=== PATIENT | female | born 1935 | race Caucasian/White ===

== ENCOUNTER 2021-04-08 09:03 | Outpatient (REF) | payer MEDICARE, SELFPAY ==
[2021-04-08 10:25] LABS: MANUAL DIFF FLAG NO
[2021-04-08 10:29] LABS: Basophils Percent Auto 0.2 % (0-2); Eosinophils Absolute Auto 0.1 X10*3/uL (0.0-0.4); Eosinophils Percent Auto 1.1 % (0-4); Hematocrit 35.3 % (37-47); Hemoglobin 11.8 g/dl (12.0-16.0); Imm Gran Abs Auto 0.02 X10*3/uL (0.00-0.03); Imm Gran Pct Auto 0.2 % (0.0-0.4); Lymphocytes Absolute Auto 2.3 X10*3/uL (1.2-4.9); Lymphocytes Percent Auto 27.8 % (20-40); Mean Corpuscular HGB Conc 33.4 g/dl (31.0-35.0); Mean Corpuscular Hemoglobin 29.5 pg (27.0-33.0); Mean Corpuscular Volume 88.3 fL (80-98); Mean Platelet Volume 10.1 fL (9.4-12.3); Monocytes Absolute Auto 0.6 X10*3/uL (0.1-1.2); Monocytes Percent Auto 7.7 % (2-11); Neutrophils Absolute Auto 5.1 X10*3/uL (2.0-8.3); Platelet Count 369 X10*3/uL (160-400); Red Cell Distribution Width 12.2 % (11.0-16.0); White Blood Count 8.1 X10*3/uL (4.8-10.8)
[2021-04-08 10:43] LABS: Alanine Aminotransferase 8 U/L (0-31); Albumin Level 3.7 g/dL (3.5-5.0); Alkaline Phosphatase 93 U/L (39-117); Anion Gap 12 (12-20); Aspartate Amino Transferase 17 U/L (5-31); Bilirubin Total 0.8 mg/dL (0.0-1.0); Blood Urea Nitrogen 8 mg/dL (9-16); Calcium 9.1 mg/dL (8.4-10.2); Carbon Dioxide 26 mmol/L (22-29); Chloride 104 mmol/L (96-108); Cholesterol 145 mg/dL; Estimated Glomerular Filt Rate > 60; Glucose Fasting 85 mg/dL (60-99); HDL Cholesterol 54 mg/dL; LDL Cholesterol Calculated 79 mg/dl; Potassium 4.3 mmol/L (3.3-5.1); Sodium 138 mmol/L (135-145); Total Protein 6.7 g/dL (6.5-8.0); Triglycerides 62 mg/dL
[2021-04-08 10:58] LABS: Vitamin D 25-OH Total 27.5 ng/mL (>30)
== END 2021-04-08 09:04 | disposition home or self-care (01) ==
LOC: HO.LAB 09:03
PROVIDERS: PCP Internal Medicine; Visit Provider Internal Medicine
DX: I10 Essential (primary) hypertension (principal); E78.00 Pure hypercholesterolemia, unspecified; E55.9 Vitamin D deficiency, unspecified
CPT/HCPCS: 36415; 80053; 80061; 82306; 85025

== ENCOUNTER 2021-07-13 10:27 | Outpatient (REF) | payer MEDICARE, SELFPAY ==
[2021-07-13 13:41] LABS: MANUAL DIFF FLAG NO
[2021-07-13 13:47] LABS: Basophils Percent Auto 0.3 % (0-2); Eosinophils Percent Auto 0.4 % (0-4); Hematocrit 36.8 % (37.0-47.0); Hemoglobin 12.2 g/dl (12.0-16.0); Imm Gran Abs Auto 0.01 X10*3/uL (0.00-0.03); Imm Gran Pct Auto 0.1 % (0.0-0.4); Lymphocytes Absolute Auto 2.3 X10*3/uL (1.2-4.9); Lymphocytes Percent Auto 29.3 % (20-40); Mean Corpuscular HGB Conc 33.2 g/dl (31.0-35.0); Mean Corpuscular Hemoglobin 29.7 pg (27.0-33.0); Mean Corpuscular Volume 89.5 fL (80.0-98.0); Mean Platelet Volume 10.6 fL (9.4-12.3); Monocytes Absolute Auto 0.6 X10*3/uL (0.1-1.2); Monocytes Percent Auto 8.2 % (2-11); Neutrophils Absolute Auto 4.77 x10*3/uL (2.0-8.3); Neutrophils Percent Auto 61.7 % (45-73); Platelet Count 384 X10*3/uL (160-400); Red Blood Count 4.11 X10*6/uL (4.20-5.50); Red Cell Distribution Width 12.1 % (11.0-16.0); White Blood Count 7.7 X10*3/uL (4.8-10.8)
[2021-07-13 14:21] LABS: Anion Gap 10 (12-20); Blood Urea Nitrogen 8 mg/dL (9-16); Calcium 8.9 mg/dL (8.4-10.2); Carbon Dioxide 28 mmol/L (22-29); Chloride 100 mmol/L (96-108); Estimated Glomerular Filt Rate > 60; Glucose Random 85 mg/dL (60-115); Iron 80 mcg/dL (30-160); Percent Iron Saturation 20 % (15-50); Potassium 4.1 mmol/L (3.3-5.1); Sodium 134 mmol/L (135-145); Total Iron Binding Capacity 395 mcg/dL (228-428); Unsaturated Iron Binding 315 ug/dL
[2021-07-13 14:36] LABS: Vitamin D 25-OH Total 27.1 ng/mL (>30)
== END 2021-07-13 10:28 | disposition home or self-care (01) ==
LOC: HO.10HDL 10:27
PROVIDERS: Visit Provider Internal Medicine
DX: E55.9 Vitamin D deficiency, unspecified (principal); D64.9 Anemia, unspecified; I10 Essential (primary) hypertension
CPT/HCPCS: 36415; 80048; 82306; 83540; 85025

== ENCOUNTER 2023-07-14 09:43 | Outpatient (REF) | payer MEDICARE, SELFPAY ==
[2023-07-14 09:53] LABS: MANUAL DIFF FLAG NO
[2023-07-14 11:17] LABS: Basophils Percent Auto 0.4 % (0-2); Eosinophils Absolute Auto 0.1 X10*3/uL (0.0-0.4); Eosinophils Percent Auto 1.4 % (0-4); Hematocrit 37.5 % (37.0-47.0); Hemoglobin 12.7 g/dl (12.0-16.0); Imm Gran Abs Auto 0.02 X10*3/uL (0.00-0.03); Imm Gran Pct Auto 0.2 % (0.0-0.4); Lymphocytes Absolute Auto 2.8 X10*3/uL (1.2-4.9); Lymphocytes Percent Auto 33.4 % (20-40); Mean Corpuscular HGB Conc 33.9 g/dl (31.0-35.0); Mean Corpuscular Hemoglobin 29.8 pg (27.0-33.0); Mean Platelet Volume 10.2 fL (9.4-12.3); Monocytes Absolute Auto 0.9 X10*3/uL (0.1-1.2); Monocytes Percent Auto 11.1 % (2-11); Neutrophils Absolute Auto 4.6 x10*3/uL (2.0-8.3); Neutrophils Percent Auto 53.5 % (45-73); Platelet Count 408 X10*3/uL (160-400); Red Blood Count 4.26 X10*6/uL (4.20-5.50); Red Cell Distribution Width 12.4 % (11.0-16.0); White Blood Count 8.5 X10*3/uL (4.8-10.8)
[2023-07-14 11:56] LABS: Alanine Aminotransferase 8 U/L (0-31); Albumin Level 3.7 g/dL (3.5-5.0); Alkaline Phosphatase 78 U/L (39-117); Anion Gap 12 (12-20); Aspartate Amino Transferase 19 U/L (5-31); Bilirubin Total 0.5 mg/dL (0.0-1.0); Blood Urea Nitrogen 8 mg/dL (9-16); Carbon Dioxide 27 mmol/L (22-29); Chloride 96 mmol/L (96-108); Cholesterol 162 mg/dL (<200); Estimated Glomerular Filt Rate > 60; Glucose Fasting 88 mg/dL (60-99); HDL Cholesterol 61 mg/dL (>40); LDL Cholesterol Calculated 87 mg/dL (<100); Sodium 131 mmol/L (135-145); Triglycerides 70 mg/dL (<150)
== END 2023-07-14 09:44 | disposition home or self-care (01) ==
LOC: HO.LAB 09:43
PROVIDERS: PCP Internal Medicine; Visit Provider Internal Medicine
DX: I10 Essential (primary) hypertension (principal); E78.00 Pure hypercholesterolemia, unspecified
CPT/HCPCS: 36415; 80053; 80061; 85025

== ENCOUNTER 2023-12-20 04:33 | Inpatient (IN) | payer MEDICARE, SELFPAY ==
[2023-12-20] VITALS (9 sets, daily range): BP systolic 118–218; BP diastolic 56–127; PULSE 59–68; RESP 16–18; TEMP 36.4–36.6; O2SAT 97–99; BMI 22.1
--- NOTE | ~2023-12-20 | XR_ITS ---
EXAMINATION: XR CHEST CLINICAL INFORMATION: Altered mental status COMPARISON: Chest radiograph 09/25/2011, report only TECHNIQUE: Frontal view of the chest was obtained. FINDINGS: No significant abnormality is noted involving the heart, lungs, mediastinum, bony thorax or soft tissues. XR/XR chest 1V IMPRESSION: Unremarkable examination.
--- NOTE | ~2023-12-20 | CT_ITS ---
EXAMINATION: CT HEAD WITHOUT CONTRAST CLINICAL INFORMATION: Acute mental status change COMPARISON: 11/10/2007 TECHNIQUE: Contiguous axial imaging was performed from the skull base to vertex without intravenous administration of contrast. This CT examination was performed using dose optimization techniques as appropriate, variously including the following: *Automated exposure control *Adjustment of mA and/or kV according to patient size (this includes techniques or standardized protocols for targeted exams where dose is matched to indication/reason for exam; i.e. extremities or head) *Use of iterative reconstruction technique DLP: 569 mGy-cm FINDINGS: There is no evidence of acute intracranial hemorrhage or ischemic or hemorrhagic stroke. Sulci and ventricles are mildly prominent secondary to age-related involutional changes in the patchy periventricular white matter hypodensities as a sequela of microangiopathy. There is no evidence of masses, mass effect, midline shift, edema. Osseous structures revealed no fractures. Paranasal sinuses demonstrate mucosal thickening of right frontal sinus and opacification of left mastoids. The rest of paranasal sinuses are well aerated. CT/CT head/brain wo IV con IMPRESSION: No acute intracranial pathology. 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
--- NOTE | 2023-12-20 06:46 | PC.NURSE ---
Addendum entered by Edilma Paz Katie 12/20/23 06:50: used new machine, bp lower. will update provider Original Note: notifed provider of elevated bp. awaiting new orders
--- NOTE | 2023-12-20 06:50 | ECG_ITS ---
Test Reason : AMS Blood Pressure : / mmHG Vent. Rate : 063 BPM Atrial Rate : 063 BPM P-R Int : 150 ms QRS Dur : 082 ms QT Int : 440 ms P-R-T Axes : 066 001 063 degrees QTc Int : 450 ms Normal sinus rhythm Possible Anterior infarct , age undetermined Abnormal ECG When compared with ECG of 03-AUG-2009 14:07, No significant change was found Referred By: Rhoda Gomez Electronically Signed By:Uriah Story
[2023-12-20 07:16] LABS: MANUAL DIFF FLAG NO
[2023-12-20 07:17] LABS: Basophils Percent Auto 0.2 % (0-2); Eosinophils Percent Auto 0.3 % (0-4); Hematocrit 39.7 % (37.0-47.0); Hemoglobin 14.2 g/dl (12.0-16.0); Imm Gran Abs Auto 0.03 X10*3/uL (0.00-0.03); Imm Gran Pct Auto 0.3 % (0.0-0.4); Lymphocytes Absolute Auto 2.4 X10*3/uL (1.2-4.9); Lymphocytes Percent Auto 24.6 % (20-40); Mean Corpuscular HGB Conc 35.8 g/dl (31.0-35.0); Mean Corpuscular Hemoglobin 30.3 pg (27.0-33.0); Mean Corpuscular Volume 84.8 fL (80.0-98.0); Mean Platelet Volume 9.4 fL (9.4-12.3); Monocytes Absolute Auto 0.7 X10*3/uL (0.1-1.2); Neutrophils Absolute Auto 6.5 x10*3/uL (2.0-8.3); Neutrophils Percent Auto 67.6 % (45-73); Platelet Count 408 X10*3/uL (160-400); Red Blood Count 4.68 X10*6/uL (4.20-5.50); Red Cell Distribution Width 11.9 % (11.0-16.0); White Blood Count 9.6 X10*3/uL (4.8-10.8)
[2023-12-20 07:24] LABS: Prothrombin Time 12.3 SEC (11.1-13.3)
[2023-12-20 07:27] LABS: Partial Thromboplastin Time 31.1 SEC (26.0-36.8)
[2023-12-20 07:27] LABS: Lactic Acid 0.9 mmol/L (0.5-2.0)
--- NOTE | 2023-12-20 07:38 | PC.NURSE ---
IV established, labs obtained and sent. family remains at bedside with patient. patient remains increasingly altered from her baseline per family. call berry within reach
--- NOTE | 2023-12-20 07:38 | ED.AMS ---
HPI - Altered Mental Status General Chief Complaint: Altered Mental Status Stated Complaint: increased confusion hallucinations Time Seen by Provider: 12/20/23 06:59 Source: patient, family and RN notes reviewed Mode of arrival: ambulatory Limitations: no limitations History of Present Illness HPI narrative: This is a 88-year-old female, with a history of dementia, who presents emergency department accompanied by her daughter and grandchildren, with concerns for change in mentation x2 days. Patient is alert and oriented to self only. When asked questions, patient is unable to answer them, as she will state random statements do not pertain to questions asked. Family reports that patient is baseline confused however states that since yesterday there is a change in her mentation. Family reports that she also had a sudden onset of auditory and visual hallucinations which is unlike her. They state that she was seeing individuals that have passed on, as well as seeing people climbing on aquino. Family reports that yesterday she started become aggressive which is very unlike her. Denies any recent illnesses, no fevers, cough, abdominal pain, vomiting. No other complaints or concerns at this time. MD complaint: altered mental status and confusion Onset (ago): day(s) Severity: severe Consistency of symptoms: getting Worse Related Data Home Medications ?Medication ?Instructions ?Recorded ?Confirmed aspirin 81 mg chewable tablet 81 mg PO DAILY 12/20/23 12/20/23 atenolol 50 mg tablet 50 mg PO DAILY 12/20/23 12/20/23 buspirone 5 mg tablet 10 mg PO DAILY 12/20/23 12/20/23 omeprazole 20 mg capsule,delayed 20 mg PO DAILY 12/20/23 12/20/23 release simvastatin 20 mg tablet 20 mg PO DAILY 12/20/23 12/20/23 Allergies Allergy/AdvReac Type Severity Reaction Status Date / Time nitrofurantoin Allergy Mild SWELLING Verified 12/21/23 08:01 [From Macrodantin] nitroglycerin Allergy Unknown Verified 12/21/23 08:01 Review of Systems Review of Systems: Yes all other systems are reviewed and are negative Constitutional: Constitutional: Reports as per HPI [facility] Social History Social History Smoked in Last 30 Days: No Use of substances other than those prescribed or required for medical reasons: No Advance Directives: No Advance Directives Information Provided: Yes Physical Exam ED Vital Signs: Vital Signs - 24 hr 12/20/23 17:49 12/20/23 20:51 12/20/23 21:46 Temperature 97.9 F Pulse Rate 62 64 Respiratory Rate 16 17 Blood Pressure 170/61 H 191/77 H 194/67 H Pulse Oximetry 98 98 Oxygen Delivery Method Room Air Room Air 12/21/23 03:01 12/21/23 07:24 12/21/23 12:54 Temperature Pulse Rate 73 Respiratory Rate 18 22 H 16 Blood Pressure Pulse Oximetry 96 Oxygen Delivery Method Room Air BMI result Body Mass Index 22.1 Const General: cooperative, comfortable and no acute distress Limitations: no limitations HENMT Head: Yes normal to inspection, Yes normocephalic and Yes atraumatic Ears: hearing grossly normal bilaterally General nose exam: Normal external nose present Face and sinus: Yes normal facial exam Mouth: Normal oral and palatal mucosa present, oropharynx normal and moist mucous membranes Throat: Yes posterior oropharynx normal Eyes General: appearance normal, both eyes and all related structures Eyelids: Yes eyelids normal Conjunctivae: conjunctivae normal Sclerae: sclerae normal Pupils: Equal, round and reactive pupils present EOM: EOMs intact bilaterally Neck Neck: Yes normal visual inspection, Yes full ROM and Yes no lymphadenopathy Lymphatic: no lymphadenopathy noted Chest Chest palpation & inspection: normal inspection of the chest Resp Effort & Inspection: normal respiratory effort and able to speak in complete sentences Auscultation: clear to auscultation bilaterally, no crackles, no rales, no rhonchi and no wheezes Cardio Rate: regular rate Rhythm: regular rhythm Heart sounds: S1 normal heart sound present and S2 normal heart sound present GI Inspection: Yes normal to inspection Skin General skin exam: no rashes or lesions noted Trauma: no lacerations or abrasions Wounds: no wounds Neuro General: moves all extremities Cranial nerves: Yes Equal, round and reactive pupils present Extrem General: Yes normal to inspection Right upper extremity: normal to inspection Left upper extremity: normal to inspection Right lower extremity: normal to inspection Left lower extremity: normal to inspection Psych Appearance: grossly normal Mental Status: mental status grossly normal Affect: Hostile affect present Attitude: Guarded attititude/behavior present Thought process: Flight of ideas present and Loose association thought process present Thought content: Hallucination(s) present Insight: Limited insight present (Psych) Judgement: Limited judgement present (Psych) Course Reevaluation(s) Reevaluation #1: Critical magnesium returns at 1.2; replenished with magnesium 2 g IV push. Time: 07:50 Reevaluation #2: Urine returns, is not infectious, patient is slightly hyponatremic at 132, CT head still pending. Chest x-ray does not reveal a pneumonia. Time: 10:27 Reevaluation #3: Blood pressure has been elevated, she typically takes her atenolol in the morning. She also takes BuSpar in the morning as well. Patient will be medicated with these medications. CT head revealing no acute intracranial pathology. Sequela of microangiopathy, chronic sinus disease and left mastoiditis seen. Given patient has nontender abdomen. At this time there is no identified acute process that would contribute to change in mentation. Per family, patient has not been sleeping well, which could be contributing to her change in mentation. Pt with a essentially negative workup, will place psych consult in for possible K[facility]en psych consultation, care team consult and case management. Pt remains to be plesantly confused, no agitation at this time. Pt placed in physician observation pending psych consult, care team consult and CM pending safe dispo planning. Time: 10:38 Additional Reevaluation(s): 12/21/2023, 15:48 hours The patient has a history of Alzheimer's dementia. Patient is not capable of making medical decisions. The family does have a healthcare proxy that appoints the patient's daughter, Manju Stanford to make medical decisions for the patient. At this time, I am invoking the patient's healthcare proxy. All medical decisions will be made by the patient's daughter, Manju Stanford with the alternative healthcare proxy being the patient's son, Filiberto Monique. Justin Dickey MD Medications Administered Generic Name Dose Route Start Last Admin Trade Name Freq PRN Reason Stop Dose Admin Aspirin 81 mg 12/21/23 09:00 12/21/23 08:20 Aspirin 81 Mg Tab.Chew PO 81 mg DAILY LISSA Administration Atenolol 50 mg 12/21/23 09:00 12/21/23 08:18 Atenolol 50 Mg Tablet PO 50 mg DAILY LISSA Administration Protocol Atorvastatin Calcium 10 mg 12/21/23 09:00 12/21/23 08:20 Atorvastatin Calcium 10 Mg Tablet PO 10 mg DAILY LISSA Administration Buspirone HCl 10 mg 12/21/23 09:00 12/21/23 08:20 Buspirone Hcl 10 Mg Tablet PO 10 mg DAILY LISSA Administration Omeprazole 20 mg 12/21/23 06:30 12/21/23 05:43 Omeprazole 20 Mg Capsule.Dr CHÁVEZ Not Given DAILY@0630 [facility] Discontinued Medications Generic Name Dose Route Start Last Admin Trade Name Yris PRN Reason Stop Dose Admin Atenolol 50 mg 12/20/23 10:37 12/20/23 10:55 Atenolol 50 Mg Tablet PO 12/20/23 10:38 50 mg ONCE ONE Administration Protocol Buspirone HCl 5 mg 12/20/23 10:37 12/20/23 10:56 Buspirone Hcl 5 Mg Tablet PO 12/20/23 10:38 5 mg ONCE ONE Administration Diphenhydramine HCl 50 mg 12/20/23 19:42 12/20/23 20:06 Diphenhydramine Hcl 25 Mg Capsule PO 12/20/23 19:43 50 mg ONCE ONE Administration Magnesium Sulfate 2 gm in 50 mls @ 25 mls/hr 12/20/23 07:52 12/20/23 10:47 Magnesium Sulfate/H2o IV 12/20/23 09:51 Infused ONCE ONE Infusion Olanzapine 5 mg 12/20/23 23:17 12/20/23 23:24 Olanzapine 5 Mg Tablet PO 12/20/23 23:18 5 mg ONCE ONE Administration Olanzapine 5 mg 12/21/23 00:57 12/21/23 01:02 Olanzapine 5 Mg Tablet PO 12/21/23 00:58 5 mg ONCE ONE Administration Olanzapine 5 mg 12/21/23 03:43 12/21/23 05:20 Olanzapine 5 Mg Tablet PO 12/21/23 03:44 Not Given ONCE ONE Medical Decision Making Medical Decision Making MDM Narrative: This is a 88-year-old female, with a history of dementia, who presents emergency department with complaints of sudden onset auditory and visual hallucinations as well as agitation for the last 2 days. Patient is alert and oriented to self only. When asked questions, she states random statements that do not pertain to questions asked. On arrival, patient mildly hypertensive at 169/75, repeat 153/83, she is afebrile, nontoxic-appearing. Family reports that she is typically confused at baseline however auditory and visual hallucinations as well as agitation is new for her over the last 2 days. Given acute change in mentation, concern for acute delirium. Other differential diagnoses include ICH, electrolyte abnormality, UTI, pneumonia, COVID, flu, RSV. Plan: Labs, UA, CT head, chest x-ray, EKG Differential Diagnosis Differential Diagnoses: The differential diagnosis associated with the presentation includes See above Admission/Observation Consideration of admission/observation: Escalation of care including admission/observation considered Escalation of care including admission/observation considered however given workup today not warranted at this time. Lab Data MDM Lab Attestation statement: I reviewed the patient's lab results. No leukocytosis, stable H&H, hyponatremic at 132, hypomagnesium the anemia at 1.2, Chemistry otherwise WNL. UA does not appear to be infected. 12/20/23 07:10 12/20/23 07:10 Labs: Lab Results 12/20/23 12/20/23 12/20/23 Range/Units 07:09 07:10 08:31 WBC 9.6 (4.8-10.8) X10*3/uL RBC 4.68 (4.20-5.50) X10*6/uL Hgb 14.2 (12.0-16.0) g/dl Hct 39.7 (37.0-47.0) % MCV 84.8 (80.0-98.0) fL MCH 30.3 (27.0-33.0) pg MCHC 35.8 H (31.0-35.0) g/dl RDW 11.9 (11.0-16.0) % Plt Count 408 H (160-400) X10*3/uL MPV 9.4 (9.4-12.3) fL Immature Gran % (Auto) 0.3 (0.0-0.4) % Neut % (Auto) 67.6 (45-73) % Lymph % (Auto) 24.6 (20-40) % [place] % (Auto) 7.0 (2-11) % Eos % (Auto) 0.3 (0-4) % Baso % (Auto) 0.2 (0-2) % Lymph # (Auto) 2.4 (1.2-4.9) X10*3/uL [place] # (Auto) 0.7 (0.1-1.2) X10*3/uL Eos # (Auto) 0.0 (0.0-0.4) X10*3/uL Baso # (Auto) 0.0 (0.0-0.2) X10*3/uL Abs Immat Gran (auto) 0.03 (0.00-0.03) X10*3/uL Absolute Neuts (auto) 6.5 (2.0-8.3) x10*3/uL Absolute Nucleated RBC 0.000 (0.0-0.012) X10*3/uL Nucleated RBC % (auto) 0.0 (0.0-0.2) /100WBC PT 12.3 (11.1-13.3) SEC INR 1.0 (0.9-1.1) APTT 31.1 (26.0-36.8) SEC Sodium 132 L (135-145) mmol/L Potassium 3.3 (3.3-5.1) mmol/L Chloride 98 (96-108) mmol/L Carbon Dioxide 25 (22-29) mmol/L Anion Gap 12 (12-20) BUN 5 L (9-16) mg/dL Creatinine 0.79 (0.5-1.4) mg/dL Estim Creat Clear Calc 35.3 Estimated GFR > 60 Random Glucose 104 (60-115) mg/dL Lactic Acid 0.9 (0.5-2.0) mmol/L Calcium 9.5 (8.4-10.2) mg/dL Magnesium 1.2 L* (1.6-2.6) mg/dL Total Bilirubin 0.9 (0.0-1.0) mg/dL AST 19 (5-31) U/L ALT 10 (0-31) U/L Alkaline Phosphatase 88 (39-117) U/L Troponin I High Sens < 2.7 (<3.5-17.0) ng/L Total Protein 7.8 (6.5-8.0) g/dL Albumin 4.1 (3.5-5.0) g/dL Lipase 27 (8-78) U/L TSH 3.00 (0.32-4.0) uIU/mL Urine Color Yellow Urine Appearance Clear Urine pH 7.0 (5.0-9.0) Ur Specific [place] <= 1.005 (1.005-1.025) Urine Protein Negative (Neg-Trace) mg/dL Urine Glucose (UA) Negative (Negative) mg/dL Urine Ketones Negative (Negative) mg/dL Urine Blood Negative (Negative) Urine Nitrite Negative (Negative) Ur Leukocyte Esterase Negative (Negative) Influenza Type A (PCR) NEGATIVE (Negative) Influenza Type B (PCR) NEGATIVE (Negative) RSV RNA Qual (PCR) NEGATIVE (Negative) SARS-CoV-2 RNA (RT-PCR) NEGATIVE (Negative) Independent Interpretation I performed an independent interpretation of an: EKG Interpretation: Normal sinus rhythm at a ventricular rate of 63 beats per minute, WI interval 150, QT QTC 440/450. Or R-wave progression in V1, V2, and V3. Radiology Impression Discussion of test interpretation with radiology: I have reviewed the radiologist's reading. Radiologist Impression: FINDINGS: There is no evidence of acute intracranial hemorrhage or ischemic or hemorrhagic stroke. Sulci and ventricles are mildly prominent secondary to age-related involutional changes in the patchy periventricular white matter hypodensities as a sequela of microangiopathy. There is no evidence of masses, mass effect, midline shift, edema. Osseous structures revealed no fractures. Paranasal sinuses demonstrate mucosal thickening of right frontal sinus and opacification of left mastoids. The rest of paranasal sinuses are well aerated. CT/CT head/brain wo IV con IMPRESSION: No acute intracranial pathology. 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 Dictated By: Lauren Black MD Signed By: <Electronically signed by Lauren Black MD in OV> EXAMINATION: XR CHEST CLINICAL INFORMATION: Altered mental status COMPARISON: Chest radiograph 09/25/2011, report only TECHNIQUE: Frontal view of the chest was obtained. FINDINGS: No significant abnormality is noted involving the heart, lungs, mediastinum, bony thorax or soft tissues. XR/XR chest 1V IMPRESSION: Unremarkable examination. Dictated By: Marco Antonio Vargas MD Independent Historian Clinical information obtained from an independent historian. History obtained from or confirmed by: Other (family) Discharge Plan Discharge Clinical Impression: Altered mental status Patient Disposition: Still a Patient
[2023-12-20 07:42] LABS: Alanine Aminotransferase 10 U/L (0-31); Albumin Level 4.1 g/dL (3.5-5.0); Alkaline Phosphatase 88 U/L (39-117); Anion Gap 12 (12-20); Aspartate Amino Transferase 19 U/L (5-31); Bilirubin Total 0.9 mg/dL (0.0-1.0); Blood Urea Nitrogen 5 mg/dL (9-16); Calcium 9.5 mg/dL (8.4-10.2); Carbon Dioxide 25 mmol/L (22-29); Chloride 98 mmol/L (96-108); Creatinine Clr Calc Pharmacy 35.3; Estimated Glomerular Filt Rate > 60; Glucose Random 104 mg/dL (60-115); Lipase 27 U/L (8-78); Magnesium 1.2 mg/dL (1.6-2.6); Potassium 3.3 mmol/L (3.3-5.1); Sodium 132 mmol/L (135-145); Total Protein 7.8 g/dL (6.5-8.0)
[2023-12-20 07:43] LABS: Troponin-I High Sensitivity < 2.7 ng/L (<3.5-17.0)
[2023-12-20 07:58] LABS: Influenza A PCR NEGATIVE (Negative); Influenza B PCR NEGATIVE (Negative); Resp Syncy Virus RNA Qual PCR NEGATIVE (Negative); SARS COV2 PCR INHOUSE NEGATIVE (Negative)
[2023-12-20] MEDS: Magnesium Sulfate/H2O 2 GM/50 ML PIGGYBACK IV (08:26)
--- NOTE | 2023-12-20 08:34 | PC.NURSE ---
straight cath obtained for urine sample. patient did not tolerate well, urine sample sent
[2023-12-20 08:38] LABS: Appearance Urine Clear; Color Urine Yellow; Glucose Urine UA Negative (Negative); Leukocyte Esterase Urine Negative (Negative); Nitrite Urine Negative (Negative); Specific Gravity - Urine <= 1.005 (1.005-1.025); Urine Blood Negative (Negative); Urine Ketones Negative (Negative); Urine Protein Negative (Neg-Trace)
[2023-12-20] MEDS: atenoloL 50 MG TABLET PO (10:55)
[2023-12-20] MEDS: busPIRone HCl 5 MG TABLET PO (10:56)
--- NOTE | 2023-12-20 11:00 | PC.NURSE ---
medicated per the MAR. family remains at bedside. provided with crackers and pudding.
--- NOTE | 2023-12-20 12:26 | PC.NURSE ---
patient placed into hospital bed w/ alarm on. video camera also in place for patient safety.
--- NOTE | 2023-12-20 14:06 | MHC.CARE ---
patient seen by CARE team, assessment completed with referral for psych consult due to current symptomology (hallucinations, self dialogue, SI statement and combativeness) in tandem with no reported hx of MH diagnosis or treatment. Patient dx dementia by PCP with his office doing cognitive testing every few months since 2013. Additionally, referral for CM to be made as family is very concerned about their ability to keep patient safe in the home at this time.
--- NOTE | 2023-12-20 16:32 | PHA.MEDREC ---
Pharmacy Consult ? Medication Reconciliation Pharmacy has completed the medication reconciliation. Patient's family reported medicaitons. Reports buspar is taken 2 tablet daily instead of 1 BID. Ashley Chu, FiliD
[2023-12-20] MEDS: diphenhydrAMINE HCL 25 MG CAPSULE 50 MG PO (20:06)
--- NOTE | 2023-12-20 22:26 | PC.NURSE ---
Dr. Menjivar aware of BP's, pt is asymptomatic, no further orders @ this time.
[2023-12-20] MEDS: OLANZapine 5 MG TABLET PO (23:24)
--- NOTE | 2023-12-20 23:30 | PC.NURSE ---
PT very agitated, attempting to get out of bed, yelling at son. Zyprexa 5mg ordered and given, effect pending.
[2023-12-21] MEDS: OLANZapine 5 MG TABLET PO (01:02)
--- NOTE | 2023-12-21 01:33 | PC.NURSE ---
Late entry; at approx 1am pt became extremely agitated, continuing to attempt to jump out of bed. Son reports she has not slept in 3 days. Add'l 5mg of Zyprexa ordered and given. Effect pending.
[2023-12-21 03:01] VITALS: RESP 18
--- NOTE | 2023-12-21 03:03 | MHC.EDTECH ---
This tech is assuming care of this patient at 03:00. At this time, son is at bedside, patient has been awake seemly agitated.
[2023-12-21 07:24] VITALS: PULSE 73; RESP 22; O2SAT 96
--- NOTE | 2023-12-21 07:25 | MHC.EDTECH ---
Patient is agitated and constantly attempting to get out of bed. Unable to get a BP at this time, was able to get an O2, HR and RR.
[2023-12-21] MEDS: atenoloL 50 MG TABLET PO (08:18)
[2023-12-21] MEDS: Atorvastatin Calcium 10 MG TABLET PO (08:20)
[2023-12-21] MEDS: busPIRone HCl 10 MG TABLET PO (08:20)
[2023-12-21] MEDS: Aspirin 81 MG TAB.CHEW PO (08:20)
--- NOTE | 2023-12-21 08:31 | PC.NURSE ---
pt is alert, not oriented to place or situation. Pt took morning pills with significant encouragement. Pt is confused, currently not agitated nor combative. Pts family at bedside, they report that pt has not slept in 3 days. waiting for psych consult
[2023-12-21 12:54] VITALS: RESP 16
[2023-12-21 15:50] VITALS: PULSE 74; RESP 16; O2SAT 96
--- NOTE | 2023-12-21 18:58 | PC.ADMIT ---
Patient admitted to unit from [facility] ED at 1850. Legal status is CV by HCP. Patient alert to self only. Dressed in [facility]. Transported by stretcher. Put in clean gown and brief. Skin check done. Patient with HX of worsening dementia.Agitated and agressive to staff. daughter reported patient has had raqpid decompensation over last three days.
[2023-12-21 19:30] VITALS: BP 135/85; PULSE 64; RESP 18; TEMP 35.2; O2SAT 97
[2023-12-21 22:27] VITALS: BMI 20.4
[2023-12-22] MEDS: Omeprazole 20 MG CAPSULE.DR PO (06:06)
[2023-12-22 08:21] LABS: Alanine Aminotransferase 8 U/L (0-31); Albumin Level 3.1 g/dL (3.5-5.0); Alkaline Phosphatase 68 U/L (39-117); Anion Gap 12 (12-20); Aspartate Amino Transferase 15 U/L (5-31); Bilirubin Total 0.8 mg/dL (0.0-1.0); Blood Urea Nitrogen 19 mg/dL (9-16); Calcium 8.6 mg/dL (8.4-10.2); Carbon Dioxide 23 mmol/L (22-29); Chloride 98 mmol/L (96-108); Cholesterol 113 mg/dL (<200); Creatinine Clr Calc Pharmacy 26.5; Estimated Glomerular Filt Rate 49; Glucose Fasting 84 mg/dL (60-99); HDL Cholesterol 53 mg/dL (>40); LDL Cholesterol Calculated 50 mg/dL (<100); Potassium 3.4 mmol/L (3.3-5.1); Sodium 130 mmol/L (135-145); Total Protein 5.8 g/dL (6.5-8.0); Triglycerides 53 mg/dL (<150)
[2023-12-22 12:00] VITALS: BP 122/60; PULSE 69; RESP 16; TEMP 36.6; O2SAT 97
[2023-12-22 19:30] VITALS: BP 166/71; PULSE 61; RESP 17; TEMP 36.1; O2SAT 97
--- NOTE | 2023-12-22 21:28 | P.PNPSI_ITS ---
Subjective Subjective Date of Service: 12/22/23 Reason For Visit: agitation Diagnostics Vital Signs (24Hr): Vital Signs - 24 hr 12/22/23 12:00 Temperature 97.8 F Pulse Rate 69 Respiratory Rate 16 Blood Pressure 122/60 Pulse Oximetry 97 Oxygen Delivery Method Room Air BMI result Body Mass Index 20.4 Labs 12/20/23 07:10 12/22/23 07:31 Labs: Laboratory Results - last 48 hr 12/22/23 07:31 Hold Purple Top SEE NOTE Sodium 130 L Potassium 3.4 Chloride 98 Carbon Dioxide 23 Anion Gap 12 BUN 19 H Creatinine 1.05 Estim Creat Clear Calc 26.5 Estimated GFR 49 Fasting Glucose 84 Calcium 8.6 D Total Bilirubin 0.8 AST 15 ALT 8 Alkaline Phosphatase 68 Total Protein 5.8 L Albumin 3.1 L Triglycerides 53 Cholesterol 113 LDL Cholesterol, Calc 50 HDL Cholesterol 53 Imaging Radiology Impressions: ITS Impressions Chest X-Ray 12/20/23 07:54 IMPRESSION: Unremarkable examination. Head CT 12/20/23 08:32 IMPRESSION: No acute intracranial pathology. 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 Medications Medications Current Medications Acetaminophen (Acetaminophen 325 Mg Tablet) 650 mg PO Q6H PRN PRN Reason: Headache/Pain Mild Scale (1-3) Al Hydroxide/Mg Hydroxide (Magnesium Hydrox/Alum Hydrox 30 Ml Oral.Susp) 30 ml PO Q6H PRN PRN Reason: Heartburn/Nausea Aspirin (Aspirin 81 Mg Tab.Chew) 81 mg PO DAILY [facility] Last Admin: 12/22/23 12:17 Dose: Not Given Atenolol (Atenolol 50 Mg Tablet) 50 mg PO DAILY [facility]; Protocol Last Admin: 12/22/23 12:17 Dose: Not Given Atorvastatin Calcium (Atorvastatin Calcium 10 Mg Tablet) 10 mg PO DAILY [facility] Last Admin: 12/22/23 12:17 Dose: Not Given Buspirone HCl (Buspirone Hcl 10 Mg Tablet) 10 mg PO DAILY [facility] Last Admin: 12/22/23 12:17 Dose: Not Given Hydroxyzine HCl (Hydroxyzine Hcl 25 Mg Tablet) 25 mg PO Q6H PRN PRN Reason: Anxiety Magnesium Hydroxide (Milk Of Magnesia 30 Ml Oral.Susp) 30 ml PO DAILY PRN PRN Reason: Constipation Omeprazole (Omeprazole 20 Mg Capsule.Dr) 20 mg PO DAILY@0630 [facility] Last Admin: 12/22/23 06:06 Dose: 20 mg Trazodone HCl (Trazodone Hcl 50 Mg Tablet) 50 mg PO BEDTIME MRX1 PRN PRN Reason: Insomnia Allergies Allergies Allergy/AdvReac Type Severity Reaction Status Date / Time nitrofurantoin Allergy Mild SWELLING Verified 12/21/23 08:01 [From Macrodantin] nitroglycerin Allergy Unknown Verified 12/21/23 08:01 Assessment & Plan Time Spent With Patient Time: Total time managing care of this patient today ____ minutes.
--- NOTE | 2023-12-22 21:30 | HO.PSYADMNOT ---
HPI Date of Service: 12/22/23 Chief Complaint: agitation Sources of Information: patient interviewed, chart reviewed and crisis/core team assessment reviewed HPI Subjective Notes: Conditional Voluntary Healthcare Proxy: Yes Narrative: 88 yo female w history of dementia who presented to ED for 2 day hx of altered mental status. According to ED note, she was brought in by her daughter and grandchildren who voiced concerned that patient was not at her baseline. She is generally confused but reportedly had an acute VH with seeing relatives and people climbing on aquino . Per family report, patient became aggressive at home, prior to ED visit. ED workup including physical examination, CT, EKG and lab work including CBC, CMP, TSH, lipase and U/A were largely unremarkable aside from low magnesium for which she was already treated with 2 gm IV Mg sulfate. I met with her this morning, she was in her room, awake, alert and walking around. SHe was half dressed and was asking everyone where her pants were. She was hard of hearing and asked for repeated questions but could not answer any appropriately and continued to ask about where her pants were. She was looking around including under the beds and was trying to reach out and touch the pedals on her roommate's bed, prompting roommate to ask her what she is doing. Patient did not respond but did stop trying to to this once she was redirected. She was unable to provide any history and could not give me her name but did respond to her name and was oriented to self only. She was given pants by nursing staff and was later seen walking along hallway, greeting people with a good morning but did not respond to any follow up questions. She appears bright but otherwise confused. She went to get breakfast and asked if I was coming along. She asked if I knew where my mother was. Past Psychiatric History: unable to obtain Medical Evaluation Reviewed: Yes COUNT INCLUDES THE [facility] Family History: unable to obtain Social History: unable to obtain Substance History: unable to obtain Trauma History: unable to obtain Diagnostics Vital Signs (24Hr): Vital Signs - 24 hr 12/22/23 12:00 Temperature 97.8 F Pulse Rate 69 Respiratory Rate 16 Blood Pressure 122/60 Pulse Oximetry 97 Oxygen Delivery Method Room Air BMI result Body Mass Index 20.4 Labs 12/20/23 07:10 12/22/23 07:31 Labs: Laboratory Results - last 48 hr 12/22/23 07:31 Hold Purple Top SEE NOTE Sodium 130 L Potassium 3.4 Chloride 98 Carbon Dioxide 23 Anion Gap 12 BUN 19 H Creatinine 1.05 Estim Creat Clear Calc 26.5 Estimated GFR 49 Fasting Glucose 84 Calcium 8.6 D Total Bilirubin 0.8 AST 15 ALT 8 Alkaline Phosphatase 68 Total Protein 5.8 L Albumin 3.1 L Triglycerides 53 Cholesterol 113 LDL Cholesterol, Calc 50 HDL Cholesterol 53 Imaging Radiology Impressions: ITS Impressions Chest X-Ray 12/20/23 07:54 IMPRESSION: Unremarkable examination. Head CT 12/20/23 08:32 IMPRESSION: No acute intracranial pathology. 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 Meds/Allergies Meds Home Medications ?Medication ?Instructions ?Recorded ?Confirmed ?Type aspirin 81 mg chewable tablet 81 mg PO DAILY 12/20/23 12/20/23 History atenolol 50 mg tablet 50 mg PO DAILY 12/20/23 12/20/23 History buspirone 5 mg tablet 10 mg PO DAILY 12/20/23 12/20/23 History omeprazole 20 mg capsule,delayed 20 mg PO DAILY 12/20/23 12/20/23 History release simvastatin 20 mg tablet 20 mg PO DAILY 12/20/23 12/20/23 History Allergies Allergies Allergy/AdvReac Type Severity Reaction Status Date / Time nitrofurantoin Allergy Mild SWELLING Verified 12/21/23 08:01 [From Macrodantin] nitroglycerin Allergy Unknown Verified 12/21/23 08:01 Mental Status Exam Mental Status Exam Narrative: Patient Appearance: Appropriate, better groomed today Patient Orientation: Person x0. Patient hearing impaired Level of Consciousness: Awake, alert Patient Behavior: Pleasant Mood Description: euthymic Affect Description: Appropriate Patient Cognition Impaired: Yes Ability to Follow Directions: Fair Speech Pattern: Clear Memory Description: Remote Impaired, Immediate Impaired and Episodic Impaired Assessment & Plan Assessment & Plan (1) Altered mental status: Status: Acute Code(s): R41.82 - Altered mental status, unspecified Plan 1. Continue to gather collateral information we will try to gather information from the facility and her sister. 2. Continue with regular medications 3. Will need a medical workup 4. The patient is hearing impaired (possibly ?vision impaired), however behaviors are otherwise appropriate, no immediate safety concerns so 15 minutes checks. 5. Reassessment with results. Patient educated on: diagnosis Reason for continued inpatient stay Substantial Risk for: inability to function and med/psych decompensation Statement Statement: I have reviewed the history and physical and performed a pertinent examination on my patient. No changes have occurred unless specified. If the History and Physical was not performed prior to admission, the Hospitalist's service will be consulted for completing the admission physical. Time Spent With Patient Time: Total time managing care of this patient today ____ minutes.
[2023-12-23] MEDS: Omeprazole 20 MG CAPSULE.DR PO (05:57)
[2023-12-23 08:00] VITALS: BP 121/60; PULSE 80; RESP 18; TEMP 36; O2SAT 96
[2023-12-23] MEDS: Aspirin 81 MG TAB.CHEW PO (08:57)
[2023-12-23] MEDS: Atorvastatin Calcium 10 MG TABLET PO (08:57)
[2023-12-23] MEDS: atenoloL 50 MG TABLET PO (08:57)
[2023-12-23] MEDS: busPIRone HCl 10 MG TABLET PO (08:57)
[2023-12-23 18:00] VITALS: BP 164/72; PULSE 73; RESP 18; TEMP 36.2; O2SAT 96
--- NOTE | 2023-12-23 23:36 | HO.PSYCHPN ---
Subjective Subjective Date of Service: 12/23/23 Reason For Visit: agitation Subjective Notes: Conditional Voluntary Interim History: Met with patient. Spoke with nursing staff to review. Slept all night, elevated BP last night 166/71, better this AM 121/60.No behavioral issues. She was seen in dining room after breakfast. Sitting quietly and watching the other patients. Pleasant but confused. Hearing impairment further complicating conversation however patient spontaneously noted that the doll she was holding, she was holding for another patient and let me know this is not mine . Upon learning I was the covering doctor, she said I'm not going to the hospital, I'm fine here . When asked how she is doing, she says she is waiting for her daughter. Review of Systems Review of Systems Yes all other systems are reviewed and are negative Constitutional: Reports as per HPI Mental Status Exam Mental Status Exam Narrative: Patient Appearance: Appropriate, better groomed today Patient Orientation: Person x0. Patient hearing impaired Level of Consciousness: Awake, alert Patient Behavior: Pleasant Mood Description: euthymic Affect Description: Appropriate Patient Cognition Impaired: Yes Ability to Follow Directions: Fair Speech Pattern: Clear Memory Description: Remote Impaired, Immediate Impaired and Episodic Impaired Diagnostics Vital Signs (24Hr): Vital Signs - 24 hr 12/23/23 08:00 12/23/23 18:00 Temperature 96.8 F 97.1 F Pulse Rate 80 73 Respiratory Rate 18 18 Blood Pressure 121/60 164/72 H Pulse Oximetry 96 96 Oxygen Delivery Method Room Air Room Air BMI result Body Mass Index 20.4 Labs 12/20/23 07:10 12/22/23 07:31 Labs: Laboratory Results - last 48 hr 12/22/23 07:31 Hold Purple Top SEE NOTE Sodium 130 L Potassium 3.4 Chloride 98 Carbon Dioxide 23 Anion Gap 12 BUN 19 H Creatinine 1.05 Estim Creat Clear Calc 26.5 Estimated GFR 49 Fasting Glucose 84 Calcium 8.6 D Total Bilirubin 0.8 AST 15 ALT 8 Alkaline Phosphatase 68 Total Protein 5.8 L Albumin 3.1 L Triglycerides 53 Cholesterol 113 LDL Cholesterol, Calc 50 HDL Cholesterol 53 Imaging Radiology Impressions: ITS Impressions Chest X-Ray 12/20/23 07:54 IMPRESSION: Unremarkable examination. Head CT 12/20/23 08:32 IMPRESSION: No acute intracranial pathology. 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 Medications Medications Current Medications Acetaminophen (Acetaminophen 325 Mg Tablet) 650 mg PO Q6H PRN PRN Reason: Headache/Pain Mild Scale (1-3) Al Hydroxide/Mg Hydroxide (Magnesium Hydrox/Alum Hydrox 30 Ml Oral.Susp) 30 ml PO Q6H PRN PRN Reason: Heartburn/Nausea Aspirin (Aspirin 81 Mg Tab.Chew) 81 mg PO DAILY [facility] Last Admin: 12/23/23 08:57 Dose: 81 mg Atenolol (Atenolol 50 Mg Tablet) 50 mg PO DAILY [facility]; Protocol Last Admin: 12/23/23 08:57 Dose: 50 mg Atorvastatin Calcium (Atorvastatin Calcium 10 Mg Tablet) 10 mg PO DAILY [facility] Last Admin: 12/23/23 08:57 Dose: 10 mg Buspirone HCl (Buspirone Hcl 10 Mg Tablet) 10 mg PO DAILY [facility] Last Admin: 12/23/23 08:57 Dose: 10 mg Hydroxyzine HCl (Hydroxyzine Hcl 25 Mg Tablet) 25 mg PO Q6H PRN PRN Reason: Anxiety Magnesium Hydroxide (Milk Of Magnesia 30 Ml Oral.Susp) 30 ml PO DAILY PRN PRN Reason: Constipation Omeprazole (Omeprazole 20 Mg Capsule.Dr) 20 mg PO DAILY@0630 [facility] Last Admin: 12/23/23 05:57 Dose: 20 mg Trazodone HCl (Trazodone Hcl 50 Mg Tablet) 50 mg PO BEDTIME MRX1 PRN PRN Reason: Insomnia Allergies Allergies Allergy/AdvReac Type Severity Reaction Status Date / Time nitrofurantoin Allergy Mild SWELLING Verified 12/21/23 08:01 [From Macrodantin] nitroglycerin Allergy Unknown Verified 12/21/23 08:01 Assessment & Plan Assessment & Plan (1) Major neurocognitive disorder: Status: Acute Code(s): F03.90 - Unspecified dementia, unspecified severity, without behavioral disturbance, psychotic disturbance, mood disturbance, and anxiety Plan 1. Continue to gather collateral information we will try to gather information from the facility and her sister. 2. Continue with regular medications 3. Continue with medical workup 4. The patient is hearing impaired, however behaviors are appropriate, no immediate safety concerns so 15 minutes checks. 5. Reassessment with results. Reason for continued inpatient stay Substantial Risk for: inability to function, rapid decompensation and med/psych decompensation Time Spent With Patient Time: Total time managing care of this patient today ____ minutes.
[2023-12-24] MEDS: Omeprazole 20 MG CAPSULE.DR PO (05:46)
[2023-12-24 08:25] VITALS: BP 130/57; PULSE 83; RESP 18; TEMP 36; O2SAT 95
--- NOTE | 2023-12-24 08:26 | P.PNPSI_ITS ---
Subjective Subjective Date of Service: 12/24/23 Reason For Visit: agitation Subjective Notes: Conditional Voluntary Interim History: Pt slept through the night. She continues to present as confused, not oriented to place, or situation. She is asking staff to help her go to the store because her sister is waiting for her there. She is easily redirected. No behavioral concerns. VS stable. Review of Systems Review of Systems Yes all other systems are reviewed and are negative Constitutional: Reports as per [facility] Mental Status Exam Mental Status Exam Patient Appearance: Well Grooomed Patient Orientation: Person Level of Consciousness: Appropriate Patient Behavior: Appropriate (somewhat guarded) Mood Description: Nervous Affect Description: Nervous Patient Cognition Impaired: Yes Ability to Follow Directions: Poor Speech Pattern: Impoverished Memory Description: Immediate Impaired Hallucinations: None Delusions: Not Present (comfabulaitons) Thought Process: Confusion Judgement: Poor Judgement and Insight: impaired x 2. Diagnostics Vital Signs (24Hr): Vital Signs - 24 hr 12/23/23 18:00 Temperature 97.1 F Pulse Rate 73 Respiratory Rate 18 Blood Pressure 164/72 H Pulse Oximetry 96 Oxygen Delivery Method Room Air BMI result Body Mass Index 20.4 Labs 12/20/23 07:10 12/22/23 07:31 Imaging Radiology Impressions: ITS Impressions Chest X-Ray 12/20/23 07:54 IMPRESSION: Unremarkable examination. Head CT 12/20/23 08:32 IMPRESSION: No acute intracranial pathology. 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 Medications Medications Current Medications Acetaminophen (Acetaminophen 325 Mg Tablet) 650 mg PO Q6H PRN PRN Reason: Headache/Pain Mild Scale (1-3) Al Hydroxide/Mg Hydroxide (Magnesium Hydrox/Alum Hydrox 30 Ml Oral.Susp) 30 ml PO Q6H PRN PRN Reason: Heartburn/Nausea Aspirin (Aspirin 81 Mg Tab.Chew) 81 mg PO DAILY [facility] Last Admin: 12/23/23 08:57 Dose: 81 mg Atenolol (Atenolol 50 Mg Tablet) 50 mg PO DAILY [facility]; Protocol Last Admin: 12/23/23 08:57 Dose: 50 mg Atorvastatin Calcium (Atorvastatin Calcium 10 Mg Tablet) 10 mg PO DAILY [facility] Last Admin: 12/23/23 08:57 Dose: 10 mg Buspirone HCl (Buspirone Hcl 10 Mg Tablet) 10 mg PO DAILY [facility] Last Admin: 12/23/23 08:57 Dose: 10 mg Hydroxyzine HCl (Hydroxyzine Hcl 25 Mg Tablet) 25 mg PO Q6H PRN PRN Reason: Anxiety Magnesium Hydroxide (Milk Of Magnesia 30 Ml Oral.Susp) 30 ml PO DAILY PRN PRN Reason: Constipation Omeprazole (Omeprazole 20 Mg Capsule.Dr) 20 mg PO DAILY@0630 [facility] Last Admin: 12/24/23 05:46 Dose: 20 mg Trazodone HCl (Trazodone Hcl 50 Mg Tablet) 50 mg PO BEDTIME MRX1 PRN PRN Reason: Insomnia Allergies Allergies Allergy/AdvReac Type Severity Reaction Status Date / Time nitrofurantoin Allergy Mild SWELLING Verified 12/21/23 08:01 [From Macrodantin] nitroglycerin Allergy Unknown Verified 12/21/23 08:01 Assessment & Plan Assessment & Plan (1) Major neurocognitive disorder: Status: Acute Code(s): F03.90 - Unspecified dementia, unspecified severity, without behavioral disturbance, psychotic disturbance, mood disturbance, and anxiety Plan 12/23 continue tx. Reason for continued inpatient stay Substantial Risk for: inability to function Time Spent With Patient Time: Total time managing care of this patient today ____ minutes.
[2023-12-24 18:00] VITALS: BP 155/73; PULSE 84; RESP 18; TEMP 36.5; O2SAT 97
[2023-12-24] MEDS: traZODone HCL 50 MG TABLET PO (19:59)
[2023-12-24] MEDS: hydrOXYzine HCL 25 MG TABLET PO (20:00)
--- NOTE | 2023-12-25 | ECG_ITS ---
Test Reason : low Mg, need a baseline Blood Pressure : / mmHG Vent. Rate : 074 BPM Atrial Rate : 074 BPM P-R Int : 144 ms QRS Dur : 134 ms QT Int : 448 ms P-R-T Axes : 068 008 127 degrees QTc Int : 497 ms Normal sinus rhythm Left bundle branch block Abnormal ECG When compared with ECG of 20-DEC-2023 07:02, Left bundle branch block is now Present Borderline criteria for Anterior infarct are no longer Present Referred By: Lizzette Santiago Electronically Signed By:ANTOINE OVERTON
[2023-12-25] MEDS: Omeprazole 20 MG CAPSULE.DR PO (06:29)
[2023-12-25 08:10] VITALS: BP 154/72; PULSE 80; RESP 18; TEMP 36.5; O2SAT 96
[2023-12-25] MEDS: Aspirin 81 MG TAB.CHEW PO (08:41)
[2023-12-25] MEDS: busPIRone HCl 10 MG TABLET PO (08:41)
[2023-12-25] MEDS: Atorvastatin Calcium 10 MG TABLET PO (08:41)
[2023-12-25] MEDS: atenoloL 50 MG TABLET PO (08:41)
--- NOTE | 2023-12-25 10:08 | HO.PSYCHPN ---
Subjective Subjective Date of Service: 12/25/23 Reason For Visit: agitation Subjective Notes: Conditional Voluntary Interim History: Pt calmer, less preoccupied with going to the store or needing to go somewhere. No aggression towards self or others. She denies any physical concern. Repeat labs to check Na, Mg. Mg- low 1.2(pt had same low level prior to admission and received magnesium sulfate 2gm IV. no oral supplementation started) discussed with hospitalist Dr. Chaves replete with mag 2gm IV infusion and starting oral mag oxide 800mg po BID. Na- improving, pending urine Na, osmolality. daughter updated. Review of Systems Review of Systems Yes all other systems are reviewed and are negative Constitutional: Reports as per HPI and Reports no additional constitutional complaints Eyes: Reports as per HPI and Denies no additional eye complaints Denies system reviewed and no additional complaints, except as documented and Reports as per HPI Cardiovascular: Reports as per HPI, Reports no additional cardiovascular complaints, Denies acrocyanosis, Denies cool extremities, Denies chest pain, Denies leg edema, Denies lightheadedness, Denies palpitations and Denies dyspnea Respiratory: Reports as per HPI, Denies no additional respiratory complaints and Denies dyspnea Gastrointestinal: Reports as per HPI and Denies no additional gastrointestinal complaints Musculoskeletal: Reports no additional musculoskeletal complaints and Reports as per HPI Skin/Breast: Reports system reviewed and no additional complaints, except as docu Reports system reviewed and no additional complaints, except as documented and Reports as per HPI Psychiatric: Reports no additional psychiatric complaints and Reports as per HPI Endocrine: Reports no additional endocrine complaints, Reports as per HPI and Denies palpitations Hematologic/Lymphatic: Reports no additional hematologic/lymphatic complaints and Reports as per HPI Allergic/Immunologic: Reports no additional allergic/immunologic complaints and Reports as per HPI Mental Status Exam Mental Status Exam Narrative: Patient Appearance: Appropriate, better groomed today Patient Orientation: Person x0. Patient hearing impaired Level of Consciousness: Awake, alert Patient Behavior: Pleasant Mood Description: euthymic Affect Description: Appropriate Patient Cognition Impaired: Yes Ability to Follow Directions: Fair Speech Pattern: Clear Memory Description: Remote Impaired, Immediate Impaired and Episodic Impaired Diagnostics Vital Signs (24Hr): Vital Signs - 24 hr 12/24/23 18:00 12/25/23 08:10 Temperature 97.7 F 97.7 F Pulse Rate 84 80 Respiratory Rate 18 18 Blood Pressure 155/73 H 154/72 H Pulse Oximetry 97 96 Oxygen Delivery Method Room Air Room Air BMI result Body Mass Index 20.4 Labs 12/20/23 07:10 12/26/23 06:56 Imaging Radiology Impressions: ITS Impressions Chest X-Ray 12/20/23 07:54 IMPRESSION: Unremarkable examination. Head CT 12/20/23 08:32 IMPRESSION: No acute intracranial pathology. 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 Medications Medications Current Medications Acetaminophen (Acetaminophen 325 Mg Tablet) 650 mg PO Q6H PRN PRN Reason: Headache/Pain Mild Scale (1-3) Al Hydroxide/Mg Hydroxide (Magnesium Hydrox/Alum Hydrox 30 Ml Oral.Susp) 30 ml PO Q6H PRN PRN Reason: Heartburn/Nausea Aspirin (Aspirin 81 Mg Tab.Chew) 81 mg PO DAILY [facility] Last Admin: 12/25/23 08:41 Dose: 81 mg Atenolol (Atenolol 50 Mg Tablet) 50 mg PO DAILY [facility]; Protocol Last Admin: 12/25/23 08:41 Dose: 50 mg Atorvastatin Calcium (Atorvastatin Calcium 10 Mg Tablet) 10 mg PO DAILY [facility] Last Admin: 12/25/23 08:41 Dose: 10 mg Buspirone HCl (Buspirone Hcl 10 Mg Tablet) 10 mg PO DAILY [facility] Last Admin: 12/25/23 08:41 Dose: 10 mg Hydroxyzine HCl (Hydroxyzine Hcl 25 Mg Tablet) 25 mg PO Q6H PRN PRN Reason: Anxiety Last Admin: 12/24/23 20:00 Dose: 25 mg Magnesium Hydroxide (Milk Of Magnesia 30 Ml Oral.Susp) 30 ml PO DAILY PRN PRN Reason: Constipation Omeprazole (Omeprazole 20 Mg Capsule.Dr) 20 mg PO DAILY@0630 [facility] Last Admin: 12/25/23 06:29 Dose: 20 mg Trazodone HCl (Trazodone Hcl 50 Mg Tablet) 50 mg PO BEDTIME MRX1 PRN PRN Reason: Insomnia Last Admin: 12/24/23 19:59 Dose: 50 mg Allergies Allergies Allergy/AdvReac Type Severity Reaction Status Date / Time nitrofurantoin Allergy Mild SWELLING Verified 12/21/23 08:01 [From Macrodantin] nitroglycerin Allergy Unknown Verified 12/21/23 08:01 Assessment & Plan Assessment & Plan (1) Major neurocognitive disorder: Status: Acute Code(s): F03.90 - Unspecified dementia, unspecified severity, without behavioral disturbance, psychotic disturbance, mood disturbance, and anxiety Plan 1. continue current medications 2. monitor mag. started mag oxide 800mg po BID. Reason for continued inpatient stay Substantial Risk for: inability to function Time Spent With Patient Time: Total time managing care of this patient today ____ minutes.
[2023-12-25 14:09] LABS: Osmolality, Serum 278 mosm/kg (281-305)
[2023-12-25 14:14] LABS: Alanine Aminotransferase 11 U/L (0-31); Albumin Level 3.6 g/dL (3.5-5.0); Alkaline Phosphatase 80 U/L (39-117); Anion Gap 13 (12-20); Aspartate Amino Transferase 22 U/L (5-31); Bilirubin Total 0.9 mg/dL (0.0-1.0); Blood Urea Nitrogen 22 mg/dL (9-16); Calcium 8.9 mg/dL (8.4-10.2); Carbon Dioxide 25 mmol/L (22-29); Chloride 98 mmol/L (96-108); Creatinine Clr Calc Pharmacy 33.2; Estimated Glomerular Filt Rate > 60; Glucose Random 110 mg/dL (60-115); Magnesium 1.2 mg/dL (1.6-2.6); Potassium 3.7 mmol/L (3.3-5.1); Sodium 132 mmol/L (135-145); Total Protein 6.8 g/dL (6.5-8.0)
[2023-12-25] MEDS: Magnesium Oxide 400 MG TABLET 800 MG PO ×2 (15:50→20:37)
[2023-12-25 18:00] VITALS: BP 189/74; PULSE 65; RESP 16; TEMP 36.6; O2SAT 100
--- NOTE | 2023-12-25 18:42 | PM.EVENT ---
Event Note Date of Service: 12/25/23 Event Note: 80-year-old female with history of hypertension, hyperlipidemia, GERD on omeprazole admitted to geriatric psychiatry consult placed hospitalist service for evaluation of hypomagnesemia. On arrival to the ED on 12/19 patient was noted to have magnesium level of 1.2. Electrolyte levels otherwise normal except for a chronic hyponatremia of 132. Etiology of low magnesium level is unclear but suspect is related to PPI use as she has been taking omeprazole 20 mg daily. She does not consume alcohol and potassium levels are normal. While in the ED, she was given 2 g IV magnesium but was not started on oral supplement. Magnesium level was rechecked again today and was low at 1.2. Potassium again normal. Given 800mg Mag oxide at 1550 this afternoon. Plan: Check EKG to rule out arrhythmia eg tosades. If EKG without arrhythmia, continue plan below: -Repeat 800mg mag oxide @9pm and continue BID until mag normal -Repeat lytes am -Once mag normalizes, continue PO mag 400mg BID -Hold omeprazole for now as this is likely causing low mag. Will give pepcid BID in place of this Will continue following. Time Spent With Patient Time: Total time managing care of this patient today ____ minutes.
[2023-12-25] MEDS: Acetaminophen 325 MG TABLET 650 MG PO (20:37)
[2023-12-25] MEDS: Famotidine 20 MG TABLET PO (20:37)
[2023-12-25 20:41] VITALS: BP 182/80
[2023-12-25] MEDS: amLODIPine Besylate 5 MG TABLET PO (20:41)
[2023-12-25 20:50] LABS: Troponin-I High Sensitivity 4.2 ng/L (<3.5-17.0)
[2023-12-25 21:40] VITALS: BP 154/70
--- NOTE | 2023-12-25 22:55 | PC.NURSE ---
At 1415 singer songwriter was notified by Ivett Ferrer unit assembler that Jazz had a magnesium level of 1.2, singer songwriter notified Hermelinda OSORIO at 1416. Jazz is confused and hard of hearing, on assessment denied having any pain or discomfort, magnesium oxide 800mg given PO at 1550. IV Magnesium Sulfate 2gm @25mL/hr ordered Hermelinda OSORIO notified that per [facility] policy#C3.619 magnesium sulfate infusion requires continuous cardiac monitoring. Pamela Pope NP (construction management instructor) notified at 1803, EKG ordered, hospitalist consult put in. EKG revealed Left Bundle Branch Block, Brenda SHARIF ordered Troponin level, results 4.2 on 12/19 it was 2.7 cardiology consult and echo ordered. Later in the evening Jazz reported having a headache BP was 189/74, manually was 182/80, Brenda SHARIF notified Amlodipine 5mg ordered, Tylenol given for headache with good effect, BP rechecked 154/70.
--- NOTE | 2023-12-26 07:00 | CA_ITS ---
Transthoracic Echocardiogram Patient (Last, First, Middle): Jazz Monique, Gender: Female Date of : 1935 Age: 88 Procedure Date: 12/26/2023 Procedure Type: Transthoracic Echocardiogram Location: [place] [address] Height: 152.4 cm Weight: 47.17 kg BSA: 1.41 m2 Heart Rate: bpm BP: 154 / 70 mmHg Knockdown Man: Referring MD: Karla SHARIF Symptoms: new lbbb Study Quality: Adequate ECG Rhythm: Sinus Conclusions: - The left ventricular systolic function is normal. The visually estimated ejection fraction is between 65-70%. - There is mild calcification of the aortic valve. - There is moderate mitral annular calcification. Findings Left Ventricle Normal left ventricular cavity size. There is mildly increased left ventricular wall thickness. The left ventricular systolic function is normal. The visually estimated ejection fraction is between 65-70%. There is no evidence of regional wall motion abnormalities. Evidence suggests grade I (mild) diastolic dysfunction. Right Ventricle Normal right ventricular cavity size and systolic function. Atria The left atrium is moderately dilated. The right atrium is normal in size. Aortic Valve There is mild calcification of the aortic valve. There is no aortic valve stenosis. There is no aortic valve regurgitation. Mitral Valve There is moderate mitral annular calcification. There is trace mitral valve regurgitation. There is no mitral valve stenosis. Pulmonic Valve The pulmonic valve is likely normal. Tricuspid Valve There is trace tricuspid valve regurgitation. There is no evidence of pulmonary hypertension. Great Vessels The asc aorta is normal in size. Venous The inferior vena cava is normal in size and collapses greater than 50% with inspiration. Pericardium/Pleural There is no evidence of pericardial effusion. Prior Study Comparison No prior study available for comparison. Measurements 2D Linear Measurements IVSd: 1.08 0.6-0.9/0.6-1.0 cm LVIDd: 4.11 3.9-5.3/4.2-5.9 cm LVIDd Index: 2.91 2.4-3.2/2.2-3.1 cm/m2 LVIDs: 2.47 2.0-3.6 cm LVPWd: 1.05 0.7-1.1 cm Ao Root: 2.90 2.1-3.5 cm LA Diam: 3.50 2.7-3.8/3.0-4.0 cm LAIDs Index: 2.48 1.5-2.3 cm/m2 LV Mass: 180.49 67-162/88-224 g LV Mass Index: 128.00 43-95/49-115 g/m2 LVOT Diam: 1.90 3.0+(-)1.3 cm 2D Systolic Function EF 4C: 66.50 >55% EF 2C: 58.00 >55% EF BiP: 59.50 >55% Mitral Valve MV VTI: 0.41 MV Pk Romulo: 1.15 MV Mn Romulo: 0.64 MV Pk Grad: 5.00 MV Mn Grad: 2.00 MV Pk E: 1.10 MV PK A: 1.27 MV Decel Time: 279.00 E/A: 0.90 E'Lateral: 5.77 E'Medial: 4.13 E/E' Med: 26.60 E/E' Lat: 19.10 PHT: 82.00 MVA PHT: 2.68 MVA Continuity: 2.24 Decel King: 3.92 Aortic Valve AoV Pk Romulo: 1.64 AoV Mn Romulo: 1.17 AoV VTI: 0.47 AoV Pk Grad: 11.00 Aov Mn Grad: 6.00 DANIEL Cont.VTI: 1.96 LVOT LVOT Pk Romulo: 1.02 LVOT Mn Romulo: 0.70 LVOT VTI: 0.33 LVOT Pk Grad: 4.00 LVOT Mn Grad: 2.00 LVOT Diam: 1.90 LVOT Area: 2.84 Diastolic Function MV Pk E: 1.10 MV Pk A: 1.27 E/A: 0.90 E'Medial: 4.13 E/E' Med: 26.60 E' Laterial: 5.77 E/E' Lat: 19.10 Right Ventricle TAPSE (mm): 21.00 TVS' Romulo: 15.00 Tricuspid Valve TR Pk Romulo: 2.68 TR Pk Grad: 29.00 RA Press: 3.00 RVSP: 32.00 Great Vessels Aorta Ao Root-2D: 2.90 2.0-3.7 cm Ao Asc: 3.30 2.1-3.4 cm Pulmonary Valve PV Pk Romulo: 1.04 Peak PV Grad: 4.00 Updated in Other Vendor System with Status of Final Roger Vivas MD electronically signed on 12/26/2023 11:57:56 AM with status of Final
[2023-12-26 07:47] LABS: Anion Gap 10 (12-20); Blood Urea Nitrogen 15 mg/dL (9-16); Calcium 8.6 mg/dL (8.4-10.2); Carbon Dioxide 26 mmol/L (22-29); Chloride 97 mmol/L (96-108); Creatinine Clr Calc Pharmacy 36.2; Estimated Glomerular Filt Rate > 60; Glucose Random 93 mg/dL (60-115); Potassium 3.4 mmol/L (3.3-5.1); Sodium 130 mmol/L (135-145)
[2023-12-26 07:48] LABS: Magnesium 1.3 mg/dL (1.6-2.6)
[2023-12-26 07:49] LABS: Troponin-I High Sensitivity 4.3 ng/L (<3.5-17.0)
[2023-12-26 08:43] VITALS: BP 99/54; PULSE 70; RESP 16; TEMP 36; O2SAT 99
[2023-12-26] MEDS: Magnesium Oxide 400 MG TABLET 800 MG PO ×2 (09:07→21:39)
[2023-12-26] MEDS: Atorvastatin Calcium 10 MG TABLET PO (09:07)
[2023-12-26] MEDS: Aspirin 81 MG TAB.CHEW PO (09:07)
[2023-12-26] MEDS: Famotidine 20 MG TABLET PO ×2 (09:07→21:40)
--- NOTE | 2023-12-26 11:27 | P.CONCA_ITS ---
History of Present Illness History of Present Illness Date of Service: 12/26/23 Chief complaint: agitation Narrative: This is a cardiology consultation regarding left bundle-branch block on the EKG. Patient herself is not able to give any history. She is quite hard of hearing and in spite of trying numerous times, only limited history is available. Per discussion with hospitalist as today as well as with the nurse today, it seems that patient has had low magnesium issues. Because of this, EKG was performed last evening that showed a left bundle-branch block which was not seen in the past. Hence it is a concern. Patient herself denies any chest pain or any cardiac symptoms. Apparently there is no prior cardiac history either. Review of Systems 2 Review of Systems: Yes all other systems are reviewed and are negative Constitutional: Constitutional: Reports as per HPI and Reports no additional constitutional complaints Eyes: Eyes: Reports as per HPI and Denies no additional eye complaints ENT: Denies system reviewed and no additional complaints, except as documented and Reports as per HPI Cardiovascular: Cardiovascular: Reports as per HPI, Reports no additional cardiovascular complaints, Denies acrocyanosis, Denies cool extremities, Denies chest pain, Denies leg edema, Denies lightheadedness, Denies palpitations and Denies dyspnea Respiratory: Respiratory: Reports as per HPI, Denies no additional respiratory complaints and Denies dyspnea Gastrointestinal: Gastrointestinal: Reports as per HPI and Denies no additional gastrointestinal complaints Genitourinary: Genitourinary: Reports as per HPI Musculoskeletal: Musculoskeletal: Reports no additional musculoskeletal complaints and Reports as per HPI Integumentary/Breasts: Skin/Breast: Reports system reviewed and no additional complaints, except as docu Neurologic: Reports system reviewed and no additional complaints, except as documented and Reports as per HPI Psychiatric: Psychiatric: Reports no additional psychiatric complaints and Reports as per HPI Endocrine: Endocrine: Reports no additional endocrine complaints, Reports as per HPI and Denies palpitations Hematologic/Lymphatic: Hematologic/Lymphatic: Reports no additional hematologic/lymphatic complaints and Reports as per HPI Allergic/Immunologic: Allergic/Immunologic: Reports no additional allergic/immunologic complaints and Reports as per HPI [facility] Family History Pertinent family history: Unable to obtain. Social History Social History Household Members: Unknown / Unable to assess Patient Tobacco Use Status: Tobacco use Unknown Smoked in Last 30 Days: No Use of substances other than those prescribed or required for medical reasons: No Advance Directives: No Advance Directives Information Provided: Yes Patient : No : No Poor oral hygiene: No service: No Sexual orientation: Straight/Heterosexual Meds Allergies Allergy/AdvReac Type Severity Reaction Status Date / Time nitrofurantoin Allergy Mild SWELLING Verified 12/21/23 08:01 [From Macrodantin] nitroglycerin Allergy Unknown Verified 12/21/23 08:01 Active Medications: Current Medications Acetaminophen (Acetaminophen 325 Mg Tablet) 650 mg PO Q6H PRN PRN Reason: Headache/Pain Mild Scale (1-3) Last Admin: 12/25/23 20:37 Dose: 650 mg Al Hydroxide/Mg Hydroxide (Magnesium Hydrox/Alum Hydrox 30 Ml Oral.Susp) 30 ml PO Q6H PRN PRN Reason: Heartburn/Nausea Amlodipine Besylate (Amlodipine Besylate 5 Mg Tablet) 5 mg PO DAILY [facility]; Protocol Last Admin: 12/26/23 09:39 Dose: Not Given Aspirin (Aspirin 81 Mg Tab.Chew) 81 mg PO DAILY [facility] Last Admin: 12/26/23 09:07 Dose: 81 mg Atenolol (Atenolol 50 Mg Tablet) 50 mg PO DAILY [facility]; Protocol Last Admin: 12/26/23 09:40 Dose: Not Given Atorvastatin Calcium (Atorvastatin Calcium 10 Mg Tablet) 10 mg PO DAILY [facility] Last Admin: 12/26/23 09:07 Dose: 10 mg Famotidine (Famotidine 20 Mg Tablet) 20 mg PO BID [facility] Last Admin: 12/26/23 09:07 Dose: 20 mg Hydroxyzine HCl (Hydroxyzine Hcl 25 Mg Tablet) 25 mg PO Q6H PRN PRN Reason: Anxiety Last Admin: 12/24/23 20:00 Dose: 25 mg Magnesium Hydroxide (Milk Of Magnesia 30 Ml Oral.Susp) 30 ml PO DAILY PRN PRN Reason: Constipation Magnesium Oxide (Magnesium Oxide 400 Mg Tablet) 800 mg PO BID [facility] Last Admin: 12/26/23 09:07 Dose: 800 mg Trazodone HCl (Trazodone Hcl 50 Mg Tablet) 50 mg PO BEDTIME MRX1 PRN PRN Reason: Insomnia Last Admin: 12/24/23 19:59 Dose: 50 mg Home Medications ?Medication ?Instructions ?Recorded ?Confirmed ?Last Taken ?Type aspirin 81 mg chewable tablet 81 mg PO DAILY 12/20/23 12/20/23 12/20/23 History atenolol 50 mg tablet 50 mg PO DAILY 12/20/23 12/20/23 12/19/23 History buspirone 5 mg tablet 10 mg PO DAILY 12/20/23 12/20/23 12/19/23 History omeprazole 20 mg capsule,delayed 20 mg PO DAILY 12/20/23 12/20/23 12/20/23 History release simvastatin 20 mg tablet 20 mg PO DAILY 12/20/23 12/20/23 12/20/23 History Physical Exam 2 Vital Signs: Vital Signs: Last Vital Signs Temp 96.8 F 12/26/23 08:43 Pulse 70 12/26/23 08:43 Resp 16 12/26/23 08:43 BP 99/54 L 12/26/23 08:43 Pulse Ox 99 12/26/23 08:43 O2 Del Method Room Air 12/26/23 08:43 BMI result Body Mass Index 20.4 Const: General: comfortable and no acute distress O rientation/consciousness: patient oriented x3 HEENT: Other: Unremarkable Head: Yes normal to inspection Ears: hearing grossly abnormal bilaterally Neck: Neck: Yes normal visual inspection Chest: Chest palpation & inspection: normal inspection of the chest Resp: Auscultation: clear to auscultation bilaterally Cardio: Palpation: normal PMI Heart sounds: S1 normal heart sound present, S2 normal heart sound present, no gallops, no murmurs and no rubs GI: Palpation (GI): Soft to palpation Back/Spine/Pelvis: Other: unremarkable Skin: General skin exam: no rashes or lesions noted Neuro: General: patient oriented x3 Extrem: General: Yes normal to inspection Psych: Mental Status: mental status grossly abnormal Objective Labs and Meds 12/20/23 07:10 12/26/23 06:56 Lab results: Laboratory Results - last 24 hr 12/25/23 12/25/23 12/26/23 13:33 19:24 06:56 Hold Purple Top SEE NOTE Sodium 132 L 130 L Potassium 3.7 3.4 Chloride 98 97 Carbon Dioxide 25 26 Anion Gap 13 10 L BUN 22 H 15 Creatinine 0.84 0.77 Estim Creat Clear Calc 33.2 36.2 Estimated GFR > 60 > 60 Random Glucose 110 93 Osmolality 278 L Calcium 8.9 8.6 Magnesium 1.2 L* 1.3 L* Total Bilirubin 0.9 AST 22 ALT 11 Alkaline Phosphatase 80 Troponin I High Sens 4.2 D 4.3 Total Protein 6.8 Albumin 3.6 ECG Interpretation: EKG from December 24 with sinus rhythm at 74/Min with left bundle-branch block pattern. In the previous EKG from December 19, rather suggestive of prior anterior infarct. Prior to that, last EKGs from 2008 that shows no significant abnormalities. Assessment and Plan (1) Left bundle branch block: Status: Acute (2) Major neurocognitive disorder: Status: Acute (3) Altered mental status: Status: Acute (4) Hypomagnesemia: Status: Acute Plan There are 3 sets of troponins over the last week which are within normal limits. EKG does show left bundle-branch block type pattern. Echocardiogram with normal LVEF and no clear wall motion abnormalities. Patient has significant dementia at baseline and is also very hard of hearing. Considering age, frailty, comorbidities, do not recommend any further workup at this time. Address electrolytes and other medical/psychiatric issues. Discussed with Dr. Jane. Procedures Date of Service Date of Service: 12/26/23
--- NOTE | 2023-12-26 12:20 | PM.EVENT ---
Event Note Date of Service: 12/26/23 Event Note: Follow-up on hypo magnesemia Magnesium improved from 1.2-1.3 Patient started on magnesium supplement 800 mg twice daily on 12/24 EKG showed left bundle branch block/normal troponin/echo showed normal EF and no wall motion abnormalities Patient unable to provide meaningful history due to dementia decreased hearing, no diarrhea documented, no chest pain Hypo magnesemia question etiology, no diarrhea, question related to Prilosec which decreases the absorption of magnesium in small intestine , question poor by mouth intake Prilosec discontinued/continue magnesium replacement Nephrology consult New LBBB Evaluated by cardiology due to age, frailty and comorbidities ,no further workup recommended for LBBB. Time Spent With Patient Time: Total time managing care of this patient today ____ minutes.
--- NOTE | 2023-12-26 16:47 | HO.PSYCHPN ---
Subjective Subjective Date of Service: 12/26/23 Reason For Visit: agitation Subjective Notes: Conditional Voluntary Interim History: Pt slept through the night. She continues to present as confused regarding being here in the hospital which at times she does not know where she is. She is not oriented to situation. no acute delirium noted at this time but dementia is advanced. No periods of agitation. Mag- slight increase to 1.3. continue oral mag. pending nephrology and cardiology consult. Pt denies any pain. in no acute distress. Review of Systems Review of Systems Yes all other systems are reviewed and are negative and Unobtainable due to mental status Constitutional: Reports as per HPI and Reports no additional constitutional complaints Eyes: Reports as per HPI and Denies no additional eye complaints Denies system reviewed and no additional complaints, except as documented and Reports as per HPI Cardiovascular: Reports as per HPI, Reports no additional cardiovascular complaints, Denies acrocyanosis, Denies cool extremities, Denies chest pain, Denies leg edema, Denies lightheadedness, Denies palpitations and Denies dyspnea Respiratory: Reports as per HPI, Denies no additional respiratory complaints and Denies dyspnea Gastrointestinal: Reports as per HPI and Denies no additional gastrointestinal complaints Musculoskeletal: Reports no additional musculoskeletal complaints and Reports as per HPI Skin/Breast: Reports system reviewed and no additional complaints, except as docu Reports system reviewed and no additional complaints, except as documented and Reports as per HPI Psychiatric: Reports no additional psychiatric complaints and Reports as per HPI Endocrine: Reports no additional endocrine complaints, Reports as per HPI and Denies palpitations Hematologic/Lymphatic: Reports no additional hematologic/lymphatic complaints and Reports as per HPI Allergic/Immunologic: Reports no additional allergic/immunologic complaints and Reports as per HPI Mental Status Exam Mental Status Exam Narrative: Patient Appearance: Appropriate, better groomed today Patient Orientation: Person x0. Patient hearing impaired Level of Consciousness: Awake, alert Patient Behavior: Pleasant Mood Description: euthymic Affect Description: Appropriate Patient Cognition Impaired: Yes Ability to Follow Directions: Fair Speech Pattern: Clear Memory Description: Remote Impaired, Immediate Impaired and Episodic Impaired Diagnostics Vital Signs (24Hr): Vital Signs - 24 hr 12/25/23 18:00 12/25/23 20:41 12/25/23 21:40 Temperature 98 F Pulse Rate 65 Respiratory Rate 16 Blood Pressure 189/74 H 182/80 H 154/70 H Pulse Oximetry 100 Oxygen Delivery Method Room Air 12/26/23 08:43 Temperature 96.8 F Pulse Rate 70 Respiratory Rate 16 Blood Pressure 99/54 L Pulse Oximetry 99 Oxygen Delivery Method Room Air BMI result Body Mass Index 20.4 Labs 12/20/23 07:10 12/27/23 12:23 Labs: Laboratory Results - last 48 hr 12/25/23 12/25/23 12/26/23 13:33 19:24 06:56 Hold Purple Top SEE NOTE Sodium 132 L 130 L Potassium 3.7 3.4 Chloride 98 97 Carbon Dioxide 25 26 Anion Gap 13 10 L BUN 22 H 15 Creatinine 0.84 0.77 Estim Creat Clear Calc 33.2 36.2 Estimated GFR > 60 > 60 Random Glucose 110 93 Osmolality 278 L Calcium 8.9 8.6 Magnesium 1.2 L* 1.3 L* Total Bilirubin 0.9 AST 22 ALT 11 Alkaline Phosphatase 80 Troponin I High Sens 4.2 D 4.3 Total Protein 6.8 Albumin 3.6 Imaging Radiology Impressions: ITS Impressions Chest X-Ray 12/20/23 07:54 IMPRESSION: Unremarkable examination. Head CT 12/20/23 08:32 IMPRESSION: No acute intracranial pathology. 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 Medications Medications Current Medications Acetaminophen (Acetaminophen 325 Mg Tablet) 650 mg PO Q6H PRN PRN Reason: Headache/Pain Mild Scale (1-3) Last Admin: 12/25/23 20:37 Dose: 650 mg Al Hydroxide/Mg Hydroxide (Magnesium Hydrox/Alum Hydrox 30 Ml Oral.Susp) 30 ml PO Q6H PRN PRN Reason: Heartburn/Nausea Amlodipine Besylate (Amlodipine Besylate 5 Mg Tablet) 5 mg PO DAILY [facility]; Protocol Last Admin: 12/26/23 09:39 Dose: Not Given Aspirin (Aspirin 81 Mg Tab.Chew) 81 mg PO DAILY [facility] Last Admin: 12/26/23 09:07 Dose: 81 mg Atenolol (Atenolol 50 Mg Tablet) 50 mg PO DAILY [facility]; Protocol Last Admin: 12/26/23 09:40 Dose: Not Given Atorvastatin Calcium (Atorvastatin Calcium 10 Mg Tablet) 10 mg PO DAILY [facility] Last Admin: 12/26/23 09:07 Dose: 10 mg Famotidine (Famotidine 20 Mg Tablet) 20 mg PO BID [facility] Last Admin: 12/26/23 09:07 Dose: 20 mg Hydroxyzine HCl (Hydroxyzine Hcl 25 Mg Tablet) 25 mg PO Q6H PRN PRN Reason: Anxiety Last Admin: 12/24/23 20:00 Dose: 25 mg Magnesium Hydroxide (Milk Of Magnesia 30 Ml Oral.Susp) 30 ml PO DAILY PRN PRN Reason: Constipation Magnesium Oxide (Magnesium Oxide 400 Mg Tablet) 800 mg PO BID [facility] Last Admin: 12/26/23 09:07 Dose: 800 mg Trazodone HCl (Trazodone Hcl 50 Mg Tablet) 50 mg PO BEDTIME MRX1 PRN PRN Reason: Insomnia Last Admin: 12/24/23 19:59 Dose: 50 mg Allergies Allergies Allergy/AdvReac Type Severity Reaction Status Date / Time nitrofurantoin Allergy Mild SWELLING Verified 12/21/23 08:01 [From Macrodantin] nitroglycerin Allergy Unknown Verified 12/21/23 08:01 Assessment & Plan Assessment & Plan (1) Major neurocognitive disorder: Status: Acute Code(s): F03.90 - Unspecified dementia, unspecified severity, without behavioral disturbance, psychotic disturbance, mood disturbance, and anxiety Plan 1. continue current medications 2. monitor mag. started mag oxide 800mg po BID. Reason for continued inpatient stay Substantial Risk for: inability to function Time Spent With Patient Time: Total time managing care of this patient today ____ minutes.
[2023-12-26 20:00] VITALS: BP 170/76; PULSE 80; RESP 16; TEMP 36.4; O2SAT 97
[2023-12-26] MEDS: traZODone HCL 50 MG TABLET PO (21:39)
[2023-12-26] MEDS: hydrOXYzine HCL 25 MG TABLET PO (21:39)
[2023-12-27 10:16] VITALS: BP 115/78; PULSE 86; RESP 16; TEMP 36.9; O2SAT 96
[2023-12-27] MEDS: Famotidine 20 MG TABLET PO ×2 (10:17→20:11)
[2023-12-27] MEDS: Aspirin 81 MG TAB.CHEW PO (10:17)
[2023-12-27 10:18] VITALS: BP 115/78; PULSE 78
[2023-12-27] MEDS: Atorvastatin Calcium 10 MG TABLET PO (10:18)
[2023-12-27] MEDS: amLODIPine Besylate 5 MG TABLET PO (10:18)
[2023-12-27] MEDS: Magnesium Oxide 400 MG TABLET 800 MG PO (10:18)
[2023-12-27] MEDS: atenoloL 50 MG TABLET PO (10:18)
[2023-12-27 12:47] LABS: Anion Gap 8 (12-20); Blood Urea Nitrogen 17 mg/dL (9-16); Calcium 9.1 mg/dL (8.4-10.2); Carbon Dioxide 31 mmol/L (22-29); Chloride 99 mmol/L (96-108); Estimated Glomerular Filt Rate > 60; Glucose Random 112 mg/dL (60-115); Magnesium 1.6 mg/dL (1.6-2.6); Potassium 3.9 mmol/L (3.3-5.1); Sodium 134 mmol/L (135-145)
--- NOTE | 2023-12-27 15:28 | PM.CNNEP ---
History of Present Illness Reason for Consult Consult date: 12/27/23 Chief Complaint Chief complaint: agitation History of Present Illness Narrative: 80-year-old female with history of hypertension, hyperlipidemia, GERD on omeprazole admitted to geriatric psychiatry consult placed hospitalist service for evaluation of hypomagnesemia and hyponatremia Review of Systems Review of Systems Yes Unobtainable due to mental status PMFSH Social History Social History Household Members: Unknown / Unable to assess Patient Tobacco Use Status: Tobacco use Unknown Smoked in Last 30 Days: No Use of substances other than those prescribed or required for medical reasons: No Advance Directives: No Advance Directives Information Provided: Yes Patient : No : No Poor oral hygiene: No service: No Sexual orientation: Straight/Heterosexual Meds Allergies Allergy/AdvReac Type Severity Reaction Status Date / Time nitrofurantoin Allergy Mild SWELLING Verified 12/21/23 08:01 [From Macrodantin] nitroglycerin Allergy Unknown Verified 12/21/23 08:01 Active Medications: Current Medications Acetaminophen (Acetaminophen 325 Mg Tablet) 650 mg PO Q6H PRN PRN Reason: Headache/Pain Mild Scale (1-3) Last Admin: 12/25/23 20:37 Dose: 650 mg Al Hydroxide/Mg Hydroxide (Magnesium Hydrox/Alum Hydrox 30 Ml Oral.Susp) 30 ml PO Q6H PRN PRN Reason: Heartburn/Nausea Amlodipine Besylate (Amlodipine Besylate 5 Mg Tablet) 5 mg PO DAILY [facility]; Protocol Last Admin: 12/27/23 10:18 Dose: 5 mg Aspirin (Aspirin 81 Mg Tab.Chew) 81 mg PO DAILY [facility] Last Admin: 12/27/23 10:17 Dose: 81 mg Atenolol (Atenolol 50 Mg Tablet) 50 mg PO DAILY [facility]; Protocol Last Admin: 12/27/23 10:18 Dose: 50 mg Atorvastatin Calcium (Atorvastatin Calcium 10 Mg Tablet) 10 mg PO DAILY [facility] Last Admin: 12/27/23 10:18 Dose: 10 mg Famotidine (Famotidine 20 Mg Tablet) 20 mg PO BID [facility] Last Admin: 12/27/23 10:17 Dose: 20 mg Hydroxyzine HCl (Hydroxyzine Hcl 25 Mg Tablet) 25 mg PO Q6H PRN PRN Reason: Anxiety Last Admin: 12/26/23 21:39 Dose: 25 mg Magnesium Hydroxide (Milk Of Magnesia 30 Ml Oral.Susp) 30 ml PO DAILY PRN PRN Reason: Constipation Magnesium Oxide (Magnesium Oxide 400 Mg Tablet) 400 mg PO BID [facility] Trazodone HCl (Trazodone Hcl 50 Mg Tablet) 50 mg PO BEDTIME MRX1 PRN PRN Reason: Insomnia Last Admin: 12/26/23 21:39 Dose: 50 mg Home Medications ?Medication ?Instructions ?Recorded ?Confirmed ?Last Taken ?Type aspirin 81 mg chewable tablet 81 mg PO DAILY 12/20/23 12/20/23 12/20/23 History atenolol 50 mg tablet 50 mg PO DAILY 12/20/23 12/20/23 12/19/23 History buspirone 5 mg tablet 10 mg PO DAILY 12/20/23 12/20/23 12/19/23 History omeprazole 20 mg capsule,delayed 20 mg PO DAILY 12/20/23 12/20/23 12/20/23 History release simvastatin 20 mg tablet 20 mg PO DAILY 12/20/23 12/20/23 12/20/23 History Physical Exam Vital Signs: Last Vital Signs Temp 98.4 F 12/27/23 10:16 Pulse 78 12/27/23 10:18 Resp 16 12/27/23 10:16 BP 115/78 12/27/23 10:18 Pulse Ox 96 12/27/23 10:16 O2 Del Method Room Air 12/27/23 10:16 BMI result Body Mass Index 20.4 Const General: no acute distress Neck Neck: Yes supple Resp Auscultation: clear to auscultation bilaterally Cardio Palpation: no palpable S3 Heart sounds: no rubs GI Palpation (GI): Soft to palpation Auscultation: normal bowel sounds Neuro Motor exam (neuro): no asterixis Results Lab Results 12/20/23 07:10 12/27/23 12:23 Lab results: Chemistry 12/25/23 12/26/23 12/27/23 13:33 06:56 12:23 Sodium 132 L 130 L 134 L Potassium 3.7 3.4 3.9 Carbon Dioxide 25 26 31 H BUN 22 H 15 17 H Creatinine 0.84 0.77 0.87 Calcium 8.9 8.6 9.1 Assessment and Plan (1) Hyponatremia: Status: Acute Plan [place] woman with hyponatremia Low Urine SG suggestive of excessive free water intake Suggest to limit free water intake to 1.2 L per 24 hrs Check urine for sodium, creatinine, osmolarity, serum osmolarity, cortiosl and TSH Monitor and replace Magnesium Goal pNa > 130 No indication for hypertonic saline Procedures Date of Service Date of Service: 12/27/23
--- NOTE | 2023-12-27 19:07 | PC.NURSE ---
Clean catch urine collected at 1840 today and brought to lab.
[2023-12-27 19:37] LABS: Creatinine Urine 86.62 mg/dL
[2023-12-27 19:52] LABS: Osmolality Urine 544 mosm/kg (373-1093)
[2023-12-27 20:00] VITALS: BP 181/81; PULSE 72; RESP 16; TEMP 36.1; O2SAT 98
[2023-12-27] MEDS: Magnesium Oxide 400 MG TABLET PO (20:11)
--- NOTE | 2023-12-27 20:41 | HO.PSYCHPN ---
Subjective Subjective Date of Service: 12/27/23 Reason For Visit: agitation Subjective Notes: Conditional Voluntary Healthcare Proxy: Yes Interim History: Pt is sleeping through the night. repeat Mag is 1.6 Pt has been visible on the unit. She is social with select peers. She is not oriented to place, or situation, month or year but no agitation nor combative behaviors noted. She is eating well. Review of Systems Review of Systems Yes all other systems are reviewed and are negative and Unobtainable due to mental status Constitutional: Reports as per HPI and Reports no additional constitutional complaints Eyes: Reports as per HPI and Denies no additional eye complaints Denies system reviewed and no additional complaints, except as documented and Reports as per HPI Cardiovascular: Reports as per HPI, Reports no additional cardiovascular complaints, Denies acrocyanosis, Denies cool extremities, Denies chest pain, Denies leg edema, Denies lightheadedness, Denies palpitations and Denies dyspnea Respiratory: Reports as per HPI, Denies no additional respiratory complaints and Denies dyspnea Gastrointestinal: Reports as per HPI and Denies no additional gastrointestinal complaints Musculoskeletal: Reports no additional musculoskeletal complaints and Reports as per HPI Skin/Breast: Reports system reviewed and no additional complaints, except as docu Reports system reviewed and no additional complaints, except as documented and Reports as per HPI Psychiatric: Reports no additional psychiatric complaints and Reports as per HPI Endocrine: Reports no additional endocrine complaints, Reports as per HPI and Denies palpitations Hematologic/Lymphatic: Reports no additional hematologic/lymphatic complaints and Reports as per HPI Allergic/Immunologic: Reports no additional allergic/immunologic complaints and Reports as per HPI Mental Status Exam Mental Status Exam Narrative: Patient Appearance: Appropriate, better groomed today Patient Orientation: Person x0. Patient hearing impaired Level of Consciousness: Awake, alert Patient Behavior: Pleasant Mood Description: euthymic Affect Description: Appropriate Patient Cognition Impaired: Yes Ability to Follow Directions: Fair Speech Pattern: Clear Memory Description: Remote Impaired, Immediate Impaired and Episodic Impaired Diagnostics Vital Signs (24Hr): Vital Signs - 24 hr 12/27/23 10:16 12/27/23 10:18 12/27/23 10:18 Temperature 98.4 F Pulse Rate 86 78 Respiratory Rate 16 Blood Pressure 115/78 115/78 115/78 Pulse Oximetry 96 Oxygen Delivery Method Room Air BMI result Body Mass Index 20.4 Labs 12/20/23 07:10 12/28/23 07:22 Labs: Laboratory Results - last 48 hr 12/25/23 12/26/23 12/27/23 19:24 06:56 12:23 Hold Purple Top SEE NOTE Sodium 130 L 134 L Potassium 3.4 3.9 Chloride 97 99 Carbon Dioxide 26 31 H Anion Gap 10 L 8 L BUN 15 17 H Creatinine 0.77 0.87 Estim Creat Clear Calc 36.2 32.0 Estimated GFR > 60 > 60 Random Glucose 93 112 Calcium 8.6 9.1 Magnesium 1.3 L* 1.6 Troponin I High Sens 4.2 D 4.3 Urine Osmolality Ur Random Sodium Urine Creatinine 12/27/23 12/27/23 18:50 18:50 Hold Purple Top Sodium Potassium Chloride Carbon Dioxide Anion Gap BUN Creatinine Estim Creat Clear Calc Estimated GFR Random Glucose Calcium Magnesium Troponin I High Sens Urine Osmolality 544 Ur Random Sodium 120.0 Urine Creatinine 86.62 Cancelled Imaging Radiology Impressions: ITS Impressions Chest X-Ray 12/20/23 07:54 IMPRESSION: Unremarkable examination. Head CT 12/20/23 08:32 IMPRESSION: No acute intracranial pathology. 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 Medications Medications Current Medications Acetaminophen (Acetaminophen 325 Mg Tablet) 650 mg PO Q6H PRN PRN Reason: Headache/Pain Mild Scale (1-3) Last Admin: 12/25/23 20:37 Dose: 650 mg Al Hydroxide/Mg Hydroxide (Magnesium Hydrox/Alum Hydrox 30 Ml Oral.Susp) 30 ml PO Q6H PRN PRN Reason: Heartburn/Nausea Amlodipine Besylate (Amlodipine Besylate 5 Mg Tablet) 5 mg PO DAILY [facility]; Protocol Last Admin: 12/27/23 10:18 Dose: 5 mg Aspirin (Aspirin 81 Mg Tab.Chew) 81 mg PO DAILY [facility] Last Admin: 12/27/23 10:17 Dose: 81 mg Atenolol (Atenolol 50 Mg Tablet) 50 mg PO DAILY [facility]; Protocol Last Admin: 12/27/23 10:18 Dose: 50 mg Atorvastatin Calcium (Atorvastatin Calcium 10 Mg Tablet) 10 mg PO DAILY [facility] Last Admin: 12/27/23 10:18 Dose: 10 mg Famotidine (Famotidine 20 Mg Tablet) 20 mg PO BID [facility] Last Admin: 12/27/23 20:11 Dose: 20 mg Hydroxyzine HCl (Hydroxyzine Hcl 25 Mg Tablet) 25 mg PO Q6H PRN PRN Reason: Anxiety Last Admin: 12/26/23 21:39 Dose: 25 mg Magnesium Hydroxide (Milk Of Magnesia 30 Ml Oral.Susp) 30 ml PO DAILY PRN PRN Reason: Constipation Magnesium Oxide (Magnesium Oxide 400 Mg Tablet) 400 mg PO BID [facility]ISSA Last Admin: 12/27/23 20:11 Dose: 400 mg Trazodone HCl (Trazodone Hcl 50 Mg Tablet) 50 mg PO BEDTIME MRX1 PRN PRN Reason: Insomnia Last Admin: 12/26/23 21:39 Dose: 50 mg Allergies Allergies Allergy/AdvReac Type Severity Reaction Status Date / Time nitrofurantoin Allergy Mild SWELLING Verified 12/21/23 08:01 [From Macrodantin] nitroglycerin Allergy Unknown Verified 12/21/23 08:01 Assessment & Plan Assessment & Plan (1) Major neurocognitive disorder: Status: Acute Code(s): F03.90 - Unspecified dementia, unspecified severity, without behavioral disturbance, psychotic disturbance, mood disturbance, and anxiety Plan 1. continue current medications 2. monitor mag. started mag oxide 800mg po BID. improved Mag on 12/26 1.6, also improved Na 134. Reason for continued inpatient stay Substantial Risk for: inability to function Time Spent With Patient Time: Total time managing care of this patient today ____ minutes.
[2023-12-28 06:06] VITALS: BP 173/73; PULSE 68; O2SAT 98
[2023-12-28 08:11] LABS: Anion Gap 10 (12-20); Blood Urea Nitrogen 16 mg/dL (9-16); Calcium 8.8 mg/dL (8.4-10.2); Carbon Dioxide 29 mmol/L (22-29); Chloride 99 mmol/L (96-108); Creatinine Clr Calc Pharmacy 36.7; Estimated Glomerular Filt Rate > 60; Glucose Random 87 mg/dL (60-115); Magnesium 1.8 mg/dL (1.6-2.6); Potassium 3.7 mmol/L (3.3-5.1); Sodium 134 mmol/L (135-145)
[2023-12-28 08:14] LABS: Osmolality, Serum 278 mosm/kg (281-305)
[2023-12-28 08:17] VITALS: BP 127/79; PULSE 66; RESP 17; TEMP 36.3; O2SAT 97
[2023-12-28] MEDS: Famotidine 20 MG TABLET PO ×2 (08:19→20:16)
[2023-12-28] MEDS: Aspirin 81 MG TAB.CHEW PO (08:19)
[2023-12-28] MEDS: amLODIPine Besylate 5 MG TABLET PO (08:19)
[2023-12-28] MEDS: Atorvastatin Calcium 10 MG TABLET PO (08:19)
[2023-12-28] MEDS: Magnesium Oxide 400 MG TABLET PO ×2 (08:19→20:16)
[2023-12-28] MEDS: atenoloL 50 MG TABLET PO (08:19)
[2023-12-28 08:27] LABS: TSH reflex Free T4 2.28 uIU/mL (0.32-4.0)
--- NOTE | 2023-12-28 15:51 | HO.PSYCHPN ---
Subjective Subjective Date of Service: 12/28/23 Reason For Visit: agitation Subjective Notes: Conditional Voluntary Healthcare Proxy: Yes Interim History: Pt slept through the night. She has been visible on the unit and social with select peers. No agitation or combative behaviors noted. She asks about her daughter and whether she will go home soon. Not oriented to situation, not sure why she is here, not oriented to place although at times she is able to state that this is a hospital. VS, SBP elevated 170's continue to monitor. Review of Systems Review of Systems Yes all other systems are reviewed and are negative and Unobtainable due to mental status Constitutional: Reports as per HPI and Reports no additional constitutional complaints Eyes: Reports as per HPI and Denies no additional eye complaints Denies system reviewed and no additional complaints, except as documented and Reports as per HPI Cardiovascular: Reports as per HPI, Reports no additional cardiovascular complaints, Denies acrocyanosis, Denies cool extremities, Denies chest pain, Denies leg edema, Denies lightheadedness, Denies palpitations and Denies dyspnea Respiratory: Reports as per HPI, Denies no additional respiratory complaints and Denies dyspnea Gastrointestinal: Reports as per HPI and Denies no additional gastrointestinal complaints Musculoskeletal: Reports no additional musculoskeletal complaints and Reports as per HPI Skin/Breast: Reports system reviewed and no additional complaints, except as docu Reports system reviewed and no additional complaints, except as documented and Reports as per HPI Psychiatric: Reports no additional psychiatric complaints and Reports as per HPI Endocrine: Reports no additional endocrine complaints, Reports as per HPI and Denies palpitations Hematologic/Lymphatic: Reports no additional hematologic/lymphatic complaints and Reports as per HPI Allergic/Immunologic: Reports no additional allergic/immunologic complaints and Reports as per HPI Mental Status Exam Mental Status Exam Patient Appearance: Well Grooomed Patient Orientation: Person Level of Consciousness: Appropriate Patient Behavior: Appropriate (somewhat guarded) Mood Description: Nervous Affect Description: Nervous Patient Cognition Impaired: Yes Ability to Follow Directions: Poor Speech Pattern: Impoverished Memory Description: Immediate Impaired Diagnostics Vital Signs (24Hr): Vital Signs - 24 hr 12/27/23 20:00 12/28/23 06:06 12/28/23 08:17 Temperature 97.0 F 97.3 F Pulse Rate 72 68 66 Respiratory Rate 16 17 Blood Pressure 181/81 H 173/73 H 127/79 Pulse Oximetry 98 98 97 Oxygen Delivery Method Room Air Room Air BMI result Body Mass Index 20.4 Labs 12/20/23 07:10 12/28/23 07:22 Labs: Laboratory Results - last 48 hr 12/27/23 12/27/23 12/27/23 12:23 18:50 18:50 Hold Purple Top Sodium 134 L Potassium 3.9 Chloride 99 Carbon Dioxide 31 H Anion Gap 8 L BUN 17 H Creatinine 0.87 Estim Creat Clear Calc 32.0 Estimated GFR > 60 Random Glucose 112 Osmolality Calcium 9.1 Magnesium 1.6 TSH Urine Osmolality 544 Ur Random Sodium 120.0 Urine Creatinine 86.62 Cancelled 12/28/23 07:22 Hold Purple Top SEE NOTE Sodium 134 L Potassium 3.7 Chloride 99 Carbon Dioxide 29 Anion Gap 10 L BUN 16 Creatinine 0.76 Estim Creat Clear Calc 36.7 Estimated GFR > 60 Random Glucose 87 Osmolality 278 L Calcium 8.8 Magnesium 1.8 TSH 2.28 Urine Osmolality Ur Random Sodium Urine Creatinine Imaging Radiology Impressions: ITS Impressions Chest X-Ray 12/20/23 07:54 IMPRESSION: Unremarkable examination. Head CT 12/20/23 08:32 IMPRESSION: No acute intracranial pathology. 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 Medications Medications Current Medications Acetaminophen (Acetaminophen 325 Mg Tablet) 650 mg PO Q6H PRN PRN Reason: Headache/Pain Mild Scale (1-3) Last Admin: 12/25/23 20:37 Dose: 650 mg Al Hydroxide/Mg Hydroxide (Magnesium Hydrox/Alum Hydrox 30 Ml Oral.Susp) 30 ml PO Q6H PRN PRN Reason: Heartburn/Nausea Amlodipine Besylate (Amlodipine Besylate 5 Mg Tablet) 5 mg PO DAILY [facility]; Protocol Last Admin: 12/28/23 08:19 Dose: 5 mg Aspirin (Aspirin 81 Mg Tab.Chew) 81 mg PO DAILY [facility] Last Admin: 12/28/23 08:19 Dose: 81 mg Atenolol (Atenolol 50 Mg Tablet) 50 mg PO DAILY [facility]; Protocol Last Admin: 12/28/23 08:19 Dose: 50 mg Atorvastatin Calcium (Atorvastatin Calcium 10 Mg Tablet) 10 mg PO DAILY [facility] Last Admin: 12/28/23 08:19 Dose: 10 mg Famotidine (Famotidine 20 Mg Tablet) 20 mg PO BID [facility] Last Admin: 12/28/23 08:19 Dose: 20 mg Hydroxyzine HCl (Hydroxyzine Hcl 25 Mg Tablet) 25 mg PO Q6H PRN PRN Reason: Anxiety Last Admin: 12/26/23 21:39 Dose: 25 mg Magnesium Hydroxide (Milk Of Magnesia 30 Ml Oral.Susp) 30 ml PO DAILY PRN PRN Reason: Constipation Magnesium Oxide (Magnesium Oxide 400 Mg Tablet) 400 mg PO BID [facility] Last Admin: 12/28/23 08:19 Dose: 400 mg Trazodone HCl (Trazodone Hcl 50 Mg Tablet) 50 mg PO BEDTIME MRX1 PRN PRN Reason: Insomnia Last Admin: 12/26/23 21:39 Dose: 50 mg Allergies Allergies Allergy/AdvReac Type Severity Reaction Status Date / Time nitrofurantoin Allergy Mild SWELLING Verified 12/21/23 08:01 [From Macrodantin] nitroglycerin Allergy Unknown Verified 12/21/23 08:01 Assessment & Plan Assessment & Plan (1) Major neurocognitive disorder: Status: Acute Code(s): F03.90 - Unspecified dementia, unspecified severity, without behavioral disturbance, psychotic disturbance, mood disturbance, and anxiety Plan 1. continue current medications 12/27 Mag improved to 1.8, Na to 134. no agitation. Reason for continued inpatient stay Substantial Risk for: inability to function Time Spent With Patient Time: Total time managing care of this patient today ____ minutes.
[2023-12-28 20:00] VITALS: BP 160/70; PULSE 72; RESP 18; TEMP 36.6; O2SAT 98
[2023-12-28] MEDS: traZODone HCL 50 MG TABLET PO (20:16)
[2023-12-28] MEDS: hydrOXYzine HCL 25 MG TABLET PO (20:16)
[2023-12-29 08:00] VITALS: BP 170/74; PULSE 69; RESP 17; TEMP 36.3; O2SAT 99
[2023-12-29 08:20] VITALS: BP 170/74; PULSE 69
[2023-12-29] MEDS: atenoloL 50 MG TABLET PO (08:20)
[2023-12-29] MEDS: Magnesium Oxide 400 MG TABLET PO ×2 (08:20→20:45)
[2023-12-29] MEDS: Famotidine 20 MG TABLET PO ×2 (08:20→20:45)
[2023-12-29] MEDS: amLODIPine Besylate 5 MG TABLET PO (08:20)
[2023-12-29] MEDS: Atorvastatin Calcium 10 MG TABLET PO (08:20)
[2023-12-29] MEDS: Aspirin 81 MG TAB.CHEW PO (08:21)
--- NOTE | 2023-12-29 10:45 | P.PNPSI_ITS ---
Subjective Subjective Date of Service: 12/29/23 Reason For Visit: agitation Subjective Notes: Conditional Voluntary Interim History: Patient was seen and discussed in rounds today. Records and plans were reviewed. She is able to ambulate but refusing medications. She is confused. Eating and sleeping okay. No changes were made today no episodes of agitation Review of Systems Review of Systems Yes all other systems are reviewed and are negative Mental Status Exam Mental Status Exam Narrative: In today's visit she is hard of hearing. She is alert, oriented to person only. Speech is soft-spoken. Little eye contact. Affect is appropriate and constricted. No signs of psychosis. Cognitively impaired. No dangerous behaviors. Able to move all limbs. Cognitively impaired. Judgment is impaired Diagnostics Vital Signs (24Hr): Vital Signs - 24 hr 12/28/23 20:00 12/29/23 08:00 12/29/23 08:20 Temperature 97.9 F 97.4 F Pulse Rate 72 69 Respiratory Rate 18 17 Blood Pressure 160/70 H 170/74 H 170/74 H Pulse Oximetry 98 99 Oxygen Delivery Method Room Air Room Air 12/29/23 08:20 Temperature Pulse Rate 69 Respiratory Rate Blood Pressure 170/74 H Pulse Oximetry Oxygen Delivery Method BMI result Body Mass Index 20.4 Labs 12/20/23 07:10 12/28/23 07:22 Labs: Laboratory Results - last 48 hr 12/27/23 12/27/23 12/27/23 12:23 18:50 18:50 Hold Purple Top Sodium 134 L Potassium 3.9 Chloride 99 Carbon Dioxide 31 H Anion Gap 8 L BUN 17 H Creatinine 0.87 Estim Creat Clear Calc 32.0 Estimated GFR > 60 Random Glucose 112 Osmolality Calcium 9.1 Magnesium 1.6 TSH Urine Osmolality 544 Ur Random Sodium 120.0 Urine Creatinine 86.62 Cancelled 12/28/23 07:22 Hold Purple Top SEE NOTE Sodium 134 L Potassium 3.7 Chloride 99 Carbon Dioxide 29 Anion Gap 10 L BUN 16 Creatinine 0.76 Estim Creat Clear Calc 36.7 Estimated GFR > 60 Random Glucose 87 Osmolality 278 L Calcium 8.8 Magnesium 1.8 TSH 2.28 Urine Osmolality Ur Random Sodium Urine Creatinine Imaging Radiology Impressions: ITS Impressions Chest X-Ray 12/20/23 07:54 IMPRESSION: Unremarkable examination. Head CT 12/20/23 08:32 IMPRESSION: No acute intracranial pathology. 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 Medications Medications Current Medications Acetaminophen (Acetaminophen 325 Mg Tablet) 650 mg PO Q6H PRN PRN Reason: Headache/Pain Mild Scale (1-3) Last Admin: 12/25/23 20:37 Dose: 650 mg Al Hydroxide/Mg Hydroxide (Magnesium Hydrox/Alum Hydrox 30 Ml Oral.Susp) 30 ml PO Q6H PRN PRN Reason: Heartburn/Nausea Amlodipine Besylate (Amlodipine Besylate 5 Mg Tablet) 5 mg PO DAILY [facility]; Protocol Last Admin: 12/29/23 08:20 Dose: 5 mg Aspirin (Aspirin 81 Mg Tab.Chew) 81 mg PO DAILY [facility] Last Admin: 12/29/23 08:21 Dose: 81 mg Atenolol (Atenolol 50 Mg Tablet) 50 mg PO DAILY [facility]; Protocol Last Admin: 12/29/23 08:20 Dose: 50 mg Atorvastatin Calcium (Atorvastatin Calcium 10 Mg Tablet) 10 mg PO DAILY [facility] Last Admin: 12/29/23 08:20 Dose: 10 mg Famotidine (Famotidine 20 Mg Tablet) 20 mg PO BID [facility] Last Admin: 12/29/23 08:20 Dose: 20 mg Hydroxyzine HCl (Hydroxyzine Hcl 25 Mg Tablet) 25 mg PO Q6H PRN PRN Reason: Anxiety Last Admin: 12/28/23 20:16 Dose: 25 mg Magnesium Hydroxide (Milk Of Magnesia 30 Ml Oral.Susp) 30 ml PO DAILY PRN PRN Reason: Constipation Magnesium Oxide (Magnesium Oxide 400 Mg Tablet) 400 mg PO BID [facility] Last Admin: 12/29/23 08:20 Dose: 400 mg Trazodone HCl (Trazodone Hcl 50 Mg Tablet) 50 mg PO BEDTIME MRX1 PRN PRN Reason: Insomnia Last Admin: 12/28/23 20:16 Dose: 50 mg Allergies Allergies Allergy/AdvReac Type Severity Reaction Status Date / Time nitrofurantoin Allergy Mild SWELLING Verified 12/21/23 08:01 [From Macrodantin] nitroglycerin Allergy Unknown Verified 12/21/23 08:01 Assessment & Plan Assessment & Plan (1) Major neurocognitive disorder: Status: Acute Code(s): F03.90 - Unspecified dementia, unspecified severity, without behavioral disturbance, psychotic disturbance, mood disturbance, and anxiety Plan 1. continue current medications 2. monitor mag. started mag oxide 800mg po BID. improved Mag on 12/26 1.6, also improved Na 134. 12/29/2023: Continue current regimen and plans Reason for continued inpatient stay Substantial Risk for: inability to function Time Spent With Patient Time: Total time managing care of this patient today ____ minutes.
[2023-12-29 20:00] VITALS: BP 131/62; PULSE 66; RESP 16; TEMP 36.7; O2SAT 97
[2023-12-29] MEDS: hydrOXYzine HCL 25 MG TABLET PO (20:45)
[2023-12-30 08:00] VITALS: BP 160/70; PULSE 66; RESP 16; TEMP 36.4; O2SAT 96
[2023-12-30 08:03] VITALS: BP 160/70; PULSE 66
[2023-12-30] MEDS: atenoloL 50 MG TABLET PO (08:03)
[2023-12-30] MEDS: Aspirin 81 MG TAB.CHEW PO (08:04)
[2023-12-30] MEDS: Famotidine 20 MG TABLET PO ×2 (08:04→20:54)
[2023-12-30] MEDS: Atorvastatin Calcium 10 MG TABLET PO (08:04)
[2023-12-30] MEDS: Magnesium Oxide 400 MG TABLET PO ×2 (08:04→20:54)
--- NOTE | 2023-12-30 09:58 | HO.PSYCHPN ---
Subjective Subjective Date of Service: 12/30/23 Reason For Visit: agitation Subjective Notes: Conditional Voluntary Interim History: Patient was seen and discussed in rounds today. Records and plans were reviewed. She has been stable. Slight elevation of blood pressure reported. Eating and sleeping adequately. Refusing meds. No complaints. Sleeping adequately and eating okay. No behavioral problems. No changes were made today Review of Systems Review of Systems Yes all other systems are reviewed and are negative Mental Status Exam Mental Status Exam Narrative: In today's visit she is hard of hearing. She is alert, oriented to person only. Speech is soft-spoken. Little eye contact. Affect is appropriate and constricted. No signs of psychosis. Cognitively impaired. No dangerous behaviors. Able to move all limbs. Cognitively impaired. Judgment is impaired Diagnostics Vital Signs (24Hr): Vital Signs - 24 hr 12/29/23 20:00 12/30/23 08:00 12/30/23 08:03 Temperature 98.1 F 97.6 F Pulse Rate 66 66 66 Respiratory Rate 16 16 Blood Pressure 131/62 160/70 H 160/70 H Pulse Oximetry 97 96 Oxygen Delivery Method Room Air Room Air BMI result Body Mass Index 20.4 Labs 12/20/23 07:10 12/28/23 07:22 Imaging Radiology Impressions: ITS Impressions Chest X-Ray 12/20/23 07:54 IMPRESSION: Unremarkable examination. Head CT 12/20/23 08:32 IMPRESSION: No acute intracranial pathology. 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 Medications Medications Current Medications Acetaminophen (Acetaminophen 325 Mg Tablet) 650 mg PO Q6H PRN PRN Reason: Headache/Pain Mild Scale (1-3) Last Admin: 12/25/23 20:37 Dose: 650 mg Al Hydroxide/Mg Hydroxide (Magnesium Hydrox/Alum Hydrox 30 Ml Oral.Susp) 30 ml PO Q6H PRN PRN Reason: Heartburn/Nausea Amlodipine Besylate (Amlodipine Besylate 2.5 Mg Tablet) 7.5 mg PO DAILY [facility] 234 BEDS AT [facility]; Protocol Aspirin (Aspirin 81 Mg Tab.Chew) 81 mg PO DAILY [facility] 234 BEDS AT [facility] Last Admin: 12/30/23 08:04 Dose: 81 mg Atenolol (Atenolol 50 Mg Tablet) 50 mg PO DAILY [facility]CLUDE 234 BEDS AT [facility]; Protocol Last Admin: 12/30/23 08:03 Dose: 50 mg Atorvastatin Calcium (Atorvastatin Calcium 10 Mg Tablet) 10 mg PO DAILY [facility]CLUDE 234 BEDS AT [facility] Last Admin: 12/30/23 08:04 Dose: 10 mg Famotidine (Famotidine 20 Mg Tablet) 20 mg PO BID [facility]S [facility]CLUDE 234 BEDS AT [facility] Last Admin: 12/30/23 08:04 Dose: 20 mg Hydroxyzine HCl (Hydroxyzine Hcl 25 Mg Tablet) 25 mg PO Q6H PRN PRN Reason: Anxiety Last Admin: 12/29/23 20:45 Dose: 25 mg Magnesium Hydroxide (Milk Of Magnesia 30 Ml Oral.Susp) 30 ml PO DAILY PRN PRN Reason: Constipation Magnesium Oxide (Magnesium Oxide 400 Mg Tablet) 400 mg PO BID [facility]CLUDE 234 BEDS AT [facility] Last Admin: 12/30/23 08:04 Dose: 400 mg Trazodone HCl (Trazodone Hcl 50 Mg Tablet) 50 mg PO BEDTIME PRN PRN Reason: Insomnia Allergies Allergies Allergy/AdvReac Type Severity Reaction Status Date / Time nitrofurantoin Allergy Mild SWELLING Verified 12/21/23 08:01 [From Macrodantin] nitroglycerin Allergy Unknown Verified 12/21/23 08:01 Assessment & Plan Assessment & Plan (1) Major neurocognitive disorder: Status: Acute Code(s): F03.90 - Unspecified dementia, unspecified severity, without behavioral disturbance, psychotic disturbance, mood disturbance, and anxiety Plan 1. continue current medications 12/27 Mag improved to 1.8, Na to 134. no agitation. 12/30/2023: Continue current regimen and plans Reason for continued inpatient stay Substantial Risk for: med/psych decompensation Time Spent With Patient Time: Total time managing care of this patient today ____ minutes.
[2023-12-30] MEDS: amLODIPine Besylate 2.5 MG TABLET 7.5 MG PO (10:36)
[2023-12-30 20:00] VITALS: BP 168/76; PULSE 78; RESP 16; TEMP 36.6; O2SAT 97
[2023-12-30] MEDS: traZODone HCL 50 MG TABLET PO (20:54)
[2023-12-31 07:54] VITALS: BP 162/75; PULSE 65; RESP 16; TEMP 36.7; O2SAT 98
[2023-12-31] MEDS: amLODIPine Besylate 2.5 MG TABLET 7.5 MG PO (08:15)
[2023-12-31] MEDS: Aspirin 81 MG TAB.CHEW PO (08:16)
[2023-12-31] MEDS: atenoloL 50 MG TABLET PO (08:16)
[2023-12-31] MEDS: Atorvastatin Calcium 10 MG TABLET PO (08:16)
[2023-12-31] MEDS: Famotidine 20 MG TABLET PO ×2 (08:17→20:55)
[2023-12-31] MEDS: Magnesium Oxide 400 MG TABLET PO ×2 (08:17→20:55)
--- NOTE | 2023-12-31 09:12 | P.PNPSI_ITS ---
Subjective Subjective Date of Service: 12/31/23 Reason For Visit: agitation Subjective Notes: Conditional Voluntary Healthcare Proxy: Yes Interim History: Pt slept well. She has been visible on the unit. She is very pleasant on approach she is not oriented to place or situation and asks this typewriter repairer to call her daughter as she thinks she is not aware of where she is. She is reassured that daughter has been aware all along. Medication Compliance: Yes Review of Systems Review of Systems Yes all other systems are reviewed and are negative and Unobtainable due to mental status Constitutional: Reports as per HPI and Reports no additional constitutional complaints Eyes: Reports as per HPI and Denies no additional eye complaints Denies system reviewed and no additional complaints, except as documented and Reports as per HPI Cardiovascular: Reports as per HPI, Reports no additional cardiovascular complaints, Denies acrocyanosis, Denies cool extremities, Denies chest pain, Denies leg edema, Denies lightheadedness, Denies palpitations and Denies dyspnea Respiratory: Reports as per HPI, Denies no additional respiratory complaints and Denies dyspnea Gastrointestinal: Reports as per HPI and Denies no additional gastrointestinal complaints Musculoskeletal: Reports no additional musculoskeletal complaints and Reports as per HPI Skin/Breast: Reports system reviewed and no additional complaints, except as docu Reports system reviewed and no additional complaints, except as documented and Reports as per HPI Psychiatric: Reports no additional psychiatric complaints and Reports as per HPI Endocrine: Reports no additional endocrine complaints, Reports as per HPI and Denies palpitations Hematologic/Lymphatic: Reports no additional hematologic/lymphatic complaints and Reports as per HPI Allergic/Immunologic: Reports no additional allergic/immunologic complaints and Reports as per HPI Mental Status Exam Mental Status Exam Patient Appearance: Well Grooomed Patient Orientation: Person Level of Consciousness: Appropriate Patient Behavior: Appropriate (somewhat guarded) Mood Description: Nervous Affect Description: Nervous Patient Cognition Impaired: Yes Ability to Follow Directions: Poor Speech Pattern: Impoverished Memory Description: Immediate Impaired Diagnostics Vital Signs (24Hr): Vital Signs - 24 hr 12/30/23 20:00 12/31/23 07:54 Temperature 97.8 F 98.1 F Pulse Rate 78 65 Respiratory Rate 16 16 Blood Pressure 168/76 H 162/75 H Pulse Oximetry 97 98 Oxygen Delivery Method Room Air Room Air BMI result Body Mass Index 20.4 Labs 12/20/23 07:10 12/28/23 07:22 Imaging Radiology Impressions: ITS Impressions Chest X-Ray 12/20/23 07:54 IMPRESSION: Unremarkable examination. Head CT 12/20/23 08:32 IMPRESSION: No acute intracranial pathology. 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 Medications Medications Current Medications Acetaminophen (Acetaminophen 325 Mg Tablet) 650 mg PO Q6H PRN PRN Reason: Headache/Pain Mild Scale (1-3) Last Admin: 12/25/23 20:37 Dose: 650 mg Al Hydroxide/Mg Hydroxide (Magnesium Hydrox/Alum Hydrox 30 Ml Oral.Susp) 30 ml PO Q6H PRN PRN Reason: Heartburn/Nausea Amlodipine Besylate (Amlodipine Besylate 2.5 Mg Tablet) 7.5 mg PO DAILY [facility]; Protocol Last Admin: 12/31/23 08:15 Dose: 7.5 mg Aspirin (Aspirin 81 Mg Tab.Chew) 81 mg PO DAILY [facility] Last Admin: 12/31/23 08:16 Dose: 81 mg Atenolol (Atenolol 50 Mg Tablet) 50 mg PO DAILY [facility]; Protocol Last Admin: 12/31/23 08:16 Dose: 50 mg Atorvastatin Calcium (Atorvastatin Calcium 10 Mg Tablet) 10 mg PO DAILY [facility] Last Admin: 12/31/23 08:16 Dose: 10 mg Famotidine (Famotidine 20 Mg Tablet) 20 mg PO BID [facility] Last Admin: 12/31/23 08:17 Dose: 20 mg Hydroxyzine HCl (Hydroxyzine Hcl 25 Mg Tablet) 25 mg PO Q6H PRN PRN Reason: Anxiety Last Admin: 12/29/23 20:45 Dose: 25 mg Magnesium Hydroxide (Milk Of Magnesia 30 Ml Oral.Susp) 30 ml PO DAILY PRN PRN Reason: Constipation Magnesium Oxide (Magnesium Oxide 400 Mg Tablet) 400 mg PO BID [facility] Last Admin: 12/31/23 08:17 Dose: 400 mg Trazodone HCl (Trazodone Hcl 50 Mg Tablet) 50 mg PO BEDTIME PRN PRN Reason: Insomnia Last Admin: 12/30/23 20:54 Dose: 50 mg Allergies Allergies Allergy/AdvReac Type Severity Reaction Status Date / Time nitrofurantoin Allergy Mild SWELLING Verified 12/21/23 08:01 [From Macrodantin] nitroglycerin Allergy Unknown Verified 12/21/23 08:01 Assessment & Plan Assessment & Plan (1) Major neurocognitive disorder: Status: Acute Code(s): F03.90 - Unspecified dementia, unspecified severity, without behavioral disturbance, psychotic disturbance, mood disturbance, and anxiety Plan 1. continue current medications 12/27 Mag improved to 1.8, Na to 134. no agitation. 12/30/2023: Continue current regimen and plans 12/31 continue tx. Reason for continued inpatient stay Substantial Risk for: inability to function Time Spent With Patient Time: Total time managing care of this patient today ____ minutes.
[2023-12-31 20:00] VITALS: BP 163/79; PULSE 75; RESP 16; TEMP 36.1; O2SAT 96
[2023-12-31] MEDS: traZODone HCL 50 MG TABLET PO (20:55)
[2024-01-01 07:58] VITALS: BP 137/81; PULSE 62; RESP 18; TEMP 36.2; O2SAT 97
[2024-01-01] MEDS: Aspirin 81 MG TAB.CHEW PO (08:31)
[2024-01-01] MEDS: amLODIPine Besylate 2.5 MG TABLET 7.5 MG PO (08:31)
[2024-01-01] MEDS: Magnesium Oxide 400 MG TABLET PO ×2 (08:32→21:06)
[2024-01-01] MEDS: atenoloL 50 MG TABLET PO (08:32)
[2024-01-01] MEDS: Atorvastatin Calcium 10 MG TABLET PO (08:32)
[2024-01-01] MEDS: Famotidine 20 MG TABLET PO ×2 (08:32→21:06)
--- NOTE | 2024-01-01 11:41 | HO.PSYCHPN ---
Subjective Subjective Date of Service: 01/01/24 Reason For Visit: agitation Subjective Notes: Conditional Voluntary Healthcare Proxy: Yes Interim History: Pt continues to sleep well. She has been visible on the unit. She is very pleasant on approach she is not oriented to place or situation and asks this database report writer to call her daughter as she thinks she is not aware of where she is. She is reassured that daughter has been aware all along. No behavioral concerns.VS stable. Review of Systems Review of Systems Yes all other systems are reviewed and are negative and Unobtainable due to mental status Constitutional: Reports as per HPI and Reports no additional constitutional complaints Eyes: Reports as per HPI and Denies no additional eye complaints Denies system reviewed and no additional complaints, except as documented and Reports as per HPI Cardiovascular: Reports as per HPI, Reports no additional cardiovascular complaints, Denies acrocyanosis, Denies cool extremities, Denies chest pain, Denies leg edema, Denies lightheadedness, Denies palpitations and Denies dyspnea Respiratory: Reports as per HPI, Denies no additional respiratory complaints and Denies dyspnea Gastrointestinal: Reports as per HPI and Denies no additional gastrointestinal complaints Musculoskeletal: Reports no additional musculoskeletal complaints and Reports as per HPI Skin/Breast: Reports system reviewed and no additional complaints, except as docu Reports system reviewed and no additional complaints, except as documented and Reports as per HPI Psychiatric: Reports no additional psychiatric complaints and Reports as per HPI Endocrine: Reports no additional endocrine complaints, Reports as per HPI and Denies palpitations Hematologic/Lymphatic: Reports no additional hematologic/lymphatic complaints and Reports as per HPI Allergic/Immunologic: Reports no additional allergic/immunologic complaints and Reports as per HPI Mental Status Exam Mental Status Exam Patient Appearance: Well Grooomed Patient Orientation: Person Level of Consciousness: Appropriate Patient Behavior: Appropriate (somewhat guarded) Mood Description: Nervous Affect Description: Nervous Patient Cognition Impaired: Yes Ability to Follow Directions: Poor Speech Pattern: Impoverished Memory Description: Immediate Impaired Diagnostics Vital Signs (24Hr): Vital Signs - 24 hr 12/31/23 20:00 01/01/24 07:58 Temperature 97.0 F 97.2 F Pulse Rate 75 62 Respiratory Rate 16 18 Blood Pressure 163/79 H 137/81 Pulse Oximetry 96 97 Oxygen Delivery Method Room Air Room Air BMI result Body Mass Index 20.4 Labs 12/20/23 07:10 12/28/23 07:22 Imaging Radiology Impressions: ITS Impressions Chest X-Ray 12/20/23 07:54 IMPRESSION: Unremarkable examination. Head CT 12/20/23 08:32 IMPRESSION: No acute intracranial pathology. 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 Medications Medications Current Medications Acetaminophen (Acetaminophen 325 Mg Tablet) 650 mg PO Q6H PRN PRN Reason: Headache/Pain Mild Scale (1-3) Last Admin: 12/25/23 20:37 Dose: 650 mg Al Hydroxide/Mg Hydroxide (Magnesium Hydrox/Alum Hydrox 30 Ml Oral.Susp) 30 ml PO Q6H PRN PRN Reason: Heartburn/Nausea Amlodipine Besylate (Amlodipine Besylate 2.5 Mg Tablet) 7.5 mg PO DAILY [facility]; Protocol Last Admin: 01/01/24 08:31 Dose: 7.5 mg Aspirin (Aspirin 81 Mg Tab.Chew) 81 mg PO DAILY [facility] Last Admin: 01/01/24 08:31 Dose: 81 mg Atenolol (Atenolol 50 Mg Tablet) 50 mg PO DAILY [facility]; Protocol Last Admin: 01/01/24 08:32 Dose: 50 mg Atorvastatin Calcium (Atorvastatin Calcium 10 Mg Tablet) 10 mg PO DAILY [facility] Last Admin: 01/01/24 08:32 Dose: 10 mg Famotidine (Famotidine 20 Mg Tablet) 20 mg PO BID [facility] Last Admin: 01/01/24 08:32 Dose: 20 mg Hydroxyzine HCl (Hydroxyzine Hcl 25 Mg Tablet) 25 mg PO Q6H PRN PRN Reason: Anxiety Last Admin: 12/29/23 20:45 Dose: 25 mg Magnesium Hydroxide (Milk Of Magnesia 30 Ml Oral.Susp) 30 ml PO DAILY PRN PRN Reason: Constipation Magnesium Oxide (Magnesium Oxide 400 Mg Tablet) 400 mg PO BID [facility] Last Admin: 01/01/24 08:32 Dose: 400 mg Trazodone HCl (Trazodone Hcl 50 Mg Tablet) 50 mg PO BEDTIME PRN PRN Reason: Insomnia Last Admin: 12/31/23 20:55 Dose: 50 mg Allergies Allergies Allergy/AdvReac Type Severity Reaction Status Date / Time nitrofurantoin Allergy Mild SWELLING Verified 12/21/23 08:01 [From Macrodantin] nitroglycerin Allergy Unknown Verified 12/21/23 08:01 Assessment & Plan Assessment & Plan (1) Major neurocognitive disorder: Status: Acute Code(s): F03.90 - Unspecified dementia, unspecified severity, without behavioral disturbance, psychotic disturbance, mood disturbance, and anxiety Plan 1. continue current medications 12/27 Mag improved to 1.8, Na to 134. no agitation. 12/30/2023: Continue current regimen and plans 12/31 continue tx. Reason for continued inpatient stay Substantial Risk for: inability to function Time Spent With Patient Time: Total time managing care of this patient today ____ minutes.
[2024-01-01 20:00] VITALS: BP 154/84; PULSE 66; RESP 16; TEMP 36.1; O2SAT 97
[2024-01-02 08:00] VITALS: BP 149/78; PULSE 69; RESP 16; TEMP 35.9; O2SAT 96
[2024-01-02 08:11] VITALS: BP 149/78
[2024-01-02] MEDS: amLODIPine Besylate 2.5 MG TABLET 7.5 MG PO (08:11)
[2024-01-02 08:12] VITALS: BP 149/78; PULSE 69
[2024-01-02] MEDS: atenoloL 50 MG TABLET PO (08:12)
[2024-01-02] MEDS: Atorvastatin Calcium 10 MG TABLET PO (08:12)
[2024-01-02] MEDS: Famotidine 20 MG TABLET PO ×2 (08:12→20:43)
[2024-01-02] MEDS: Aspirin 81 MG TAB.CHEW PO (08:13)
[2024-01-02] MEDS: Magnesium Oxide 400 MG TABLET PO ×2 (08:13→20:43)
--- NOTE | 2024-01-02 08:43 | P.PNPSI_ITS ---
Subjective Subjective Date of Service: 01/02/24 Reason For Visit: agitation Subjective Notes: Conditional Voluntary Healthcare Proxy: Yes Interim History: Pt continues to sleep well. She is pleasant on approach. enjoys holding doll. Not oriented to place, situation, month or year. No aggression towards self or others. eating well. Review of Systems Review of Systems Yes all other systems are reviewed and are negative and Unobtainable due to mental status Constitutional: Reports as per HPI and Reports no additional constitutional complaints Eyes: Reports as per HPI and Denies no additional eye complaints Denies system reviewed and no additional complaints, except as documented and Reports as per HPI Cardiovascular: Reports as per HPI, Reports no additional cardiovascular complaints, Denies acrocyanosis, Denies cool extremities, Denies chest pain, Denies leg edema, Denies lightheadedness, Denies palpitations and Denies dyspnea Respiratory: Reports as per HPI, Denies no additional respiratory complaints and Denies dyspnea Gastrointestinal: Reports as per HPI and Denies no additional gastrointestinal complaints Musculoskeletal: Reports no additional musculoskeletal complaints and Reports as per HPI Skin/Breast: Reports system reviewed and no additional complaints, except as docu Reports system reviewed and no additional complaints, except as documented and Reports as per HPI Psychiatric: Reports no additional psychiatric complaints and Reports as per HPI Endocrine: Reports no additional endocrine complaints, Reports as per HPI and Denies palpitations Hematologic/Lymphatic: Reports no additional hematologic/lymphatic complaints and Reports as per HPI Allergic/Immunologic: Reports no additional allergic/immunologic complaints and Reports as per HPI Mental Status Exam Mental Status Exam Patient Appearance: Well Grooomed Patient Orientation: Person Level of Consciousness: Appropriate Patient Behavior: Appropriate (somewhat guarded) Mood Description: Nervous Affect Description: Nervous Patient Cognition Impaired: Yes Ability to Follow Directions: Poor Speech Pattern: Impoverished Memory Description: Immediate Impaired Diagnostics Vital Signs (24Hr): Vital Signs - 24 hr 01/01/24 20:00 01/02/24 08:00 01/02/24 08:11 Temperature 97.0 F 96.6 F L Pulse Rate 66 69 Respiratory Rate 16 16 Blood Pressure 154/84 H 149/78 H 149/78 H Pulse Oximetry 97 96 Oxygen Delivery Method Room Air Room Air 01/02/24 08:12 Temperature Pulse Rate 69 Respiratory Rate Blood Pressure 149/78 H Pulse Oximetry Oxygen Delivery Method BMI result Body Mass Index 20.4 Labs 12/20/23 07:10 12/28/23 07:22 Imaging Radiology Impressions: ITS Impressions Chest X-Ray 12/20/23 07:54 IMPRESSION: Unremarkable examination. Head CT 12/20/23 08:32 IMPRESSION: No acute intracranial pathology. 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 Medications Medications Current Medications Acetaminophen (Acetaminophen 325 Mg Tablet) 650 mg PO Q6H PRN PRN Reason: Headache/Pain Mild Scale (1-3) Last Admin: 12/25/23 20:37 Dose: 650 mg Al Hydroxide/Mg Hydroxide (Magnesium Hydrox/Alum Hydrox 30 Ml Oral.Susp) 30 ml PO Q6H PRN PRN Reason: Heartburn/Nausea Amlodipine Besylate (Amlodipine Besylate 2.5 Mg Tablet) 7.5 mg PO DAILY [facility]; Protocol Last Admin: 01/02/24 08:11 Dose: 7.5 mg Aspirin (Aspirin 81 Mg Tab.Chew) 81 mg PO DAILY [facility] Last Admin: 01/02/24 08:13 Dose: 81 mg Atenolol (Atenolol 50 Mg Tablet) 50 mg PO DAILY [facility]; Protocol Last Admin: 01/02/24 08:12 Dose: 50 mg Atorvastatin Calcium (Atorvastatin Calcium 10 Mg Tablet) 10 mg PO DAILY [facility] Last Admin: 01/02/24 08:12 Dose: 10 mg Famotidine (Famotidine 20 Mg Tablet) 20 mg PO BID [facility] Last Admin: 01/02/24 08:12 Dose: 20 mg Hydroxyzine HCl (Hydroxyzine Hcl 25 Mg Tablet) 25 mg PO Q6H PRN PRN Reason: Anxiety Last Admin: 12/29/23 20:45 Dose: 25 mg Magnesium Hydroxide (Milk Of Magnesia 30 Ml Oral.Susp) 30 ml PO DAILY PRN PRN Reason: Constipation Magnesium Oxide (Magnesium Oxide 400 Mg Tablet) 400 mg PO BID [facility] Last Admin: 01/02/24 08:13 Dose: 400 mg Trazodone HCl (Trazodone Hcl 50 Mg Tablet) 50 mg PO BEDTIME PRN PRN Reason: Insomnia Last Admin: 12/31/23 20:55 Dose: 50 mg Allergies Allergies Allergy/AdvReac Type Severity Reaction Status Date / Time nitrofurantoin Allergy Mild SWELLING Verified 12/21/23 08:01 [From Macrodantin] nitroglycerin Allergy Unknown Verified 12/21/23 08:01 Assessment & Plan Assessment & Plan (1) Major neurocognitive disorder: Status: Acute Code(s): F03.90 - Unspecified dementia, unspecified severity, without behavioral disturbance, psychotic disturbance, mood disturbance, and anxiety Plan 1. continue current medications 12/27 Mag improved to 1.8, Na to 134. no agitation. 12/30/2023: Continue current regimen and plans 12/31 continue tx. 01/01 continue tx. Reason for continued inpatient stay Substantial Risk for: inability to function Time Spent With Patient Time: Total time managing care of this patient today ____ minutes.
[2024-01-02 20:00] VITALS: BP 150/63; PULSE 69; RESP 18; TEMP 35.9; O2SAT 95
[2024-01-02] MEDS: Acetaminophen 325 MG TABLET 650 MG PO (20:42)
[2024-01-02] MEDS: hydrOXYzine HCL 25 MG TABLET PO (20:43)
[2024-01-02] MEDS: traZODone HCL 50 MG TABLET PO (20:43)
[2024-01-03 07:00] VITALS: BMI 21.6
[2024-01-03 08:00] VITALS: BP 117/69; PULSE 68; RESP 18; TEMP 36.2; O2SAT 98
[2024-01-03] MEDS: amLODIPine Besylate 2.5 MG TABLET 7.5 MG PO (08:35)
[2024-01-03] MEDS: Magnesium Oxide 400 MG TABLET PO ×2 (08:35→21:17)
[2024-01-03] MEDS: Atorvastatin Calcium 10 MG TABLET PO (08:35)
[2024-01-03] MEDS: atenoloL 50 MG TABLET PO (08:35)
[2024-01-03] MEDS: Aspirin 81 MG TAB.CHEW PO (08:35)
[2024-01-03] MEDS: Famotidine 20 MG TABLET PO ×2 (08:35→21:17)
--- NOTE | 2024-01-03 11:39 | P.PNPSI_ITS ---
Subjective Subjective Date of Service: 01/03/24 Reason For Visit: agitation Subjective Notes: Conditional Voluntary Interim History: Pt slept better last night. She is visible on the unit,and very pleasant on approach. She is taking medications as prescribed. family meeting to discuss progress need for LTC. no behavioral concerns. vs stable. Review of Systems Review of Systems Yes all other systems are reviewed and are negative and Unobtainable due to mental status Constitutional: Reports as per HPI and Reports no additional constitutional complaints Eyes: Reports as per HPI and Denies no additional eye complaints Denies system reviewed and no additional complaints, except as documented and Reports as per HPI Cardiovascular: Reports as per HPI, Reports no additional cardiovascular complaints, Denies acrocyanosis, Denies cool extremities, Denies chest pain, Denies leg edema, Denies lightheadedness, Denies palpitations and Denies dyspnea Respiratory: Reports as per HPI, Denies no additional respiratory complaints and Denies dyspnea Gastrointestinal: Reports as per HPI and Denies no additional gastrointestinal complaints Musculoskeletal: Reports no additional musculoskeletal complaints and Reports as per HPI Skin/Breast: Reports system reviewed and no additional complaints, except as docu Reports system reviewed and no additional complaints, except as documented and Reports as per HPI Psychiatric: Reports no additional psychiatric complaints and Reports as per HPI Endocrine: Reports no additional endocrine complaints, Reports as per HPI and Denies palpitations Hematologic/Lymphatic: Reports no additional hematologic/lymphatic complaints and Reports as per HPI Allergic/Immunologic: Reports no additional allergic/immunologic complaints and Reports as per HPI Mental Status Exam Mental Status Exam Patient Appearance: Well Grooomed Patient Orientation: Person Level of Consciousness: Appropriate Patient Behavior: Appropriate (somewhat guarded) Mood Description: Nervous Affect Description: Nervous Patient Cognition Impaired: Yes Ability to Follow Directions: Poor Speech Pattern: Impoverished Memory Description: Immediate Impaired Diagnostics Vital Signs (24Hr): Vital Signs - 24 hr 01/02/24 20:00 01/03/24 08:00 Temperature 96.7 F L 97.2 F Pulse Rate 69 68 Respiratory Rate 18 18 Blood Pressure 150/63 H 117/69 Pulse Oximetry 95 98 Oxygen Delivery Method Room Air Room Air BMI result Body Mass Index 20.4 Labs 12/20/23 07:10 12/28/23 07:22 Imaging Radiology Impressions: ITS Impressions Chest X-Ray 12/20/23 07:54 IMPRESSION: Unremarkable examination. Head CT 12/20/23 08:32 IMPRESSION: No acute intracranial pathology. 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 Medications Medications Current Medications Acetaminophen (Acetaminophen 325 Mg Tablet) 650 mg PO Q6H PRN PRN Reason: Headache/Pain Mild Scale (1-3) Last Admin: 01/02/24 20:42 Dose: 650 mg Al Hydroxide/Mg Hydroxide (Magnesium Hydrox/Alum Hydrox 30 Ml Oral.Susp) 30 ml PO Q6H PRN PRN Reason: Heartburn/Nausea Amlodipine Besylate (Amlodipine Besylate 2.5 Mg Tablet) 7.5 mg PO DAILY [facility]; Protocol Last Admin: 01/03/24 08:35 Dose: 7.5 mg Aspirin (Aspirin 81 Mg Tab.Chew) 81 mg PO DAILY [facility] Last Admin: 01/03/24 08:35 Dose: 81 mg Atenolol (Atenolol 50 Mg Tablet) 50 mg PO DAILY [facility]; Protocol Last Admin: 01/03/24 08:35 Dose: 50 mg Atorvastatin Calcium (Atorvastatin Calcium 10 Mg Tablet) 10 mg PO DAILY [facility] Last Admin: 01/03/24 08:35 Dose: 10 mg Famotidine (Famotidine 20 Mg Tablet) 20 mg PO BID [facility] Last Admin: 01/03/24 08:35 Dose: 20 mg Hydroxyzine HCl (Hydroxyzine Hcl 25 Mg Tablet) 25 mg PO Q6H PRN PRN Reason: Anxiety Last Admin: 01/02/24 20:43 Dose: 25 mg Magnesium Hydroxide (Milk Of Magnesia 30 Ml Oral.Susp) 30 ml PO DAILY PRN PRN Reason: Constipation Magnesium Oxide (Magnesium Oxide 400 Mg Tablet) 400 mg PO BID [facility] Last Admin: 01/03/24 08:35 Dose: 400 mg Trazodone HCl (Trazodone Hcl 50 Mg Tablet) 50 mg PO BEDTIME PRN PRN Reason: Insomnia Last Admin: 01/02/24 20:43 Dose: 50 mg Allergies Allergies Allergy/AdvReac Type Severity Reaction Status Date / Time nitrofurantoin Allergy Mild SWELLING Verified 12/21/23 08:01 [From Macrodantin] nitroglycerin Allergy Unknown Verified 12/21/23 08:01 Assessment & Plan Assessment & Plan (1) Major neurocognitive disorder: Status: Acute Code(s): F03.90 - Unspecified dementia, unspecified severity, without behavioral disturbance, psychotic disturbance, mood disturbance, and anxiety Plan 1. continue current medications 12/27 Mag improved to 1.8, Na to 134. no agitation. 12/30/2023: Continue current regimen and plans 12/31 continue tx. 01/01 continue tx. 01/02 continue tx. Reason for continued inpatient stay Substantial Risk for: inability to function Time Spent With Patient Time: Total time managing care of this patient today ____ minutes.
[2024-01-03] MEDS: traZODone HCL 50 MG TABLET PO (21:17)
[2024-01-03] MEDS: hydrOXYzine HCL 25 MG TABLET PO (21:17)
[2024-01-04 08:34] VITALS: BP 144/61; PULSE 64; RESP 18; TEMP 36.6; O2SAT 96
[2024-01-04] MEDS: Magnesium Oxide 400 MG TABLET PO ×2 (08:36→20:53)
[2024-01-04] MEDS: Aspirin 81 MG TAB.CHEW PO (08:36)
[2024-01-04] MEDS: Atorvastatin Calcium 10 MG TABLET PO (08:36)
[2024-01-04] MEDS: amLODIPine Besylate 2.5 MG TABLET 7.5 MG PO (08:36)
[2024-01-04] MEDS: atenoloL 50 MG TABLET PO (08:36)
[2024-01-04] MEDS: Famotidine 20 MG TABLET PO ×2 (08:36→20:53)
--- NOTE | 2024-01-04 16:41 | P.PNPSI_ITS ---
Subjective Subjective Date of Service: 01/04/24 Reason For Visit: agitation Subjective Notes: Conditional Voluntary Healthcare Proxy: Yes Interim History: Pt slept better last night. She is visible on the unit,and very pleasant on approach. She is taking medications as prescribed. family meeting to discuss progress need for LTC. no behavioral concerns. vs stable. Review of Systems Review of Systems Yes all other systems are reviewed and are negative and Unobtainable due to mental status Constitutional: Reports as per HPI and Reports no additional constitutional complaints Eyes: Reports as per HPI and Denies no additional eye complaints Denies system reviewed and no additional complaints, except as documented and Reports as per HPI Cardiovascular: Reports as per HPI, Reports no additional cardiovascular complaints, Denies acrocyanosis, Denies cool extremities, Denies chest pain, Denies leg edema, Denies lightheadedness, Denies palpitations and Denies dyspnea Respiratory: Reports as per HPI, Denies no additional respiratory complaints and Denies dyspnea Gastrointestinal: Reports as per HPI and Denies no additional gastrointestinal complaints Musculoskeletal: Reports no additional musculoskeletal complaints and Reports as per HPI Skin/Breast: Reports system reviewed and no additional complaints, except as docu Reports system reviewed and no additional complaints, except as documented and Reports as per HPI Psychiatric: Reports no additional psychiatric complaints and Reports as per HPI Endocrine: Reports no additional endocrine complaints, Reports as per HPI and Denies palpitations Hematologic/Lymphatic: Reports no additional hematologic/lymphatic complaints and Reports as per HPI Allergic/Immunologic: Reports no additional allergic/immunologic complaints and Reports as per HPI Mental Status Exam Mental Status Exam Patient Appearance: Well Grooomed Patient Orientation: Person Level of Consciousness: Appropriate Patient Behavior: Appropriate (somewhat guarded) Mood Description: Nervous Affect Description: Nervous Patient Cognition Impaired: Yes Ability to Follow Directions: Poor Speech Pattern: Impoverished Memory Description: Immediate Impaired Diagnostics Vital Signs (24Hr): Vital Signs - 24 hr 01/04/24 08:34 Temperature 97.9 F Pulse Rate 64 Respiratory Rate 18 Blood Pressure 144/61 H Pulse Oximetry 96 Oxygen Delivery Method Room Air BMI result Body Mass Index 21.6 Labs 12/20/23 07:10 12/28/23 07:22 Imaging Radiology Impressions: ITS Impressions Chest X-Ray 12/20/23 07:54 IMPRESSION: Unremarkable examination. Head CT 12/20/23 08:32 IMPRESSION: No acute intracranial pathology. 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 Medications Medications Current Medications Acetaminophen (Acetaminophen 325 Mg Tablet) 650 mg PO Q6H PRN PRN Reason: Headache/Pain Mild Scale (1-3) Last Admin: 01/02/24 20:42 Dose: 650 mg Al Hydroxide/Mg Hydroxide (Magnesium Hydrox/Alum Hydrox 30 Ml Oral.Susp) 30 ml PO Q6H PRN PRN Reason: Heartburn/Nausea Amlodipine Besylate (Amlodipine Besylate 2.5 Mg Tablet) 7.5 mg PO DAILY [facility]; Protocol Last Admin: 01/04/24 08:36 Dose: 7.5 mg Aspirin (Aspirin 81 Mg Tab.Chew) 81 mg PO DAILY [facility] Last Admin: 01/04/24 08:36 Dose: 81 mg Atenolol (Atenolol 50 Mg Tablet) 50 mg PO DAILY [facility]; Protocol Last Admin: 01/04/24 08:36 Dose: 50 mg Atorvastatin Calcium (Atorvastatin Calcium 10 Mg Tablet) 10 mg PO DAILY [facility] Last Admin: 01/04/24 08:36 Dose: 10 mg Famotidine (Famotidine 20 Mg Tablet) 20 mg PO BID [facility] Last Admin: 01/04/24 08:36 Dose: 20 mg Hydroxyzine HCl (Hydroxyzine Hcl 25 Mg Tablet) 25 mg PO Q6H PRN PRN Reason: Anxiety Last Admin: 01/03/24 21:17 Dose: 25 mg Magnesium Hydroxide (Milk Of Magnesia 30 Ml Oral.Susp) 30 ml PO DAILY PRN PRN Reason: Constipation Magnesium Oxide (Magnesium Oxide 400 Mg Tablet) 400 mg PO BID [facility] Last Admin: 01/04/24 08:36 Dose: 400 mg Trazodone HCl (Trazodone Hcl 50 Mg Tablet) 50 mg PO BEDTIME PRN PRN Reason: Insomnia Last Admin: 01/03/24 21:17 Dose: 50 mg Allergies Allergies Allergy/AdvReac Type Severity Reaction Status Date / Time nitrofurantoin Allergy Mild SWELLING Verified 12/21/23 08:01 [From Macrodantin] nitroglycerin Allergy Unknown Verified 12/21/23 08:01 Assessment & Plan Assessment & Plan (1) Major neurocognitive disorder: Status: Acute Code(s): F03.90 - Unspecified dementia, unspecified severity, without behavioral disturbance, psychotic disturbance, mood disturbance, and anxiety Plan 1. continue current medications 12/27 Mag improved to 1.8, Na to 134. no agitation. 12/30/2023: Continue current regimen and plans 12/31 continue tx. 01/01 continue tx. 01/02 continue tx 01/03 continue tx Reason for continued inpatient stay Substantial Risk for: inability to function Time Spent With Patient Time: Total time managing care of this patient today ____ minutes.
[2024-01-04 20:00] VITALS: BP 130/63; PULSE 71; RESP 16; TEMP 36.5; O2SAT 96
[2024-01-05 08:00] VITALS: BP 132/63; PULSE 63; RESP 18; TEMP 36.3; O2SAT 97
[2024-01-05] MEDS: atenoloL 50 MG TABLET PO (08:51)
[2024-01-05] MEDS: Aspirin 81 MG TAB.CHEW PO (08:51)
[2024-01-05] MEDS: Atorvastatin Calcium 10 MG TABLET PO (08:51)
[2024-01-05] MEDS: Magnesium Oxide 400 MG TABLET PO ×2 (08:51→21:02)
[2024-01-05] MEDS: Famotidine 20 MG TABLET PO ×2 (08:51→21:02)
[2024-01-05] MEDS: amLODIPine Besylate 2.5 MG TABLET 7.5 MG PO (08:52)
--- NOTE | 2024-01-05 12:26 | P.PNPSI_ITS ---
Subjective Subjective Date of Service: 01/05/24 Reason For Visit: agitation Interim History: Pt slept better last night. She is visible on the unit,and very pleasant on approach. She is taking medications as prescribed. family meeting to discuss progress need for LTC. no behavioral concerns. vs stable. Review of Systems Review of Systems Yes all other systems are reviewed and are negative and Unobtainable due to mental status Constitutional: Reports as per HPI and Reports no additional constitutional complaints Eyes: Reports as per HPI and Denies no additional eye complaints Denies system reviewed and no additional complaints, except as documented and Reports as per HPI Cardiovascular: Reports as per HPI, Reports no additional cardiovascular complaints, Denies acrocyanosis, Denies cool extremities, Denies chest pain, Denies leg edema, Denies lightheadedness, Denies palpitations and Denies dyspnea Respiratory: Reports as per HPI, Denies no additional respiratory complaints and Denies dyspnea Gastrointestinal: Reports as per HPI and Denies no additional gastrointestinal complaints Musculoskeletal: Reports no additional musculoskeletal complaints and Reports as per HPI Skin/Breast: Reports system reviewed and no additional complaints, except as docu Reports system reviewed and no additional complaints, except as documented and Reports as per HPI Psychiatric: Reports no additional psychiatric complaints and Reports as per HPI Endocrine: Reports no additional endocrine complaints, Reports as per HPI and Denies palpitations Hematologic/Lymphatic: Reports no additional hematologic/lymphatic complaints and Reports as per HPI Allergic/Immunologic: Reports no additional allergic/immunologic complaints and Reports as per HPI Mental Status Exam Mental Status Exam Patient Appearance: Well Grooomed Patient Orientation: Person Level of Consciousness: Appropriate Patient Behavior: Appropriate (somewhat guarded) Mood Description: Nervous Affect Description: Nervous Patient Cognition Impaired: Yes Ability to Follow Directions: Poor Speech Pattern: Impoverished Memory Description: Immediate Impaired Diagnostics Vital Signs (24Hr): Vital Signs - 24 hr 01/04/24 20:00 01/05/24 08:00 Temperature 97.7 F 97.3 F Pulse Rate 71 63 Respiratory Rate 16 18 Blood Pressure 130/63 132/63 Pulse Oximetry 96 97 Oxygen Delivery Method Room Air Room Air BMI result Body Mass Index 21.6 Labs 12/20/23 07:10 12/28/23 07:22 Imaging Radiology Impressions: ITS Impressions Chest X-Ray 12/20/23 07:54 IMPRESSION: Unremarkable examination. Head CT 12/20/23 08:32 IMPRESSION: No acute intracranial pathology. 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 Medications Medications Current Medications Acetaminophen (Acetaminophen 325 Mg Tablet) 650 mg PO Q6H PRN PRN Reason: Headache/Pain Mild Scale (1-3) Last Admin: 01/02/24 20:42 Dose: 650 mg Al Hydroxide/Mg Hydroxide (Magnesium Hydrox/Alum Hydrox 30 Ml Oral.Susp) 30 ml PO Q6H PRN PRN Reason: Heartburn/Nausea Amlodipine Besylate (Amlodipine Besylate 2.5 Mg Tablet) 7.5 mg PO DAILY [facility]; Protocol Last Admin: 01/05/24 08:52 Dose: 7.5 mg Aspirin (Aspirin 81 Mg Tab.Chew) 81 mg PO DAILY [facility] Last Admin: 01/05/24 08:51 Dose: 81 mg Atenolol (Atenolol 50 Mg Tablet) 50 mg PO DAILY [facility]; Protocol Last Admin: 01/05/24 08:51 Dose: 50 mg Atorvastatin Calcium (Atorvastatin Calcium 10 Mg Tablet) 10 mg PO DAILY [facility] Last Admin: 01/05/24 08:51 Dose: 10 mg Famotidine (Famotidine 20 Mg Tablet) 20 mg PO BID [facility] Last Admin: 01/05/24 08:51 Dose: 20 mg Hydroxyzine HCl (Hydroxyzine Hcl 25 Mg Tablet) 25 mg PO Q6H PRN PRN Reason: Anxiety Last Admin: 01/03/24 21:17 Dose: 25 mg Magnesium Hydroxide (Milk Of Magnesia 30 Ml Oral.Susp) 30 ml PO DAILY PRN PRN Reason: Constipation Magnesium Oxide (Magnesium Oxide 400 Mg Tablet) 400 mg PO BID [facility] Last Admin: 01/05/24 08:51 Dose: 400 mg Trazodone HCl (Trazodone Hcl 50 Mg Tablet) 50 mg PO BEDTIME PRN PRN Reason: Insomnia Last Admin: 01/03/24 21:17 Dose: 50 mg Allergies Allergies Allergy/AdvReac Type Severity Reaction Status Date / Time nitrofurantoin Allergy Mild SWELLING Verified 12/21/23 08:01 [From Macrodantin] nitroglycerin Allergy Unknown Verified 12/21/23 08:01 Assessment & Plan Assessment & Plan (1) Major neurocognitive disorder: Status: Acute Code(s): F03.90 - Unspecified dementia, unspecified severity, without behavioral disturbance, psychotic disturbance, mood disturbance, and anxiety Plan 1. continue current medications 12/27 Mag improved to 1.8, Na to 134. no agitation. 12/30/2023: Continue current regimen and plans 12/31 continue tx. 01/01 continue tx. 01/02 continue tx 01/03 continue tx 01/04 continue tx. Reason for continued inpatient stay Substantial Risk for: inability to function Time Spent With Patient Time: Total time managing care of this patient today ____ minutes.
[2024-01-05 20:00] VITALS: BP 148/58; PULSE 75; RESP 16; TEMP 36.3; O2SAT 97
[2024-01-05] MEDS: traZODone HCL 50 MG TABLET PO (21:02)
[2024-01-06 08:00] VITALS: BP 112/54; PULSE 63; RESP 18; TEMP 36.1; O2SAT 98
[2024-01-06] MEDS: Magnesium Oxide 400 MG TABLET PO ×2 (08:41→20:37)
[2024-01-06] MEDS: Atorvastatin Calcium 10 MG TABLET PO (08:41)
[2024-01-06] MEDS: atenoloL 50 MG TABLET PO (08:41)
[2024-01-06] MEDS: Aspirin 81 MG TAB.CHEW PO (08:41)
[2024-01-06] MEDS: Famotidine 20 MG TABLET PO ×2 (08:41→20:37)
[2024-01-06] MEDS: amLODIPine Besylate 2.5 MG TABLET 7.5 MG PO (08:42)
--- NOTE | 2024-01-06 14:50 | HO.PSYCHPN ---
Subjective Subjective Date of Service: 01/06/24 Reason For Visit: agitation Subjective Notes: Conditional Voluntary Interim History: Pt slept better last night. She is visible on the unit,and very pleasant on approach.She asks if her daughter knows if she is here or not- much calmer when told daughter is aware She is taking medications as prescribed. no behavioral concerns. vs stable. Review of Systems Review of Systems Yes all other systems are reviewed and are negative and Unobtainable due to mental status Constitutional: Reports as per HPI and Reports no additional constitutional complaints Eyes: Reports as per HPI and Denies no additional eye complaints Denies system reviewed and no additional complaints, except as documented and Reports as per HPI Cardiovascular: Reports as per HPI, Reports no additional cardiovascular complaints, Denies acrocyanosis, Denies cool extremities, Denies chest pain, Denies leg edema, Denies lightheadedness, Denies palpitations and Denies dyspnea Respiratory: Reports as per HPI, Denies no additional respiratory complaints and Denies dyspnea Gastrointestinal: Reports as per HPI and Denies no additional gastrointestinal complaints Musculoskeletal: Reports no additional musculoskeletal complaints and Reports as per HPI Skin/Breast: Reports system reviewed and no additional complaints, except as docu Reports system reviewed and no additional complaints, except as documented and Reports as per HPI Psychiatric: Reports no additional psychiatric complaints and Reports as per HPI Endocrine: Reports no additional endocrine complaints, Reports as per HPI and Denies palpitations Hematologic/Lymphatic: Reports no additional hematologic/lymphatic complaints and Reports as per HPI Allergic/Immunologic: Reports no additional allergic/immunologic complaints and Reports as per HPI Mental Status Exam Mental Status Exam Patient Appearance: Well Grooomed Patient Orientation: Person Level of Consciousness: Appropriate Patient Behavior: Appropriate (somewhat guarded) Mood Description: Nervous Affect Description: Nervous Patient Cognition Impaired: Yes Ability to Follow Directions: Poor Speech Pattern: Impoverished Memory Description: Immediate Impaired Diagnostics Vital Signs (24Hr): Vital Signs - 24 hr 01/05/24 20:00 01/06/24 08:00 Temperature 97.3 F 96.9 F Pulse Rate 75 63 Respiratory Rate 16 18 Blood Pressure 148/58 H 112/54 L Pulse Oximetry 97 98 Oxygen Delivery Method Room Air Room Air BMI result Body Mass Index 21.6 Labs 12/20/23 07:10 12/28/23 07:22 Imaging Radiology Impressions: ITS Impressions Chest X-Ray 12/20/23 07:54 IMPRESSION: Unremarkable examination. Head CT 12/20/23 08:32 IMPRESSION: No acute intracranial pathology. 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 Medications Medications Current Medications Acetaminophen (Acetaminophen 325 Mg Tablet) 650 mg PO Q6H PRN PRN Reason: Headache/Pain Mild Scale (1-3) Last Admin: 01/02/24 20:42 Dose: 650 mg Al Hydroxide/Mg Hydroxide (Magnesium Hydrox/Alum Hydrox 30 Ml Oral.Susp) 30 ml PO Q6H PRN PRN Reason: Heartburn/Nausea Amlodipine Besylate (Amlodipine Besylate 2.5 Mg Tablet) 7.5 mg PO DAILY [facility]; Protocol Last Admin: 01/06/24 08:42 Dose: 7.5 mg Aspirin (Aspirin 81 Mg Tab.Chew) 81 mg PO DAILY [facility] Last Admin: 01/06/24 08:41 Dose: 81 mg Atenolol (Atenolol 50 Mg Tablet) 50 mg PO DAILY [facility]; Protocol Last Admin: 01/06/24 08:41 Dose: 50 mg Atorvastatin Calcium (Atorvastatin Calcium 10 Mg Tablet) 10 mg PO DAILY [facility] Last Admin: 01/06/24 08:41 Dose: 10 mg Famotidine (Famotidine 20 Mg Tablet) 20 mg PO BID [facility] Last Admin: 01/06/24 08:41 Dose: 20 mg Hydroxyzine HCl (Hydroxyzine Hcl 25 Mg Tablet) 25 mg PO Q6H PRN PRN Reason: Anxiety Last Admin: 01/03/24 21:17 Dose: 25 mg Magnesium Hydroxide (Milk Of Magnesia 30 Ml Oral.Susp) 30 ml PO DAILY PRN PRN Reason: Constipation Magnesium Oxide (Magnesium Oxide 400 Mg Tablet) 400 mg PO BID [facility] Last Admin: 01/06/24 08:41 Dose: 400 mg Trazodone HCl (Trazodone Hcl 50 Mg Tablet) 50 mg PO BEDTIME PRN PRN Reason: Insomnia Last Admin: 01/05/24 21:02 Dose: 50 mg Allergies Allergies Allergy/AdvReac Type Severity Reaction Status Date / Time nitrofurantoin Allergy Mild SWELLING Verified 12/21/23 08:01 [From Macrodantin] nitroglycerin Allergy Unknown Verified 12/21/23 08:01 Assessment & Plan Assessment & Plan (1) Major neurocognitive disorder: Status: Acute Code(s): F03.90 - Unspecified dementia, unspecified severity, without behavioral disturbance, psychotic disturbance, mood disturbance, and anxiety Plan 1. continue current medications 12/27 Mag improved to 1.8, Na to 134. no agitation. 12/30/2023: Continue current regimen and plans 12/31 continue tx. 01/01 continue tx. 01/02 continue tx 01/03 continue tx 01/04 continue tx. 01/05 continue tx. Reason for continued inpatient stay Substantial Risk for: inability to function Time Spent With Patient Time: Total time managing care of this patient today ____ minutes.
[2024-01-06 20:00] VITALS: BP 142/67; PULSE 65; RESP 18; TEMP 36.5; O2SAT 97
[2024-01-06] MEDS: traZODone HCL 50 MG TABLET PO (20:37)
[2024-01-06] MEDS: hydrOXYzine HCL 25 MG TABLET PO (20:37)
[2024-01-07 07:45] VITALS: BP 155/89; PULSE 69; RESP 16; TEMP 36.2; O2SAT 95
[2024-01-07 07:51] VITALS: BP 155/89; PULSE 69
[2024-01-07] MEDS: atenoloL 50 MG TABLET PO (07:51)
[2024-01-07] MEDS: Magnesium Oxide 400 MG TABLET PO ×2 (07:51→21:05)
[2024-01-07 07:53] VITALS: BP 155/89
[2024-01-07] MEDS: Famotidine 20 MG TABLET PO ×2 (07:53→21:05)
[2024-01-07] MEDS: Aspirin 81 MG TAB.CHEW PO (07:53)
[2024-01-07] MEDS: amLODIPine Besylate 2.5 MG TABLET 7.5 MG PO (07:53)
[2024-01-07] MEDS: Atorvastatin Calcium 10 MG TABLET PO (07:54)
--- NOTE | 2024-01-07 09:27 | P.PNPSI_ITS ---
Subjective Subjective Date of Service: 01/07/24 Reason For Visit: agitation Subjective Notes: Conditional Voluntary Interim History: Pt slept better last night. She is visible on the unit,and very pleasant on approach.She once again if her daughter knows if she is here or not- much calmer when told daughter is aware she is here. She is taking medications as prescribed. no behavioral concerns. vs stable. Review of Systems Review of Systems Yes all other systems are reviewed and are negative and Unobtainable due to mental status Constitutional: Reports as per HPI and Reports no additional constitutional complaints Eyes: Reports as per HPI and Denies no additional eye complaints Denies system reviewed and no additional complaints, except as documented and Reports as per HPI Cardiovascular: Reports as per HPI, Reports no additional cardiovascular complaints, Denies acrocyanosis, Denies cool extremities, Denies chest pain, Denies leg edema, Denies lightheadedness, Denies palpitations and Denies dyspnea Respiratory: Reports as per HPI, Denies no additional respiratory complaints and Denies dyspnea Gastrointestinal: Reports as per HPI and Denies no additional gastrointestinal complaints Musculoskeletal: Reports no additional musculoskeletal complaints and Reports as per HPI Skin/Breast: Reports system reviewed and no additional complaints, except as docu Reports system reviewed and no additional complaints, except as documented and Reports as per HPI Psychiatric: Reports no additional psychiatric complaints and Reports as per HPI Endocrine: Reports no additional endocrine complaints, Reports as per HPI and Denies palpitations Hematologic/Lymphatic: Reports no additional hematologic/lymphatic complaints and Reports as per HPI Allergic/Immunologic: Reports no additional allergic/immunologic complaints and Reports as per HPI Mental Status Exam Mental Status Exam Patient Appearance: Well Grooomed Patient Orientation: Person Level of Consciousness: Appropriate Patient Behavior: Appropriate (somewhat guarded) Mood Description: Nervous Affect Description: Nervous Patient Cognition Impaired: Yes Ability to Follow Directions: Poor Speech Pattern: Impoverished Memory Description: Immediate Impaired Diagnostics Vital Signs (24Hr): Vital Signs - 24 hr 01/06/24 20:00 01/07/24 07:45 01/07/24 07:51 Temperature 97.7 F 97.1 F Pulse Rate 65 69 69 Respiratory Rate 18 16 Blood Pressure 142/67 H 155/89 H 155/89 H Pulse Oximetry 97 95 Oxygen Delivery Method Room Air Room Air 01/07/24 07:53 Temperature Pulse Rate Respiratory Rate Blood Pressure 155/89 H Pulse Oximetry Oxygen Delivery Method BMI result Body Mass Index 21.6 Labs 12/20/23 07:10 12/28/23 07:22 Imaging Radiology Impressions: ITS Impressions Chest X-Ray 12/20/23 07:54 IMPRESSION: Unremarkable examination. Head CT 12/20/23 08:32 IMPRESSION: No acute intracranial pathology. 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 Medications Medications Current Medications Acetaminophen (Acetaminophen 325 Mg Tablet) 650 mg PO Q6H PRN PRN Reason: Headache/Pain Mild Scale (1-3) Last Admin: 01/02/24 20:42 Dose: 650 mg Al Hydroxide/Mg Hydroxide (Magnesium Hydrox/Alum Hydrox 30 Ml Oral.Susp) 30 ml PO Q6H PRN PRN Reason: Heartburn/Nausea Amlodipine Besylate (Amlodipine Besylate 2.5 Mg Tablet) 7.5 mg PO DAILY [facility]; Protocol Last Admin: 01/07/24 07:53 Dose: 7.5 mg Aspirin (Aspirin 81 Mg Tab.Chew) 81 mg PO DAILY [facility] Last Admin: 01/07/24 07:53 Dose: 81 mg Atenolol (Atenolol 50 Mg Tablet) 50 mg PO DAILY [facility]; Protocol Last Admin: 01/07/24 07:51 Dose: 50 mg Atorvastatin Calcium (Atorvastatin Calcium 10 Mg Tablet) 10 mg PO DAILY [facility] Last Admin: 01/07/24 07:54 Dose: 10 mg Famotidine (Famotidine 20 Mg Tablet) 20 mg PO BID [facility] Last Admin: 01/07/24 07:53 Dose: 20 mg Hydroxyzine HCl (Hydroxyzine Hcl 25 Mg Tablet) 25 mg PO Q6H PRN PRN Reason: Anxiety Last Admin: 01/06/24 20:37 Dose: 25 mg Magnesium Hydroxide (Milk Of Magnesia 30 Ml Oral.Susp) 30 ml PO DAILY PRN PRN Reason: Constipation Magnesium Oxide (Magnesium Oxide 400 Mg Tablet) 400 mg PO BID [facility] Last Admin: 01/07/24 07:51 Dose: 400 mg Trazodone HCl (Trazodone Hcl 50 Mg Tablet) 50 mg PO BEDTIME PRN PRN Reason: Insomnia Last Admin: 01/06/24 20:37 Dose: 50 mg Allergies Allergies Allergy/AdvReac Type Severity Reaction Status Date / Time nitrofurantoin Allergy Mild SWELLING Verified 12/21/23 08:01 [From Macrodantin] nitroglycerin Allergy Unknown Verified 12/21/23 08:01 Assessment & Plan Assessment & Plan (1) Major neurocognitive disorder: Status: Acute Code(s): F03.90 - Unspecified dementia, unspecified severity, without behavioral disturbance, psychotic disturbance, mood disturbance, and anxiety Plan 1. continue current medications 12/27 Mag improved to 1.8, Na to 134. no agitation. 12/30/2023: Continue current regimen and plans 12/31 continue tx. 01/01 continue tx. 01/02 continue tx 01/03 continue tx 01/04 continue tx. 01/05 continue tx. 01/06 continue tx. Reason for continued inpatient stay Substantial Risk for: inability to function Time Spent With Patient Time: Total time managing care of this patient today ____ minutes.
[2024-01-07 20:00] VITALS: BP 138/63; PULSE 63; RESP 18; TEMP 36.1; O2SAT 99
[2024-01-07] MEDS: traZODone HCL 50 MG TABLET PO (21:05)
[2024-01-07] MEDS: hydrOXYzine HCL 25 MG TABLET PO (21:05)
[2024-01-08 08:00] VITALS: BP 121/54; PULSE 62; RESP 16; TEMP 36.9; O2SAT 98
[2024-01-08] MEDS: amLODIPine Besylate 2.5 MG TABLET 7.5 MG PO (08:02)
[2024-01-08] MEDS: Aspirin 81 MG TAB.CHEW PO (08:02)
[2024-01-08] MEDS: Magnesium Oxide 400 MG TABLET PO ×2 (08:02→20:15)
[2024-01-08] MEDS: atenoloL 50 MG TABLET PO (08:02)
[2024-01-08] MEDS: Famotidine 20 MG TABLET PO ×2 (08:02→20:15)
[2024-01-08] MEDS: Atorvastatin Calcium 10 MG TABLET PO (08:02)
--- NOTE | 2024-01-08 10:10 | HO.PSYCHPN ---
Subjective Subjective Date of Service: 01/08/24 Reason For Visit: agitation Subjective Notes: Conditional Voluntary Interim History: No change. Pt slept better last night. She is visible on the unit,and very pleasant on approach.She once again if her daughter knows if she is here or not- much calmer when told daughter is aware she is here. She is taking medications as prescribed. no behavioral concerns. vs stable. Review of Systems Review of Systems Yes all other systems are reviewed and are negative and Unobtainable due to mental status Constitutional: Reports as per HPI and Reports no additional constitutional complaints Eyes: Reports as per HPI and Denies no additional eye complaints Denies system reviewed and no additional complaints, except as documented and Reports as per HPI Cardiovascular: Reports as per HPI, Reports no additional cardiovascular complaints, Denies acrocyanosis, Denies cool extremities, Denies chest pain, Denies leg edema, Denies lightheadedness, Denies palpitations and Denies dyspnea Respiratory: Reports as per HPI, Denies no additional respiratory complaints and Denies dyspnea Gastrointestinal: Reports as per HPI and Denies no additional gastrointestinal complaints Musculoskeletal: Reports no additional musculoskeletal complaints and Reports as per HPI Skin/Breast: Reports system reviewed and no additional complaints, except as docu Reports system reviewed and no additional complaints, except as documented and Reports as per HPI Psychiatric: Reports no additional psychiatric complaints and Reports as per HPI Endocrine: Reports no additional endocrine complaints, Reports as per HPI and Denies palpitations Hematologic/Lymphatic: Reports no additional hematologic/lymphatic complaints and Reports as per HPI Allergic/Immunologic: Reports no additional allergic/immunologic complaints and Reports as per HPI Mental Status Exam Mental Status Exam Patient Appearance: Well Grooomed Patient Orientation: Person Level of Consciousness: Appropriate Patient Behavior: Appropriate (somewhat guarded) Mood Description: Nervous Affect Description: Nervous Patient Cognition Impaired: Yes Ability to Follow Directions: Poor Speech Pattern: Impoverished Memory Description: Immediate Impaired Diagnostics Vital Signs (24Hr): Vital Signs - 24 hr 01/07/24 20:00 01/08/24 08:00 Temperature 96.9 F 98.5 F Pulse Rate 63 62 Respiratory Rate 18 16 Blood Pressure 138/63 121/54 L Pulse Oximetry 99 98 Oxygen Delivery Method Room Air Room Air BMI result Body Mass Index 21.6 Labs 12/20/23 07:10 12/28/23 07:22 Imaging Radiology Impressions: ITS Impressions Chest X-Ray 12/20/23 07:54 IMPRESSION: Unremarkable examination. Head CT 12/20/23 08:32 IMPRESSION: No acute intracranial pathology. 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 Medications Medications Current Medications Acetaminophen (Acetaminophen 325 Mg Tablet) 650 mg PO Q6H PRN PRN Reason: Headache/Pain Mild Scale (1-3) Last Admin: 01/02/24 20:42 Dose: 650 mg Al Hydroxide/Mg Hydroxide (Magnesium Hydrox/Alum Hydrox 30 Ml Oral.Susp) 30 ml PO Q6H PRN PRN Reason: Heartburn/Nausea Amlodipine Besylate (Amlodipine Besylate 2.5 Mg Tablet) 7.5 mg PO DAILY [facility]; Protocol Last Admin: 01/08/24 08:02 Dose: 7.5 mg Aspirin (Aspirin 81 Mg Tab.Chew) 81 mg PO DAILY [facility] Last Admin: 01/08/24 08:02 Dose: 81 mg Atenolol (Atenolol 50 Mg Tablet) 50 mg PO DAILY [facility]; Protocol Last Admin: 01/08/24 08:02 Dose: 50 mg Atorvastatin Calcium (Atorvastatin Calcium 10 Mg Tablet) 10 mg PO DAILY [facility] Last Admin: 01/08/24 08:02 Dose: 10 mg Famotidine (Famotidine 20 Mg Tablet) 20 mg PO BID [facility] Last Admin: 01/08/24 08:02 Dose: 20 mg Hydroxyzine HCl (Hydroxyzine Hcl 25 Mg Tablet) 25 mg PO Q6H PRN PRN Reason: Anxiety Last Admin: 01/07/24 21:05 Dose: 25 mg Magnesium Hydroxide (Milk Of Magnesia 30 Ml Oral.Susp) 30 ml PO DAILY PRN PRN Reason: Constipation Magnesium Oxide (Magnesium Oxide 400 Mg Tablet) 400 mg PO BID [facility] Last Admin: 01/08/24 08:02 Dose: 400 mg Trazodone HCl (Trazodone Hcl 50 Mg Tablet) 50 mg PO BEDTIME PRN PRN Reason: Insomnia Last Admin: 01/07/24 21:05 Dose: 50 mg Allergies Allergies Allergy/AdvReac Type Severity Reaction Status Date / Time nitrofurantoin Allergy Mild SWELLING Verified 12/21/23 08:01 [From Macrodantin] nitroglycerin Allergy Unknown Verified 12/21/23 08:01 Assessment & Plan Assessment & Plan (1) Major neurocognitive disorder: Status: Acute Code(s): F03.90 - Unspecified dementia, unspecified severity, without behavioral disturbance, psychotic disturbance, mood disturbance, and anxiety Plan 1. continue current medications 12/27 Mag improved to 1.8, Na to 134. no agitation. 12/30/2023: Continue current regimen and plans 12/31 continue tx. 01/01 continue tx. 01/02 continue tx 01/03 continue tx 01/04 continue tx. 01/05 continue tx. 01/06 continue tx. 01/07 continue tx. Reason for continued inpatient stay Substantial Risk for: inability to function Time Spent With Patient Time: Total time managing care of this patient today ____ minutes.
[2024-01-08 20:00] VITALS: BP 130/59; PULSE 65; RESP 18; TEMP 36.1; O2SAT 95
[2024-01-08] MEDS: traZODone HCL 50 MG TABLET PO (20:15)
[2024-01-09 08:00] VITALS: BP 166/70; PULSE 61; RESP 18; TEMP 34; O2SAT 97
[2024-01-09 08:02] VITALS: BP 166/70; PULSE 61
[2024-01-09] MEDS: Atorvastatin Calcium 10 MG TABLET PO (08:02)
[2024-01-09] MEDS: amLODIPine Besylate 2.5 MG TABLET 7.5 MG PO (08:02)
[2024-01-09] MEDS: Magnesium Oxide 400 MG TABLET PO ×2 (08:02→20:44)
[2024-01-09] MEDS: Aspirin 81 MG TAB.CHEW PO (08:02)
[2024-01-09] MEDS: atenoloL 50 MG TABLET PO (08:02)
[2024-01-09] MEDS: Famotidine 20 MG TABLET PO ×2 (08:02→20:45)
--- NOTE | 2024-01-09 09:08 | HO.PSYCHPN ---
Subjective Subjective Date of Service: 01/09/24 Reason For Visit: agitation Subjective Notes: Conditional Voluntary Interim History: Pt visible on the unit, social and pleasant on approach. Pt slept better last night.She once again if her daughter knows if she is here or not- much calmer when told daughter is aware she is here. She is taking medications as prescribed. no behavioral concerns. vs stable. Review of Systems Review of Systems Yes all other systems are reviewed and are negative and Unobtainable due to mental status Constitutional: Reports as per HPI and Reports no additional constitutional complaints Eyes: Reports as per HPI and Denies no additional eye complaints Denies system reviewed and no additional complaints, except as documented and Reports as per HPI Cardiovascular: Reports as per HPI, Reports no additional cardiovascular complaints, Denies acrocyanosis, Denies cool extremities, Denies chest pain, Denies leg edema, Denies lightheadedness, Denies palpitations and Denies dyspnea Respiratory: Reports as per HPI, Denies no additional respiratory complaints and Denies dyspnea Gastrointestinal: Reports as per HPI and Denies no additional gastrointestinal complaints Musculoskeletal: Reports no additional musculoskeletal complaints and Reports as per HPI Skin/Breast: Reports system reviewed and no additional complaints, except as docu Reports system reviewed and no additional complaints, except as documented and Reports as per HPI Psychiatric: Reports no additional psychiatric complaints and Reports as per HPI Endocrine: Reports no additional endocrine complaints, Reports as per HPI and Denies palpitations Hematologic/Lymphatic: Reports no additional hematologic/lymphatic complaints and Reports as per HPI Allergic/Immunologic: Reports no additional allergic/immunologic complaints and Reports as per HPI Mental Status Exam Mental Status Exam Patient Appearance: Well Grooomed Patient Orientation: Person Level of Consciousness: Appropriate Patient Behavior: Appropriate (somewhat guarded) Mood Description: Nervous Affect Description: Nervous Patient Cognition Impaired: Yes Ability to Follow Directions: Poor Speech Pattern: Impoverished Memory Description: Immediate Impaired Diagnostics Vital Signs (24Hr): Vital Signs - 24 hr 01/08/24 20:00 01/09/24 08:00 01/09/24 08:02 Temperature 97.0 F 93.2 F L Pulse Rate 65 61 61 Respiratory Rate 18 18 Blood Pressure 130/59 L 166/70 H 166/70 H Pulse Oximetry 95 97 Oxygen Delivery Method Room Air Room Air 01/09/24 08:02 Temperature Pulse Rate Respiratory Rate Blood Pressure 166/70 H Pulse Oximetry Oxygen Delivery Method BMI result Body Mass Index 21.6 Labs 12/20/23 07:10 12/28/23 07:22 Imaging Radiology Impressions: ITS Impressions Chest X-Ray 12/20/23 07:54 IMPRESSION: Unremarkable examination. Head CT 12/20/23 08:32 IMPRESSION: No acute intracranial pathology. 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 Medications Medications Current Medications Acetaminophen (Acetaminophen 325 Mg Tablet) 650 mg PO Q6H PRN PRN Reason: Headache/Pain Mild Scale (1-3) Last Admin: 01/02/24 20:42 Dose: 650 mg Al Hydroxide/Mg Hydroxide (Magnesium Hydrox/Alum Hydrox 30 Ml Oral.Susp) 30 ml PO Q6H PRN PRN Reason: Heartburn/Nausea Amlodipine Besylate (Amlodipine Besylate 2.5 Mg Tablet) 7.5 mg PO DAILY [facility]; Protocol Last Admin: 01/09/24 08:02 Dose: 7.5 mg Aspirin (Aspirin 81 Mg Tab.Chew) 81 mg PO DAILY [facility] Last Admin: 01/09/24 08:02 Dose: 81 mg Atenolol (Atenolol 50 Mg Tablet) 50 mg PO DAILY [facility]; Protocol Last Admin: 01/09/24 08:02 Dose: 50 mg Atorvastatin Calcium (Atorvastatin Calcium 10 Mg Tablet) 10 mg PO DAILY [facility] Last Admin: 01/09/24 08:02 Dose: 10 mg Famotidine (Famotidine 20 Mg Tablet) 20 mg PO BID [facility] Last Admin: 01/09/24 08:02 Dose: 20 mg Hydroxyzine HCl (Hydroxyzine Hcl 25 Mg Tablet) 25 mg PO Q6H PRN PRN Reason: Anxiety Last Admin: 01/07/24 21:05 Dose: 25 mg Magnesium Hydroxide (Milk Of Magnesia 30 Ml Oral.Susp) 30 ml PO DAILY PRN PRN Reason: Constipation Magnesium Oxide (Magnesium Oxide 400 Mg Tablet) 400 mg PO BID [facility] Last Admin: 01/09/24 08:02 Dose: 400 mg Trazodone HCl (Trazodone Hcl 50 Mg Tablet) 50 mg PO BEDTIME PRN PRN Reason: Insomnia Last Admin: 01/08/24 20:15 Dose: 50 mg Allergies Allergies Allergy/AdvReac Type Severity Reaction Status Date / Time nitrofurantoin Allergy Mild SWELLING Verified 12/21/23 08:01 [From Macrodantin] nitroglycerin Allergy Unknown Verified 12/21/23 08:01 Assessment & Plan Assessment & Plan (1) Major neurocognitive disorder: Status: Acute Code(s): F03.90 - Unspecified dementia, unspecified severity, without behavioral disturbance, psychotic disturbance, mood disturbance, and anxiety Plan 1. continue current medications 12/27 Mag improved to 1.8, Na to 134. no agitation. 12/30/2023: Continue current regimen and plans 12/31 continue tx. 01/01 continue tx. 01/02 continue tx 01/03 continue tx 01/04 continue tx. 01/05 continue tx. 01/06 continue tx. 01/07 continue tx. 01/08 continue tx. Reason for continued inpatient stay Substantial Risk for: inability to function Time Spent With Patient Time: Total time managing care of this patient today ____ minutes.
[2024-01-09 20:00] VITALS: BP 142/69; PULSE 66; RESP 16; TEMP 36.1; O2SAT 98
[2024-01-09] MEDS: traZODone HCL 50 MG TABLET PO (20:44)
[2024-01-09] MEDS: hydrOXYzine HCL 25 MG TABLET PO (20:45)
[2024-01-10 07:00] VITALS: BMI 20.5
[2024-01-10 08:00] VITALS: BP 179/84; PULSE 72; RESP 18; TEMP 36.2; O2SAT 96
[2024-01-10] MEDS: Magnesium Oxide 400 MG TABLET PO ×2 (08:40→20:48)
[2024-01-10] MEDS: atenoloL 50 MG TABLET PO (08:40)
[2024-01-10] MEDS: Famotidine 20 MG TABLET PO ×2 (08:40→20:48)
[2024-01-10] MEDS: amLODIPine Besylate 2.5 MG TABLET 7.5 MG PO (08:40)
[2024-01-10] MEDS: Atorvastatin Calcium 10 MG TABLET PO (08:40)
[2024-01-10] MEDS: Aspirin 81 MG TAB.CHEW PO (08:41)
[2024-01-10 20:00] VITALS: BP 140/63; PULSE 62; RESP 18; TEMP 36.7; O2SAT 96
[2024-01-10] MEDS: traZODone HCL 50 MG TABLET PO (20:48)
[2024-01-10] MEDS: hydrOXYzine HCL 25 MG TABLET PO (20:48)
[2024-01-11 08:12] VITALS: BP 130/62; PULSE 58; RESP 16; TEMP 36.2; O2SAT 98
[2024-01-11 08:14] VITALS: BP 130/62
[2024-01-11] MEDS: Famotidine 20 MG TABLET PO ×2 (08:14→20:49)
[2024-01-11] MEDS: Magnesium Oxide 400 MG TABLET PO ×2 (08:14→20:49)
[2024-01-11] MEDS: amLODIPine Besylate 2.5 MG TABLET 7.5 MG PO (08:14)
[2024-01-11 08:15] VITALS: BP 130/62; PULSE 60
[2024-01-11] MEDS: Aspirin 81 MG TAB.CHEW PO (08:15)
[2024-01-11] MEDS: Atorvastatin Calcium 10 MG TABLET PO (08:15)
[2024-01-11] MEDS: atenoloL 50 MG TABLET PO (08:15)
--- NOTE | 2024-01-11 09:29 | P.PNPSI_ITS ---
Subjective Subjective Date of Service: 01/11/24 Reason For Visit: agitation Subjective Notes: Conditional Voluntary Interim History: Pt visible on the unit, social and pleasant on approach. Pt slept better last night.Not overly agoitated Medication Compliance: Yes Mental Status Exam Mental Status Exam Patient Appearance: Well Grooomed Patient Orientation: Person Level of Consciousness: Appropriate Patient Behavior: Appropriate (somewhat guarded) Mood Description: Nervous Affect Description: Nervous Patient Cognition Impaired: Yes Ability to Follow Directions: Poor Speech Pattern: Impoverished Memory Description: Immediate Impaired Diagnostics Vital Signs (24Hr): Vital Signs - 24 hr 01/10/24 20:00 01/11/24 08:12 01/11/24 08:14 Temperature 98.1 F 97.1 F Pulse Rate 62 58 Respiratory Rate 18 16 Blood Pressure 140/63 H 130/62 130/62 Pulse Oximetry 96 98 Oxygen Delivery Method Room Air Room Air 01/11/24 08:15 Temperature Pulse Rate 60 Respiratory Rate Blood Pressure 130/62 Pulse Oximetry Oxygen Delivery Method BMI result Body Mass Index 20.5 Labs 12/20/23 07:10 12/28/23 07:22 Imaging Radiology Impressions: ITS Impressions Chest X-Ray 12/20/23 07:54 IMPRESSION: Unremarkable examination. Head CT 12/20/23 08:32 IMPRESSION: No acute intracranial pathology. 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 Medications Medications Current Medications Acetaminophen (Acetaminophen 325 Mg Tablet) 650 mg PO Q6H PRN PRN Reason: Headache/Pain Mild Scale (1-3) Last Admin: 01/02/24 20:42 Dose: 650 mg Al Hydroxide/Mg Hydroxide (Magnesium Hydrox/Alum Hydrox 30 Ml Oral.Susp) 30 ml PO Q6H PRN PRN Reason: Heartburn/Nausea Amlodipine Besylate (Amlodipine Besylate 2.5 Mg Tablet) 7.5 mg PO DAILY [facility]; Protocol Last Admin: 01/11/24 08:14 Dose: 7.5 mg Aspirin (Aspirin 81 Mg Tab.Chew) 81 mg PO DAILY [facility] Last Admin: 01/11/24 08:15 Dose: 81 mg Atenolol (Atenolol 50 Mg Tablet) 50 mg PO DAILY [facility]; Protocol Last Admin: 01/11/24 08:15 Dose: 50 mg Atorvastatin Calcium (Atorvastatin Calcium 10 Mg Tablet) 10 mg PO DAILY [facility] Last Admin: 01/11/24 08:15 Dose: 10 mg Famotidine (Famotidine 20 Mg Tablet) 20 mg PO BID [facility] Last Admin: 01/11/24 08:14 Dose: 20 mg Hydroxyzine HCl (Hydroxyzine Hcl 25 Mg Tablet) 25 mg PO Q6H PRN PRN Reason: Anxiety Last Admin: 01/10/24 20:48 Dose: 25 mg Magnesium Hydroxide (Milk Of Magnesia 30 Ml Oral.Susp) 30 ml PO DAILY PRN PRN Reason: Constipation Magnesium Oxide (Magnesium Oxide 400 Mg Tablet) 400 mg PO BID [facility] Last Admin: 01/11/24 08:14 Dose: 400 mg Trazodone HCl (Trazodone Hcl 50 Mg Tablet) 50 mg PO BEDTIME PRN PRN Reason: Insomnia Last Admin: 01/10/24 20:48 Dose: 50 mg Allergies Allergies Allergy/AdvReac Type Severity Reaction Status Date / Time nitrofurantoin Allergy Mild SWELLING Verified 12/21/23 08:01 [From Macrodantin] nitroglycerin Allergy Unknown Verified 12/21/23 08:01 Assessment & Plan Assessment & Plan (1) Major neurocognitive disorder: Status: Acute Code(s): F03.90 - Unspecified dementia, unspecified severity, without behavioral disturbance, psychotic disturbance, mood disturbance, and anxiety Plan 1. continue current medications 12/27 Mag improved to 1.8, Na to 134. no agitation. 12/30/2023: Continue current regimen and plans 12/31 continue tx. 01/01 continue tx. 01/02 continue tx 01/03 continue tx 01/04 continue tx. 01/05 continue tx. 01/06 continue tx. 01/07 continue tx. 01/08 continue tx. 01/11/24 Cont plan of care d/c planning Reason for continued inpatient stay Substantial Risk for: inability to function and med/psych decompensation Time Spent With Patient Time: Total time managing care of this patient today ____ minutes.
[2024-01-11 20:00] VITALS: BP 156/71; PULSE 67; RESP 18; TEMP 36.8; O2SAT 98
[2024-01-11] MEDS: traZODone HCL 50 MG TABLET PO (20:50)
[2024-01-12 08:00] VITALS: BP 146/63; PULSE 61; RESP 18; O2SAT 98
[2024-01-12 08:18] VITALS: BP 146/63
[2024-01-12] MEDS: Famotidine 20 MG TABLET PO ×2 (08:18→21:00)
[2024-01-12] MEDS: Aspirin 81 MG TAB.CHEW PO (08:18)
[2024-01-12] MEDS: amLODIPine Besylate 2.5 MG TABLET 7.5 MG PO (08:18)
[2024-01-12 08:19] VITALS: BP 146/63; PULSE 61
[2024-01-12] MEDS: Atorvastatin Calcium 10 MG TABLET PO (08:19)
[2024-01-12] MEDS: Magnesium Oxide 400 MG TABLET PO ×2 (08:19→21:00)
[2024-01-12] MEDS: atenoloL 50 MG TABLET PO (08:19)
--- NOTE | 2024-01-12 09:52 | P.PNPSI_ITS ---
Subjective Subjective Date of Service: 01/12/24 Reason For Visit: agitation Subjective Notes: Conditional Voluntary Interim History: The nursing staff reported the patient had been compliant with treatment, she took trazodone at night slept 8 hours. On interview the patient had been pleasant confused easily redirectable. Mental Status Exam Mental Status Exam Patient Appearance: Well Grooomed and Appropriate Patient Orientation: Person and Situation Level of Consciousness: Awake and Appropriate Patient Behavior: Guarded and Passive Mood Description: Withdrawn Affect Description: Constricted Patient Cognition Impaired: Yes Ability to Follow Directions: Good Speech Pattern: Clear Hallucinations: None Delusions: Not Present Thought Process: Distracted and Slowed Thinking Thought Content: positive for [place] and positive for Circumstantial Judgement: Poor Diagnostics Vital Signs (24Hr): Vital Signs - 24 hr 01/11/24 20:00 01/12/24 08:00 01/12/24 08:18 Temperature 98.3 F Pulse Rate 67 61 Respiratory Rate 18 18 Blood Pressure 156/71 H 146/63 H 146/63 H Pulse Oximetry 98 98 Oxygen Delivery Method Room Air Room Air 01/12/24 08:19 Temperature Pulse Rate 61 Respiratory Rate Blood Pressure 146/63 H Pulse Oximetry Oxygen Delivery Method BMI result Body Mass Index 20.5 Labs 12/20/23 07:10 12/28/23 07:22 Imaging Radiology Impressions: ITS Impressions Chest X-Ray 12/20/23 07:54 IMPRESSION: Unremarkable examination. Head CT 12/20/23 08:32 IMPRESSION: No acute intracranial pathology. 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 Medications Medications Current Medications Acetaminophen (Acetaminophen 325 Mg Tablet) 650 mg PO Q6H PRN PRN Reason: Headache/Pain Mild Scale (1-3) Last Admin: 01/02/24 20:42 Dose: 650 mg Al Hydroxide/Mg Hydroxide (Magnesium Hydrox/Alum Hydrox 30 Ml Oral.Susp) 30 ml PO Q6H PRN PRN Reason: Heartburn/Nausea Amlodipine Besylate (Amlodipine Besylate 2.5 Mg Tablet) 7.5 mg PO DAILY [facility]; Protocol Last Admin: 01/12/24 08:18 Dose: 7.5 mg Aspirin (Aspirin 81 Mg Tab.Chew) 81 mg PO DAILY [facility] Last Admin: 01/12/24 08:18 Dose: 81 mg Atenolol (Atenolol 50 Mg Tablet) 50 mg PO DAILY [facility]; Protocol Last Admin: 01/12/24 08:19 Dose: 50 mg Atorvastatin Calcium (Atorvastatin Calcium 10 Mg Tablet) 10 mg PO DAILY [facility] Last Admin: 01/12/24 08:19 Dose: 10 mg Famotidine (Famotidine 20 Mg Tablet) 20 mg PO BID [facility] Last Admin: 01/12/24 08:18 Dose: 20 mg Hydroxyzine HCl (Hydroxyzine Hcl 25 Mg Tablet) 25 mg PO Q6H PRN PRN Reason: Anxiety Last Admin: 01/10/24 20:48 Dose: 25 mg Magnesium Hydroxide (Milk Of Magnesia 30 Ml Oral.Susp) 30 ml PO DAILY PRN PRN Reason: Constipation Magnesium Oxide (Magnesium Oxide 400 Mg Tablet) 400 mg PO BID [facility] Last Admin: 01/12/24 08:19 Dose: 400 mg Trazodone HCl (Trazodone Hcl 50 Mg Tablet) 50 mg PO BEDTIME PRN PRN Reason: Insomnia Last Admin: 01/11/24 20:50 Dose: 50 mg Allergies Allergies Allergy/AdvReac Type Severity Reaction Status Date / Time nitrofurantoin Allergy Mild SWELLING Verified 12/21/23 08:01 [From Macrodantin] nitroglycerin Allergy Unknown Verified 12/21/23 08:01 Assessment & Plan Assessment & Plan (1) Major neurocognitive disorder: Status: Acute Code(s): F03.90 - Unspecified dementia, unspecified severity, without behavioral disturbance, psychotic disturbance, mood disturbance, and anxiety Plan 1. continue current medications 12/27 Mag improved to 1.8, Na to 134. no agitation. 12/30/2023: Continue current regimen and plans 12/31 continue tx. 01/01 continue tx. 01/02 continue tx 01/03 continue tx 01/04 continue tx. 01/05 continue tx. 01/06 continue tx. 01/07 continue tx. 01/08 continue tx. 01/11/24 Cont plan of care d/c planning 01/11 continue treatment Reason for continued inpatient stay Substantial Risk for: inability to function, rapid decompensation and med/psych decompensation Time Spent With Patient Time: Total time managing care of this patient today __20__ minutes.
[2024-01-12 20:00] VITALS: BP 146/65; PULSE 66; RESP 18; TEMP 36.6; O2SAT 98
[2024-01-12] MEDS: hydrOXYzine HCL 25 MG TABLET PO (21:00)
[2024-01-12] MEDS: traZODone HCL 50 MG TABLET PO (21:00)
[2024-01-13 08:00] VITALS: BP 142/65; PULSE 60; RESP 18; TEMP 36.2; O2SAT 98
[2024-01-13 08:33] VITALS: BP 142/65; PULSE 60
[2024-01-13] MEDS: Famotidine 20 MG TABLET PO ×2 (08:33→19:45)
[2024-01-13] MEDS: atenoloL 50 MG TABLET PO (08:33)
[2024-01-13 08:34] VITALS: BP 142/65
[2024-01-13] MEDS: Aspirin 81 MG TAB.CHEW PO (08:34)
[2024-01-13] MEDS: amLODIPine Besylate 2.5 MG TABLET 7.5 MG PO (08:34)
[2024-01-13] MEDS: Magnesium Oxide 400 MG TABLET PO ×2 (08:34→19:45)
[2024-01-13] MEDS: Atorvastatin Calcium 10 MG TABLET PO (08:34)
--- NOTE | 2024-01-13 09:51 | HO.PSYCHPN ---
Subjective Subjective Date of Service: 01/13/24 Reason For Visit: agitation Subjective Notes: Conditional Voluntary Interim History: The nursing staff reported the patient had been pleasantly confused, sundowning a little in the evening. She had been easily redirectable. On interview the patient was very pleasant, confused, compliant with treatment. Mental Status Exam Mental Status Exam Patient Appearance: Appropriate Patient Orientation: Person Level of Consciousness: Awake Patient Behavior: Guarded and Passive Mood Description: Withdrawn Affect Description: Calm Patient Cognition Impaired: Yes Ability to Follow Directions: Good Speech Pattern: Clear Hallucinations: None Delusions: Not Present Thought Process: Distracted and Evasive Thought Content: positive for [place] and positive for [place] of Content Judgement: Fair Diagnostics Vital Signs (24Hr): Vital Signs - 24 hr 01/12/24 20:00 01/13/24 08:00 01/13/24 08:33 Temperature 97.9 F 97.2 F Pulse Rate 66 60 60 Respiratory Rate 18 18 Blood Pressure 146/65 H 142/65 H 142/65 H Pulse Oximetry 98 98 Oxygen Delivery Method Room Air Room Air 01/13/24 08:34 Temperature Pulse Rate Respiratory Rate Blood Pressure 142/65 H Pulse Oximetry Oxygen Delivery Method BMI result Body Mass Index 20.5 Labs 12/20/23 07:10 12/28/23 07:22 Imaging Radiology Impressions: ITS Impressions Chest X-Ray 12/20/23 07:54 IMPRESSION: Unremarkable examination. Head CT 12/20/23 08:32 IMPRESSION: No acute intracranial pathology. 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 Medications Medications Current Medications Acetaminophen (Acetaminophen 325 Mg Tablet) 650 mg PO Q6H PRN PRN Reason: Headache/Pain Mild Scale (1-3) Last Admin: 01/02/24 20:42 Dose: 650 mg Al Hydroxide/Mg Hydroxide (Magnesium Hydrox/Alum Hydrox 30 Ml Oral.Susp) 30 ml PO Q6H PRN PRN Reason: Heartburn/Nausea Amlodipine Besylate (Amlodipine Besylate 2.5 Mg Tablet) 7.5 mg PO DAILY [facility]; Protocol Last Admin: 01/13/24 08:34 Dose: 7.5 mg Aspirin (Aspirin 81 Mg Tab.Chew) 81 mg PO DAILY [facility] Last Admin: 01/13/24 08:34 Dose: 81 mg Atenolol (Atenolol 50 Mg Tablet) 50 mg PO DAILY [facility]; Protocol Last Admin: 01/13/24 08:33 Dose: 50 mg Atorvastatin Calcium (Atorvastatin Calcium 10 Mg Tablet) 10 mg PO DAILY [facility] Last Admin: 01/13/24 08:34 Dose: 10 mg Famotidine (Famotidine 20 Mg Tablet) 20 mg PO BID [facility] Last Admin: 01/13/24 08:33 Dose: 20 mg Hydroxyzine HCl (Hydroxyzine Hcl 25 Mg Tablet) 25 mg PO Q6H PRN PRN Reason: Anxiety Last Admin: 01/12/24 21:00 Dose: 25 mg Magnesium Hydroxide (Milk Of Magnesia 30 Ml Oral.Susp) 30 ml PO DAILY PRN PRN Reason: Constipation Magnesium Oxide (Magnesium Oxide 400 Mg Tablet) 400 mg PO BID [facility] Last Admin: 01/13/24 08:34 Dose: 400 mg Trazodone HCl (Trazodone Hcl 50 Mg Tablet) 50 mg PO BEDTIME PRN PRN Reason: Insomnia Last Admin: 01/12/24 21:00 Dose: 50 mg Allergies Allergies Allergy/AdvReac Type Severity Reaction Status Date / Time nitrofurantoin Allergy Mild SWELLING Verified 12/21/23 08:01 [From Macrodantin] nitroglycerin Allergy Unknown Verified 12/21/23 08:01 Assessment & Plan Assessment & Plan (1) Major neurocognitive disorder: Status: Acute Code(s): F03.90 - Unspecified dementia, unspecified severity, without behavioral disturbance, psychotic disturbance, mood disturbance, and anxiety Plan 1. continue current medications 12/27 Mag improved to 1.8, Na to 134. no agitation. 12/30/2023: Continue current regimen and plans 12/31 continue tx. 01/01 continue tx. 01/02 continue tx 01/03 continue tx 01/04 continue tx. 01/05 continue tx. 01/06 continue tx. 01/07 continue tx. 01/08 continue tx. 01/11/24 Cont plan of care d/c planning 01/11 continue treatment 01/12 continue treatment Reason for continued inpatient stay Substantial Risk for: inability to function, rapid decompensation and med/psych decompensation Time Spent With Patient Time: Total time managing care of this patient today __20__ minutes.
[2024-01-13] MEDS: Acetaminophen 325 MG TABLET 650 MG PO (19:44)
[2024-01-13] MEDS: traZODone HCL 50 MG TABLET PO (19:46)
[2024-01-13 20:00] VITALS: BP 165/68; PULSE 61; RESP 18; TEMP 36.1; O2SAT 98
[2024-01-14 08:00] VITALS: BP 172/74; PULSE 66; RESP 18; TEMP 36.7; O2SAT 97
[2024-01-14] MEDS: Aspirin 81 MG TAB.CHEW PO (08:41)
[2024-01-14] MEDS: Atorvastatin Calcium 10 MG TABLET PO (08:42)
[2024-01-14] MEDS: atenoloL 50 MG TABLET PO (08:42)
[2024-01-14] MEDS: Magnesium Oxide 400 MG TABLET PO ×2 (08:42→20:32)
[2024-01-14] MEDS: Famotidine 20 MG TABLET PO ×2 (08:42→20:32)
[2024-01-14] MEDS: amLODIPine Besylate 2.5 MG TABLET 7.5 MG PO (08:42)
--- NOTE | 2024-01-14 15:22 | P.PNPSI_ITS ---
Subjective Subjective Date of Service: 01/14/24 Reason For Visit: agitation Subjective Notes: Conditional Voluntary Healthcare Proxy: Yes Interim History: Pt slept most of the night. She has been visible on the unit. social on approach and with select peers. No SI/HI. No psychosis or delusions. Pt not oriented to situation, month or year. No behavioral concerns. Diagnostics Vital Signs (24Hr): Vital Signs - 24 hr 01/13/24 20:00 01/14/24 08:00 Temperature 97 F 98.1 F Pulse Rate 61 66 Respiratory Rate 18 18 Blood Pressure 165/68 H 172/74 H Pulse Oximetry 98 97 Oxygen Delivery Method Room Air Room Air BMI result Body Mass Index 20.5 Labs 12/20/23 07:10 12/28/23 07:22 Imaging Radiology Impressions: ITS Impressions Chest X-Ray 12/20/23 07:54 IMPRESSION: Unremarkable examination. Head CT 12/20/23 08:32 IMPRESSION: No acute intracranial pathology. 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 Medications Medications Current Medications Acetaminophen (Acetaminophen 325 Mg Tablet) 650 mg PO Q6H PRN PRN Reason: Headache/Pain Mild Scale (1-3) Last Admin: 01/13/24 19:44 Dose: 650 mg Al Hydroxide/Mg Hydroxide (Magnesium Hydrox/Alum Hydrox 30 Ml Oral.Susp) 30 ml PO Q6H PRN PRN Reason: Heartburn/Nausea Amlodipine Besylate (Amlodipine Besylate 2.5 Mg Tablet) 7.5 mg PO DAILY [facility]; Protocol Last Admin: 01/14/24 08:42 Dose: 7.5 mg Aspirin (Aspirin 81 Mg Tab.Chew) 81 mg PO DAILY [facility] Last Admin: 01/14/24 08:41 Dose: 81 mg Atenolol (Atenolol 50 Mg Tablet) 50 mg PO DAILY [facility]; Protocol Last Admin: 01/14/24 08:42 Dose: 50 mg Atorvastatin Calcium (Atorvastatin Calcium 10 Mg Tablet) 10 mg PO DAILY [facility] Last Admin: 01/14/24 08:42 Dose: 10 mg Famotidine (Famotidine 20 Mg Tablet) 20 mg PO BID [facility] Last Admin: 01/14/24 08:42 Dose: 20 mg Hydroxyzine HCl (Hydroxyzine Hcl 25 Mg Tablet) 25 mg PO Q6H PRN PRN Reason: Anxiety Last Admin: 01/12/24 21:00 Dose: 25 mg Magnesium Hydroxide (Milk Of Magnesia 30 Ml Oral.Susp) 30 ml PO DAILY PRN PRN Reason: Constipation Magnesium Oxide (Magnesium Oxide 400 Mg Tablet) 400 mg PO BID [facility] Last Admin: 01/14/24 08:42 Dose: 400 mg Trazodone HCl (Trazodone Hcl 50 Mg Tablet) 50 mg PO BEDTIME PRN PRN Reason: Insomnia Last Admin: 01/13/24 19:46 Dose: 50 mg Allergies Allergies Allergy/AdvReac Type Severity Reaction Status Date / Time nitrofurantoin Allergy Mild SWELLING Verified 12/21/23 08:01 [From Macrodantin] nitroglycerin Allergy Unknown Verified 12/21/23 08:01 Assessment & Plan Assessment & Plan (1) Major neurocognitive disorder: Status: Acute Code(s): F03.90 - Unspecified dementia, unspecified severity, without behavioral disturbance, psychotic disturbance, mood disturbance, and anxiety Plan 1. continue current medications 12/27 Mag improved to 1.8, Na to 134. no agitation. 12/30/2023: Continue current regimen and plans 12/31 continue tx. 01/01 continue tx. 01/02 continue tx 01/03 continue tx 01/04 continue tx. 01/05 continue tx. 01/06 continue tx. 01/07 continue tx. 01/08 continue tx. 01/11/24 Cont plan of care d/c planning 01/11 continue treatment 01/12 continue treatment 01/13 continue tx. BP slightly elevated SBP 160's, taking amlodipine 7.5mg po daily. continue to monitor. Reason for continued inpatient stay Substantial Risk for: inability to function Time Spent With Patient Time: Total time managing care of this patient today ____ minutes.
[2024-01-14 15:29] VITALS: BP 164/89; PULSE 69
[2024-01-14 20:00] VITALS: BP 130/70; PULSE 71; RESP 18; TEMP 37.1; O2SAT 97
[2024-01-14] MEDS: hydrOXYzine HCL 25 MG TABLET PO (20:32)
[2024-01-14] MEDS: traZODone HCL 50 MG TABLET PO (20:32)
[2024-01-15 08:33] VITALS: BP 128/60; PULSE 63; RESP 18; TEMP 36.1; O2SAT 98
[2024-01-15] MEDS: Magnesium Oxide 400 MG TABLET PO ×2 (08:33→20:29)
[2024-01-15] MEDS: Famotidine 20 MG TABLET PO ×2 (08:33→20:29)
[2024-01-15] MEDS: Atorvastatin Calcium 10 MG TABLET PO (08:33)
[2024-01-15] MEDS: Aspirin 81 MG TAB.CHEW PO (08:33)
[2024-01-15] MEDS: amLODIPine Besylate 2.5 MG TABLET 7.5 MG PO (08:33)
[2024-01-15 08:34] VITALS: BP 128/60; PULSE 63
[2024-01-15] MEDS: atenoloL 50 MG TABLET PO (08:34)
--- NOTE | 2024-01-15 10:39 | P.PNPSI_ITS ---
Subjective Subjective Date of Service: 01/15/24 Reason For Visit: agitation Subjective Notes: Conditional Voluntary Interim History: Pt slept through the night. She is visible on the unit. She is social, pleasant. No SI/HI. No combative behaviors. Not oriented to situation awaiting placement. No psychosis or delusions. VS stable Medication Compliance: Yes Review of Systems Review of Systems Yes all other systems are reviewed and are negative and Unobtainable due to mental status Constitutional: Reports as per HPI and Reports no additional constitutional complaints Eyes: Reports as per HPI and Denies no additional eye complaints Denies system reviewed and no additional complaints, except as documented and Reports as per HPI Cardiovascular: Reports as per HPI, Reports no additional cardiovascular complaints, Denies acrocyanosis, Denies cool extremities, Denies chest pain, Denies leg edema, Denies lightheadedness, Denies palpitations and Denies dyspnea Respiratory: Reports as per HPI, Denies no additional respiratory complaints and Denies dyspnea Gastrointestinal: Reports as per HPI and Denies no additional gastrointestinal complaints Musculoskeletal: Reports no additional musculoskeletal complaints and Reports as per HPI Skin/Breast: Reports system reviewed and no additional complaints, except as docu Reports system reviewed and no additional complaints, except as documented and Reports as per HPI Psychiatric: Reports no additional psychiatric complaints and Reports as per HPI Endocrine: Reports no additional endocrine complaints, Reports as per HPI and Denies palpitations Hematologic/Lymphatic: Reports no additional hematologic/lymphatic complaints and Reports as per HPI Allergic/Immunologic: Reports no additional allergic/immunologic complaints and Reports as per HPI Mental Status Exam Mental Status Exam Patient Appearance: Appropriate Patient Orientation: Person Level of Consciousness: Awake Patient Behavior: Guarded and Passive Mood Description: Withdrawn Affect Description: Calm Patient Cognition Impaired: Yes Ability to Follow Directions: Good Speech Pattern: Clear Memory Description: Immediate Impaired Diagnostics Vital Signs (24Hr): Vital Signs - 24 hr 01/14/24 15:29 01/14/24 20:00 01/15/24 08:33 Temperature 98.7 F Pulse Rate 69 71 Respiratory Rate 18 Blood Pressure 164/89 H 130/70 128/60 Pulse Oximetry 97 Oxygen Delivery Method Room Air 01/15/24 08:33 01/15/24 08:34 Temperature 96.9 F Pulse Rate 63 63 Respiratory Rate 18 Blood Pressure 128/60 128/60 Pulse Oximetry 98 Oxygen Delivery Method Room Air BMI result Body Mass Index 20.5 Labs 12/20/23 07:10 12/28/23 07:22 Imaging Radiology Impressions: ITS Impressions Chest X-Ray 12/20/23 07:54 IMPRESSION: Unremarkable examination. Head CT 12/20/23 08:32 IMPRESSION: No acute intracranial pathology. 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 Medications Medications Current Medications Acetaminophen (Acetaminophen 325 Mg Tablet) 650 mg PO Q6H PRN PRN Reason: Headache/Pain Mild Scale (1-3) Last Admin: 01/13/24 19:44 Dose: 650 mg Al Hydroxide/Mg Hydroxide (Magnesium Hydrox/Alum Hydrox 30 Ml Oral.Susp) 30 ml PO Q6H PRN PRN Reason: Heartburn/Nausea Amlodipine Besylate (Amlodipine Besylate 2.5 Mg Tablet) 7.5 mg PO DAILY [facility]; Protocol Last Admin: 01/15/24 08:33 Dose: 7.5 mg Aspirin (Aspirin 81 Mg Tab.Chew) 81 mg PO DAILY [facility] Last Admin: 01/15/24 08:33 Dose: 81 mg Atenolol (Atenolol 50 Mg Tablet) 50 mg PO DAILY [facility]; Protocol Last Admin: 01/15/24 08:34 Dose: 50 mg Atorvastatin Calcium (Atorvastatin Calcium 10 Mg Tablet) 10 mg PO DAILY [facility] Last Admin: 01/15/24 08:33 Dose: 10 mg Famotidine (Famotidine 20 Mg Tablet) 20 mg PO BID [facility] Last Admin: 01/15/24 08:33 Dose: 20 mg Hydroxyzine HCl (Hydroxyzine Hcl 25 Mg Tablet) 25 mg PO Q6H PRN PRN Reason: Anxiety Last Admin: 01/14/24 20:32 Dose: 25 mg Magnesium Hydroxide (Milk Of Magnesia 30 Ml Oral.Susp) 30 ml PO DAILY PRN PRN Reason: Constipation Magnesium Oxide (Magnesium Oxide 400 Mg Tablet) 400 mg PO BID [facility] Last Admin: 01/15/24 08:33 Dose: 400 mg Trazodone HCl (Trazodone Hcl 50 Mg Tablet) 50 mg PO BEDTIME PRN PRN Reason: Insomnia Last Admin: 01/14/24 20:32 Dose: 50 mg Allergies Allergies Allergy/AdvReac Type Severity Reaction Status Date / Time nitrofurantoin Allergy Mild SWELLING Verified 12/21/23 08:01 [From Macrodantin] nitroglycerin Allergy Unknown Verified 12/21/23 08:01 Assessment & Plan Assessment & Plan (1) Major neurocognitive disorder: Status: Acute Code(s): F03.90 - Unspecified dementia, unspecified severity, without behavioral disturbance, psychotic disturbance, mood disturbance, and anxiety Plan 1. continue current medications 12/27 Mag improved to 1.8, Na to 134. no agitation. 12/30/2023: Continue current regimen and plans 12/31 continue tx. 01/01 continue tx. 01/02 continue tx 01/03 continue tx 01/04 continue tx. 01/05 continue tx. 01/06 continue tx. 01/07 continue tx. 01/08 continue tx. 01/11/24 Cont plan of care d/c planning 01/11 continue treatment 01/12 continue treatment 01/13 continue tx. BP slightly elevated SBP 160's, taking amlodipine 7.5mg po daily. continue to monitor. 01/14 continue tx. Reason for continued inpatient stay Substantial Risk for: inability to function Time Spent With Patient Time: Total time managing care of this patient today ____ minutes.
[2024-01-15 20:00] VITALS: BP 144/63; PULSE 70; RESP 17; TEMP 37; O2SAT 96
[2024-01-15] MEDS: traZODone HCL 50 MG TABLET PO (20:29)
[2024-01-15] MEDS: hydrOXYzine HCL 25 MG TABLET PO (20:29)
[2024-01-16 08:00] VITALS: BP 122/58; PULSE 62; RESP 18; TEMP 36.1; O2SAT 98
[2024-01-16 08:13] VITALS: BP 122/58
[2024-01-16] MEDS: Aspirin 81 MG TAB.CHEW PO (08:13)
[2024-01-16] MEDS: amLODIPine Besylate 2.5 MG TABLET 7.5 MG PO (08:13)
[2024-01-16] MEDS: Famotidine 20 MG TABLET PO ×2 (08:13→20:56)
[2024-01-16] MEDS: Magnesium Oxide 400 MG TABLET PO ×2 (08:13→20:56)
[2024-01-16] MEDS: Atorvastatin Calcium 10 MG TABLET PO (08:13)
[2024-01-16 08:14] VITALS: BP 122/58; PULSE 62
[2024-01-16] MEDS: atenoloL 50 MG TABLET PO (08:14)
--- NOTE | 2024-01-16 10:37 | P.PNPSI_ITS ---
Subjective Subjective Date of Service: 01/16/24 Reason For Visit: agitation Subjective Notes: Conditional Voluntary Interim History: Pt slept through the night. She is visible on the unit. She continues to present as social, pleasant. No SI/HI. No combative behaviors. Not oriented to situation awaiting placement. No psychosis or delusions. VS stable. taking medications as prescribed. Review of Systems Review of Systems Yes all other systems are reviewed and are negative and Unobtainable due to mental status Constitutional: Reports as per HPI and Reports no additional constitutional complaints Eyes: Reports as per HPI and Denies no additional eye complaints Denies system reviewed and no additional complaints, except as documented and Reports as per HPI Cardiovascular: Reports as per HPI, Reports no additional cardiovascular complaints, Denies acrocyanosis, Denies cool extremities, Denies chest pain, Denies leg edema, Denies lightheadedness, Denies palpitations and Denies dyspnea Respiratory: Reports as per HPI, Denies no additional respiratory complaints and Denies dyspnea Gastrointestinal: Reports as per HPI and Denies no additional gastrointestinal complaints Musculoskeletal: Reports no additional musculoskeletal complaints and Reports as per HPI Skin/Breast: Reports system reviewed and no additional complaints, except as docu Reports system reviewed and no additional complaints, except as documented and Reports as per HPI Psychiatric: Reports no additional psychiatric complaints and Reports as per HPI Endocrine: Reports no additional endocrine complaints, Reports as per HPI and Denies palpitations Hematologic/Lymphatic: Reports no additional hematologic/lymphatic complaints and Reports as per HPI Allergic/Immunologic: Reports no additional allergic/immunologic complaints and Reports as per HPI Mental Status Exam Mental Status Exam Patient Appearance: Appropriate Patient Orientation: Person Level of Consciousness: Awake Patient Behavior: Guarded and Passive Mood Description: Withdrawn Affect Description: Calm Patient Cognition Impaired: Yes Ability to Follow Directions: Good Speech Pattern: Clear Memory Description: Immediate Impaired Diagnostics Vital Signs (24Hr): Vital Signs - 24 hr 01/15/24 20:00 01/16/24 08:00 01/16/24 08:13 Temperature 98.6 F 97.0 F Pulse Rate 70 62 Respiratory Rate 17 18 Blood Pressure 144/63 H 122/58 L 122/58 L Pulse Oximetry 96 98 Oxygen Delivery Method Room Air Room Air 01/16/24 08:14 Temperature Pulse Rate 62 Respiratory Rate Blood Pressure 122/58 L Pulse Oximetry Oxygen Delivery Method BMI result Body Mass Index 20.5 Labs 12/20/23 07:10 12/28/23 07:22 Imaging Radiology Impressions: ITS Impressions Chest X-Ray 12/20/23 07:54 IMPRESSION: Unremarkable examination. Head CT 12/20/23 08:32 IMPRESSION: No acute intracranial pathology. 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 Medications Medications Current Medications Acetaminophen (Acetaminophen 325 Mg Tablet) 650 mg PO Q6H PRN PRN Reason: Headache/Pain Mild Scale (1-3) Last Admin: 01/13/24 19:44 Dose: 650 mg Al Hydroxide/Mg Hydroxide (Magnesium Hydrox/Alum Hydrox 30 Ml Oral.Susp) 30 ml PO Q6H PRN PRN Reason: Heartburn/Nausea Amlodipine Besylate (Amlodipine Besylate 2.5 Mg Tablet) 7.5 mg PO DAILY [facility]; Protocol Last Admin: 01/16/24 08:13 Dose: 7.5 mg Aspirin (Aspirin 81 Mg Tab.Chew) 81 mg PO DAILY [facility] Last Admin: 01/16/24 08:13 Dose: 81 mg Atenolol (Atenolol 50 Mg Tablet) 50 mg PO DAILY [facility]; Protocol Last Admin: 01/16/24 08:14 Dose: 50 mg Atorvastatin Calcium (Atorvastatin Calcium 10 Mg Tablet) 10 mg PO DAILY [facility] Last Admin: 01/16/24 08:13 Dose: 10 mg Famotidine (Famotidine 20 Mg Tablet) 20 mg PO BID [facility] Last Admin: 01/16/24 08:13 Dose: 20 mg Hydroxyzine HCl (Hydroxyzine Hcl 25 Mg Tablet) 25 mg PO Q6H PRN PRN Reason: Anxiety Last Admin: 01/15/24 20:29 Dose: 25 mg Magnesium Hydroxide (Milk Of Magnesia 30 Ml Oral.Susp) 30 ml PO DAILY PRN PRN Reason: Constipation Magnesium Oxide (Magnesium Oxide 400 Mg Tablet) 400 mg PO BID [facility] Last Admin: 01/16/24 08:13 Dose: 400 mg Trazodone HCl (Trazodone Hcl 50 Mg Tablet) 50 mg PO BEDTIME PRN PRN Reason: Insomnia Last Admin: 01/15/24 20:29 Dose: 50 mg Allergies Allergies Allergy/AdvReac Type Severity Reaction Status Date / Time nitrofurantoin Allergy Mild SWELLING Verified 12/21/23 08:01 [From Macrodantin] nitroglycerin Allergy Unknown Verified 12/21/23 08:01 Assessment & Plan Assessment & Plan (1) Major neurocognitive disorder: Status: Acute Code(s): F03.90 - Unspecified dementia, unspecified severity, without behavioral disturbance, psychotic disturbance, mood disturbance, and anxiety Plan 1. continue current medications 12/27 Mag improved to 1.8, Na to 134. no agitation. 12/30/2023: Continue current regimen and plans 12/31 continue tx. 01/01 continue tx. 01/02 continue tx 01/03 continue tx 01/04 continue tx. 01/05 continue tx. 01/06 continue tx. 01/07 continue tx. 01/08 continue tx. 01/11/24 Cont plan of care d/c planning 01/11 continue treatment 01/12 continue treatment 01/13 continue tx. BP slightly elevated SBP 160's, taking amlodipine 7.5mg po daily. continue to monitor. 01/14 continue tx. 01/15 continue tx. Reason for continued inpatient stay Substantial Risk for: inability to function Time Spent With Patient Time: Total time managing care of this patient today ____ minutes.
[2024-01-16 20:00] VITALS: BP 162/72; PULSE 68; RESP 16; TEMP 36.8; O2SAT 97
[2024-01-16] MEDS: hydrOXYzine HCL 25 MG TABLET PO (20:57)
[2024-01-16] MEDS: traZODone HCL 50 MG TABLET PO (20:57)
[2024-01-17 07:00] VITALS: BMI 21.4
[2024-01-17 08:00] VITALS: BP 134/60; PULSE 63; RESP 18; TEMP 36.6; O2SAT 97
[2024-01-17 08:32] VITALS: BP 134/60; PULSE 63
[2024-01-17] MEDS: Magnesium Oxide 400 MG TABLET PO ×2 (08:32→21:02)
[2024-01-17] MEDS: Famotidine 20 MG TABLET PO ×2 (08:32→21:03)
[2024-01-17] MEDS: Atorvastatin Calcium 10 MG TABLET PO (08:32)
[2024-01-17] MEDS: amLODIPine Besylate 2.5 MG TABLET 7.5 MG PO (08:32)
[2024-01-17] MEDS: atenoloL 50 MG TABLET PO (08:32)
[2024-01-17] MEDS: Aspirin 81 MG TAB.CHEW PO (08:33)
[2024-01-17 20:00] VITALS: BP 132/65; PULSE 66; RESP 18; TEMP 37; O2SAT 99
[2024-01-17] MEDS: hydrOXYzine HCL 25 MG TABLET PO (21:03)
[2024-01-17] MEDS: traZODone HCL 50 MG TABLET PO (21:03)
--- NOTE | 2024-01-17 21:07 | HO.PSYCHPN ---
Subjective Subjective Date of Service: 01/17/24 Reason For Visit: agitation Subjective Notes: Conditional Voluntary Healthcare Proxy: Yes Interim History: Pt slept through the night. She is visible on the unit. She continues to present as social, pleasant. No SI/HI. No combative behaviors. Not oriented to situation awaiting placement. No psychosis or delusions. VS stable 134/63. taking medications as prescribed. Review of Systems Review of Systems Yes all other systems are reviewed and are negative and Unobtainable due to mental status Constitutional: Reports as per HPI and Reports no additional constitutional complaints Eyes: Reports as per HPI and Denies no additional eye complaints Denies system reviewed and no additional complaints, except as documented and Reports as per HPI Cardiovascular: Reports as per HPI, Reports no additional cardiovascular complaints, Denies acrocyanosis, Denies cool extremities, Denies chest pain, Denies leg edema, Denies lightheadedness, Denies palpitations and Denies dyspnea Respiratory: Reports as per HPI, Denies no additional respiratory complaints and Denies dyspnea Gastrointestinal: Reports as per HPI and Denies no additional gastrointestinal complaints Musculoskeletal: Reports no additional musculoskeletal complaints and Reports as per HPI Skin/Breast: Reports system reviewed and no additional complaints, except as docu Reports system reviewed and no additional complaints, except as documented and Reports as per HPI Psychiatric: Reports no additional psychiatric complaints and Reports as per HPI Endocrine: Reports no additional endocrine complaints, Reports as per HPI and Denies palpitations Hematologic/Lymphatic: Reports no additional hematologic/lymphatic complaints and Reports as per HPI Allergic/Immunologic: Reports no additional allergic/immunologic complaints and Reports as per HPI Mental Status Exam Mental Status Exam Patient Appearance: Appropriate Patient Orientation: Person Level of Consciousness: Awake Patient Behavior: Guarded and Passive Mood Description: Withdrawn Affect Description: Calm Patient Cognition Impaired: Yes Ability to Follow Directions: Good Speech Pattern: Clear Memory Description: Immediate Impaired Diagnostics Vital Signs (24Hr): Vital Signs - 24 hr 01/17/24 08:00 01/17/24 08:32 01/17/24 08:32 Temperature 97.8 F Pulse Rate 63 63 Respiratory Rate 18 Blood Pressure 134/60 134/60 134/60 Pulse Oximetry 97 Oxygen Delivery Method Room Air BMI result Body Mass Index 21.4 Labs 12/20/23 07:10 12/28/23 07:22 Imaging Radiology Impressions: ITS Impressions Chest X-Ray 12/20/23 07:54 IMPRESSION: Unremarkable examination. Head CT 12/20/23 08:32 IMPRESSION: No acute intracranial pathology. 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 Medications Medications Current Medications Acetaminophen (Acetaminophen 325 Mg Tablet) 650 mg PO Q6H PRN PRN Reason: Headache/Pain Mild Scale (1-3) Last Admin: 01/13/24 19:44 Dose: 650 mg Al Hydroxide/Mg Hydroxide (Magnesium Hydrox/Alum Hydrox 30 Ml Oral.Susp) 30 ml PO Q6H PRN PRN Reason: Heartburn/Nausea Amlodipine Besylate (Amlodipine Besylate 2.5 Mg Tablet) 7.5 mg PO DAILY [facility]; Protocol Last Admin: 01/17/24 08:32 Dose: 7.5 mg Aspirin (Aspirin 81 Mg Tab.Chew) 81 mg PO DAILY [facility] Last Admin: 01/17/24 08:33 Dose: 81 mg Atenolol (Atenolol 50 Mg Tablet) 50 mg PO DAILY [facility]; Protocol Last Admin: 01/17/24 08:32 Dose: 50 mg Atorvastatin Calcium (Atorvastatin Calcium 10 Mg Tablet) 10 mg PO DAILY [facility] Last Admin: 01/17/24 08:32 Dose: 10 mg Famotidine (Famotidine 20 Mg Tablet) 20 mg PO BID [facility] Last Admin: 01/17/24 21:03 Dose: 20 mg Hydroxyzine HCl (Hydroxyzine Hcl 25 Mg Tablet) 25 mg PO Q6H PRN PRN Reason: Anxiety Last Admin: 01/17/24 21:03 Dose: 25 mg Magnesium Hydroxide (Milk Of Magnesia 30 Ml Oral.Susp) 30 ml PO DAILY PRN PRN Reason: Constipation Magnesium Oxide (Magnesium Oxide 400 Mg Tablet) 400 mg PO BID [facility] Last Admin: 01/17/24 21:02 Dose: 400 mg Trazodone HCl (Trazodone Hcl 50 Mg Tablet) 50 mg PO BEDTIME PRN PRN Reason: Insomnia Last Admin: 01/17/24 21:03 Dose: 50 mg Allergies Allergies Allergy/AdvReac Type Severity Reaction Status Date / Time nitrofurantoin Allergy Mild SWELLING Verified 12/21/23 08:01 [From Macrodantin] nitroglycerin Allergy Unknown Verified 12/21/23 08:01 Assessment & Plan Assessment & Plan (1) Major neurocognitive disorder: Status: Acute Code(s): F03.90 - Unspecified dementia, unspecified severity, without behavioral disturbance, psychotic disturbance, mood disturbance, and anxiety Plan 1. continue current medications 12/27 Mag improved to 1.8, Na to 134. no agitation. 12/30/2023: Continue current regimen and plans 12/31 continue tx. 01/01 continue tx. 01/02 continue tx 01/03 continue tx 01/04 continue tx. 01/05 continue tx. 01/06 continue tx. 01/07 continue tx. 01/08 continue tx. 01/11/24 Cont plan of care d/c planning 01/11 continue treatment 01/12 continue treatment 01/13 continue tx. BP slightly elevated SBP 160's, taking amlodipine 7.5mg po daily. continue to monitor. 01/14 continue tx. 01/15 continue tx. 01/16 continue tx Reason for continued inpatient stay Substantial Risk for: inability to function Time Spent With Patient Time: Total time managing care of this patient today ____ minutes.
[2024-01-18 07:41] VITALS: BP 134/63; PULSE 64; RESP 18; TEMP 36.3; O2SAT 96
[2024-01-18 08:53] VITALS: BP 134/63
[2024-01-18] MEDS: amLODIPine Besylate 2.5 MG TABLET 7.5 MG PO (08:53)
[2024-01-18] MEDS: Magnesium Oxide 400 MG TABLET PO ×2 (08:53→20:48)
[2024-01-18 08:54] VITALS: BP 134/63; PULSE 64
[2024-01-18] MEDS: Atorvastatin Calcium 10 MG TABLET PO (08:54)
[2024-01-18] MEDS: Famotidine 20 MG TABLET PO ×2 (08:54→20:48)
[2024-01-18] MEDS: atenoloL 50 MG TABLET PO (08:54)
[2024-01-18] MEDS: Aspirin 81 MG TAB.CHEW PO (08:54)
--- NOTE | 2024-01-18 10:46 | HO.PSYCHPN ---
Subjective Subjective Date of Service: 01/18/24 Reason For Visit: agitation Subjective Notes: Conditional Voluntary Healthcare Proxy: Yes Interim History: Pt slept through the night. She is visible on the unit. She continues to present as social, pleasant. No SI/HI. No combative behaviors. Not oriented to situation awaiting placement. No psychosis or delusions. VS stable SBP 130's. taking medications as prescribed. Review of Systems Review of Systems Yes all other systems are reviewed and are negative and Unobtainable due to mental status Constitutional: Reports as per HPI and Reports no additional constitutional complaints Eyes: Reports as per HPI and Denies no additional eye complaints Denies system reviewed and no additional complaints, except as documented and Reports as per HPI Cardiovascular: Reports as per HPI, Reports no additional cardiovascular complaints, Denies acrocyanosis, Denies cool extremities, Denies chest pain, Denies leg edema, Denies lightheadedness, Denies palpitations and Denies dyspnea Respiratory: Reports as per HPI, Denies no additional respiratory complaints and Denies dyspnea Gastrointestinal: Reports as per HPI and Denies no additional gastrointestinal complaints Musculoskeletal: Reports no additional musculoskeletal complaints and Reports as per HPI Skin/Breast: Reports system reviewed and no additional complaints, except as docu Reports system reviewed and no additional complaints, except as documented and Reports as per HPI Psychiatric: Reports no additional psychiatric complaints and Reports as per HPI Endocrine: Reports no additional endocrine complaints, Reports as per HPI and Denies palpitations Hematologic/Lymphatic: Reports no additional hematologic/lymphatic complaints and Reports as per HPI Allergic/Immunologic: Reports no additional allergic/immunologic complaints and Reports as per HPI Mental Status Exam Mental Status Exam Patient Appearance: Appropriate Patient Orientation: Person Level of Consciousness: Awake Patient Behavior: Guarded and Passive Mood Description: Withdrawn Affect Description: Calm Patient Cognition Impaired: Yes Ability to Follow Directions: Good Speech Pattern: Clear Memory Description: Immediate Impaired Diagnostics Vital Signs (24Hr): Vital Signs - 24 hr 01/17/24 20:00 01/18/24 08:53 01/18/24 08:54 Temperature 98.6 F Pulse Rate 66 64 Respiratory Rate 18 Blood Pressure 132/65 134/63 134/63 Pulse Oximetry 99 Oxygen Delivery Method Room Air BMI result Body Mass Index 21.4 Labs 12/20/23 07:10 12/28/23 07:22 Imaging Radiology Impressions: ITS Impressions Chest X-Ray 12/20/23 07:54 IMPRESSION: Unremarkable examination. Head CT 12/20/23 08:32 IMPRESSION: No acute intracranial pathology. 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 Medications Medications Current Medications Acetaminophen (Acetaminophen 325 Mg Tablet) 650 mg PO Q6H PRN PRN Reason: Headache/Pain Mild Scale (1-3) Last Admin: 01/13/24 19:44 Dose: 650 mg Al Hydroxide/Mg Hydroxide (Magnesium Hydrox/Alum Hydrox 30 Ml Oral.Susp) 30 ml PO Q6H PRN PRN Reason: Heartburn/Nausea Amlodipine Besylate (Amlodipine Besylate 2.5 Mg Tablet) 7.5 mg PO DAILY [facility]; Protocol Last Admin: 01/18/24 08:53 Dose: 7.5 mg Aspirin (Aspirin 81 Mg Tab.Chew) 81 mg PO DAILY [facility] Last Admin: 01/18/24 08:54 Dose: 81 mg Atenolol (Atenolol 50 Mg Tablet) 50 mg PO DAILY [facility]; Protocol Last Admin: 01/18/24 08:54 Dose: 50 mg Atorvastatin Calcium (Atorvastatin Calcium 10 Mg Tablet) 10 mg PO DAILY [facility] Last Admin: 01/18/24 08:54 Dose: 10 mg Famotidine (Famotidine 20 Mg Tablet) 20 mg PO BID [facility] Last Admin: 01/18/24 08:54 Dose: 20 mg Hydroxyzine HCl (Hydroxyzine Hcl 25 Mg Tablet) 25 mg PO Q6H PRN PRN Reason: Anxiety Last Admin: 01/17/24 21:03 Dose: 25 mg Magnesium Hydroxide (Milk Of Magnesia 30 Ml Oral.Susp) 30 ml PO DAILY PRN PRN Reason: Constipation Magnesium Oxide (Magnesium Oxide 400 Mg Tablet) 400 mg PO BID [facility] Last Admin: 01/18/24 08:53 Dose: 400 mg Trazodone HCl (Trazodone Hcl 50 Mg Tablet) 50 mg PO BEDTIME PRN PRN Reason: Insomnia Last Admin: 01/17/24 21:03 Dose: 50 mg Allergies Allergies Allergy/AdvReac Type Severity Reaction Status Date / Time nitrofurantoin Allergy Mild SWELLING Verified 12/21/23 08:01 [From Macrodantin] nitroglycerin Allergy Unknown Verified 12/21/23 08:01 Assessment & Plan Assessment & Plan (1) Major neurocognitive disorder: Status: Acute Code(s): F03.90 - Unspecified dementia, unspecified severity, without behavioral disturbance, psychotic disturbance, mood disturbance, and anxiety Plan 1. continue current medications 12/27 Mag improved to 1.8, Na to 134. no agitation. 12/30/2023: Continue current regimen and plans 12/31 continue tx. 01/01 continue tx. 01/02 continue tx 01/03 continue tx 01/04 continue tx. 01/05 continue tx. 01/06 continue tx. 01/07 continue tx. 01/08 continue tx. 01/11/24 Cont plan of care d/c planning 01/11 continue treatment 01/12 continue treatment 01/13 continue tx. BP slightly elevated SBP 160's, taking amlodipine 7.5mg po daily. continue to monitor. 01/14 continue tx. 01/15 continue tx. 01/16 continue tx 01/17 continue tx. Reason for continued inpatient stay Substantial Risk for: inability to function Time Spent With Patient Time: Total time managing care of this patient today ____ minutes.
[2024-01-18 20:00] VITALS: BP 142/66; PULSE 71; RESP 16; TEMP 36.4; O2SAT 95
[2024-01-19 08:45] VITALS: BP 144/66; PULSE 66; RESP 18; TEMP 36.3; O2SAT 98
[2024-01-19 09:05] VITALS: BP 144/66
[2024-01-19] MEDS: amLODIPine Besylate 2.5 MG TABLET 7.5 MG PO (09:05)
[2024-01-19] MEDS: Aspirin 81 MG TAB.CHEW PO (09:05)
[2024-01-19 09:06] VITALS: BP 144/66; PULSE 66
[2024-01-19] MEDS: atenoloL 50 MG TABLET PO (09:06)
[2024-01-19] MEDS: Atorvastatin Calcium 10 MG TABLET PO (09:06)
[2024-01-19] MEDS: Famotidine 20 MG TABLET PO ×2 (09:06→20:40)
[2024-01-19] MEDS: Magnesium Oxide 400 MG TABLET PO ×2 (09:06→20:40)
--- NOTE | 2024-01-19 14:36 | P.PNPSI_ITS ---
Subjective Subjective Date of Service: 01/19/24 Reason For Visit: agitation Subjective Notes: Conditional Voluntary Healthcare Proxy: Yes Interim History: Pt slept through the night. She is visible on the unit. She continues to present as social, pleasant. No SI/HI. Engaged on the unit confused discharge planning continues Mental Status Exam Mental Status Exam Patient Appearance: Appropriate Patient Orientation: Person Level of Consciousness: Awake Patient Behavior: Guarded and Passive Mood Description: Withdrawn Affect Description: Calm Patient Cognition Impaired: Yes Ability to Follow Directions: Good Speech Pattern: Clear Memory Description: Immediate Impaired Diagnostics Vital Signs (24Hr): Vital Signs - 24 hr 01/18/24 20:00 01/19/24 08:45 01/19/24 09:05 Temperature 97.5 F 97.4 F Pulse Rate 71 66 Respiratory Rate 16 18 Blood Pressure 142/66 H 144/66 H 144/66 H Pulse Oximetry 95 98 Oxygen Delivery Method Room Air Room Air 01/19/24 09:06 Temperature Pulse Rate 66 Respiratory Rate Blood Pressure 144/66 H Pulse Oximetry Oxygen Delivery Method BMI result Body Mass Index 21.4 Labs 12/20/23 07:10 12/28/23 07:22 Imaging Radiology Impressions: ITS Impressions Chest X-Ray 12/20/23 07:54 IMPRESSION: Unremarkable examination. Head CT 12/20/23 08:32 IMPRESSION: No acute intracranial pathology. 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 Medications Medications Current Medications Acetaminophen (Acetaminophen 325 Mg Tablet) 650 mg PO Q6H PRN PRN Reason: Headache/Pain Mild Scale (1-3) Last Admin: 01/13/24 19:44 Dose: 650 mg Al Hydroxide/Mg Hydroxide (Magnesium Hydrox/Alum Hydrox 30 Ml Oral.Susp) 30 ml PO Q6H PRN PRN Reason: Heartburn/Nausea Amlodipine Besylate (Amlodipine Besylate 2.5 Mg Tablet) 7.5 mg PO DAILY [facility]; Protocol Last Admin: 01/19/24 09:05 Dose: 7.5 mg Aspirin (Aspirin 81 Mg Tab.Chew) 81 mg PO DAILY [facility] Last Admin: 01/19/24 09:05 Dose: 81 mg Atenolol (Atenolol 50 Mg Tablet) 50 mg PO DAILY [facility]; Protocol Last Admin: 01/19/24 09:06 Dose: 50 mg Atorvastatin Calcium (Atorvastatin Calcium 10 Mg Tablet) 10 mg PO DAILY [facility] Last Admin: 01/19/24 09:06 Dose: 10 mg Famotidine (Famotidine 20 Mg Tablet) 20 mg PO BID [facility] Last Admin: 01/19/24 09:06 Dose: 20 mg Hydroxyzine HCl (Hydroxyzine Hcl 25 Mg Tablet) 25 mg PO Q6H PRN PRN Reason: Anxiety Last Admin: 01/17/24 21:03 Dose: 25 mg Magnesium Hydroxide (Milk Of Magnesia 30 Ml Oral.Susp) 30 ml PO DAILY PRN PRN Reason: Constipation Magnesium Oxide (Magnesium Oxide 400 Mg Tablet) 400 mg PO BID [facility] Last Admin: 01/19/24 09:06 Dose: 400 mg Trazodone HCl (Trazodone Hcl 50 Mg Tablet) 50 mg PO BEDTIME PRN PRN Reason: Insomnia Last Admin: 01/17/24 21:03 Dose: 50 mg Allergies Allergies Allergy/AdvReac Type Severity Reaction Status Date / Time nitrofurantoin Allergy Mild SWELLING Verified 12/21/23 08:01 [From Macrodantin] nitroglycerin Allergy Unknown Verified 12/21/23 08:01 Assessment & Plan Assessment & Plan (1) Major neurocognitive disorder: Status: Acute Code(s): F03.90 - Unspecified dementia, unspecified severity, without behavioral disturbance, psychotic disturbance, mood disturbance, and anxiety Plan 1. continue current medications 12/27 Mag improved to 1.8, Na to 134. no agitation. 12/30/2023: Continue current regimen and plans 12/31 continue tx. 01/01 continue tx. 01/02 continue tx 01/03 continue tx 01/04 continue tx. 01/05 continue tx. 01/06 continue tx. 01/07 continue tx. 01/08 continue tx. 01/11/24 Cont plan of care d/c planning 01/11 continue treatment 01/12 continue treatment 01/13 continue tx. BP slightly elevated SBP 160's, taking amlodipine 7.5mg po daily. continue to monitor. 01/14 continue tx. 01/15 continue tx. 01/16 continue tx 01/17 continue tx. 01/19/2024 Continue plan of care Reason for continued inpatient stay Substantial Risk for: inability to function and rapid decompensation Time Spent With Patient Time: Total time managing care of this patient today ____ minutes.
[2024-01-19 20:00] VITALS: BP 123/55; PULSE 70; RESP 18; TEMP 36.2; O2SAT 97
[2024-01-19] MEDS: traZODone HCL 50 MG TABLET PO (20:40)
[2024-01-20 08:15] VITALS: BP 172/75; PULSE 69; RESP 18; TEMP 36.6; O2SAT 96
[2024-01-20 09:32] VITALS: BP 172/75
[2024-01-20] MEDS: amLODIPine Besylate 2.5 MG TABLET 7.5 MG PO (09:32)
[2024-01-20 09:33] VITALS: BP 172/75; PULSE 69
[2024-01-20] MEDS: atenoloL 50 MG TABLET PO (09:33)
[2024-01-20] MEDS: Aspirin 81 MG TAB.CHEW PO (09:34)
[2024-01-20] MEDS: Atorvastatin Calcium 10 MG TABLET PO (09:34)
[2024-01-20] MEDS: Magnesium Oxide 400 MG TABLET PO ×2 (09:35→20:56)
[2024-01-20] MEDS: Famotidine 20 MG TABLET PO ×2 (09:35→20:56)
[2024-01-20 20:00] VITALS: BP 159/72; PULSE 65; RESP 18; TEMP 36.7; O2SAT 94
[2024-01-20] MEDS: traZODone HCL 50 MG TABLET PO ×2 (20:56→22:03)
[2024-01-20] MEDS: hydrOXYzine HCL 25 MG TABLET PO (22:03)
--- NOTE | 2024-01-20 22:21 | HO.PSYCHPN ---
Subjective Subjective Date of Service: 01/20/24 Reason For Visit: agitation Subjective Notes: Conditional Voluntary Healthcare Proxy: Yes Interim History: Pt slept through the night. She is visible on the unit. She continues to present as social, pleasant. No SI/HI. Engaged on the unit confused discharge planning continues Mental Status Exam Mental Status Exam Patient Appearance: Appropriate Patient Orientation: Person Level of Consciousness: Awake Patient Behavior: Guarded and Passive Mood Description: Withdrawn Affect Description: Calm Patient Cognition Impaired: Yes Ability to Follow Directions: Good Speech Pattern: Clear Memory Description: Immediate Impaired Diagnostics Vital Signs (24Hr): Vital Signs - 24 hr 01/20/24 08:15 01/20/24 09:32 01/20/24 09:33 Temperature 97.9 F Pulse Rate 69 69 Respiratory Rate 18 Blood Pressure 172/75 H 172/75 H 172/75 H Pulse Oximetry 96 Oxygen Delivery Method Room Air BMI result Body Mass Index 21.4 Labs 12/20/23 07:10 12/28/23 07:22 Imaging Radiology Impressions: ITS Impressions Chest X-Ray 12/20/23 07:54 IMPRESSION: Unremarkable examination. Head CT 12/20/23 08:32 IMPRESSION: No acute intracranial pathology. 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 Medications Medications Current Medications Acetaminophen (Acetaminophen 325 Mg Tablet) 650 mg PO Q6H PRN PRN Reason: Headache/Pain Mild Scale (1-3) Last Admin: 01/13/24 19:44 Dose: 650 mg Al Hydroxide/Mg Hydroxide (Magnesium Hydrox/Alum Hydrox 30 Ml Oral.Susp) 30 ml PO Q6H PRN PRN Reason: Heartburn/Nausea Amlodipine Besylate (Amlodipine Besylate 2.5 Mg Tablet) 7.5 mg PO DAILY [facility]; Protocol Last Admin: 01/20/24 09:32 Dose: 7.5 mg Aspirin (Aspirin 81 Mg Tab.Chew) 81 mg PO DAILY [facility] Last Admin: 01/20/24 09:34 Dose: 81 mg Atenolol (Atenolol 50 Mg Tablet) 50 mg PO DAILY [facility]; Protocol Last Admin: 01/20/24 09:33 Dose: 50 mg Atorvastatin Calcium (Atorvastatin Calcium 10 Mg Tablet) 10 mg PO DAILY [facility] Last Admin: 01/20/24 09:34 Dose: 10 mg Famotidine (Famotidine 20 Mg Tablet) 20 mg PO BID [facility] Last Admin: 01/20/24 20:56 Dose: 20 mg Hydroxyzine HCl (Hydroxyzine Hcl 25 Mg Tablet) 25 mg PO Q6H PRN PRN Reason: Anxiety Last Admin: 01/20/24 22:03 Dose: 25 mg Magnesium Hydroxide (Milk Of Magnesia 30 Ml Oral.Susp) 30 ml PO DAILY PRN PRN Reason: Constipation Magnesium Oxide (Magnesium Oxide 400 Mg Tablet) 400 mg PO BID [facility] Last Admin: 01/20/24 20:56 Dose: 400 mg Trazodone HCl (Trazodone Hcl 50 Mg Tablet) 50 mg PO BEDTIME PRN PRN Reason: Insomnia Last Admin: 01/20/24 22:03 Dose: 50 mg Allergies Allergies Allergy/AdvReac Type Severity Reaction Status Date / Time nitrofurantoin Allergy Mild SWELLING Verified 12/21/23 08:01 [From Macrodantin] nitroglycerin Allergy Unknown Verified 12/21/23 08:01 Assessment & Plan Assessment & Plan (1) Major neurocognitive disorder: Status: Acute Code(s): F03.90 - Unspecified dementia, unspecified severity, without behavioral disturbance, psychotic disturbance, mood disturbance, and anxiety Plan 1. continue current medications 12/27 Mag improved to 1.8, Na to 134. no agitation. 12/30/2023: Continue current regimen and plans 12/31 continue tx. 01/01 continue tx. 01/02 continue tx 01/03 continue tx 01/04 continue tx. 01/05 continue tx. 01/06 continue tx. 01/07 continue tx. 01/08 continue tx. 01/11/24 Cont plan of care d/c planning 01/11 continue treatment 01/12 continue treatment 01/13 continue tx. BP slightly elevated SBP 160's, taking amlodipine 7.5mg po daily. continue to monitor. 01/14 continue tx. 01/15 continue tx. 01/16 continue tx 01/17 continue tx. 01/19/2024 Continue plan of care 01/20/2024 Continue plan of care Reason for continued inpatient stay Substantial Risk for: rapid decompensation Time Spent With Patient Time: Total time managing care of this patient today ____ minutes.
[2024-01-21 07:53] VITALS: BP 157/73; PULSE 61; RESP 18; TEMP 36.2; O2SAT 96
[2024-01-21] MEDS: Magnesium Oxide 400 MG TABLET PO ×2 (08:08→20:25)
[2024-01-21] MEDS: Famotidine 20 MG TABLET PO ×2 (08:08→20:26)
[2024-01-21 08:09] VITALS: BP 157/73; PULSE 61
[2024-01-21] MEDS: atenoloL 50 MG TABLET PO (08:09)
[2024-01-21] MEDS: Aspirin 81 MG TAB.CHEW PO (08:09)
[2024-01-21] MEDS: Atorvastatin Calcium 10 MG TABLET PO (08:09)
[2024-01-21] MEDS: amLODIPine Besylate 2.5 MG TABLET 7.5 MG PO (08:09)
--- NOTE | 2024-01-21 08:36 | P.PNPSI_ITS ---
Subjective Subjective Date of Service: 01/21/24 Reason For Visit: agitation Subjective Notes: Conditional Voluntary Healthcare Proxy: Yes Interim History: Pt slept through the night. She is visible on the unit. She continues to present as social, pleasant. No SI/HI. She is not oriented to situation, month, year. No aggression towards self or others. VS stable. eating well. Review of Systems Review of Systems Yes all other systems are reviewed and are negative and Unobtainable due to mental status Constitutional: Reports as per HPI and Reports no additional constitutional complaints Eyes: Reports as per HPI and Denies no additional eye complaints Denies system reviewed and no additional complaints, except as documented and Reports as per HPI Cardiovascular: Reports as per HPI, Reports no additional cardiovascular complaints, Denies acrocyanosis, Denies cool extremities, Denies chest pain, Denies leg edema, Denies lightheadedness, Denies palpitations and Denies dyspnea Respiratory: Reports as per HPI, Denies no additional respiratory complaints and Denies dyspnea Gastrointestinal: Reports as per HPI and Denies no additional gastrointestinal complaints Musculoskeletal: Reports no additional musculoskeletal complaints and Reports as per HPI Skin/Breast: Reports system reviewed and no additional complaints, except as docu Reports system reviewed and no additional complaints, except as documented and Reports as per HPI Psychiatric: Reports no additional psychiatric complaints and Reports as per HPI Endocrine: Reports no additional endocrine complaints, Reports as per HPI and Denies palpitations Hematologic/Lymphatic: Reports no additional hematologic/lymphatic complaints and Reports as per HPI Allergic/Immunologic: Reports no additional allergic/immunologic complaints and Reports as per HPI Mental Status Exam Mental Status Exam Patient Appearance: Appropriate Patient Orientation: Person Level of Consciousness: Awake Patient Behavior: Guarded and Passive Mood Description: Withdrawn Affect Description: Calm Patient Cognition Impaired: Yes Ability to Follow Directions: Good Speech Pattern: Clear Memory Description: Immediate Impaired Diagnostics Vital Signs (24Hr): Vital Signs - 24 hr 01/20/24 09:32 01/20/24 09:33 01/20/24 20:00 Temperature 98.1 F Pulse Rate 69 65 Respiratory Rate 18 Blood Pressure 172/75 H 172/75 H 159/72 H Pulse Oximetry 94 Oxygen Delivery Method Room Air 01/21/24 08:09 01/21/24 08:09 Temperature Pulse Rate 61 Respiratory Rate Blood Pressure 157/73 H 157/73 H Pulse Oximetry Oxygen Delivery Method BMI result Body Mass Index 21.4 Labs 12/20/23 07:10 12/28/23 07:22 Imaging Radiology Impressions: ITS Impressions Chest X-Ray 12/20/23 07:54 IMPRESSION: Unremarkable examination. Head CT 12/20/23 08:32 IMPRESSION: No acute intracranial pathology. 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 Medications Medications Current Medications Acetaminophen (Acetaminophen 325 Mg Tablet) 650 mg PO Q6H PRN PRN Reason: Headache/Pain Mild Scale (1-3) Last Admin: 01/13/24 19:44 Dose: 650 mg Al Hydroxide/Mg Hydroxide (Magnesium Hydrox/Alum Hydrox 30 Ml Oral.Susp) 30 ml PO Q6H PRN PRN Reason: Heartburn/Nausea Amlodipine Besylate (Amlodipine Besylate 2.5 Mg Tablet) 7.5 mg PO DAILY [facility]; Protocol Last Admin: 01/21/24 08:09 Dose: 7.5 mg Aspirin (Aspirin 81 Mg Tab.Chew) 81 mg PO DAILY [facility] Last Admin: 01/21/24 08:09 Dose: 81 mg Atenolol (Atenolol 50 Mg Tablet) 50 mg PO DAILY [facility]; Protocol Last Admin: 01/21/24 08:09 Dose: 50 mg Atorvastatin Calcium (Atorvastatin Calcium 10 Mg Tablet) 10 mg PO DAILY [facility] Last Admin: 01/21/24 08:09 Dose: 10 mg Famotidine (Famotidine 20 Mg Tablet) 20 mg PO BID [facility] Last Admin: 01/21/24 08:08 Dose: 20 mg Hydroxyzine HCl (Hydroxyzine Hcl 25 Mg Tablet) 25 mg PO Q6H PRN PRN Reason: Anxiety Last Admin: 01/20/24 22:03 Dose: 25 mg Magnesium Hydroxide (Milk Of Magnesia 30 Ml Oral.Susp) 30 ml PO DAILY PRN PRN Reason: Constipation Magnesium Oxide (Magnesium Oxide 400 Mg Tablet) 400 mg PO BID [facility] Last Admin: 01/21/24 08:08 Dose: 400 mg Trazodone HCl (Trazodone Hcl 50 Mg Tablet) 50 mg PO BEDTIME PRN PRN Reason: Insomnia Last Admin: 01/20/24 22:03 Dose: 50 mg Allergies Allergies Allergy/AdvReac Type Severity Reaction Status Date / Time nitrofurantoin Allergy Mild SWELLING Verified 12/21/23 08:01 [From Macrodantin] nitroglycerin Allergy Unknown Verified 12/21/23 08:01 Assessment & Plan Assessment & Plan (1) Major neurocognitive disorder: Status: Acute Code(s): F03.90 - Unspecified dementia, unspecified severity, without behavioral disturbance, psychotic disturbance, mood disturbance, and anxiety Plan 1. continue current medications 12/27 Mag improved to 1.8, Na to 134. no agitation. 12/30/2023: Continue current regimen and plans 12/31 continue tx. 01/01 continue tx. 01/02 continue tx 01/03 continue tx 01/04 continue tx. 01/05 continue tx. 01/06 continue tx. 01/07 continue tx. 01/08 continue tx. 01/11/24 Cont plan of care d/c planning 01/11 continue treatment 01/12 continue treatment 01/13 continue tx. BP slightly elevated SBP 160's, taking amlodipine 7.5mg po daily. continue to monitor. 01/14 continue tx. 01/15 continue tx. 01/16 continue tx 01/17 continue tx. 01/19/2024 Continue plan of care 01/20/2024 Continue plan of care 01/20 continue tx. awaiting placement. Reason for continued inpatient stay Substantial Risk for: inability to function Time Spent With Patient Time: Total time managing care of this patient today ____ minutes.
[2024-01-21 20:00] VITALS: BP 136/61; PULSE 62; RESP 18; TEMP 36.6; O2SAT 98
[2024-01-21] MEDS: traZODone HCL 50 MG TABLET PO (20:25)
[2024-01-21] MEDS: hydrOXYzine HCL 25 MG TABLET PO (20:26)
[2024-01-22 08:11] VITALS: BP 155/70; PULSE 67; RESP 18; TEMP 36.2; O2SAT 96
--- NOTE | 2024-01-22 08:43 | HO.PSYCHPN ---
Subjective Subjective Date of Service: 01/22/24 Reason For Visit: agitation Subjective Notes: Conditional Voluntary Healthcare Proxy: Yes Interim History: Pt slept through the night. She is visible on the unit. She continues to present as social, pleasant. No SI/HI. She is not oriented to situation, month, year. No aggression towards self or others. VS stable. eating well. Review of Systems Review of Systems Yes all other systems are reviewed and are negative and Unobtainable due to mental status Constitutional: Reports as per HPI and Reports no additional constitutional complaints Eyes: Reports as per HPI and Denies no additional eye complaints Denies system reviewed and no additional complaints, except as documented and Reports as per HPI Cardiovascular: Reports as per HPI, Reports no additional cardiovascular complaints, Denies acrocyanosis, Denies cool extremities, Denies chest pain, Denies leg edema, Denies lightheadedness, Denies palpitations and Denies dyspnea Respiratory: Reports as per HPI, Denies no additional respiratory complaints and Denies dyspnea Gastrointestinal: Reports as per HPI and Denies no additional gastrointestinal complaints Musculoskeletal: Reports no additional musculoskeletal complaints and Reports as per HPI Skin/Breast: Reports system reviewed and no additional complaints, except as docu Reports system reviewed and no additional complaints, except as documented and Reports as per HPI Psychiatric: Reports no additional psychiatric complaints and Reports as per HPI Endocrine: Reports no additional endocrine complaints, Reports as per HPI and Denies palpitations Hematologic/Lymphatic: Reports no additional hematologic/lymphatic complaints and Reports as per HPI Allergic/Immunologic: Reports no additional allergic/immunologic complaints and Reports as per HPI Mental Status Exam Mental Status Exam Patient Appearance: Appropriate Patient Orientation: Person Level of Consciousness: Awake Patient Behavior: Guarded and Passive Mood Description: Withdrawn Affect Description: Calm Patient Cognition Impaired: Yes Ability to Follow Directions: Good Speech Pattern: Clear Memory Description: Immediate Impaired Diagnostics Vital Signs (24Hr): Vital Signs - 24 hr 01/21/24 20:00 01/22/24 08:11 Temperature 97.8 F 97.2 F Pulse Rate 62 67 Respiratory Rate 18 18 Blood Pressure 136/61 155/70 H Pulse Oximetry 98 96 Oxygen Delivery Method Room Air Room Air BMI result Body Mass Index 21.4 Labs 12/20/23 07:10 12/28/23 07:22 Imaging Radiology Impressions: ITS Impressions Chest X-Ray 12/20/23 07:54 IMPRESSION: Unremarkable examination. Head CT 12/20/23 08:32 IMPRESSION: No acute intracranial pathology. 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 Medications Medications Current Medications Acetaminophen (Acetaminophen 325 Mg Tablet) 650 mg PO Q6H PRN PRN Reason: Headache/Pain Mild Scale (1-3) Last Admin: 01/13/24 19:44 Dose: 650 mg Al Hydroxide/Mg Hydroxide (Magnesium Hydrox/Alum Hydrox 30 Ml Oral.Susp) 30 ml PO Q6H PRN PRN Reason: Heartburn/Nausea Amlodipine Besylate (Amlodipine Besylate 2.5 Mg Tablet) 7.5 mg PO DAILY [facility]; Protocol Last Admin: 01/21/24 08:09 Dose: 7.5 mg Aspirin (Aspirin 81 Mg Tab.Chew) 81 mg PO DAILY [facility] Last Admin: 01/21/24 08:09 Dose: 81 mg Atenolol (Atenolol 50 Mg Tablet) 50 mg PO DAILY [facility]; Protocol Last Admin: 01/21/24 08:09 Dose: 50 mg Atorvastatin Calcium (Atorvastatin Calcium 10 Mg Tablet) 10 mg PO DAILY [facility] Last Admin: 01/21/24 08:09 Dose: 10 mg Famotidine (Famotidine 20 Mg Tablet) 20 mg PO BID [facility] Last Admin: 01/21/24 20:26 Dose: 20 mg Hydroxyzine HCl (Hydroxyzine Hcl 25 Mg Tablet) 25 mg PO Q6H PRN PRN Reason: Anxiety Last Admin: 01/21/24 20:26 Dose: 25 mg Magnesium Hydroxide (Milk Of Magnesia 30 Ml Oral.Susp) 30 ml PO DAILY PRN PRN Reason: Constipation Magnesium Oxide (Magnesium Oxide 400 Mg Tablet) 400 mg PO BID [facility] Last Admin: 01/21/24 20:25 Dose: 400 mg Trazodone HCl (Trazodone Hcl 50 Mg Tablet) 50 mg PO BEDTIME PRN PRN Reason: Insomnia Last Admin: 01/21/24 20:25 Dose: 50 mg Allergies Allergies Allergy/AdvReac Type Severity Reaction Status Date / Time nitrofurantoin Allergy Mild SWELLING Verified 12/21/23 08:01 [From Macrodantin] nitroglycerin Allergy Unknown Verified 12/21/23 08:01 Assessment & Plan Assessment & Plan (1) Major neurocognitive disorder: Status: Acute Code(s): F03.90 - Unspecified dementia, unspecified severity, without behavioral disturbance, psychotic disturbance, mood disturbance, and anxiety Plan 1. continue current medications 12/27 Mag improved to 1.8, Na to 134. no agitation. 12/30/2023: Continue current regimen and plans 12/31 continue tx. 01/01 continue tx. 01/02 continue tx 01/03 continue tx 01/04 continue tx. 01/05 continue tx. 01/06 continue tx. 01/07 continue tx. 01/08 continue tx. 01/11/24 Cont plan of care d/c planning 01/11 continue treatment 01/12 continue treatment 01/13 continue tx. BP slightly elevated SBP 160's, taking amlodipine 7.5mg po daily. continue to monitor. 01/14 continue tx. 01/15 continue tx. 01/16 continue tx 01/17 continue tx. 01/19/2024 Continue plan of care 01/20/2024 Continue plan of care 01/21 continue tx. awaiting placement. Reason for continued inpatient stay Substantial Risk for: inability to function Time Spent With Patient Time: Total time managing care of this patient today ____ minutes.
[2024-01-22] MEDS: amLODIPine Besylate 2.5 MG TABLET 7.5 MG PO (08:58)
[2024-01-22] MEDS: Aspirin 81 MG TAB.CHEW PO (08:58)
[2024-01-22] MEDS: atenoloL 50 MG TABLET PO (08:59)
[2024-01-22] MEDS: Magnesium Oxide 400 MG TABLET PO ×2 (08:59→20:54)
[2024-01-22] MEDS: Atorvastatin Calcium 10 MG TABLET PO (08:59)
[2024-01-22] MEDS: Famotidine 20 MG TABLET PO ×2 (08:59→20:54)
[2024-01-22 20:00] VITALS: BP 133/68; PULSE 61; RESP 18; TEMP 36.6; O2SAT 96
[2024-01-22] MEDS: hydrOXYzine HCL 25 MG TABLET PO (20:54)
[2024-01-22] MEDS: traZODone HCL 50 MG TABLET PO (20:54)
[2024-01-22] MEDS: Acetaminophen 325 MG TABLET 650 MG PO (21:19)
[2024-01-23 08:00] VITALS: BP 147/65; PULSE 65; RESP 16; TEMP 36.5; O2SAT 97
[2024-01-23] MEDS: amLODIPine Besylate 2.5 MG TABLET 7.5 MG PO (08:40)
[2024-01-23] MEDS: Aspirin 81 MG TAB.CHEW PO (08:41)
[2024-01-23] MEDS: Atorvastatin Calcium 10 MG TABLET PO (08:41)
[2024-01-23] MEDS: atenoloL 50 MG TABLET PO (08:41)
[2024-01-23] MEDS: Magnesium Oxide 400 MG TABLET PO ×2 (08:41→20:25)
[2024-01-23] MEDS: Famotidine 20 MG TABLET PO ×2 (08:42→20:24)
--- NOTE | 2024-01-23 16:19 | HO.PSYCHPN ---
Subjective Subjective Date of Service: 01/23/24 Reason For Visit: agitation Subjective Notes: Conditional Voluntary Interim History: Pt slept through the night. She is visible on the unit. She continues to present as social, pleasant. No SI/HI. She is not oriented to situation, month, year. No aggression towards self or others. VS stable. eating well. Review of Systems Review of Systems Yes all other systems are reviewed and are negative and Unobtainable due to mental status Constitutional: Reports as per HPI and Reports no additional constitutional complaints Eyes: Reports as per HPI and Denies no additional eye complaints Denies system reviewed and no additional complaints, except as documented and Reports as per HPI Cardiovascular: Reports as per HPI, Reports no additional cardiovascular complaints, Denies acrocyanosis, Denies cool extremities, Denies chest pain, Denies leg edema, Denies lightheadedness, Denies palpitations and Denies dyspnea Respiratory: Reports as per HPI, Denies no additional respiratory complaints and Denies dyspnea Gastrointestinal: Reports as per HPI and Denies no additional gastrointestinal complaints Musculoskeletal: Reports no additional musculoskeletal complaints and Reports as per HPI Skin/Breast: Reports system reviewed and no additional complaints, except as docu Reports system reviewed and no additional complaints, except as documented and Reports as per HPI Psychiatric: Reports no additional psychiatric complaints and Reports as per HPI Endocrine: Reports no additional endocrine complaints, Reports as per HPI and Denies palpitations Hematologic/Lymphatic: Reports no additional hematologic/lymphatic complaints and Reports as per HPI Allergic/Immunologic: Reports no additional allergic/immunologic complaints and Reports as per HPI Mental Status Exam Mental Status Exam Patient Appearance: Appropriate Patient Orientation: Person Level of Consciousness: Awake Patient Behavior: Guarded and Passive Mood Description: Withdrawn Affect Description: Calm Patient Cognition Impaired: Yes Ability to Follow Directions: Good Speech Pattern: Clear Memory Description: Immediate Impaired Diagnostics Vital Signs (24Hr): Vital Signs - 24 hr 01/22/24 20:00 01/23/24 08:00 Temperature 98 F 97.7 F Pulse Rate 61 65 Respiratory Rate 18 16 Blood Pressure 133/68 147/65 H Pulse Oximetry 96 97 Oxygen Delivery Method Room Air Room Air BMI result Body Mass Index 21.4 Labs 12/20/23 07:10 12/28/23 07:22 Imaging Radiology Impressions: ITS Impressions Chest X-Ray 12/20/23 07:54 IMPRESSION: Unremarkable examination. Head CT 12/20/23 08:32 IMPRESSION: No acute intracranial pathology. 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 Medications Medications Current Medications Acetaminophen (Acetaminophen 325 Mg Tablet) 650 mg PO Q6H PRN PRN Reason: Headache/Pain Mild Scale (1-3) Last Admin: 01/22/24 21:19 Dose: 650 mg Al Hydroxide/Mg Hydroxide (Magnesium Hydrox/Alum Hydrox 30 Ml Oral.Susp) 30 ml PO Q6H PRN PRN Reason: Heartburn/Nausea Amlodipine Besylate (Amlodipine Besylate 2.5 Mg Tablet) 7.5 mg PO DAILY [facility]; Protocol Last Admin: 01/23/24 08:40 Dose: 7.5 mg Aspirin (Aspirin 81 Mg Tab.Chew) 81 mg PO DAILY [facility] Last Admin: 01/23/24 08:41 Dose: 81 mg Atenolol (Atenolol 50 Mg Tablet) 50 mg PO DAILY [facility]; Protocol Last Admin: 01/23/24 08:41 Dose: 50 mg Atorvastatin Calcium (Atorvastatin Calcium 10 Mg Tablet) 10 mg PO DAILY [facility] Last Admin: 01/23/24 08:41 Dose: 10 mg Famotidine (Famotidine 20 Mg Tablet) 20 mg PO BID [facility] Last Admin: 01/23/24 08:42 Dose: 20 mg Hydroxyzine HCl (Hydroxyzine Hcl 25 Mg Tablet) 25 mg PO Q6H PRN PRN Reason: Anxiety Last Admin: 01/22/24 20:54 Dose: 25 mg Magnesium Hydroxide (Milk Of Magnesia 30 Ml Oral.Susp) 30 ml PO DAILY PRN PRN Reason: Constipation Magnesium Oxide (Magnesium Oxide 400 Mg Tablet) 400 mg PO BID [facility] Last Admin: 01/23/24 08:41 Dose: 400 mg Trazodone HCl (Trazodone Hcl 50 Mg Tablet) 50 mg PO BEDTIME PRN PRN Reason: Insomnia Last Admin: 01/22/24 20:54 Dose: 50 mg Allergies Allergies Allergy/AdvReac Type Severity Reaction Status Date / Time nitrofurantoin Allergy Mild SWELLING Verified 12/21/23 08:01 [From Macrodantin] nitroglycerin Allergy Unknown Verified 12/21/23 08:01 Assessment & Plan Assessment & Plan (1) Major neurocognitive disorder: Status: Acute Code(s): F03.90 - Unspecified dementia, unspecified severity, without behavioral disturbance, psychotic disturbance, mood disturbance, and anxiety Plan 1. continue current medications 12/27 Mag improved to 1.8, Na to 134. no agitation. 12/30/2023: Continue current regimen and plans 12/31 continue tx. 01/01 continue tx. 01/02 continue tx 01/03 continue tx 01/04 continue tx. 01/05 continue tx. 01/06 continue tx. 01/07 continue tx. 01/08 continue tx. 01/11/24 Cont plan of care d/c planning 01/11 continue treatment 01/12 continue treatment 01/13 continue tx. BP slightly elevated SBP 160's, taking amlodipine 7.5mg po daily. continue to monitor. 01/14 continue tx. 01/15 continue tx. 01/16 continue tx 01/17 continue tx. 01/19/2024 Continue plan of care 01/20/2024 Continue plan of care 01/21 continue tx. awaiting placement. 01/22 continue tx. Reason for continued inpatient stay Substantial Risk for: inability to function Time Spent With Patient Time: Total time managing care of this patient today ____ minutes.
[2024-01-23 20:00] VITALS: BP 175/73; PULSE 74; RESP 16; TEMP 36.2; O2SAT 95
[2024-01-23] MEDS: traZODone HCL 50 MG TABLET PO (20:25)
[2024-01-23] MEDS: hydrOXYzine HCL 25 MG TABLET PO (20:25)
[2024-01-24 07:00] VITALS: BMI 21.5
[2024-01-24 08:00] VITALS: BP 135/62; PULSE 66; RESP 18; TEMP 36.7; O2SAT 97
[2024-01-24] MEDS: Atorvastatin Calcium 10 MG TABLET PO (08:58)
[2024-01-24] MEDS: Famotidine 20 MG TABLET PO ×2 (08:58→20:09)
[2024-01-24] MEDS: Aspirin 81 MG TAB.CHEW PO (08:58)
[2024-01-24] MEDS: amLODIPine Besylate 2.5 MG TABLET 7.5 MG PO (08:58)
[2024-01-24] MEDS: Magnesium Oxide 400 MG TABLET PO ×2 (08:59→20:09)
[2024-01-24] MEDS: atenoloL 50 MG TABLET PO (08:59)
--- NOTE | 2024-01-24 16:57 | P.PNPSI_ITS ---
Subjective Subjective Date of Service: 01/24/24 Reason For Visit: agitation Subjective Notes: Conditional Voluntary Healthcare Proxy: Yes Interim History: Pt slept through the night. She is visible on the unit. She continues to present as social, pleasant. No SI/HI. She is not oriented to situation, month, year. No aggression towards self or others. VS stable. eating well. Review of Systems Review of Systems Yes all other systems are reviewed and are negative and Unobtainable due to mental status Constitutional: Reports as per HPI and Reports no additional constitutional complaints Eyes: Reports as per HPI and Denies no additional eye complaints Denies system reviewed and no additional complaints, except as documented and Reports as per HPI Cardiovascular: Reports as per HPI, Reports no additional cardiovascular complaints, Denies acrocyanosis, Denies cool extremities, Denies chest pain, Denies leg edema, Denies lightheadedness, Denies palpitations and Denies dyspnea Respiratory: Reports as per HPI, Denies no additional respiratory complaints and Denies dyspnea Gastrointestinal: Reports as per HPI and Denies no additional gastrointestinal complaints Musculoskeletal: Reports no additional musculoskeletal complaints and Reports as per HPI Skin/Breast: Reports system reviewed and no additional complaints, except as docu Reports system reviewed and no additional complaints, except as documented and Reports as per HPI Psychiatric: Reports no additional psychiatric complaints and Reports as per HPI Endocrine: Reports no additional endocrine complaints, Reports as per HPI and Denies palpitations Hematologic/Lymphatic: Reports no additional hematologic/lymphatic complaints and Reports as per HPI Allergic/Immunologic: Reports no additional allergic/immunologic complaints and Reports as per HPI Mental Status Exam Mental Status Exam Patient Appearance: Appropriate Patient Orientation: Person Level of Consciousness: Awake Patient Behavior: Guarded and Passive Mood Description: Withdrawn Affect Description: Calm Patient Cognition Impaired: Yes Ability to Follow Directions: Good Speech Pattern: Clear Memory Description: Immediate Impaired Diagnostics Vital Signs (24Hr): Vital Signs - 24 hr 01/23/24 20:00 01/24/24 08:00 Temperature 97.2 F 98.1 F Pulse Rate 74 66 Respiratory Rate 16 18 Blood Pressure 175/73 H 135/62 Pulse Oximetry 95 97 Oxygen Delivery Method Room Air Room Air BMI result Body Mass Index 21.5 Labs 12/20/23 07:10 12/28/23 07:22 Imaging Radiology Impressions: ITS Impressions Chest X-Ray 12/20/23 07:54 IMPRESSION: Unremarkable examination. Head CT 12/20/23 08:32 IMPRESSION: No acute intracranial pathology. 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 Medications Medications Current Medications Acetaminophen (Acetaminophen 325 Mg Tablet) 650 mg PO Q6H PRN PRN Reason: Headache/Pain Mild Scale (1-3) Last Admin: 01/22/24 21:19 Dose: 650 mg Al Hydroxide/Mg Hydroxide (Magnesium Hydrox/Alum Hydrox 30 Ml Oral.Susp) 30 ml PO Q6H PRN PRN Reason: Heartburn/Nausea Amlodipine Besylate (Amlodipine Besylate 2.5 Mg Tablet) 7.5 mg PO DAILY [facility]; Protocol Last Admin: 01/24/24 08:58 Dose: 7.5 mg Aspirin (Aspirin 81 Mg Tab.Chew) 81 mg PO DAILY [facility] Last Admin: 01/24/24 08:58 Dose: 81 mg Atenolol (Atenolol 50 Mg Tablet) 50 mg PO DAILY [facility]; Protocol Last Admin: 01/24/24 08:59 Dose: 50 mg Atorvastatin Calcium (Atorvastatin Calcium 10 Mg Tablet) 10 mg PO DAILY [facility] Last Admin: 01/24/24 08:58 Dose: 10 mg Famotidine (Famotidine 20 Mg Tablet) 20 mg PO BID [facility] Last Admin: 01/24/24 08:58 Dose: 20 mg Hydroxyzine HCl (Hydroxyzine Hcl 25 Mg Tablet) 25 mg PO Q6H PRN PRN Reason: Anxiety Last Admin: 01/23/24 20:25 Dose: 25 mg Magnesium Hydroxide (Milk Of Magnesia 30 Ml Oral.Susp) 30 ml PO DAILY PRN PRN Reason: Constipation Magnesium Oxide (Magnesium Oxide 400 Mg Tablet) 400 mg PO BID [facility] Last Admin: 01/24/24 08:59 Dose: 400 mg Trazodone HCl (Trazodone Hcl 50 Mg Tablet) 50 mg PO BEDTIME PRN PRN Reason: Insomnia Last Admin: 01/23/24 20:25 Dose: 50 mg Allergies Allergies Allergy/AdvReac Type Severity Reaction Status Date / Time nitrofurantoin Allergy Mild SWELLING Verified 12/21/23 08:01 [From Macrodantin] nitroglycerin Allergy Unknown Verified 12/21/23 08:01 Assessment & Plan Assessment & Plan (1) Major neurocognitive disorder: Status: Acute Code(s): F03.90 - Unspecified dementia, unspecified severity, without behavioral disturbance, psychotic disturbance, mood disturbance, and anxiety Plan 1. continue current medications 12/27 Mag improved to 1.8, Na to 134. no agitation. 12/30/2023: Continue current regimen and plans 12/31 continue tx. 01/01 continue tx. 01/02 continue tx 01/03 continue tx 01/04 continue tx. 01/05 continue tx. 01/06 continue tx. 01/07 continue tx. 01/08 continue tx. 01/11/24 Cont plan of care d/c planning 01/11 continue treatment 01/12 continue treatment 01/13 continue tx. BP slightly elevated SBP 160's, taking amlodipine 7.5mg po daily. continue to monitor. 01/14 continue tx. 01/15 continue tx. 01/16 continue tx 01/17 continue tx. 01/19/2024 Continue plan of care 01/20/2024 Continue plan of care 01/21 continue tx. awaiting placement. 01/22 continue tx. 01/23 continue tx. Reason for continued inpatient stay Substantial Risk for: inability to function Time Spent With Patient Time: Total time managing care of this patient today ____ minutes.
[2024-01-24 20:00] VITALS: BP 143/67; PULSE 75; RESP 16; TEMP 36.7; O2SAT 96
[2024-01-25 08:00] VITALS: BP 149/69; PULSE 62; RESP 18; TEMP 36.1; O2SAT 97
[2024-01-25 08:29] VITALS: BP 149/69; PULSE 62
[2024-01-25] MEDS: Atorvastatin Calcium 10 MG TABLET PO (08:29)
[2024-01-25] MEDS: Magnesium Oxide 400 MG TABLET PO ×2 (08:29→20:41)
[2024-01-25] MEDS: amLODIPine Besylate 2.5 MG TABLET 7.5 MG PO (08:29)
[2024-01-25] MEDS: atenoloL 50 MG TABLET PO (08:29)
[2024-01-25] MEDS: Famotidine 20 MG TABLET PO ×2 (08:29→20:42)
[2024-01-25] MEDS: Aspirin 81 MG TAB.CHEW PO (08:30)
--- NOTE | 2024-01-25 13:58 | HO.PSYCHPN ---
Subjective Subjective Date of Service: 01/25/24 Reason For Visit: agitation Subjective Notes: Conditional Voluntary Interim History: Pt slept through the night. She is visible on the unit. She continues to present as social, pleasant. No SI/HI. She is not oriented to situation, month, year. No aggression towards self or others. VS stable. eating well. Review of Systems Review of Systems Yes all other systems are reviewed and are negative and Unobtainable due to mental status Constitutional: Reports as per HPI and Reports no additional constitutional complaints Eyes: Reports as per HPI and Denies no additional eye complaints Denies system reviewed and no additional complaints, except as documented and Reports as per HPI Cardiovascular: Reports as per HPI, Reports no additional cardiovascular complaints, Denies acrocyanosis, Denies cool extremities, Denies chest pain, Denies leg edema, Denies lightheadedness, Denies palpitations and Denies dyspnea Respiratory: Reports as per HPI, Denies no additional respiratory complaints and Denies dyspnea Gastrointestinal: Reports as per HPI and Denies no additional gastrointestinal complaints Musculoskeletal: Reports no additional musculoskeletal complaints and Reports as per HPI Skin/Breast: Reports system reviewed and no additional complaints, except as docu Reports system reviewed and no additional complaints, except as documented and Reports as per HPI Psychiatric: Reports no additional psychiatric complaints and Reports as per HPI Endocrine: Reports no additional endocrine complaints, Reports as per HPI and Denies palpitations Hematologic/Lymphatic: Reports no additional hematologic/lymphatic complaints and Reports as per HPI Allergic/Immunologic: Reports no additional allergic/immunologic complaints and Reports as per HPI Mental Status Exam Mental Status Exam Patient Appearance: Appropriate Patient Orientation: Person Level of Consciousness: Awake Patient Behavior: Guarded and Passive Mood Description: Withdrawn Affect Description: Calm Patient Cognition Impaired: Yes Ability to Follow Directions: Good Speech Pattern: Clear Memory Description: Immediate Impaired Diagnostics Vital Signs (24Hr): Vital Signs - 24 hr 01/24/24 20:00 01/25/24 08:00 01/25/24 08:29 Temperature 98.1 F 97.0 F Pulse Rate 75 62 62 Respiratory Rate 16 18 Blood Pressure 143/67 H 149/69 H 149/69 H Pulse Oximetry 96 97 Oxygen Delivery Method Room Air Room Air 01/25/24 08:29 Temperature Pulse Rate Respiratory Rate Blood Pressure 149/69 H Pulse Oximetry Oxygen Delivery Method BMI result Body Mass Index 21.5 Labs 12/20/23 07:10 12/28/23 07:22 Imaging Radiology Impressions: ITS Impressions Chest X-Ray 12/20/23 07:54 IMPRESSION: Unremarkable examination. Head CT 12/20/23 08:32 IMPRESSION: No acute intracranial pathology. 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 Medications Medications Current Medications Acetaminophen (Acetaminophen 325 Mg Tablet) 650 mg PO Q6H PRN PRN Reason: Headache/Pain Mild Scale (1-3) Last Admin: 01/22/24 21:19 Dose: 650 mg Al Hydroxide/Mg Hydroxide (Magnesium Hydrox/Alum Hydrox 30 Ml Oral.Susp) 30 ml PO Q6H PRN PRN Reason: Heartburn/Nausea Amlodipine Besylate (Amlodipine Besylate 2.5 Mg Tablet) 7.5 mg PO DAILY [facility]; Protocol Last Admin: 01/25/24 08:29 Dose: 7.5 mg Aspirin (Aspirin 81 Mg Tab.Chew) 81 mg PO DAILY [facility] Last Admin: 01/25/24 08:30 Dose: 81 mg Atenolol (Atenolol 50 Mg Tablet) 50 mg PO DAILY [facility]; Protocol Last Admin: 01/25/24 08:29 Dose: 50 mg Atorvastatin Calcium (Atorvastatin Calcium 10 Mg Tablet) 10 mg PO DAILY [facility] Last Admin: 01/25/24 08:29 Dose: 10 mg Famotidine (Famotidine 20 Mg Tablet) 20 mg PO BID [facility] Last Admin: 01/25/24 08:29 Dose: 20 mg Hydroxyzine HCl (Hydroxyzine Hcl 25 Mg Tablet) 25 mg PO Q6H PRN PRN Reason: Anxiety Last Admin: 01/23/24 20:25 Dose: 25 mg Magnesium Hydroxide (Milk Of Magnesia 30 Ml Oral.Susp) 30 ml PO DAILY PRN PRN Reason: Constipation Magnesium Oxide (Magnesium Oxide 400 Mg Tablet) 400 mg PO BID [facility] Last Admin: 01/25/24 08:29 Dose: 400 mg Trazodone HCl (Trazodone Hcl 50 Mg Tablet) 50 mg PO BEDTIME PRN PRN Reason: Insomnia Last Admin: 01/23/24 20:25 Dose: 50 mg Allergies Allergies Allergy/AdvReac Type Severity Reaction Status Date / Time nitrofurantoin Allergy Mild SWELLING Verified 12/21/23 08:01 [From Macrodantin] nitroglycerin Allergy Unknown Verified 12/21/23 08:01 Assessment & Plan Assessment & Plan (1) Major neurocognitive disorder: Status: Acute Code(s): F03.90 - Unspecified dementia, unspecified severity, without behavioral disturbance, psychotic disturbance, mood disturbance, and anxiety Plan 1. continue current medications 12/27 Mag improved to 1.8, Na to 134. no agitation. 12/30/2023: Continue current regimen and plans 12/31 continue tx. 01/01 continue tx. 01/02 continue tx 01/03 continue tx 01/04 continue tx. 01/05 continue tx. 01/06 continue tx. 01/07 continue tx. 01/08 continue tx. 01/11/24 Cont plan of care d/c planning 01/11 continue treatment 01/12 continue treatment 01/13 continue tx. BP slightly elevated SBP 160's, taking amlodipine 7.5mg po daily. continue to monitor. 01/14 continue tx. 01/15 continue tx. 01/16 continue tx 01/17 continue tx. 01/19/2024 Continue plan of care 01/20/2024 Continue plan of care 01/21 continue tx. awaiting placement. 01/22 continue tx. 01/24 continue tx. Reason for continued inpatient stay Substantial Risk for: inability to function Time Spent With Patient Time: Total time managing care of this patient today ____ minutes.
[2024-01-25 20:00] VITALS: BP 121/58; PULSE 57; RESP 18; TEMP 36.2; O2SAT 98
[2024-01-25] MEDS: hydrOXYzine HCL 25 MG TABLET PO (20:41)
[2024-01-25] MEDS: traZODone HCL 50 MG TABLET PO (20:41)
[2024-01-26 08:00] VITALS: BP 121/64; PULSE 58; RESP 18; TEMP 36.2; O2SAT 95
[2024-01-26 08:58] VITALS: BP 121/64; PULSE 58
[2024-01-26] MEDS: Aspirin 81 MG TAB.CHEW PO (08:58)
[2024-01-26] MEDS: Atorvastatin Calcium 10 MG TABLET PO (08:58)
[2024-01-26] MEDS: amLODIPine Besylate 2.5 MG TABLET 7.5 MG PO (08:58)
[2024-01-26] MEDS: atenoloL 50 MG TABLET PO (08:58)
[2024-01-26] MEDS: Famotidine 20 MG TABLET PO ×2 (08:58→20:52)
[2024-01-26] MEDS: Magnesium Oxide 400 MG TABLET PO ×2 (08:59→20:52)
--- NOTE | 2024-01-26 10:23 | P.PNPSI_ITS ---
Subjective Subjective Date of Service: 01/26/24 Reason For Visit: agitation Subjective Notes: Conditional Voluntary Interim History: Patient was seen and discussed in rounds today. Records and plans were reviewed. She has been stable. No aggressive behaviors. No sign or symptoms of psychosis. Awaiting placement. No changes were made today Review of Systems Review of Systems Yes all other systems are reviewed and are negative Mental Status Exam Mental Status Exam Patient Appearance: Appropriate Patient Orientation: Person Level of Consciousness: Awake Patient Behavior: Guarded and Passive Mood Description: Withdrawn Affect Description: Calm Patient Cognition Impaired: Yes Ability to Follow Directions: Good Speech Pattern: Clear Memory Description: Immediate Impaired Diagnostics Vital Signs (24Hr): Vital Signs - 24 hr 01/25/24 20:00 01/26/24 08:00 01/26/24 08:58 Temperature 97.2 F 97.2 F Pulse Rate 57 58 Respiratory Rate 18 18 Blood Pressure 121/58 L 121/64 121/64 Pulse Oximetry 98 95 Oxygen Delivery Method Room Air Room Air 01/26/24 08:58 Temperature Pulse Rate 58 Respiratory Rate Blood Pressure 121/64 Pulse Oximetry Oxygen Delivery Method BMI result Body Mass Index 21.5 Labs 12/20/23 07:10 12/28/23 07:22 Imaging Radiology Impressions: ITS Impressions Chest X-Ray 12/20/23 07:54 IMPRESSION: Unremarkable examination. Head CT 12/20/23 08:32 IMPRESSION: No acute intracranial pathology. 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 Medications Medications Current Medications Acetaminophen (Acetaminophen 325 Mg Tablet) 650 mg PO Q6H PRN PRN Reason: Headache/Pain Mild Scale (1-3) Last Admin: 01/22/24 21:19 Dose: 650 mg Al Hydroxide/Mg Hydroxide (Magnesium Hydrox/Alum Hydrox 30 Ml Oral.Susp) 30 ml PO Q6H PRN PRN Reason: Heartburn/Nausea Amlodipine Besylate (Amlodipine Besylate 2.5 Mg Tablet) 7.5 mg PO DAILY [facility]; Protocol Last Admin: 01/26/24 08:58 Dose: 7.5 mg Aspirin (Aspirin 81 Mg Tab.Chew) 81 mg PO DAILY [facility] Last Admin: 01/26/24 08:58 Dose: 81 mg Atenolol (Atenolol 50 Mg Tablet) 50 mg PO DAILY [facility]; Protocol Last Admin: 01/26/24 08:58 Dose: 50 mg Atorvastatin Calcium (Atorvastatin Calcium 10 Mg Tablet) 10 mg PO DAILY [facility] Last Admin: 01/26/24 08:58 Dose: 10 mg Famotidine (Famotidine 20 Mg Tablet) 20 mg PO BID [facility] Last Admin: 01/26/24 08:58 Dose: 20 mg Hydroxyzine HCl (Hydroxyzine Hcl 25 Mg Tablet) 25 mg PO Q6H PRN PRN Reason: Anxiety Last Admin: 01/25/24 20:41 Dose: 25 mg Magnesium Hydroxide (Milk Of Magnesia 30 Ml Oral.Susp) 30 ml PO DAILY PRN PRN Reason: Constipation Magnesium Oxide (Magnesium Oxide 400 Mg Tablet) 400 mg PO BID [facility] Last Admin: 01/26/24 08:59 Dose: 400 mg Trazodone HCl (Trazodone Hcl 50 Mg Tablet) 50 mg PO BEDTIME PRN PRN Reason: Insomnia Last Admin: 01/25/24 20:41 Dose: 50 mg Allergies Allergies Allergy/AdvReac Type Severity Reaction Status Date / Time nitrofurantoin Allergy Mild SWELLING Verified 12/21/23 08:01 [From Macrodantin] nitroglycerin Allergy Unknown Verified 12/21/23 08:01 Assessment & Plan Assessment & Plan (1) Major neurocognitive disorder: Status: Acute Code(s): F03.90 - Unspecified dementia, unspecified severity, without behavioral disturbance, psychotic disturbance, mood disturbance, and anxiety Plan 1. continue current medications 12/27 Mag improved to 1.8, Na to 134. no agitation. 12/30/2023: Continue current regimen and plans 12/31 continue tx. 01/01 continue tx. 01/02 continue tx 01/03 continue tx 01/04 continue tx. 01/05 continue tx. 01/06 continue tx. 01/07 continue tx. 01/08 continue tx. 01/11/24 Cont plan of care d/c planning 01/11 continue treatment 01/12 continue treatment 01/13 continue tx. BP slightly elevated SBP 160's, taking amlodipine 7.5mg po daily. continue to monitor. 01/14 continue tx. 01/15 continue tx. 01/16 continue tx 01/17 continue tx. 01/19/2024 Continue plan of care 01/20/2024 Continue plan of care 01/21 continue tx. awaiting placement. 01/22 continue tx. 01/24 continue tx. 01/25: Continue current treatment and plan Reason for continued inpatient stay Substantial Risk for: inability to function Time Spent With Patient Time: Total time managing care of this patient today ____ minutes.
[2024-01-26 20:00] VITALS: BP 143/70; PULSE 75; RESP 18; TEMP 37.1; O2SAT 99
[2024-01-26] MEDS: traZODone HCL 50 MG TABLET PO (20:52)
[2024-01-26] MEDS: hydrOXYzine HCL 25 MG TABLET PO (20:52)
[2024-01-27 08:00] VITALS: BP 138/64; PULSE 66; RESP 18; TEMP 36.4; O2SAT 99
[2024-01-27 08:27] VITALS: BP 138/64
[2024-01-27] MEDS: amLODIPine Besylate 2.5 MG TABLET 7.5 MG PO (08:27)
[2024-01-27] MEDS: Famotidine 20 MG TABLET PO ×2 (08:27→20:14)
[2024-01-27] MEDS: Magnesium Oxide 400 MG TABLET PO ×2 (08:27→20:14)
[2024-01-27 08:28] VITALS: BP 138/64; PULSE 66
[2024-01-27] MEDS: atenoloL 50 MG TABLET PO (08:28)
[2024-01-27] MEDS: Aspirin 81 MG TAB.CHEW PO (08:28)
[2024-01-27] MEDS: Atorvastatin Calcium 10 MG TABLET PO (08:29)
--- NOTE | 2024-01-27 10:50 | P.PNPSI_ITS ---
Subjective Subjective Date of Service: 01/27/24 Reason For Visit: agitation Subjective Notes: Conditional Voluntary Interim History: Patient was seen and discussed in rounds today. Records and plans were reviewed. She is doing fairly well and has been stable with no changes. She is confused and cognitively impaired. Eating and sleeping well. No complaints or side effects. No changes were made today Review of Systems Review of Systems Yes Unobtainable due to mental status Mental Status Exam Mental Status Exam Patient Appearance: Appropriate Patient Orientation: Person Level of Consciousness: Awake Patient Behavior: Guarded and Passive Mood Description: Withdrawn Affect Description: Calm Patient Cognition Impaired: Yes Ability to Follow Directions: Good Speech Pattern: Clear Memory Description: Immediate Impaired Diagnostics Vital Signs (24Hr): Vital Signs - 24 hr 01/26/24 20:00 01/27/24 08:00 01/27/24 08:27 Temperature 98.8 F 97.6 F Pulse Rate 75 66 Respiratory Rate 18 18 Blood Pressure 143/70 H 138/64 138/64 Pulse Oximetry 99 99 Oxygen Delivery Method Room Air Room Air 01/27/24 08:28 Temperature Pulse Rate 66 Respiratory Rate Blood Pressure 138/64 Pulse Oximetry Oxygen Delivery Method BMI result Body Mass Index 21.5 Labs 12/20/23 07:10 12/28/23 07:22 Imaging Radiology Impressions: ITS Impressions Chest X-Ray 12/20/23 07:54 IMPRESSION: Unremarkable examination. Head CT 12/20/23 08:32 IMPRESSION: No acute intracranial pathology. 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 Medications Medications Current Medications Acetaminophen (Acetaminophen 325 Mg Tablet) 650 mg PO Q6H PRN PRN Reason: Headache/Pain Mild Scale (1-3) Last Admin: 01/22/24 21:19 Dose: 650 mg Al Hydroxide/Mg Hydroxide (Magnesium Hydrox/Alum Hydrox 30 Ml Oral.Susp) 30 ml PO Q6H PRN PRN Reason: Heartburn/Nausea Amlodipine Besylate (Amlodipine Besylate 2.5 Mg Tablet) 7.5 mg PO DAILY [facility]; Protocol Last Admin: 01/27/24 08:27 Dose: 7.5 mg Aspirin (Aspirin 81 Mg Tab.Chew) 81 mg PO DAILY [facility] Last Admin: 01/27/24 08:28 Dose: 81 mg Atenolol (Atenolol 50 Mg Tablet) 50 mg PO DAILY [facility]; Protocol Last Admin: 01/27/24 08:28 Dose: 50 mg Atorvastatin Calcium (Atorvastatin Calcium 10 Mg Tablet) 10 mg PO DAILY [facility] Last Admin: 01/27/24 08:29 Dose: 10 mg Famotidine (Famotidine 20 Mg Tablet) 20 mg PO BID [facility] Last Admin: 01/27/24 08:27 Dose: 20 mg Hydroxyzine HCl (Hydroxyzine Hcl 25 Mg Tablet) 25 mg PO Q6H PRN PRN Reason: Anxiety Last Admin: 01/26/24 20:52 Dose: 25 mg Magnesium Hydroxide (Milk Of Magnesia 30 Ml Oral.Susp) 30 ml PO DAILY PRN PRN Reason: Constipation Magnesium Oxide (Magnesium Oxide 400 Mg Tablet) 400 mg PO BID [facility] Last Admin: 01/27/24 08:27 Dose: 400 mg Trazodone HCl (Trazodone Hcl 50 Mg Tablet) 50 mg PO BEDTIME PRN PRN Reason: Insomnia Last Admin: 01/26/24 20:52 Dose: 50 mg Allergies Allergies Allergy/AdvReac Type Severity Reaction Status Date / Time nitrofurantoin Allergy Mild SWELLING Verified 12/21/23 08:01 [From Macrodantin] nitroglycerin Allergy Unknown Verified 12/21/23 08:01 Assessment & Plan Assessment & Plan (1) Major neurocognitive disorder: Status: Acute Code(s): F03.90 - Unspecified dementia, unspecified severity, without behavioral disturbance, psychotic disturbance, mood disturbance, and anxiety Plan 1. continue current medications 12/27 Mag improved to 1.8, Na to 134. no agitation. 12/30/2023: Continue current regimen and plans 12/31 continue tx. 01/01 continue tx. 01/02 continue tx 01/03 continue tx 01/04 continue tx. 01/05 continue tx. 01/06 continue tx. 01/07 continue tx. 01/08 continue tx. 01/11/24 Cont plan of care d/c planning 01/11 continue treatment 01/12 continue treatment 01/13 continue tx. BP slightly elevated SBP 160's, taking amlodipine 7.5mg po daily. continue to monitor. 01/14 continue tx. 01/15 continue tx. 01/16 continue tx 01/17 continue tx. 01/19/2024 Continue plan of care 01/20/2024 Continue plan of care 01/21 continue tx. awaiting placement. 01/22 continue tx. 01/24 continue tx. 01/25: Continue current treatment and plan 01/26: Continue current regimen and plans Reason for continued inpatient stay Substantial Risk for: inability to function Time Spent With Patient Time: Total time managing care of this patient today ____ minutes.
[2024-01-27 20:00] VITALS: BP 151/67; PULSE 95; RESP 16; TEMP 36.5; O2SAT 97
[2024-01-27] MEDS: Acetaminophen 325 MG TABLET 650 MG PO (20:19)
[2024-01-27] MEDS: traZODone HCL 50 MG TABLET PO (20:20)
[2024-01-28 08:00] VITALS: BP 149/95; PULSE 86; RESP 18; TEMP 36.5; O2SAT 95
[2024-01-28 08:19] VITALS: BP 149/95; PULSE 86
[2024-01-28] MEDS: Aspirin 81 MG TAB.CHEW PO (08:19)
[2024-01-28] MEDS: Atorvastatin Calcium 10 MG TABLET PO (08:19)
[2024-01-28] MEDS: atenoloL 50 MG TABLET PO (08:19)
[2024-01-28] MEDS: amLODIPine Besylate 2.5 MG TABLET 7.5 MG PO (08:19)
[2024-01-28] MEDS: Famotidine 20 MG TABLET PO ×2 (08:19→21:41)
[2024-01-28] MEDS: Magnesium Oxide 400 MG TABLET PO ×2 (08:20→21:41)
--- NOTE | 2024-01-28 11:12 | HO.PSYCHPN ---
Subjective Subjective Date of Service: 01/28/24 Reason For Visit: agitation Subjective Notes: Conditional Voluntary Healthcare Proxy: Yes Interim History: Pt slept through the night. She has been visible on the unit. She reports sore throat- not redness or inflamation noted. Will do covid/rsv/flu swap. will give cepacol for now await for results. no SOB, no cough noted, no nasal congestion. will continue to monitor. Review of Systems Review of Systems Yes all other systems are reviewed and are negative and Unobtainable due to mental status Constitutional: Reports as per HPI and Reports no additional constitutional complaints Eyes: Reports as per HPI and Denies no additional eye complaints Denies system reviewed and no additional complaints, except as documented and Reports as per HPI Cardiovascular: Reports as per HPI, Reports no additional cardiovascular complaints, Denies acrocyanosis, Denies cool extremities, Denies chest pain, Denies leg edema, Denies lightheadedness, Denies palpitations and Denies dyspnea Respiratory: Reports as per HPI, Denies no additional respiratory complaints and Denies dyspnea Gastrointestinal: Reports as per HPI and Denies no additional gastrointestinal complaints Musculoskeletal: Reports no additional musculoskeletal complaints and Reports as per HPI Skin/Breast: Reports system reviewed and no additional complaints, except as docu Reports system reviewed and no additional complaints, except as documented and Reports as per HPI Psychiatric: Reports no additional psychiatric complaints and Reports as per HPI Endocrine: Reports no additional endocrine complaints, Reports as per HPI and Denies palpitations Hematologic/Lymphatic: Reports no additional hematologic/lymphatic complaints and Reports as per HPI Allergic/Immunologic: Reports no additional allergic/immunologic complaints and Reports as per HPI Mental Status Exam Mental Status Exam Patient Appearance: Appropriate Patient Orientation: Person Level of Consciousness: Awake Patient Behavior: Guarded and Passive Mood Description: Withdrawn Affect Description: Calm Patient Cognition Impaired: Yes Ability to Follow Directions: Good Speech Pattern: Clear Memory Description: Immediate Impaired Diagnostics Vital Signs (24Hr): Vital Signs - 24 hr 01/27/24 20:00 01/28/24 08:00 01/28/24 08:19 Temperature 97.7 F 97.7 F Pulse Rate 95 86 Respiratory Rate 16 18 Blood Pressure 151/67 H 149/95 H 149/95 H Pulse Oximetry 97 95 Oxygen Delivery Method Room Air Room Air 01/28/24 08:19 Temperature Pulse Rate 86 Respiratory Rate Blood Pressure 149/95 H Pulse Oximetry Oxygen Delivery Method BMI result Body Mass Index 21.5 Labs 12/20/23 07:10 12/28/23 07:22 Imaging Radiology Impressions: ITS Impressions Chest X-Ray 12/20/23 07:54 IMPRESSION: Unremarkable examination. Head CT 12/20/23 08:32 IMPRESSION: No acute intracranial pathology. 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 Medications Medications Current Medications Acetaminophen (Acetaminophen 325 Mg Tablet) 650 mg PO Q6H PRN PRN Reason: Headache/Pain Mild Scale (1-3) Last Admin: 01/27/24 20:19 Dose: 650 mg Al Hydroxide/Mg Hydroxide (Magnesium Hydrox/Alum Hydrox 30 Ml Oral.Susp) 30 ml PO Q6H PRN PRN Reason: Heartburn/Nausea Amlodipine Besylate (Amlodipine Besylate 2.5 Mg Tablet) 7.5 mg PO DAILY [facility]; Protocol Last Admin: 01/28/24 08:19 Dose: 7.5 mg Aspirin (Aspirin 81 Mg Tab.Chew) 81 mg PO DAILY [facility] Last Admin: 01/28/24 08:19 Dose: 81 mg Atenolol (Atenolol 50 Mg Tablet) 50 mg PO DAILY [facility]; Protocol Last Admin: 01/28/24 08:19 Dose: 50 mg Atorvastatin Calcium (Atorvastatin Calcium 10 Mg Tablet) 10 mg PO DAILY [facility] Last Admin: 01/28/24 08:19 Dose: 10 mg Famotidine (Famotidine 20 Mg Tablet) 20 mg PO BID [facility] Last Admin: 01/28/24 08:19 Dose: 20 mg Hydroxyzine HCl (Hydroxyzine Hcl 25 Mg Tablet) 25 mg PO Q6H PRN PRN Reason: Anxiety Last Admin: 01/26/24 20:52 Dose: 25 mg Magnesium Hydroxide (Milk Of Magnesia 30 Ml Oral.Susp) 30 ml PO DAILY PRN PRN Reason: Constipation Magnesium Oxide (Magnesium Oxide 400 Mg Tablet) 400 mg PO BID [facility] Last Admin: 01/28/24 08:20 Dose: 400 mg Trazodone HCl (Trazodone Hcl 50 Mg Tablet) 50 mg PO BEDTIME PRN PRN Reason: Insomnia Last Admin: 01/27/24 20:20 Dose: 50 mg Allergies Allergies Allergy/AdvReac Type Severity Reaction Status Date / Time nitrofurantoin Allergy Mild SWELLING Verified 12/21/23 08:01 [From Macrodantin] nitroglycerin Allergy Unknown Verified 12/21/23 08:01 Assessment & Plan Assessment & Plan (1) Major neurocognitive disorder: Status: Acute Code(s): F03.90 - Unspecified dementia, unspecified severity, without behavioral disturbance, psychotic disturbance, mood disturbance, and anxiety Plan 1. continue current medications 12/27 Mag improved to 1.8, Na to 134. no agitation. 12/30/2023: Continue current regimen and plans 12/31 continue tx. 01/01 continue tx. 01/02 continue tx 01/03 continue tx 01/04 continue tx. 01/05 continue tx. 01/06 continue tx. 01/07 continue tx. 01/08 continue tx. 01/11/24 Cont plan of care d/c planning 01/11 continue treatment 01/12 continue treatment 01/13 continue tx. BP slightly elevated SBP 160's, taking amlodipine 7.5mg po daily. continue to monitor. 01/14 continue tx. 01/15 continue tx. 01/16 continue tx 01/17 continue tx. 01/19/2024 Continue plan of care 01/20/2024 Continue plan of care 01/21 continue tx. awaiting placement. 01/22 continue tx. 01/24 continue tx. 01/25: Continue current treatment and plan 01/26: Continue current regimen and plans 01/27 pt reports sore throat, no SOB, no cough, no congestion, afebrile. pending covid/rsv/flu. cepacol now but will continue to monitor. may add antihistamine, for possible allergies. Reason for continued inpatient stay Substantial Risk for: inability to function Time Spent With Patient Time: Total time managing care of this patient today ____ minutes.
[2024-01-28] MEDS: Throat Lozenge, Medicated LOZENGE 1 LOZENGE MUCOUS MEM (14:56)
[2024-01-28] MEDS: Loratadine 10 MG TABLET PO (16:18)
--- NOTE | 2024-01-28 16:51 | PC.NURSE ---
Jazz c/o not feeling well' this shift. She said her throat hurt and felt like there was a hair in it . COV/SARS/Flu swab done and sent to lab.
[2024-01-28 17:28] LABS: Influenza A PCR NEGATIVE (Negative); Influenza B PCR NEGATIVE (Negative); Resp Syncy Virus RNA Qual PCR NEGATIVE (Negative); SARS COV2 PCR INHOUSE NEGATIVE (Negative)
[2024-01-28 20:00] VITALS: PULSE 73; RESP 18; TEMP 35.3; O2SAT 96
[2024-01-28] MEDS: traZODone HCL 50 MG TABLET PO (21:41)
[2024-01-29 08:19] VITALS: BP 144/67; PULSE 64; RESP 17; TEMP 36.4; O2SAT 96
[2024-01-29 09:00] VITALS: BP 144/67
[2024-01-29] MEDS: amLODIPine Besylate 2.5 MG TABLET 7.5 MG PO (09:00)
[2024-01-29] MEDS: Famotidine 20 MG TABLET PO ×2 (09:00→20:58)
[2024-01-29] MEDS: Magnesium Oxide 400 MG TABLET PO ×2 (09:00→20:58)
[2024-01-29 09:01] VITALS: BP 144/67; PULSE 64
[2024-01-29] MEDS: Loratadine 10 MG TABLET PO (09:01)
[2024-01-29] MEDS: Atorvastatin Calcium 10 MG TABLET PO (09:01)
[2024-01-29] MEDS: atenoloL 50 MG TABLET PO (09:01)
[2024-01-29] MEDS: Aspirin 81 MG TAB.CHEW PO (09:01)
--- NOTE | 2024-01-29 13:34 | HO.PSYCHPN ---
Subjective Subjective Date of Service: 01/29/24 Reason For Visit: agitation Subjective Notes: Conditional Voluntary Healthcare Proxy: Yes Interim History: Pt slept through the night. covid/rsv/flu negative. Pt without SOB, o2sat >96% on RA. Today, she denies sore throat. She is unreliable historian but no signs of respiratory distress nor illness at this point. She is smiling, pleasant on approach. No behavioral concerns. Review of Systems Review of Systems Yes all other systems are reviewed and are negative and Unobtainable due to mental status Constitutional: Reports as per HPI and Reports no additional constitutional complaints Eyes: Reports as per HPI and Denies no additional eye complaints Denies system reviewed and no additional complaints, except as documented and Reports as per HPI Cardiovascular: Reports as per HPI, Reports no additional cardiovascular complaints, Denies acrocyanosis, Denies cool extremities, Denies chest pain, Denies leg edema, Denies lightheadedness, Denies palpitations and Denies dyspnea Respiratory: Reports as per HPI, Denies no additional respiratory complaints and Denies dyspnea Gastrointestinal: Reports as per HPI and Denies no additional gastrointestinal complaints Musculoskeletal: Reports no additional musculoskeletal complaints and Reports as per HPI Skin/Breast: Reports system reviewed and no additional complaints, except as docu Reports system reviewed and no additional complaints, except as documented and Reports as per HPI Psychiatric: Reports no additional psychiatric complaints and Reports as per HPI Endocrine: Reports no additional endocrine complaints, Reports as per HPI and Denies palpitations Hematologic/Lymphatic: Reports no additional hematologic/lymphatic complaints and Reports as per HPI Allergic/Immunologic: Reports no additional allergic/immunologic complaints and Reports as per HPI Mental Status Exam Mental Status Exam Patient Appearance: Appropriate Patient Orientation: Person Level of Consciousness: Awake Patient Behavior: Guarded and Passive Mood Description: Withdrawn Affect Description: Calm Patient Cognition Impaired: Yes Ability to Follow Directions: Good Speech Pattern: Clear Memory Description: Immediate Impaired Diagnostics Vital Signs (24Hr): Vital Signs - 24 hr 01/28/24 20:00 01/29/24 08:19 01/29/24 09:00 Temperature 95.5 F L 97.6 F Pulse Rate 73 64 Respiratory Rate 18 17 Blood Pressure 144/67 H 144/67 H Pulse Oximetry 96 96 Oxygen Delivery Method Room Air Room Air 01/29/24 09:01 Temperature Pulse Rate 64 Respiratory Rate Blood Pressure 144/67 H Pulse Oximetry Oxygen Delivery Method BMI result Body Mass Index 21.5 Labs 12/20/23 07:10 12/28/23 07:22 Labs: Laboratory Results - last 48 hr 01/28/24 16:14 Influenza Type A (PCR) NEGATIVE Influenza Type B (PCR) NEGATIVE RSV RNA Qual (PCR) NEGATIVE SARS-CoV-2 RNA (RT-PCR) NEGATIVE Imaging Radiology Impressions: ITS Impressions Chest X-Ray 12/20/23 07:54 IMPRESSION: Unremarkable examination. Head CT 12/20/23 08:32 IMPRESSION: No acute intracranial pathology. 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 Medications Medications Current Medications Acetaminophen (Acetaminophen 325 Mg Tablet) 650 mg PO Q6H PRN PRN Reason: Headache/Pain Mild Scale (1-3) Last Admin: 01/27/24 20:19 Dose: 650 mg Al Hydroxide/Mg Hydroxide (Magnesium Hydrox/Alum Hydrox 30 Ml Oral.Susp) 30 ml PO Q6H PRN PRN Reason: Heartburn/Nausea Amlodipine Besylate (Amlodipine Besylate 2.5 Mg Tablet) 7.5 mg PO DAILY [facility]; Protocol Last Admin: 01/29/24 09:00 Dose: 7.5 mg Aspirin (Aspirin 81 Mg Tab.Chew) 81 mg PO DAILY [facility] Last Admin: 01/29/24 09:01 Dose: 81 mg Atenolol (Atenolol 50 Mg Tablet) 50 mg PO DAILY [facility]; Protocol Last Admin: 01/29/24 09:01 Dose: 50 mg Atorvastatin Calcium (Atorvastatin Calcium 10 Mg Tablet) 10 mg PO DAILY [facility] Last Admin: 01/29/24 09:01 Dose: 10 mg Famotidine (Famotidine 20 Mg Tablet) 20 mg PO BID [facility] Last Admin: 01/29/24 09:00 Dose: 20 mg Hydroxyzine HCl (Hydroxyzine Hcl 25 Mg Tablet) 25 mg PO Q6H PRN PRN Reason: Anxiety Last Admin: 01/26/24 20:52 Dose: 25 mg Loratadine (Loratadine 10 Mg Tablet) 10 mg PO DAILY [facility] Last Admin: 01/29/24 09:01 Dose: 10 mg Magnesium Hydroxide (Milk Of Magnesia 30 Ml Oral.Susp) 30 ml PO DAILY PRN PRN Reason: Constipation Magnesium Oxide (Magnesium Oxide 400 Mg Tablet) 400 mg PO BID [facility] Last Admin: 01/29/24 09:00 Dose: 400 mg Trazodone HCl (Trazodone Hcl 50 Mg Tablet) 50 mg PO BEDTIME PRN PRN Reason: Insomnia Last Admin: 01/28/24 21:41 Dose: 50 mg Allergies Allergies Allergy/AdvReac Type Severity Reaction Status Date / Time nitrofurantoin Allergy Mild SWELLING Verified 12/21/23 08:01 [From Macrodantin] nitroglycerin Allergy Unknown Verified 12/21/23 08:01 Assessment & Plan Assessment & Plan (1) Major neurocognitive disorder: Status: Acute Code(s): F03.90 - Unspecified dementia, unspecified severity, without behavioral disturbance, psychotic disturbance, mood disturbance, and anxiety Plan 1. continue current medications 12/27 Mag improved to 1.8, Na to 134. no agitation. 12/30/2023: Continue current regimen and plans 12/31 continue tx. 01/01 continue tx. 01/02 continue tx 01/03 continue tx 01/04 continue tx. 01/05 continue tx. 01/06 continue tx. 01/07 continue tx. 01/08 continue tx. 01/11/24 Cont plan of care d/c planning 01/11 continue treatment 01/12 continue treatment 01/13 continue tx. BP slightly elevated SBP 160's, taking amlodipine 7.5mg po daily. continue to monitor. 01/14 continue tx. 01/15 continue tx. 01/16 continue tx 01/17 continue tx. 01/19/2024 Continue plan of care 01/20/2024 Continue plan of care 01/21 continue tx. awaiting placement. 01/22 continue tx. 01/24 continue tx. 01/25: Continue current treatment and plan 01/26: Continue current regimen and plans 01/27 pt reports sore throat, no SOB, no cough, no congestion, afebrile. pending covid/rsv/flu. cepacol now but will continue to monitor. may add antihistamine, for possible allergies. 01/28 continue current tx. covid/rsv/flu negative. afebrile. Reason for continued inpatient stay Substantial Risk for: inability to function Time Spent With Patient Time: Total time managing care of this patient today ____ minutes.
[2024-01-29 20:00] VITALS: BP 155/69; PULSE 76; RESP 17; TEMP 36.4; O2SAT 97
[2024-01-29] MEDS: hydrOXYzine HCL 25 MG TABLET PO (20:58)
[2024-01-29] MEDS: traZODone HCL 50 MG TABLET PO (20:58)
[2024-01-30 08:00] VITALS: BP 141/65; PULSE 66; RESP 17; O2SAT 97
[2024-01-30 08:08] VITALS: BP 141/65
[2024-01-30] MEDS: Loratadine 10 MG TABLET PO (08:08)
[2024-01-30] MEDS: Aspirin 81 MG TAB.CHEW PO (08:08)
[2024-01-30] MEDS: amLODIPine Besylate 2.5 MG TABLET 7.5 MG PO (08:08)
[2024-01-30 08:09] VITALS: BP 141/65; PULSE 66
[2024-01-30] MEDS: Magnesium Oxide 400 MG TABLET PO ×2 (08:09→20:12)
[2024-01-30] MEDS: atenoloL 50 MG TABLET PO (08:09)
[2024-01-30] MEDS: Atorvastatin Calcium 10 MG TABLET PO (08:09)
[2024-01-30] MEDS: Famotidine 20 MG TABLET PO ×2 (08:09→20:12)
--- NOTE | 2024-01-30 09:25 | HO.PSYCHPN ---
Subjective Subjective Date of Service: 01/30/24 Reason For Visit: agitation Subjective Notes: Conditional Voluntary Healthcare Proxy: Yes Interim History: Pt slept through the night. she denies any physical concerns. She is pleasant on approach. VS stable. no behavioral concerns. not oriented to place or situation. Review of Systems Review of Systems Yes all other systems are reviewed and are negative and Unobtainable due to mental status Constitutional: Reports as per HPI and Reports no additional constitutional complaints Eyes: Reports as per HPI and Denies no additional eye complaints Denies system reviewed and no additional complaints, except as documented and Reports as per HPI Cardiovascular: Reports as per HPI, Reports no additional cardiovascular complaints, Denies acrocyanosis, Denies cool extremities, Denies chest pain, Denies leg edema, Denies lightheadedness, Denies palpitations and Denies dyspnea Respiratory: Reports as per HPI, Denies no additional respiratory complaints and Denies dyspnea Gastrointestinal: Reports as per HPI and Denies no additional gastrointestinal complaints Musculoskeletal: Reports no additional musculoskeletal complaints and Reports as per HPI Skin/Breast: Reports system reviewed and no additional complaints, except as docu Reports system reviewed and no additional complaints, except as documented and Reports as per HPI Psychiatric: Reports no additional psychiatric complaints and Reports as per HPI Endocrine: Reports no additional endocrine complaints, Reports as per HPI and Denies palpitations Hematologic/Lymphatic: Reports no additional hematologic/lymphatic complaints and Reports as per HPI Allergic/Immunologic: Reports no additional allergic/immunologic complaints and Reports as per HPI Mental Status Exam Mental Status Exam Patient Appearance: Appropriate Patient Orientation: Person Level of Consciousness: Awake Patient Behavior: Guarded and Passive Mood Description: Withdrawn Affect Description: Calm Patient Cognition Impaired: Yes Ability to Follow Directions: Good Speech Pattern: Clear Memory Description: Immediate Impaired Diagnostics Vital Signs (24Hr): Vital Signs - 24 hr 01/29/24 20:00 01/30/24 08:00 01/30/24 08:08 Temperature 97.5 F Pulse Rate 76 66 Respiratory Rate 17 17 Blood Pressure 155/69 H 141/65 H 141/65 H Pulse Oximetry 97 97 Oxygen Delivery Method Room Air Room Air 01/30/24 08:09 Temperature Pulse Rate 66 Respiratory Rate Blood Pressure 141/65 H Pulse Oximetry Oxygen Delivery Method BMI result Body Mass Index 21.5 Labs 12/20/23 07:10 12/28/23 07:22 Labs: Laboratory Results - last 48 hr 01/28/24 16:14 Influenza Type A (PCR) NEGATIVE Influenza Type B (PCR) NEGATIVE RSV RNA Qual (PCR) NEGATIVE SARS-CoV-2 RNA (RT-PCR) NEGATIVE Imaging Radiology Impressions: ITS Impressions Chest X-Ray 12/20/23 07:54 IMPRESSION: Unremarkable examination. Head CT 12/20/23 08:32 IMPRESSION: No acute intracranial pathology. 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 Medications Medications Current Medications Acetaminophen (Acetaminophen 325 Mg Tablet) 650 mg PO Q6H PRN PRN Reason: Headache/Pain Mild Scale (1-3) Last Admin: 01/27/24 20:19 Dose: 650 mg Al Hydroxide/Mg Hydroxide (Magnesium Hydrox/Alum Hydrox 30 Ml Oral.Susp) 30 ml PO Q6H PRN PRN Reason: Heartburn/Nausea Amlodipine Besylate (Amlodipine Besylate 2.5 Mg Tablet) 7.5 mg PO DAILY [facility]; Protocol Last Admin: 01/30/24 08:08 Dose: 7.5 mg Aspirin (Aspirin 81 Mg Tab.Chew) 81 mg PO DAILY [facility] Last Admin: 01/30/24 08:08 Dose: 81 mg Atenolol (Atenolol 50 Mg Tablet) 50 mg PO DAILY [facility]; Protocol Last Admin: 01/30/24 08:09 Dose: 50 mg Atorvastatin Calcium (Atorvastatin Calcium 10 Mg Tablet) 10 mg PO DAILY [facility] Last Admin: 01/30/24 08:09 Dose: 10 mg Famotidine (Famotidine 20 Mg Tablet) 20 mg PO BID [facility] Last Admin: 01/30/24 08:09 Dose: 20 mg Hydroxyzine HCl (Hydroxyzine Hcl 25 Mg Tablet) 25 mg PO Q6H PRN PRN Reason: Anxiety Last Admin: 01/29/24 20:58 Dose: 25 mg Loratadine (Loratadine 10 Mg Tablet) 10 mg PO DAILY [facility] Last Admin: 01/30/24 08:08 Dose: 10 mg Magnesium Hydroxide (Milk Of Magnesia 30 Ml Oral.Susp) 30 ml PO DAILY PRN PRN Reason: Constipation Magnesium Oxide (Magnesium Oxide 400 Mg Tablet) 400 mg PO BID [facility] Last Admin: 01/30/24 08:09 Dose: 400 mg Trazodone HCl (Trazodone Hcl 50 Mg Tablet) 50 mg PO BEDTIME PRN PRN Reason: Insomnia Last Admin: 01/29/24 20:58 Dose: 50 mg Allergies Allergies Allergy/AdvReac Type Severity Reaction Status Date / Time nitrofurantoin Allergy Mild SWELLING Verified 12/21/23 08:01 [From Macrodantin] nitroglycerin Allergy Unknown Verified 12/21/23 08:01 Assessment & Plan Assessment & Plan (1) Major neurocognitive disorder: Status: Acute Code(s): F03.90 - Unspecified dementia, unspecified severity, without behavioral disturbance, psychotic disturbance, mood disturbance, and anxiety Plan 1. continue current medications 12/27 Mag improved to 1.8, Na to 134. no agitation. 12/30/2023: Continue current regimen and plans 12/31 continue tx. 01/01 continue tx. 01/02 continue tx 01/03 continue tx 01/04 continue tx. 01/05 continue tx. 01/06 continue tx. 01/07 continue tx. 01/08 continue tx. 01/11/24 Cont plan of care d/c planning 01/11 continue treatment 01/12 continue treatment 01/13 continue tx. BP slightly elevated SBP 160's, taking amlodipine 7.5mg po daily. continue to monitor. 01/14 continue tx. 01/15 continue tx. 01/16 continue tx 01/17 continue tx. 01/19/2024 Continue plan of care 01/20/2024 Continue plan of care 01/21 continue tx. awaiting placement. 01/22 continue tx. 01/24 continue tx. 01/25: Continue current treatment and plan 01/26: Continue current regimen and plans 01/27 pt reports sore throat, no SOB, no cough, no congestion, afebrile. pending covid/rsv/flu. cepacol now but will continue to monitor. may add antihistamine, for possible allergies. 01/28 continue current tx. covid/rsv/flu negative. afebrile. 01/29 continue tx Reason for continued inpatient stay Substantial Risk for: inability to function Time Spent With Patient Time: Total time managing care of this patient today ____ minutes.
--- NOTE | 2024-01-30 14:59 | PM.EVENT ---
Event Note Date of Service: 02/20/24 Time Spent With Patient Time: Total time managing care of this patient today ____ minutes.
[2024-01-30 20:00] VITALS: BP 179/81; PULSE 78; TEMP 37.1; O2SAT 97
[2024-01-30] MEDS: hydrOXYzine HCL 25 MG TABLET PO (20:12)
[2024-01-30] MEDS: traZODone HCL 50 MG TABLET PO (20:54)
[2024-01-31 08:00] VITALS: BP 123/62; PULSE 69; RESP 18; TEMP 36.5; O2SAT 96
[2024-01-31 09:01] VITALS: BP 123/62
[2024-01-31] MEDS: Famotidine 20 MG TABLET PO ×2 (09:01→20:40)
[2024-01-31] MEDS: Aspirin 81 MG TAB.CHEW PO (09:01)
[2024-01-31] MEDS: amLODIPine Besylate 2.5 MG TABLET 7.5 MG PO (09:01)
[2024-01-31 09:02] VITALS: BP 123/62; PULSE 69
[2024-01-31] MEDS: Loratadine 10 MG TABLET PO (09:02)
[2024-01-31] MEDS: Magnesium Oxide 400 MG TABLET PO ×2 (09:02→20:39)
[2024-01-31] MEDS: Atorvastatin Calcium 10 MG TABLET PO (09:02)
[2024-01-31] MEDS: atenoloL 50 MG TABLET PO (09:02)
[2024-01-31 09:37] VITALS: BMI 21.6
[2024-01-31 20:00] VITALS: BP 140/78; PULSE 70; RESP 18; TEMP 36.8; O2SAT 97
[2024-01-31] MEDS: traZODone HCL 50 MG TABLET PO (20:39)
[2024-01-31] MEDS: hydrOXYzine HCL 25 MG TABLET PO (20:39)
[2024-02-01 08:00] VITALS: BP 116/57; PULSE 97; RESP 18; TEMP 36.2; O2SAT 97
[2024-02-01] MEDS: Aspirin 81 MG TAB.CHEW PO (08:11)
[2024-02-01 08:12] VITALS: BP 116/57
[2024-02-01] MEDS: amLODIPine Besylate 2.5 MG TABLET 7.5 MG PO (08:12)
[2024-02-01] MEDS: Loratadine 10 MG TABLET PO (08:12)
[2024-02-01 08:13] VITALS: BP 116/57; PULSE 97
[2024-02-01] MEDS: atenoloL 50 MG TABLET PO (08:13)
[2024-02-01] MEDS: Atorvastatin Calcium 10 MG TABLET PO (08:13)
[2024-02-01] MEDS: Famotidine 20 MG TABLET PO ×2 (08:13→20:46)
[2024-02-01] MEDS: Magnesium Oxide 400 MG TABLET PO ×2 (08:13→20:46)
--- NOTE | 2024-02-01 10:02 | HO.PSYCHPN ---
Subjective Subjective Date of Service: 01/31/24 Reason For Visit: agitation Subjective Notes: Conditional Voluntary Healthcare Proxy: Yes Interim History: Pt slept through the night. she denies any physical concerns. She is pleasant on approach. VS stable. no behavioral concerns. not oriented to place or situation. Review of Systems Review of Systems Yes all other systems are reviewed and are negative and Unobtainable due to mental status Constitutional: Reports as per HPI and Reports no additional constitutional complaints Eyes: Reports as per HPI and Denies no additional eye complaints Denies system reviewed and no additional complaints, except as documented and Reports as per HPI Cardiovascular: Reports as per HPI, Reports no additional cardiovascular complaints, Denies acrocyanosis, Denies cool extremities, Denies chest pain, Denies leg edema, Denies lightheadedness, Denies palpitations and Denies dyspnea Respiratory: Reports as per HPI, Denies no additional respiratory complaints and Denies dyspnea Gastrointestinal: Reports as per HPI and Denies no additional gastrointestinal complaints Musculoskeletal: Reports no additional musculoskeletal complaints and Reports as per HPI Skin/Breast: Reports system reviewed and no additional complaints, except as docu Reports system reviewed and no additional complaints, except as documented and Reports as per HPI Psychiatric: Reports no additional psychiatric complaints and Reports as per HPI Endocrine: Reports no additional endocrine complaints, Reports as per HPI and Denies palpitations Hematologic/Lymphatic: Reports no additional hematologic/lymphatic complaints and Reports as per HPI Allergic/Immunologic: Reports no additional allergic/immunologic complaints and Reports as per HPI Mental Status Exam Mental Status Exam Patient Appearance: Appropriate Patient Orientation: Person Level of Consciousness: Awake Patient Behavior: Guarded and Passive Mood Description: Withdrawn Affect Description: Calm Patient Cognition Impaired: Yes Ability to Follow Directions: Good Speech Pattern: Clear Memory Description: Immediate Impaired Diagnostics Vital Signs (24Hr): Vital Signs - 24 hr 01/31/24 20:00 02/01/24 08:00 02/01/24 08:12 Temperature 98.2 F 97.2 F Pulse Rate 70 97 Respiratory Rate 18 18 Blood Pressure 140/78 H 116/57 L 116/57 L Pulse Oximetry 97 97 Oxygen Delivery Method Room Air Room Air 02/01/24 08:13 Temperature Pulse Rate 97 Respiratory Rate Blood Pressure 116/57 L Pulse Oximetry Oxygen Delivery Method BMI result Body Mass Index 21.6 Labs 12/20/23 07:10 12/28/23 07:22 Imaging Radiology Impressions: ITS Impressions Chest X-Ray 12/20/23 07:54 IMPRESSION: Unremarkable examination. Head CT 12/20/23 08:32 IMPRESSION: No acute intracranial pathology. 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 Medications Medications Current Medications Acetaminophen (Acetaminophen 325 Mg Tablet) 650 mg PO Q6H PRN PRN Reason: Headache/Pain Mild Scale (1-3) Last Admin: 01/27/24 20:19 Dose: 650 mg Al Hydroxide/Mg Hydroxide (Magnesium Hydrox/Alum Hydrox 30 Ml Oral.Susp) 30 ml PO Q6H PRN PRN Reason: Heartburn/Nausea Amlodipine Besylate (Amlodipine Besylate 2.5 Mg Tablet) 7.5 mg PO DAILY [facility]; Protocol Last Admin: 02/01/24 08:12 Dose: 7.5 mg Aspirin (Aspirin 81 Mg Tab.Chew) 81 mg PO DAILY [facility] Last Admin: 02/01/24 08:11 Dose: 81 mg Atenolol (Atenolol 50 Mg Tablet) 50 mg PO DAILY [facility]; Protocol Last Admin: 02/01/24 08:13 Dose: 50 mg Atorvastatin Calcium (Atorvastatin Calcium 10 Mg Tablet) 10 mg PO DAILY [facility] Last Admin: 02/01/24 08:13 Dose: 10 mg Famotidine (Famotidine 20 Mg Tablet) 20 mg PO BID [facility] Last Admin: 02/01/24 08:13 Dose: 20 mg Hydroxyzine HCl (Hydroxyzine Hcl 25 Mg Tablet) 25 mg PO Q6H PRN PRN Reason: Anxiety Last Admin: 01/31/24 20:39 Dose: 25 mg Loratadine (Loratadine 10 Mg Tablet) 10 mg PO DAILY [facility] Last Admin: 02/01/24 08:12 Dose: 10 mg Magnesium Hydroxide (Milk Of Magnesia 30 Ml Oral.Susp) 30 ml PO DAILY PRN PRN Reason: Constipation Magnesium Oxide (Magnesium Oxide 400 Mg Tablet) 400 mg PO BID [facility] Last Admin: 02/01/24 08:13 Dose: 400 mg Trazodone HCl (Trazodone Hcl 50 Mg Tablet) 50 mg PO BEDTIME PRN PRN Reason: Insomnia Last Admin: 01/31/24 20:39 Dose: 50 mg Allergies Allergies Allergy/AdvReac Type Severity Reaction Status Date / Time nitrofurantoin Allergy Mild SWELLING Verified 12/21/23 08:01 [From Macrodantin] nitroglycerin Allergy Unknown Verified 12/21/23 08:01 Assessment & Plan Assessment & Plan (1) Major neurocognitive disorder: Status: Acute Code(s): F03.90 - Unspecified dementia, unspecified severity, without behavioral disturbance, psychotic disturbance, mood disturbance, and anxiety Plan 1. continue current medications 12/27 Mag improved to 1.8, Na to 134. no agitation. 12/30/2023: Continue current regimen and plans 12/31 continue tx. 01/01 continue tx. 01/02 continue tx 01/03 continue tx 01/04 continue tx. 01/05 continue tx. 01/06 continue tx. 01/07 continue tx. 01/08 continue tx. 01/11/24 Cont plan of care d/c planning 01/11 continue treatment 01/12 continue treatment 01/13 continue tx. BP slightly elevated SBP 160's, taking amlodipine 7.5mg po daily. continue to monitor. 01/14 continue tx. 01/15 continue tx. 01/16 continue tx 01/17 continue tx. 01/19/2024 Continue plan of care 01/20/2024 Continue plan of care 01/21 continue tx. awaiting placement. 01/22 continue tx. 01/24 continue tx. 01/25: Continue current treatment and plan 01/26: Continue current regimen and plans 01/27 pt reports sore throat, no SOB, no cough, no congestion, afebrile. pending covid/rsv/flu. cepacol now but will continue to monitor. may add antihistamine, for possible allergies. 01/28 continue current tx. covid/rsv/flu negative. afebrile. 01/30 continue tx Reason for continued inpatient stay Substantial Risk for: inability to function Time Spent With Patient Time: Total time managing care of this patient today ____ minutes.
--- NOTE | 2024-02-01 10:02 | HO.PSYCHPN ---
Subjective Subjective Date of Service: 02/01/24 Reason For Visit: agitation Interim History: Pt slept through the night. she denies any physical concerns. She is pleasant on approach. VS stable. no behavioral concerns. not oriented to place or situation. Review of Systems Review of Systems Yes all other systems are reviewed and are negative and Unobtainable due to mental status Constitutional: Reports as per HPI and Reports no additional constitutional complaints Eyes: Reports as per HPI and Denies no additional eye complaints Denies system reviewed and no additional complaints, except as documented and Reports as per HPI Cardiovascular: Reports as per HPI, Reports no additional cardiovascular complaints, Denies acrocyanosis, Denies cool extremities, Denies chest pain, Denies leg edema, Denies lightheadedness, Denies palpitations and Denies dyspnea Respiratory: Reports as per HPI, Denies no additional respiratory complaints and Denies dyspnea Gastrointestinal: Reports as per HPI and Denies no additional gastrointestinal complaints Musculoskeletal: Reports no additional musculoskeletal complaints and Reports as per HPI Skin/Breast: Reports system reviewed and no additional complaints, except as docu Reports system reviewed and no additional complaints, except as documented and Reports as per HPI Psychiatric: Reports no additional psychiatric complaints and Reports as per HPI Endocrine: Reports no additional endocrine complaints, Reports as per HPI and Denies palpitations Hematologic/Lymphatic: Reports no additional hematologic/lymphatic complaints and Reports as per HPI Allergic/Immunologic: Reports no additional allergic/immunologic complaints and Reports as per HPI Mental Status Exam Mental Status Exam Patient Appearance: Appropriate Patient Orientation: Person Level of Consciousness: Awake Patient Behavior: Guarded and Passive Mood Description: Withdrawn Affect Description: Calm Patient Cognition Impaired: Yes Ability to Follow Directions: Good Speech Pattern: Clear Memory Description: Immediate Impaired Diagnostics Vital Signs (24Hr): Vital Signs - 24 hr 01/31/24 20:00 02/01/24 08:00 02/01/24 08:12 Temperature 98.2 F 97.2 F Pulse Rate 70 97 Respiratory Rate 18 18 Blood Pressure 140/78 H 116/57 L 116/57 L Pulse Oximetry 97 97 Oxygen Delivery Method Room Air Room Air 02/01/24 08:13 Temperature Pulse Rate 97 Respiratory Rate Blood Pressure 116/57 L Pulse Oximetry Oxygen Delivery Method BMI result Body Mass Index 21.6 Labs 12/20/23 07:10 12/28/23 07:22 Imaging Radiology Impressions: ITS Impressions Chest X-Ray 12/20/23 07:54 IMPRESSION: Unremarkable examination. Head CT 12/20/23 08:32 IMPRESSION: No acute intracranial pathology. 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 Medications Medications Current Medications Acetaminophen (Acetaminophen 325 Mg Tablet) 650 mg PO Q6H PRN PRN Reason: Headache/Pain Mild Scale (1-3) Last Admin: 01/27/24 20:19 Dose: 650 mg Al Hydroxide/Mg Hydroxide (Magnesium Hydrox/Alum Hydrox 30 Ml Oral.Susp) 30 ml PO Q6H PRN PRN Reason: Heartburn/Nausea Amlodipine Besylate (Amlodipine Besylate 2.5 Mg Tablet) 7.5 mg PO DAILY [facility]; Protocol Last Admin: 02/01/24 08:12 Dose: 7.5 mg Aspirin (Aspirin 81 Mg Tab.Chew) 81 mg PO DAILY [facility] Last Admin: 02/01/24 08:11 Dose: 81 mg Atenolol (Atenolol 50 Mg Tablet) 50 mg PO DAILY [facility]; Protocol Last Admin: 02/01/24 08:13 Dose: 50 mg Atorvastatin Calcium (Atorvastatin Calcium 10 Mg Tablet) 10 mg PO DAILY [facility] Last Admin: 02/01/24 08:13 Dose: 10 mg Famotidine (Famotidine 20 Mg Tablet) 20 mg PO BID [facility] Last Admin: 02/01/24 08:13 Dose: 20 mg Hydroxyzine HCl (Hydroxyzine Hcl 25 Mg Tablet) 25 mg PO Q6H PRN PRN Reason: Anxiety Last Admin: 01/31/24 20:39 Dose: 25 mg Loratadine (Loratadine 10 Mg Tablet) 10 mg PO DAILY [facility] Last Admin: 02/01/24 08:12 Dose: 10 mg Magnesium Hydroxide (Milk Of Magnesia 30 Ml Oral.Susp) 30 ml PO DAILY PRN PRN Reason: Constipation Magnesium Oxide (Magnesium Oxide 400 Mg Tablet) 400 mg PO BID [facility] Last Admin: 02/01/24 08:13 Dose: 400 mg Trazodone HCl (Trazodone Hcl 50 Mg Tablet) 50 mg PO BEDTIME PRN PRN Reason: Insomnia Last Admin: 01/31/24 20:39 Dose: 50 mg Allergies Allergies Allergy/AdvReac Type Severity Reaction Status Date / Time nitrofurantoin Allergy Mild SWELLING Verified 12/21/23 08:01 [From Macrodantin] nitroglycerin Allergy Unknown Verified 12/21/23 08:01 Assessment & Plan Assessment & Plan (1) Major neurocognitive disorder: Status: Acute Code(s): F03.90 - Unspecified dementia, unspecified severity, without behavioral disturbance, psychotic disturbance, mood disturbance, and anxiety Plan 1. continue current medications 12/27 Mag improved to 1.8, Na to 134. no agitation. 12/30/2023: Continue current regimen and plans 12/31 continue tx. 01/01 continue tx. 01/02 continue tx 01/03 continue tx 01/04 continue tx. 01/05 continue tx. 01/06 continue tx. 01/07 continue tx. 01/08 continue tx. 01/11/24 Cont plan of care d/c planning 01/11 continue treatment 01/12 continue treatment 01/13 continue tx. BP slightly elevated SBP 160's, taking amlodipine 7.5mg po daily. continue to monitor. 01/14 continue tx. 01/15 continue tx. 01/16 continue tx 01/17 continue tx. 01/19/2024 Continue plan of care 01/20/2024 Continue plan of care 01/21 continue tx. awaiting placement. 01/22 continue tx. 01/24 continue tx. 01/25: Continue current treatment and plan 01/26: Continue current regimen and plans 01/27 pt reports sore throat, no SOB, no cough, no congestion, afebrile. pending covid/rsv/flu. cepacol now but will continue to monitor. may add antihistamine, for possible allergies. 01/28 continue current tx. covid/rsv/flu negative. afebrile. 01/30 continue tx 01/31 continue tx. Reason for continued inpatient stay Substantial Risk for: inability to function Time Spent With Patient Time: Total time managing care of this patient today ____ minutes.
[2024-02-01] MEDS: Throat Lozenge, Medicated LOZENGE 1 LOZENGE MUCOUS MEM (16:10)
[2024-02-01 20:00] VITALS: BP 159/70; PULSE 75; RESP 16; TEMP 36.6; O2SAT 97
[2024-02-01] MEDS: Acetaminophen 325 MG TABLET 650 MG PO (20:53)
[2024-02-02 08:00] VITALS: BP 167/70; PULSE 66; RESP 17; TEMP 36.4; O2SAT 97
--- NOTE | 2024-02-02 09:00 | HO.PSYCHPN ---
Subjective Subjective Date of Service: 02/02/24 Reason For Visit: agitation Interim History: Pt slept through the night. she denies any physical concerns. She is pleasant on approach. VS stable. no behavioral concerns. not oriented to place or situation. Review of Systems Review of Systems Yes all other systems are reviewed and are negative and Unobtainable due to mental status Constitutional: Reports as per HPI and Reports no additional constitutional complaints Eyes: Reports as per HPI and Denies no additional eye complaints Denies system reviewed and no additional complaints, except as documented and Reports as per HPI Cardiovascular: Reports as per HPI, Reports no additional cardiovascular complaints, Denies acrocyanosis, Denies cool extremities, Denies chest pain, Denies leg edema, Denies lightheadedness, Denies palpitations and Denies dyspnea Respiratory: Reports as per HPI, Denies no additional respiratory complaints and Denies dyspnea Gastrointestinal: Reports as per HPI and Denies no additional gastrointestinal complaints Musculoskeletal: Reports no additional musculoskeletal complaints and Reports as per HPI Skin/Breast: Reports system reviewed and no additional complaints, except as docu Reports system reviewed and no additional complaints, except as documented and Reports as per HPI Psychiatric: Reports no additional psychiatric complaints and Reports as per HPI Endocrine: Reports no additional endocrine complaints, Reports as per HPI and Denies palpitations Hematologic/Lymphatic: Reports no additional hematologic/lymphatic complaints and Reports as per HPI Allergic/Immunologic: Reports no additional allergic/immunologic complaints and Reports as per HPI Mental Status Exam Mental Status Exam Narrative: In today's visit she is hard of hearing. She is alert, oriented to person only. Speech is soft-spoken. Little eye contact. Affect is appropriate and constricted. No signs of psychosis. Cognitively impaired. No dangerous behaviors. Able to move all limbs. Cognitively impaired. Judgment is impaired Patient Appearance: Appropriate Patient Orientation: Person Level of Consciousness: Awake Patient Behavior: Guarded and Passive Mood Description: Withdrawn Affect Description: Calm Patient Cognition Impaired: Yes Ability to Follow Directions: Good Speech Pattern: Clear Memory Description: Immediate Impaired Diagnostics Vital Signs (24Hr): Vital Signs - 24 hr 02/01/24 20:00 02/02/24 08:00 Temperature 97.8 F 97.5 F Pulse Rate 75 66 Respiratory Rate 16 17 Blood Pressure 159/70 H 167/70 H Pulse Oximetry 97 97 Oxygen Delivery Method Room Air Room Air BMI result Body Mass Index 21.6 Labs 12/20/23 07:10 12/28/23 07:22 Imaging Radiology Impressions: ITS Impressions Chest X-Ray 12/20/23 07:54 IMPRESSION: Unremarkable examination. Head CT 12/20/23 08:32 IMPRESSION: No acute intracranial pathology. 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 Medications Medications Current Medications Acetaminophen (Acetaminophen 325 Mg Tablet) 650 mg PO Q6H PRN PRN Reason: Headache/Pain Mild Scale (1-3) Last Admin: 02/01/24 20:53 Dose: 650 mg Al Hydroxide/Mg Hydroxide (Magnesium Hydrox/Alum Hydrox 30 Ml Oral.Susp) 30 ml PO Q6H PRN PRN Reason: Heartburn/Nausea Amlodipine Besylate (Amlodipine Besylate 2.5 Mg Tablet) 7.5 mg PO DAILY [facility]; Protocol Last Admin: 02/01/24 08:12 Dose: 7.5 mg Aspirin (Aspirin 81 Mg Tab.Chew) 81 mg PO DAILY [facility] Last Admin: 02/01/24 08:11 Dose: 81 mg Atenolol (Atenolol 50 Mg Tablet) 50 mg PO DAILY [facility]; Protocol Last Admin: 02/01/24 08:13 Dose: 50 mg Atorvastatin Calcium (Atorvastatin Calcium 10 Mg Tablet) 10 mg PO DAILY [facility] Last Admin: 02/01/24 08:13 Dose: 10 mg Benzocaine (Throat Lozenge, Medicated Lozenge) 1 lozenge MUCOUS MEM Q2H PRN PRN Reason: Sore Throat Last Admin: 02/01/24 16:10 Dose: 1 lozenge Famotidine (Famotidine 20 Mg Tablet) 20 mg PO BID [facility] Last Admin: 02/01/24 20:46 Dose: 20 mg Hydroxyzine HCl (Hydroxyzine Hcl 25 Mg Tablet) 25 mg PO Q6H PRN PRN Reason: Anxiety Last Admin: 01/31/24 20:39 Dose: 25 mg Loratadine (Loratadine 10 Mg Tablet) 10 mg PO DAILY [facility] Last Admin: 02/01/24 08:12 Dose: 10 mg Magnesium Hydroxide (Milk Of Magnesia 30 Ml Oral.Susp) 30 ml PO DAILY PRN PRN Reason: Constipation Magnesium Oxide (Magnesium Oxide 400 Mg Tablet) 400 mg PO BID [facility] Last Admin: 02/01/24 20:46 Dose: 400 mg Trazodone HCl (Trazodone Hcl 50 Mg Tablet) 50 mg PO BEDTIME PRN PRN Reason: Insomnia Last Admin: 01/31/24 20:39 Dose: 50 mg Allergies Allergies Allergy/AdvReac Type Severity Reaction Status Date / Time nitrofurantoin Allergy Mild SWELLING Verified 12/21/23 08:01 [From Macrodantin] nitroglycerin Allergy Unknown Verified 12/21/23 08:01 Assessment & Plan Assessment & Plan (1) Major neurocognitive disorder: Status: Acute Code(s): F03.90 - Unspecified dementia, unspecified severity, without behavioral disturbance, psychotic disturbance, mood disturbance, and anxiety Plan 1. continue current medications 12/27 Mag improved to 1.8, Na to 134. no agitation. 12/30/2023: Continue current regimen and plans 12/31 continue tx. 01/01 continue tx. 01/02 continue tx 01/03 continue tx 01/04 continue tx. 01/05 continue tx. 01/06 continue tx. 01/07 continue tx. 01/08 continue tx. 01/11/24 Cont plan of care d/c planning 01/11 continue treatment 01/12 continue treatment 01/13 continue tx. BP slightly elevated SBP 160's, taking amlodipine 7.5mg po daily. continue to monitor. 01/14 continue tx. 01/15 continue tx. 01/16 continue tx 01/17 continue tx. 01/19/2024 Continue plan of care 01/20/2024 Continue plan of care 01/21 continue tx. awaiting placement. 01/22 continue tx. 01/24 continue tx. 01/25: Continue current treatment and plan 01/26: Continue current regimen and plans 01/27 pt reports sore throat, no SOB, no cough, no congestion, afebrile. pending covid/rsv/flu. cepacol now but will continue to monitor. may add antihistamine, for possible allergies. 01/28 continue current tx. covid/rsv/flu negative. afebrile. 01/30 continue tx 01/31 continue tx. 02/01: continue current management and treatment plan. Reason for continued inpatient stay Substantial Risk for: inability to function and rapid decompensation Time Spent With Patient Time: Total time managing care of this patient today ____ minutes.
[2024-02-02 09:27] VITALS: BP 167/70; PULSE 66
[2024-02-02] MEDS: Magnesium Oxide 400 MG TABLET PO ×2 (09:27→20:03)
[2024-02-02] MEDS: Aspirin 81 MG TAB.CHEW PO (09:27)
[2024-02-02] MEDS: Famotidine 20 MG TABLET PO ×2 (09:27→20:03)
[2024-02-02] MEDS: atenoloL 50 MG TABLET PO (09:27)
[2024-02-02 09:28] VITALS: BP 167/70
[2024-02-02] MEDS: amLODIPine Besylate 2.5 MG TABLET 7.5 MG PO (09:28)
[2024-02-02] MEDS: Loratadine 10 MG TABLET PO (09:28)
[2024-02-02] MEDS: Atorvastatin Calcium 10 MG TABLET PO (09:28)
[2024-02-02 20:00] VITALS: BP 156/74; PULSE 78; RESP 16; TEMP 36.4; O2SAT 97
[2024-02-03 08:00] VITALS: BP 150/67; PULSE 62; RESP 18; TEMP 36.6; O2SAT 97
[2024-02-03 08:15] VITALS: BP 150/67
[2024-02-03] MEDS: Aspirin 81 MG TAB.CHEW PO (08:15)
[2024-02-03] MEDS: Famotidine 20 MG TABLET PO ×2 (08:15→20:55)
[2024-02-03] MEDS: Atorvastatin Calcium 10 MG TABLET PO (08:15)
[2024-02-03] MEDS: amLODIPine Besylate 2.5 MG TABLET 7.5 MG PO (08:15)
[2024-02-03 08:16] VITALS: BP 150/67; PULSE 62
[2024-02-03] MEDS: Loratadine 10 MG TABLET PO (08:16)
[2024-02-03] MEDS: Magnesium Oxide 400 MG TABLET PO ×2 (08:16→20:55)
[2024-02-03] MEDS: atenoloL 50 MG TABLET PO (08:16)
--- NOTE | 2024-02-03 16:02 | HO.PSYCHPN ---
Subjective Subjective Date of Service: 02/03/24 Reason For Visit: agitation Interim History: Pt slept through the night. she denies any physical concerns. She is pleasant on approach. VS stable. no behavioral concerns. not oriented to place or situation. Review of Systems Review of Systems Yes all other systems are reviewed and are negative and Unobtainable due to mental status Constitutional: Reports as per HPI and Reports no additional constitutional complaints Eyes: Reports as per HPI and Denies no additional eye complaints Denies system reviewed and no additional complaints, except as documented and Reports as per HPI Cardiovascular: Reports as per HPI, Reports no additional cardiovascular complaints, Denies acrocyanosis, Denies cool extremities, Denies chest pain, Denies leg edema, Denies lightheadedness, Denies palpitations and Denies dyspnea Respiratory: Reports as per HPI, Denies no additional respiratory complaints and Denies dyspnea Gastrointestinal: Reports as per HPI and Denies no additional gastrointestinal complaints Musculoskeletal: Reports no additional musculoskeletal complaints and Reports as per HPI Skin/Breast: Reports system reviewed and no additional complaints, except as docu Reports system reviewed and no additional complaints, except as documented and Reports as per HPI Psychiatric: Reports no additional psychiatric complaints and Reports as per HPI Endocrine: Reports no additional endocrine complaints, Reports as per HPI and Denies palpitations Hematologic/Lymphatic: Reports no additional hematologic/lymphatic complaints and Reports as per HPI Allergic/Immunologic: Reports no additional allergic/immunologic complaints and Reports as per HPI Mental Status Exam Mental Status Exam Narrative: In today's visit she is hard of hearing. She is alert, oriented to person only. Speech is soft-spoken. Little eye contact. Affect is appropriate and constricted. No signs of psychosis. Cognitively impaired. No dangerous behaviors. Able to move all limbs. Cognitively impaired. Judgment is impaired Patient Appearance: Appropriate Patient Orientation: Person Level of Consciousness: Awake Patient Behavior: Guarded and Passive Mood Description: Withdrawn Affect Description: Calm Patient Cognition Impaired: Yes Ability to Follow Directions: Good Speech Pattern: Clear Memory Description: Immediate Impaired Diagnostics Vital Signs (24Hr): Vital Signs - 24 hr 02/02/24 20:00 02/03/24 08:00 02/03/24 08:15 Temperature 97.5 F 97.9 F Pulse Rate 78 62 Respiratory Rate 16 18 Blood Pressure 156/74 H 150/67 H 150/67 H Pulse Oximetry 97 97 Oxygen Delivery Method Room Air Room Air 02/03/24 08:16 Temperature Pulse Rate 62 Respiratory Rate Blood Pressure 150/67 H Pulse Oximetry Oxygen Delivery Method BMI result Body Mass Index 21.6 Labs 12/20/23 07:10 12/28/23 07:22 Imaging Radiology Impressions: ITS Impressions Chest X-Ray 12/20/23 07:54 IMPRESSION: Unremarkable examination. Head CT 12/20/23 08:32 IMPRESSION: No acute intracranial pathology. 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 Medications Medications Current Medications Acetaminophen (Acetaminophen 325 Mg Tablet) 650 mg PO Q6H PRN PRN Reason: Headache/Pain Mild Scale (1-3) Last Admin: 02/01/24 20:53 Dose: 650 mg Al Hydroxide/Mg Hydroxide (Magnesium Hydrox/Alum Hydrox 30 Ml Oral.Susp) 30 ml PO Q6H PRN PRN Reason: Heartburn/Nausea Amlodipine Besylate (Amlodipine Besylate 2.5 Mg Tablet) 7.5 mg PO DAILY [facility]; Protocol Last Admin: 02/03/24 08:15 Dose: 7.5 mg Aspirin (Aspirin 81 Mg Tab.Chew) 81 mg PO DAILY [facility] Last Admin: 02/03/24 08:15 Dose: 81 mg Atenolol (Atenolol 50 Mg Tablet) 50 mg PO DAILY [facility]; Protocol Last Admin: 02/03/24 08:16 Dose: 50 mg Atorvastatin Calcium (Atorvastatin Calcium 10 Mg Tablet) 10 mg PO DAILY [facility] Last Admin: 02/03/24 08:15 Dose: 10 mg Benzocaine (Throat Lozenge, Medicated Lozenge) 1 lozenge MUCOUS MEM Q2H PRN PRN Reason: Sore Throat Last Admin: 02/01/24 16:10 Dose: 1 lozenge Famotidine (Famotidine 20 Mg Tablet) 20 mg PO BID [facility] Last Admin: 02/03/24 08:15 Dose: 20 mg Hydroxyzine HCl (Hydroxyzine Hcl 25 Mg Tablet) 25 mg PO Q6H PRN PRN Reason: Anxiety Last Admin: 01/31/24 20:39 Dose: 25 mg Loratadine (Loratadine 10 Mg Tablet) 10 mg PO DAILY [facility] Last Admin: 02/03/24 08:16 Dose: 10 mg Magnesium Hydroxide (Milk Of Magnesia 30 Ml Oral.Susp) 30 ml PO DAILY PRN PRN Reason: Constipation Magnesium Oxide (Magnesium Oxide 400 Mg Tablet) 400 mg PO BID [facility] Last Admin: 02/03/24 08:16 Dose: 400 mg Trazodone HCl (Trazodone Hcl 50 Mg Tablet) 50 mg PO BEDTIME PRN PRN Reason: Insomnia Last Admin: 01/31/24 20:39 Dose: 50 mg Allergies Allergies Allergy/AdvReac Type Severity Reaction Status Date / Time nitrofurantoin Allergy Mild SWELLING Verified 12/21/23 08:01 [From Macrodantin] nitroglycerin Allergy Unknown Verified 12/21/23 08:01 Assessment & Plan Assessment & Plan (1) Major neurocognitive disorder: Status: Acute Code(s): F03.90 - Unspecified dementia, unspecified severity, without behavioral disturbance, psychotic disturbance, mood disturbance, and anxiety Plan 1. continue current medications 12/27 Mag improved to 1.8, Na to 134. no agitation. 12/30/2023: Continue current regimen and plans 12/31 continue tx. 01/01 continue tx. 01/02 continue tx 01/03 continue tx 01/04 continue tx. 01/05 continue tx. 01/06 continue tx. 01/07 continue tx. 01/08 continue tx. 01/11/24 Cont plan of care d/c planning 01/11 continue treatment 01/12 continue treatment 01/13 continue tx. BP slightly elevated SBP 160's, taking amlodipine 7.5mg po daily. continue to monitor. 01/14 continue tx. 01/15 continue tx. 01/16 continue tx 01/17 continue tx. 01/19/2024 Continue plan of care 01/20/2024 Continue plan of care 01/21 continue tx. awaiting placement. 01/22 continue tx. 01/24 continue tx. 01/25: Continue current treatment and plan 01/26: Continue current regimen and plans 01/27 pt reports sore throat, no SOB, no cough, no congestion, afebrile. pending covid/rsv/flu. cepacol now but will continue to monitor. may add antihistamine, for possible allergies. 01/28 continue current tx. covid/rsv/flu negative. afebrile. 01/30 continue tx 01/31 continue tx. 02/01: continue current management and treatment plan. 02/02: continue current management and treatment plan. Reason for continued inpatient stay Substantial Risk for: inability to function and rapid decompensation Time Spent With Patient Time: Total time managing care of this patient today ____ minutes.
[2024-02-03 20:00] VITALS: BP 162/72; PULSE 70; RESP 18; TEMP 37.1; O2SAT 97
[2024-02-03] MEDS: hydrOXYzine HCL 25 MG TABLET PO (20:55)
[2024-02-03] MEDS: traZODone HCL 50 MG TABLET PO (20:55)
[2024-02-04 08:00] VITALS: BP 130/92; PULSE 68; RESP 16; TEMP 36.2; O2SAT 96
[2024-02-04 08:14] VITALS: BP 130/92
[2024-02-04] MEDS: amLODIPine Besylate 2.5 MG TABLET 7.5 MG PO (08:14)
[2024-02-04] MEDS: Loratadine 10 MG TABLET PO (08:14)
[2024-02-04 08:15] VITALS: BP 130/92; PULSE 68
[2024-02-04] MEDS: Famotidine 20 MG TABLET PO ×2 (08:15→20:06)
[2024-02-04] MEDS: Atorvastatin Calcium 10 MG TABLET PO (08:15)
[2024-02-04] MEDS: atenoloL 50 MG TABLET PO (08:15)
[2024-02-04] MEDS: Magnesium Oxide 400 MG TABLET PO ×2 (08:15→20:06)
[2024-02-04] MEDS: Aspirin 81 MG TAB.CHEW PO (08:15)
--- NOTE | 2024-02-04 10:55 | HO.PSYCHPN ---
Subjective Subjective Date of Service: 02/04/24 Reason For Visit: agitation Interim History: Pt slept through the night. she denies any physical concerns. She is pleasant on approach. VS stable. no behavioral concerns. not oriented to place or situation. Review of Systems Review of Systems Yes all other systems are reviewed and are negative and Unobtainable due to mental status Constitutional: Reports as per HPI and Reports no additional constitutional complaints Eyes: Reports as per HPI and Denies no additional eye complaints Denies system reviewed and no additional complaints, except as documented and Reports as per HPI Cardiovascular: Reports as per HPI, Reports no additional cardiovascular complaints, Denies acrocyanosis, Denies cool extremities, Denies chest pain, Denies leg edema, Denies lightheadedness, Denies palpitations and Denies dyspnea Respiratory: Reports as per HPI, Denies no additional respiratory complaints and Denies dyspnea Gastrointestinal: Reports as per HPI and Denies no additional gastrointestinal complaints Musculoskeletal: Reports no additional musculoskeletal complaints and Reports as per HPI Skin/Breast: Reports system reviewed and no additional complaints, except as docu Reports system reviewed and no additional complaints, except as documented and Reports as per HPI Psychiatric: Reports no additional psychiatric complaints and Reports as per HPI Endocrine: Reports no additional endocrine complaints, Reports as per HPI and Denies palpitations Hematologic/Lymphatic: Reports no additional hematologic/lymphatic complaints and Reports as per HPI Allergic/Immunologic: Reports no additional allergic/immunologic complaints and Reports as per HPI Mental Status Exam Mental Status Exam Narrative: In today's visit she is hard of hearing. She is alert, oriented to person only. Speech is soft-spoken. Little eye contact. Affect is appropriate and constricted. No signs of psychosis. Cognitively impaired. No dangerous behaviors. Able to move all limbs. Cognitively impaired. Judgment is impaired Patient Appearance: Appropriate Patient Orientation: Person Level of Consciousness: Awake Patient Behavior: Guarded and Passive Mood Description: Withdrawn Affect Description: Calm Patient Cognition Impaired: Yes Ability to Follow Directions: Good Speech Pattern: Clear Memory Description: Immediate Impaired Diagnostics Vital Signs (24Hr): Vital Signs - 24 hr 02/03/24 20:00 02/04/24 08:00 02/04/24 08:14 Temperature 98.7 F 97.1 F Pulse Rate 70 68 Respiratory Rate 18 16 Blood Pressure 162/72 H 130/92 H 130/92 H Pulse Oximetry 97 96 Oxygen Delivery Method Room Air Room Air 02/04/24 08:15 Temperature Pulse Rate 68 Respiratory Rate Blood Pressure 130/92 H Pulse Oximetry Oxygen Delivery Method BMI result Body Mass Index 21.6 Labs 12/20/23 07:10 12/28/23 07:22 Imaging Radiology Impressions: ITS Impressions Chest X-Ray 12/20/23 07:54 IMPRESSION: Unremarkable examination. Head CT 12/20/23 08:32 IMPRESSION: No acute intracranial pathology. 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 Medications Medications Current Medications Acetaminophen (Acetaminophen 325 Mg Tablet) 650 mg PO Q6H PRN PRN Reason: Headache/Pain Mild Scale (1-3) Last Admin: 02/01/24 20:53 Dose: 650 mg Al Hydroxide/Mg Hydroxide (Magnesium Hydrox/Alum Hydrox 30 Ml Oral.Susp) 30 ml PO Q6H PRN PRN Reason: Heartburn/Nausea Amlodipine Besylate (Amlodipine Besylate 2.5 Mg Tablet) 7.5 mg PO DAILY [facility]; Protocol Last Admin: 02/04/24 08:14 Dose: 7.5 mg Aspirin (Aspirin 81 Mg Tab.Chew) 81 mg PO DAILY [facility] Last Admin: 02/04/24 08:15 Dose: 81 mg Atenolol (Atenolol 50 Mg Tablet) 50 mg PO DAILY [facility]; Protocol Last Admin: 02/04/24 08:15 Dose: 50 mg Atorvastatin Calcium (Atorvastatin Calcium 10 Mg Tablet) 10 mg PO DAILY [facility] Last Admin: 02/04/24 08:15 Dose: 10 mg Benzocaine (Throat Lozenge, Medicated Lozenge) 1 lozenge MUCOUS MEM Q2H PRN PRN Reason: Sore Throat Last Admin: 02/01/24 16:10 Dose: 1 lozenge Famotidine (Famotidine 20 Mg Tablet) 20 mg PO BID [facility] Last Admin: 02/04/24 08:15 Dose: 20 mg Hydroxyzine HCl (Hydroxyzine Hcl 25 Mg Tablet) 25 mg PO Q6H PRN PRN Reason: Anxiety Last Admin: 02/03/24 20:55 Dose: 25 mg Loratadine (Loratadine 10 Mg Tablet) 10 mg PO DAILY [facility] Last Admin: 02/04/24 08:14 Dose: 10 mg Magnesium Hydroxide (Milk Of Magnesia 30 Ml Oral.Susp) 30 ml PO DAILY PRN PRN Reason: Constipation Magnesium Oxide (Magnesium Oxide 400 Mg Tablet) 400 mg PO BID [facility] Last Admin: 02/04/24 08:15 Dose: 400 mg Trazodone HCl (Trazodone Hcl 50 Mg Tablet) 50 mg PO BEDTIME PRN PRN Reason: Insomnia Last Admin: 02/03/24 20:55 Dose: 50 mg Allergies Allergies Allergy/AdvReac Type Severity Reaction Status Date / Time nitrofurantoin Allergy Mild SWELLING Verified 12/21/23 08:01 [From Macrodantin] nitroglycerin Allergy Unknown Verified 12/21/23 08:01 Assessment & Plan Assessment & Plan (1) Major neurocognitive disorder: Status: Acute Code(s): F03.90 - Unspecified dementia, unspecified severity, without behavioral disturbance, psychotic disturbance, mood disturbance, and anxiety Plan 1. continue current medications 12/27 Mag improved to 1.8, Na to 134. no agitation. 12/30/2023: Continue current regimen and plans 12/31 continue tx. 01/01 continue tx. 01/02 continue tx 01/03 continue tx 01/04 continue tx. 01/05 continue tx. 01/06 continue tx. 01/07 continue tx. 01/08 continue tx. 01/11/24 Cont plan of care d/c planning 01/11 continue treatment 01/12 continue treatment 01/13 continue tx. BP slightly elevated SBP 160's, taking amlodipine 7.5mg po daily. continue to monitor. 01/14 continue tx. 01/15 continue tx. 01/16 continue tx 01/17 continue tx. 01/19/2024 Continue plan of care 01/20/2024 Continue plan of care 01/21 continue tx. awaiting placement. 01/22 continue tx. 01/24 continue tx. 01/25: Continue current treatment and plan 01/26: Continue current regimen and plans 01/27 pt reports sore throat, no SOB, no cough, no congestion, afebrile. pending covid/rsv/flu. cepacol now but will continue to monitor. may add antihistamine, for possible allergies. 01/28 continue current tx. covid/rsv/flu negative. afebrile. 01/30 continue tx 01/31 continue tx. 02/01: continue current management and treatment plan. 02/02: continue current management and treatment plan. 02/03: continue current management and treatment plan. Reason for continued inpatient stay Substantial Risk for: inability to function and rapid decompensation Time Spent With Patient Time: Total time managing care of this patient today ____ minutes.
[2024-02-04 20:00] VITALS: BP 145/64; PULSE 71; RESP 18; TEMP 36.7; O2SAT 98
[2024-02-04] MEDS: hydrOXYzine HCL 25 MG TABLET PO (20:06)
[2024-02-04] MEDS: traZODone HCL 50 MG TABLET PO (20:06)
[2024-02-05 07:57] VITALS: BP 152/67; PULSE 62; RESP 16; TEMP 36.1; O2SAT 98
[2024-02-05 08:07] VITALS: BP 152/67
[2024-02-05] MEDS: Aspirin 81 MG TAB.CHEW PO (08:07)
[2024-02-05] MEDS: Atorvastatin Calcium 10 MG TABLET PO (08:07)
[2024-02-05] MEDS: Loratadine 10 MG TABLET PO (08:07)
[2024-02-05] MEDS: Famotidine 20 MG TABLET PO ×2 (08:07→20:56)
[2024-02-05] MEDS: Magnesium Oxide 400 MG TABLET PO ×2 (08:07→20:56)
[2024-02-05] MEDS: amLODIPine Besylate 2.5 MG TABLET 7.5 MG PO (08:07)
[2024-02-05 08:08] VITALS: BP 152/67; PULSE 62
[2024-02-05] MEDS: atenoloL 50 MG TABLET PO (08:08)
--- NOTE | 2024-02-05 10:35 | HO.PSYCHPN ---
Subjective Subjective Date of Service: 02/05/24 Reason For Visit: agitation Subjective Notes: Conditional Voluntary Interim History: Pt slept through the night. VS stable. She is pleasant on approach. She denies any concerns. No behavioral concerns. Medication Compliance: Yes Side effects from medications: No Diagnostics Vital Signs (24Hr): Vital Signs - 24 hr 02/04/24 20:00 02/05/24 07:57 02/05/24 08:07 Temperature 98.1 F 97.0 F Pulse Rate 71 62 Respiratory Rate 18 16 Blood Pressure 145/64 H 152/67 H 152/67 H Pulse Oximetry 98 98 Oxygen Delivery Method Room Air Room Air 02/05/24 08:08 Temperature Pulse Rate 62 Respiratory Rate Blood Pressure 152/67 H Pulse Oximetry Oxygen Delivery Method BMI result Body Mass Index 21.6 Labs 12/20/23 07:10 12/28/23 07:22 Imaging Radiology Impressions: ITS Impressions Chest X-Ray 12/20/23 07:54 IMPRESSION: Unremarkable examination. Head CT 12/20/23 08:32 IMPRESSION: No acute intracranial pathology. 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 Medications Medications Current Medications Acetaminophen (Acetaminophen 325 Mg Tablet) 650 mg PO Q6H PRN PRN Reason: Headache/Pain Mild Scale (1-3) Last Admin: 02/01/24 20:53 Dose: 650 mg Al Hydroxide/Mg Hydroxide (Magnesium Hydrox/Alum Hydrox 30 Ml Oral.Susp) 30 ml PO Q6H PRN PRN Reason: Heartburn/Nausea Amlodipine Besylate (Amlodipine Besylate 2.5 Mg Tablet) 7.5 mg PO DAILY [facility]; Protocol Last Admin: 02/05/24 08:07 Dose: 7.5 mg Aspirin (Aspirin 81 Mg Tab.Chew) 81 mg PO DAILY [facility] Last Admin: 02/05/24 08:07 Dose: 81 mg Atenolol (Atenolol 50 Mg Tablet) 50 mg PO DAILY [facility]; Protocol Last Admin: 02/05/24 08:08 Dose: 50 mg Atorvastatin Calcium (Atorvastatin Calcium 10 Mg Tablet) 10 mg PO DAILY [facility] Last Admin: 02/05/24 08:07 Dose: 10 mg Benzocaine (Throat Lozenge, Medicated Lozenge) 1 lozenge MUCOUS MEM Q2H PRN PRN Reason: Sore Throat Last Admin: 02/01/24 16:10 Dose: 1 lozenge Famotidine (Famotidine 20 Mg Tablet) 20 mg PO BID [facility] Last Admin: 02/05/24 08:07 Dose: 20 mg Hydroxyzine HCl (Hydroxyzine Hcl 25 Mg Tablet) 25 mg PO Q6H PRN PRN Reason: Anxiety Last Admin: 02/04/24 20:06 Dose: 25 mg Loratadine (Loratadine 10 Mg Tablet) 10 mg PO DAILY [facility] Last Admin: 02/05/24 08:07 Dose: 10 mg Magnesium Hydroxide (Milk Of Magnesia 30 Ml Oral.Susp) 30 ml PO DAILY PRN PRN Reason: Constipation Magnesium Oxide (Magnesium Oxide 400 Mg Tablet) 400 mg PO BID [facility] Last Admin: 02/05/24 08:07 Dose: 400 mg Trazodone HCl (Trazodone Hcl 50 Mg Tablet) 50 mg PO BEDTIME PRN PRN Reason: Insomnia Last Admin: 02/04/24 20:06 Dose: 50 mg Allergies Allergies Allergy/AdvReac Type Severity Reaction Status Date / Time nitrofurantoin Allergy Mild SWELLING Verified 12/21/23 08:01 [From Macrodantin] nitroglycerin Allergy Unknown Verified 12/21/23 08:01 Assessment & Plan Assessment & Plan (1) Major neurocognitive disorder: Status: Acute Code(s): F03.90 - Unspecified dementia, unspecified severity, without behavioral disturbance, psychotic disturbance, mood disturbance, and anxiety Plan 1. continue current medications 12/27 Mag improved to 1.8, Na to 134. no agitation. 12/30/2023: Continue current regimen and plans 12/31 continue tx. 01/01 continue tx. 01/02 continue tx 01/03 continue tx 01/04 continue tx. 01/05 continue tx. 01/06 continue tx. 01/07 continue tx. 01/08 continue tx. 01/11/24 Cont plan of care d/c planning 01/11 continue treatment 01/12 continue treatment 01/13 continue tx. BP slightly elevated SBP 160's, taking amlodipine 7.5mg po daily. continue to monitor. 01/14 continue tx. 01/15 continue tx. 01/16 continue tx 01/17 continue tx. 01/19/2024 Continue plan of care 01/20/2024 Continue plan of care 01/21 continue tx. awaiting placement. 01/22 continue tx. 01/24 continue tx. 01/25: Continue current treatment and plan 01/26: Continue current regimen and plans 01/27 pt reports sore throat, no SOB, no cough, no congestion, afebrile. pending covid/rsv/flu. cepacol now but will continue to monitor. may add antihistamine, for possible allergies. 01/28 continue current tx. covid/rsv/flu negative. afebrile. 01/30 continue tx 01/31 continue tx. 02/01: continue current management and treatment plan. 02/02: continue current management and treatment plan. 02/03: continue current management and treatment plan. 02/04 continue tx. awaiting tx. Reason for continued inpatient stay Substantial Risk for: inability to function Time Spent With Patient Time: Total time managing care of this patient today ____ minutes.
[2024-02-05 20:00] VITALS: BP 157/81; PULSE 89; RESP 18; TEMP 35.8; O2SAT 96
[2024-02-05 20:36] VITALS: BP 157/81; PULSE 89; TEMP 35.8; O2SAT 96
[2024-02-05] MEDS: traZODone HCL 50 MG TABLET PO (20:56)
[2024-02-05] MEDS: hydrOXYzine HCL 25 MG TABLET PO (20:56)
[2024-02-06 08:20] VITALS: BP 154/71; PULSE 62; RESP 20; TEMP 35.7; O2SAT 98
[2024-02-06 08:23] VITALS: BP 154/71
[2024-02-06] MEDS: Magnesium Oxide 400 MG TABLET PO ×2 (08:23→20:03)
[2024-02-06] MEDS: Aspirin 81 MG TAB.CHEW PO (08:23)
[2024-02-06] MEDS: Loratadine 10 MG TABLET PO (08:23)
[2024-02-06] MEDS: amLODIPine Besylate 2.5 MG TABLET 7.5 MG PO (08:23)
[2024-02-06] MEDS: Atorvastatin Calcium 10 MG TABLET PO (08:24)
[2024-02-06 08:25] VITALS: BP 154/71; PULSE 62
[2024-02-06] MEDS: Famotidine 20 MG TABLET PO ×2 (08:25→20:03)
[2024-02-06] MEDS: atenoloL 50 MG TABLET PO (08:25)
--- NOTE | 2024-02-06 15:30 | HO.PSYCHPN ---
Subjective Subjective Date of Service: 02/06/24 Reason For Visit: agitation Interim History: Met with patient; discussed with team Patient sitting at the table eating. On approach she is friendly and says that everything is great.. Even you and pats promotion writer on the arm. Staff reports no change in presentation Mental Status Exam Mental Status Exam Patient Appearance: Disheveled (Somewhat) Patient Orientation: Person Level of Consciousness: Awake Patient Behavior: Passive and Good Eye Contact Mood Description: Calm (Everything is great) Affect Description: Calm Patient Cognition Impaired: Yes Ability to Follow Directions: Good Speech Pattern: Clear Memory Description: Immediate Impaired Judgement and Insight: Impaired Diagnostics Vital Signs (24Hr): Vital Signs - 24 hr 02/05/24 20:00 02/05/24 20:36 02/06/24 08:20 Temperature 96.5 F L 96.5 F L 96.3 F L Pulse Rate 89 89 62 Respiratory Rate 18 20 Blood Pressure 157/81 H 157/81 H 154/71 H Pulse Oximetry 96 96 98 Oxygen Delivery Method Room Air Room Air Room Air 02/06/24 08:23 02/06/24 08:25 Temperature Pulse Rate 62 Respiratory Rate Blood Pressure 154/71 H 154/71 H Pulse Oximetry Oxygen Delivery Method BMI result Body Mass Index 21.6 Labs 12/20/23 07:10 12/28/23 07:22 Imaging Radiology Impressions: ITS Impressions Chest X-Ray 12/20/23 07:54 IMPRESSION: Unremarkable examination. Head CT 12/20/23 08:32 IMPRESSION: No acute intracranial pathology. 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 Medications Medications Current Medications Acetaminophen (Acetaminophen 325 Mg Tablet) 650 mg PO Q6H PRN PRN Reason: Headache/Pain Mild Scale (1-3) Last Admin: 02/01/24 20:53 Dose: 650 mg Al Hydroxide/Mg Hydroxide (Magnesium Hydrox/Alum Hydrox 30 Ml Oral.Susp) 30 ml PO Q6H PRN PRN Reason: Heartburn/Nausea Amlodipine Besylate (Amlodipine Besylate 2.5 Mg Tablet) 7.5 mg PO DAILY [facility]; Protocol Last Admin: 02/06/24 08:23 Dose: 7.5 mg Aspirin (Aspirin 81 Mg Tab.Chew) 81 mg PO DAILY [facility] Last Admin: 02/06/24 08:23 Dose: 81 mg Atenolol (Atenolol 50 Mg Tablet) 50 mg PO DAILY [facility]; Protocol Last Admin: 02/06/24 08:25 Dose: 50 mg Atorvastatin Calcium (Atorvastatin Calcium 10 Mg Tablet) 10 mg PO DAILY [facility] Last Admin: 02/06/24 08:24 Dose: 10 mg Benzocaine (Throat Lozenge, Medicated Lozenge) 1 lozenge MUCOUS MEM Q2H PRN PRN Reason: Sore Throat Last Admin: 02/01/24 16:10 Dose: 1 lozenge Famotidine (Famotidine 20 Mg Tablet) 20 mg PO BID [facility] Last Admin: 02/06/24 08:25 Dose: 20 mg Hydroxyzine HCl (Hydroxyzine Hcl 25 Mg Tablet) 25 mg PO Q6H PRN PRN Reason: Anxiety Last Admin: 02/05/24 20:56 Dose: 25 mg Loratadine (Loratadine 10 Mg Tablet) 10 mg PO DAILY [facility] Last Admin: 02/06/24 08:23 Dose: 10 mg Magnesium Hydroxide (Milk Of Magnesia 30 Ml Oral.Susp) 30 ml PO DAILY PRN PRN Reason: Constipation Magnesium Oxide (Magnesium Oxide 400 Mg Tablet) 400 mg PO BID [facility] Last Admin: 02/06/24 08:23 Dose: 400 mg Trazodone HCl (Trazodone Hcl 50 Mg Tablet) 50 mg PO BEDTIME PRN PRN Reason: Insomnia Last Admin: 02/05/24 20:56 Dose: 50 mg Allergies Allergies Allergy/AdvReac Type Severity Reaction Status Date / Time nitrofurantoin Allergy Mild SWELLING Verified 12/21/23 08:01 [From Macrodantin] nitroglycerin Allergy Unknown Verified 12/21/23 08:01 Assessment & Plan Assessment & Plan (1) Major neurocognitive disorder: Status: Acute Code(s): F03.90 - Unspecified dementia, unspecified severity, without behavioral disturbance, psychotic disturbance, mood disturbance, and anxiety Plan 1. continue current medications 12/27 Mag improved to 1.8, Na to 134. no agitation. 12/30/2023: Continue current regimen and plans 12/31 continue tx. 01/01 continue tx. 01/02 continue tx 01/03 continue tx 01/04 continue tx. 01/05 continue tx. 01/06 continue tx. 01/07 continue tx. 01/08 continue tx. 01/11/24 Cont plan of care d/c planning 01/11 continue treatment 01/12 continue treatment 01/13 continue tx. BP slightly elevated SBP 160's, taking amlodipine 7.5mg po daily. continue to monitor. 01/14 continue tx. 01/15 continue tx. 01/16 continue tx 01/17 continue tx. 01/19/2024 Continue plan of care 01/20/2024 Continue plan of care 01/21 continue tx. awaiting placement. 01/22 continue tx. 01/24 continue tx. 01/25: Continue current treatment and plan 01/26: Continue current regimen and plans 01/27 pt reports sore throat, no SOB, no cough, no congestion, afebrile. pending covid/rsv/flu. cepacol now but will continue to monitor. may add antihistamine, for possible allergies. 01/28 continue current tx. covid/rsv/flu negative. afebrile. 01/30 continue tx 01/31 continue tx. 02/01: continue current management and treatment plan. 02/02: continue current management and treatment plan. 02/03: continue current management and treatment plan. 02/04 continue tx. awaiting placement 02/05 continue treatment plan Patient educated on: diagnosis Informed Consent: does not understand Reason for continued inpatient stay Substantial Risk for: inability to function Time Spent With Patient Time: Total time managing care of this patient today ____ minutes.
[2024-02-06 20:00] VITALS: BP 149/65; PULSE 67; RESP 18; TEMP 36.7; O2SAT 99
[2024-02-06] MEDS: traZODone HCL 50 MG TABLET PO (20:03)
[2024-02-06] MEDS: hydrOXYzine HCL 25 MG TABLET PO (20:03)
[2024-02-07 02:00] VITALS: BP 177/74; PULSE 74; RESP 18; TEMP 36.1; O2SAT 97
[2024-02-07 07:00] VITALS: BMI 21.9
[2024-02-07 08:00] VITALS: BP 164/72; PULSE 66; RESP 18; TEMP 36.2; O2SAT 97
[2024-02-07 09:11] VITALS: BP 164/72
[2024-02-07] MEDS: amLODIPine Besylate 2.5 MG TABLET 7.5 MG PO (09:11)
[2024-02-07 09:12] VITALS: BP 164/72; PULSE 66
[2024-02-07] MEDS: Atorvastatin Calcium 10 MG TABLET PO (09:12)
[2024-02-07] MEDS: Magnesium Oxide 400 MG TABLET PO ×2 (09:12→20:35)
[2024-02-07] MEDS: atenoloL 50 MG TABLET PO (09:12)
[2024-02-07] MEDS: Loratadine 10 MG TABLET PO (09:13)
[2024-02-07] MEDS: Aspirin 81 MG TAB.CHEW PO (09:13)
[2024-02-07] MEDS: Famotidine 20 MG TABLET PO ×2 (09:13→20:35)
--- NOTE | 2024-02-07 17:48 | HO.PSYCHPN ---
Subjective Subjective Date of Service: 02/07/24 Reason For Visit: agitation Interim History: Met with patient; discussed with team Patient pleasant on approach, friendly. She asked if I know her family and if anyone was here visiting; patient robbed science writer's arm in a warm hello Mental Status Exam Mental Status Exam Patient Appearance: Disheveled (Somewhat) Patient Orientation: Person Level of Consciousness: Awake Patient Behavior: Passive and Good Eye Contact Mood Description: Calm (Everything is great) Affect Description: Calm Patient Cognition Impaired: Yes Ability to Follow Directions: Good Speech Pattern: Clear Memory Description: Immediate Impaired Judgement and Insight: Impaired Diagnostics Vital Signs (24Hr): Vital Signs - 24 hr 02/06/24 20:00 02/07/24 02:00 02/07/24 08:00 Temperature 98.0 F 96.9 F 97.2 F Pulse Rate 67 74 66 Respiratory Rate 18 18 18 Blood Pressure 149/65 H 177/74 H 164/72 H Pulse Oximetry 99 97 97 Oxygen Delivery Method Room Air Room Air Room Air 02/07/24 09:11 02/07/24 09:12 Temperature Pulse Rate 66 Respiratory Rate Blood Pressure 164/72 H 164/72 H Pulse Oximetry Oxygen Delivery Method BMI result Body Mass Index 21.9 Labs 12/20/23 07:10 12/28/23 07:22 Imaging Radiology Impressions: ITS Impressions Chest X-Ray 12/20/23 07:54 IMPRESSION: Unremarkable examination. Head CT 12/20/23 08:32 IMPRESSION: No acute intracranial pathology. 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 Medications Medications Current Medications Acetaminophen (Acetaminophen 325 Mg Tablet) 650 mg PO Q6H PRN PRN Reason: Headache/Pain Mild Scale (1-3) Last Admin: 02/01/24 20:53 Dose: 650 mg Al Hydroxide/Mg Hydroxide (Magnesium Hydrox/Alum Hydrox 30 Ml Oral.Susp) 30 ml PO Q6H PRN PRN Reason: Heartburn/Nausea Amlodipine Besylate (Amlodipine Besylate 2.5 Mg Tablet) 7.5 mg PO DAILY [facility]; Protocol Last Admin: 02/07/24 09:11 Dose: 7.5 mg Aspirin (Aspirin 81 Mg Tab.Chew) 81 mg PO DAILY [facility] Last Admin: 02/07/24 09:13 Dose: 81 mg Atenolol (Atenolol 50 Mg Tablet) 50 mg PO DAILY [facility]; Protocol Last Admin: 02/07/24 09:12 Dose: 50 mg Atorvastatin Calcium (Atorvastatin Calcium 10 Mg Tablet) 10 mg PO DAILY [facility] Last Admin: 02/07/24 09:12 Dose: 10 mg Benzocaine (Throat Lozenge, Medicated Lozenge) 1 lozenge MUCOUS MEM Q2H PRN PRN Reason: Sore Throat Last Admin: 02/01/24 16:10 Dose: 1 lozenge Famotidine (Famotidine 20 Mg Tablet) 20 mg PO BID [facility] Last Admin: 02/07/24 09:13 Dose: 20 mg Hydroxyzine HCl (Hydroxyzine Hcl 25 Mg Tablet) 25 mg PO Q6H PRN PRN Reason: Anxiety Last Admin: 02/06/24 20:03 Dose: 25 mg Loratadine (Loratadine 10 Mg Tablet) 10 mg PO DAILY [facility] Last Admin: 02/07/24 09:13 Dose: 10 mg Magnesium Hydroxide (Milk Of Magnesia 30 Ml Oral.Susp) 30 ml PO DAILY PRN PRN Reason: Constipation Magnesium Oxide (Magnesium Oxide 400 Mg Tablet) 400 mg PO BID [facility] Last Admin: 02/07/24 09:12 Dose: 400 mg Trazodone HCl (Trazodone Hcl 50 Mg Tablet) 50 mg PO BEDTIME PRN PRN Reason: Insomnia Last Admin: 02/06/24 20:03 Dose: 50 mg Allergies Allergies Allergy/AdvReac Type Severity Reaction Status Date / Time nitrofurantoin Allergy Mild SWELLING Verified 12/21/23 08:01 [From Macrodantin] nitroglycerin Allergy Unknown Verified 12/21/23 08:01 Assessment & Plan Assessment & Plan (1) Major neurocognitive disorder: Status: Acute Code(s): F03.90 - Unspecified dementia, unspecified severity, without behavioral disturbance, psychotic disturbance, mood disturbance, and anxiety Plan 1. continue current medications 12/27 Mag improved to 1.8, Na to 134. no agitation. 12/30/2023: Continue current regimen and plans 12/31 continue tx. 01/01 continue tx. 01/02 continue tx 01/03 continue tx 01/04 continue tx. 01/05 continue tx. 01/06 continue tx. 01/07 continue tx. 01/08 continue tx. 01/11/24 Cont plan of care d/c planning 01/11 continue treatment 01/12 continue treatment 01/13 continue tx. BP slightly elevated SBP 160's, taking amlodipine 7.5mg po daily. continue to monitor. 01/14 continue tx. 01/15 continue tx. 01/16 continue tx 01/17 continue tx. 01/19/2024 Continue plan of care 01/20/2024 Continue plan of care 01/21 continue tx. awaiting placement. 01/22 continue tx. 01/24 continue tx. 01/25: Continue current treatment and plan 01/26: Continue current regimen and plans 01/27 pt reports sore throat, no SOB, no cough, no congestion, afebrile. pending covid/rsv/flu. cepacol now but will continue to monitor. may add antihistamine, for possible allergies. 01/28 continue current tx. covid/rsv/flu negative. afebrile. 01/30 continue tx 01/31 continue tx. 02/01: continue current management and treatment plan. 02/02: continue current management and treatment plan. 02/03: continue current management and treatment plan. 02/04 continue tx. awaiting placement 02/05 continue treatment plan Patient educated on: diagnosis Informed Consent: does not understand Reason for continued inpatient stay Substantial Risk for: inability to function Time Spent With Patient Time: Total time managing care of this patient today ____ minutes.
[2024-02-07 19:39] VITALS: BP 134/64; PULSE 71; RESP 18; TEMP 37.3; O2SAT 97
[2024-02-07] MEDS: hydrOXYzine HCL 25 MG TABLET PO (20:35)
[2024-02-07] MEDS: traZODone HCL 50 MG TABLET PO (20:35)
[2024-02-08 07:45] VITALS: BP 141/64; PULSE 64; RESP 18; TEMP 36; O2SAT 98
[2024-02-08] MEDS: Aspirin 81 MG TAB.CHEW PO (08:41)
[2024-02-08] MEDS: amLODIPine Besylate 2.5 MG TABLET 7.5 MG PO (08:41)
[2024-02-08] MEDS: Magnesium Oxide 400 MG TABLET PO ×2 (08:42→20:50)
[2024-02-08] MEDS: atenoloL 50 MG TABLET PO (08:42)
[2024-02-08] MEDS: Atorvastatin Calcium 10 MG TABLET PO (08:42)
[2024-02-08] MEDS: Famotidine 20 MG TABLET PO ×2 (08:43→20:50)
[2024-02-08] MEDS: Loratadine 10 MG TABLET PO (08:43)
--- NOTE | 2024-02-08 13:48 | HO.PSYCHPN ---
Subjective Subjective Date of Service: 02/08/24 Reason For Visit: agitation Interim History: Met with patient; discussed with team Change in presentation. Patient warm and friendly on approach; no request a no complaints Mental Status Exam Mental Status Exam Patient Appearance: Disheveled (Somewhat) Patient Orientation: Person Level of Consciousness: Awake Patient Behavior: Passive and Good Eye Contact Mood Description: Calm (Everything is great) Affect Description: Calm Patient Cognition Impaired: Yes Ability to Follow Directions: Good Speech Pattern: Clear Memory Description: Immediate Impaired Judgement and Insight: Impaired Diagnostics Vital Signs (24Hr): Vital Signs - 24 hr 02/07/24 19:39 02/08/24 07:45 Temperature 99.2 F 96.8 F Pulse Rate 71 64 Respiratory Rate 18 18 Blood Pressure 134/64 141/64 H Pulse Oximetry 97 98 Oxygen Delivery Method Room Air Room Air BMI result Body Mass Index 21.9 Labs 12/20/23 07:10 12/28/23 07:22 Imaging Radiology Impressions: ITS Impressions Chest X-Ray 12/20/23 07:54 IMPRESSION: Unremarkable examination. Head CT 12/20/23 08:32 IMPRESSION: No acute intracranial pathology. 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 Medications Medications Current Medications Acetaminophen (Acetaminophen 325 Mg Tablet) 650 mg PO Q6H PRN PRN Reason: Headache/Pain Mild Scale (1-3) Last Admin: 02/01/24 20:53 Dose: 650 mg Al Hydroxide/Mg Hydroxide (Magnesium Hydrox/Alum Hydrox 30 Ml Oral.Susp) 30 ml PO Q6H PRN PRN Reason: Heartburn/Nausea Amlodipine Besylate (Amlodipine Besylate 2.5 Mg Tablet) 7.5 mg PO DAILY [facility]; Protocol Last Admin: 02/08/24 08:41 Dose: 7.5 mg Aspirin (Aspirin 81 Mg Tab.Chew) 81 mg PO DAILY [facility] Last Admin: 02/08/24 08:41 Dose: 81 mg Atenolol (Atenolol 50 Mg Tablet) 50 mg PO DAILY [facility]; Protocol Last Admin: 02/08/24 08:42 Dose: 50 mg Atorvastatin Calcium (Atorvastatin Calcium 10 Mg Tablet) 10 mg PO DAILY [facility] Last Admin: 02/08/24 08:42 Dose: 10 mg Benzocaine (Throat Lozenge, Medicated Lozenge) 1 lozenge MUCOUS MEM Q2H PRN PRN Reason: Sore Throat Last Admin: 02/01/24 16:10 Dose: 1 lozenge Famotidine (Famotidine 20 Mg Tablet) 20 mg PO BID [facility] Last Admin: 02/08/24 08:43 Dose: 20 mg Hydroxyzine HCl (Hydroxyzine Hcl 25 Mg Tablet) 25 mg PO Q6H PRN PRN Reason: Anxiety Last Admin: 02/07/24 20:35 Dose: 25 mg Loratadine (Loratadine 10 Mg Tablet) 10 mg PO DAILY [facility] Last Admin: 02/08/24 08:43 Dose: 10 mg Magnesium Hydroxide (Milk Of Magnesia 30 Ml Oral.Susp) 30 ml PO DAILY PRN PRN Reason: Constipation Magnesium Oxide (Magnesium Oxide 400 Mg Tablet) 400 mg PO BID [facility] Last Admin: 02/08/24 08:42 Dose: 400 mg Trazodone HCl (Trazodone Hcl 50 Mg Tablet) 50 mg PO BEDTIME PRN PRN Reason: Insomnia Last Admin: 02/07/24 20:35 Dose: 50 mg Allergies Allergies Allergy/AdvReac Type Severity Reaction Status Date / Time nitrofurantoin Allergy Mild SWELLING Verified 12/21/23 08:01 [From Macrodantin] nitroglycerin Allergy Unknown Verified 12/21/23 08:01 Assessment & Plan Assessment & Plan (1) Major neurocognitive disorder: Status: Acute Code(s): F03.90 - Unspecified dementia, unspecified severity, without behavioral disturbance, psychotic disturbance, mood disturbance, and anxiety Plan 1. continue current medications 12/27 Mag improved to 1.8, Na to 134. no agitation. 12/30/2023: Continue current regimen and plans 12/31 continue tx. 01/01 continue tx. 01/02 continue tx 01/03 continue tx 01/04 continue tx. 01/05 continue tx. 01/06 continue tx. 01/07 continue tx. 01/08 continue tx. 01/11/24 Cont plan of care d/c planning 01/11 continue treatment 01/12 continue treatment 01/13 continue tx. BP slightly elevated SBP 160's, taking amlodipine 7.5mg po daily. continue to monitor. 01/14 continue tx. 01/15 continue tx. 01/16 continue tx 01/17 continue tx. 01/19/2024 Continue plan of care 01/20/2024 Continue plan of care 01/21 continue tx. awaiting placement. 01/22 continue tx. 01/24 continue tx. 01/25: Continue current treatment and plan 01/26: Continue current regimen and plans 01/27 pt reports sore throat, no SOB, no cough, no congestion, afebrile. pending covid/rsv/flu. cepacol now but will continue to monitor. may add antihistamine, for possible allergies. 01/28 continue current tx. covid/rsv/flu negative. afebrile. 01/30 continue tx 01/31 continue tx. 02/01: continue current management and treatment plan. 02/02: continue current management and treatment plan. 02/03: continue current management and treatment plan. 02/04 continue tx. awaiting placement 02/05 continue treatment plan Reason for continued inpatient stay Substantial Risk for: inability to function Time Spent With Patient Time: Total time managing care of this patient today ____ minutes.
[2024-02-08 20:00] VITALS: BP 162/64; PULSE 73; RESP 18; TEMP 36.6; O2SAT 97
[2024-02-08] MEDS: traZODone HCL 50 MG TABLET PO (20:50)
[2024-02-08] MEDS: hydrOXYzine HCL 25 MG TABLET PO (20:50)
[2024-02-09 08:00] VITALS: BP 148/72; PULSE 74; RESP 18; TEMP 36.6; O2SAT 97
[2024-02-09 08:48] VITALS: BP 148/72
[2024-02-09] MEDS: amLODIPine Besylate 2.5 MG TABLET 7.5 MG PO (08:48)
[2024-02-09 08:49] VITALS: BP 148/72; PULSE 74
[2024-02-09] MEDS: Famotidine 20 MG TABLET PO ×2 (08:49→20:14)
[2024-02-09] MEDS: Aspirin 81 MG TAB.CHEW PO (08:49)
[2024-02-09] MEDS: atenoloL 50 MG TABLET PO (08:49)
[2024-02-09] MEDS: Magnesium Oxide 400 MG TABLET PO ×2 (08:50→20:14)
[2024-02-09] MEDS: Atorvastatin Calcium 10 MG TABLET PO (08:50)
[2024-02-09] MEDS: Loratadine 10 MG TABLET PO (09:47)
--- NOTE | 2024-02-09 11:11 | HO.PSYCHPN ---
Subjective Subjective Date of Service: 02/09/24 Reason For Visit: agitation Interim History: met with patient. Discussed with Nursing. Overall very pleasant on the unit. in the milieu. Engaging with peers. Very pleasant. Clear cognitive impairment consistent with established dementia. Asks creative services writer where she was. [facility]. Asks how long she has been here for and also Am I alright, did I have a heart attack or something? I feel fine . Medication Compliance: Yes Side effects from medications: No Attending Groups: Yes Review of Systems Acute medical concerns: No Review of Systems Review of Systems Unremarkable Mental Status Exam Mental Status Exam Narrative: pleasant. Engaged. Casually dressed. Fair hygiene. Clear cognitive impairment consistent with established dementia. Bright and euthymic. No evidence of SI HI agitation paranoia or hallucinations. Insight and judgment consistent with established dementia Diagnostics Vital Signs (24Hr): Vital Signs - 24 hr 02/08/24 20:00 02/09/24 08:00 02/09/24 08:48 Temperature 97.9 F 97.8 F Pulse Rate 73 74 Respiratory Rate 18 18 Blood Pressure 162/64 H 148/72 H 148/72 H Pulse Oximetry 97 97 Oxygen Delivery Method Room Air Room Air 02/09/24 08:49 Temperature Pulse Rate 74 Respiratory Rate Blood Pressure 148/72 H Pulse Oximetry Oxygen Delivery Method BMI result Body Mass Index 21.9 Labs 12/20/23 07:10 12/28/23 07:22 Imaging Radiology Impressions: ITS Impressions Chest X-Ray 12/20/23 07:54 IMPRESSION: Unremarkable examination. Head CT 12/20/23 08:32 IMPRESSION: No acute intracranial pathology. 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 Medications Medications Current Medications Acetaminophen (Acetaminophen 325 Mg Tablet) 650 mg PO Q6H PRN PRN Reason: Headache/Pain Mild Scale (1-3) Last Admin: 02/01/24 20:53 Dose: 650 mg Al Hydroxide/Mg Hydroxide (Magnesium Hydrox/Alum Hydrox 30 Ml Oral.Susp) 30 ml PO Q6H PRN PRN Reason: Heartburn/Nausea Amlodipine Besylate (Amlodipine Besylate 2.5 Mg Tablet) 7.5 mg PO DAILY [facility]; Protocol Last Admin: 02/09/24 08:48 Dose: 7.5 mg Aspirin (Aspirin 81 Mg Tab.Chew) 81 mg PO DAILY [facility] Last Admin: 02/09/24 08:49 Dose: 81 mg Atenolol (Atenolol 50 Mg Tablet) 50 mg PO DAILY [facility]; Protocol Last Admin: 02/09/24 08:49 Dose: 50 mg Atorvastatin Calcium (Atorvastatin Calcium 10 Mg Tablet) 10 mg PO DAILY [facility] Last Admin: 02/09/24 08:50 Dose: 10 mg Benzocaine (Throat Lozenge, Medicated Lozenge) 1 lozenge MUCOUS MEM Q2H PRN PRN Reason: Sore Throat Last Admin: 02/01/24 16:10 Dose: 1 lozenge Famotidine (Famotidine 20 Mg Tablet) 20 mg PO BID [facility] Last Admin: 02/09/24 08:49 Dose: 20 mg Hydroxyzine HCl (Hydroxyzine Hcl 25 Mg Tablet) 25 mg PO Q6H PRN PRN Reason: Anxiety Last Admin: 02/08/24 20:50 Dose: 25 mg Loratadine (Loratadine 10 Mg Tablet) 10 mg PO DAILY [facility] Last Admin: 02/09/24 09:47 Dose: 10 mg Magnesium Hydroxide (Milk Of Magnesia 30 Ml Oral.Susp) 30 ml PO DAILY PRN PRN Reason: Constipation Magnesium Oxide (Magnesium Oxide 400 Mg Tablet) 400 mg PO BID [facility] Last Admin: 02/09/24 08:50 Dose: 400 mg Trazodone HCl (Trazodone Hcl 50 Mg Tablet) 50 mg PO BEDTIME PRN PRN Reason: Insomnia Last Admin: 02/08/24 20:50 Dose: 50 mg Allergies Allergies Allergy/AdvReac Type Severity Reaction Status Date / Time nitrofurantoin Allergy Mild SWELLING Verified 12/21/23 08:01 [From Macrodantin] nitroglycerin Allergy Unknown Verified 12/21/23 08:01 Assessment & Plan Assessment & Plan (1) Major neurocognitive disorder: Status: Acute Code(s): F03.90 - Unspecified dementia, unspecified severity, without behavioral disturbance, psychotic disturbance, mood disturbance, and anxiety Plan 1. continue current medications 12/27 Mag improved to 1.8, Na to 134. no agitation. 12/30/2023: Continue current regimen and plans 12/31 continue tx. 01/01 continue tx. 01/02 continue tx 01/03 continue tx 01/04 continue tx. 01/05 continue tx. 01/06 continue tx. 01/07 continue tx. 01/08 continue tx. 01/11/24 Cont plan of care d/c planning 01/11 continue treatment 01/12 continue treatment 01/13 continue tx. BP slightly elevated SBP 160's, taking amlodipine 7.5mg po daily. continue to monitor. 01/14 continue tx. 01/15 continue tx. 01/16 continue tx 01/17 continue tx. 01/19/2024 Continue plan of care 01/20/2024 Continue plan of care 01/21 continue tx. awaiting placement. 01/22 continue tx. 01/24 continue tx. 01/25: Continue current treatment and plan 01/26: Continue current regimen and plans 01/27 pt reports sore throat, no SOB, no cough, no congestion, afebrile. pending covid/rsv/flu. cepacol now but will continue to monitor. may add antihistamine, for possible allergies. 01/28 continue current tx. covid/rsv/flu negative. afebrile. 01/30 continue tx 01/31 continue tx. 02/01: continue current management and treatment plan. 02/02: continue current management and treatment plan. 02/03: continue current management and treatment plan. 02/04 continue tx. awaiting placement 02/05 continue treatment plan 02/09/2024: No changes Reason for continued inpatient stay Substantial Risk for: inability to function Time Spent With Patient Time: Total time managing care of this patient today ____ minutes.
[2024-02-09] MEDS: Acetaminophen 325 MG TABLET 650 MG PO (18:32)
--- NOTE | 2024-02-09 18:35 | PC.NURSE ---
Patient medicated with Tylenol 650mg at 1835 for C/O headache. Will continue to monitor.
[2024-02-09 20:00] VITALS: BP 141/64; PULSE 70; RESP 18; TEMP 36.4; O2SAT 96
[2024-02-09] MEDS: hydrOXYzine HCL 25 MG TABLET PO (20:14)
[2024-02-09] MEDS: traZODone HCL 50 MG TABLET PO (20:14)
[2024-02-09] MEDS: Throat Lozenge, Medicated LOZENGE 1 LOZENGE MUCOUS MEM (20:14)
[2024-02-10 08:00] VITALS: BP 119/56; PULSE 68; RESP 18; TEMP 36.7; O2SAT 97
[2024-02-10 08:37] VITALS: BP 119/56
[2024-02-10] MEDS: amLODIPine Besylate 2.5 MG TABLET 7.5 MG PO (08:37)
[2024-02-10 08:38] VITALS: BP 119/56; PULSE 68
[2024-02-10] MEDS: Magnesium Oxide 400 MG TABLET PO ×2 (08:38→20:35)
[2024-02-10] MEDS: atenoloL 50 MG TABLET PO (08:38)
[2024-02-10] MEDS: Famotidine 20 MG TABLET PO ×2 (08:39→20:35)
[2024-02-10] MEDS: Aspirin 81 MG TAB.CHEW PO (08:39)
[2024-02-10] MEDS: Loratadine 10 MG TABLET PO (08:39)
[2024-02-10] MEDS: Atorvastatin Calcium 10 MG TABLET PO (08:39)
--- NOTE | 2024-02-10 11:04 | HO.PSYCHPN ---
Subjective Subjective Date of Service: 02/10/24 Reason For Visit: agitation Interim History: Met with patient. Discussed with Nursing. Overall very pleasant on the unit. Engaging with peers. Very pleasant. Clear cognitive impairment consistent with established dementia. No complaints. Continues to ask for coffee very frequently Medication Compliance: Yes Side effects from medications: No Attending Groups: Intermittent Review of Systems Acute medical concerns: No Review of Systems Review of Systems Unremarkable Mental Status Exam Mental Status Exam Narrative: pleasant. Engaged. Casually dressed. Fair hygiene. Clear cognitive impairment consistent with established dementia. Bright and euthymic. No evidence of SI HI agitation paranoia or hallucinations. Insight and judgment consistent with established dementia Diagnostics Vital Signs (24Hr): Vital Signs - 24 hr 02/09/24 20:00 02/10/24 08:00 02/10/24 08:37 Temperature 97.6 F 98.1 F Pulse Rate 70 68 Respiratory Rate 18 18 Blood Pressure 141/64 H 119/56 L 119/56 L Pulse Oximetry 96 97 Oxygen Delivery Method Room Air Room Air 02/10/24 08:38 Temperature Pulse Rate 68 Respiratory Rate Blood Pressure 119/56 L Pulse Oximetry Oxygen Delivery Method BMI result Body Mass Index 21.9 Labs 12/20/23 07:10 12/28/23 07:22 Imaging Radiology Impressions: ITS Impressions Chest X-Ray 12/20/23 07:54 IMPRESSION: Unremarkable examination. Head CT 12/20/23 08:32 IMPRESSION: No acute intracranial pathology. 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 Medications Medications Current Medications Acetaminophen (Acetaminophen 325 Mg Tablet) 650 mg PO Q6H PRN PRN Reason: Headache/Pain Mild Scale (1-3) Last Admin: 02/09/24 18:32 Dose: 650 mg Al Hydroxide/Mg Hydroxide (Magnesium Hydrox/Alum Hydrox 30 Ml Oral.Susp) 30 ml PO Q6H PRN PRN Reason: Heartburn/Nausea Amlodipine Besylate (Amlodipine Besylate 2.5 Mg Tablet) 7.5 mg PO DAILY [facility]; Protocol Last Admin: 02/10/24 08:37 Dose: 7.5 mg Aspirin (Aspirin 81 Mg Tab.Chew) 81 mg PO DAILY [facility] Last Admin: 02/10/24 08:39 Dose: 81 mg Atenolol (Atenolol 50 Mg Tablet) 50 mg PO DAILY [facility]; Protocol Last Admin: 02/10/24 08:38 Dose: 50 mg Atorvastatin Calcium (Atorvastatin Calcium 10 Mg Tablet) 10 mg PO DAILY [facility] Last Admin: 02/10/24 08:39 Dose: 10 mg Benzocaine (Throat Lozenge, Medicated Lozenge) 1 lozenge MUCOUS MEM Q2H PRN PRN Reason: Sore Throat Last Admin: 02/09/24 20:14 Dose: 1 lozenge Famotidine (Famotidine 20 Mg Tablet) 20 mg PO BID [facility] Last Admin: 02/10/24 08:39 Dose: 20 mg Hydroxyzine HCl (Hydroxyzine Hcl 25 Mg Tablet) 25 mg PO Q6H PRN PRN Reason: Anxiety Last Admin: 02/09/24 20:14 Dose: 25 mg Loratadine (Loratadine 10 Mg Tablet) 10 mg PO DAILY [facility] Last Admin: 02/10/24 08:39 Dose: 10 mg Magnesium Hydroxide (Milk Of Magnesia 30 Ml Oral.Susp) 30 ml PO DAILY PRN PRN Reason: Constipation Magnesium Oxide (Magnesium Oxide 400 Mg Tablet) 400 mg PO BID [facility] Last Admin: 02/10/24 08:38 Dose: 400 mg Trazodone HCl (Trazodone Hcl 50 Mg Tablet) 50 mg PO BEDTIME PRN PRN Reason: Insomnia Last Admin: 02/09/24 20:14 Dose: 50 mg Allergies Allergies Allergy/AdvReac Type Severity Reaction Status Date / Time nitrofurantoin Allergy Mild SWELLING Verified 12/21/23 08:01 [From Macrodantin] nitroglycerin Allergy Unknown Verified 12/21/23 08:01 Assessment & Plan Assessment & Plan (1) Major neurocognitive disorder: Status: Acute Code(s): F03.90 - Unspecified dementia, unspecified severity, without behavioral disturbance, psychotic disturbance, mood disturbance, and anxiety Plan 1. continue current medications 12/27 Mag improved to 1.8, Na to 134. no agitation. 12/30/2023: Continue current regimen and plans 12/31 continue tx. 01/01 continue tx. 01/02 continue tx 01/03 continue tx 01/04 continue tx. 01/05 continue tx. 01/06 continue tx. 01/07 continue tx. 01/08 continue tx. 01/11/24 Cont plan of care d/c planning 01/11 continue treatment 01/12 continue treatment 5/6 continue tx. BP slightly elevated SBP 160's, taking amlodipine 7.5mg po daily. continue to monitor. 01/14 continue tx. 01/15 continue tx. 01/16 continue tx 01/17 continue tx. 01/19/2024 Continue plan of care 01/20/2024 Continue plan of care 01/21 continue tx. awaiting placement. 01/22 continue tx. 01/24 continue tx. 01/25: Continue current treatment and plan 01/26: Continue current regimen and plans 01/27 pt reports sore throat, no SOB, no cough, no congestion, afebrile. pending covid/rsv/flu. cepacol now but will continue to monitor. may add antihistamine, for possible allergies. 01/28 continue current tx. covid/rsv/flu negative. afebrile. 01/30 continue tx 01/31 continue tx. 02/01: continue current management and treatment plan. 02/02: continue current management and treatment plan. 02/03: continue current management and treatment plan. 02/04 continue tx. awaiting placement 02/05 continue treatment plan 02/10/2024: No changes Reason for continued inpatient stay Substantial Risk for: inability to function Time Spent With Patient Time: Total time managing care of this patient today ____ minutes.
[2024-02-10 20:00] VITALS: BP 155/68; PULSE 63; TEMP 36.4; O2SAT 99
[2024-02-10] MEDS: traZODone HCL 50 MG TABLET PO (20:35)
[2024-02-11 07:59] VITALS: BP 128/59; PULSE 63; RESP 17; TEMP 36.6; O2SAT 98
[2024-02-11 08:00] VITALS: BP 128/59; PULSE 63
[2024-02-11] MEDS: Famotidine 20 MG TABLET PO ×2 (08:00→21:29)
[2024-02-11] MEDS: atenoloL 50 MG TABLET PO (08:00)
[2024-02-11] MEDS: Atorvastatin Calcium 10 MG TABLET PO (08:00)
[2024-02-11] MEDS: Magnesium Oxide 400 MG TABLET PO ×2 (08:00→21:29)
[2024-02-11 08:01] VITALS: BP 128/59
[2024-02-11] MEDS: amLODIPine Besylate 2.5 MG TABLET 7.5 MG PO (08:01)
[2024-02-11] MEDS: Loratadine 10 MG TABLET PO (08:01)
[2024-02-11] MEDS: Aspirin 81 MG TAB.CHEW PO (08:01)
--- NOTE | 2024-02-11 10:30 | P.PNPSI_ITS ---
Subjective Subjective Date of Service: 02/11/24 Reason For Visit: agitation Interim History: Met with patient; discussed with team Change in presentation. Patient warm and friendly on approach; no request a no complaints Review of Systems Review of Systems Unremarkable Yes all other systems are reviewed and are negative and Unobtainable due to mental status Constitutional: Reports as per HPI and Reports no additional constitutional complaints Eyes: Reports as per HPI and Denies no additional eye complaints Denies system reviewed and no additional complaints, except as documented and Reports as per HPI Cardiovascular: Reports as per HPI, Reports no additional cardiovascular complaints, Denies acrocyanosis, Denies cool extremities, Denies chest pain, Denies leg edema, Denies lightheadedness, Denies palpitations and Denies dyspnea Respiratory: Reports as per HPI, Denies no additional respiratory complaints and Denies dyspnea Gastrointestinal: Reports as per HPI and Denies no additional gastrointestinal complaints Musculoskeletal: Reports no additional musculoskeletal complaints and Reports as per HPI Skin/Breast: Reports system reviewed and no additional complaints, except as docu Reports system reviewed and no additional complaints, except as documented and Reports as per HPI Psychiatric: Reports no additional psychiatric complaints and Reports as per HPI Endocrine: Reports no additional endocrine complaints, Reports as per HPI and Denies palpitations Hematologic/Lymphatic: Reports no additional hematologic/lymphatic complaints and Reports as per HPI Allergic/Immunologic: Reports no additional allergic/immunologic complaints and Reports as per HPI Mental Status Exam Mental Status Exam Narrative: Appearance: wearing casual clothing, good hygiene, in NAD Behavior: pleasant Speech: [id number], mostly clear, regular rate/rhythm/volume, spontaneous TP: mostly linear TC: feeling well Mood: good Affect: congruent, bright SI: none HI: none VH/AH: none Delusions: none Insight/judgment: impaired x 2. memory/cog: alert, oriented to self, not situation, month or date or year. Diagnostics Vital Signs (24Hr): Vital Signs - 24 hr 02/10/24 20:00 02/11/24 07:59 02/11/24 08:00 Temperature 97.6 F 97.9 F Pulse Rate 63 63 63 Respiratory Rate 17 Blood Pressure 155/68 H 128/59 L 128/59 L Pulse Oximetry 99 98 Oxygen Delivery Method Room Air Room Air 02/11/24 08:01 Temperature Pulse Rate Respiratory Rate Blood Pressure 128/59 L Pulse Oximetry Oxygen Delivery Method BMI result Body Mass Index 21.9 Labs 12/20/23 07:10 12/28/23 07:22 Imaging Radiology Impressions: ITS Impressions Chest X-Ray 12/20/23 07:54 IMPRESSION: Unremarkable examination. Head CT 12/20/23 08:32 IMPRESSION: No acute intracranial pathology. 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 Medications Medications Current Medications Acetaminophen (Acetaminophen 325 Mg Tablet) 650 mg PO Q6H PRN PRN Reason: Headache/Pain Mild Scale (1-3) Last Admin: 02/09/24 18:32 Dose: 650 mg Al Hydroxide/Mg Hydroxide (Magnesium Hydrox/Alum Hydrox 30 Ml Oral.Susp) 30 ml PO Q6H PRN PRN Reason: Heartburn/Nausea Amlodipine Besylate (Amlodipine Besylate 2.5 Mg Tablet) 7.5 mg PO DAILY [facility]; Protocol Last Admin: 02/11/24 08:01 Dose: 7.5 mg Aspirin (Aspirin 81 Mg Tab.Chew) 81 mg PO DAILY [facility] Last Admin: 02/11/24 08:01 Dose: 81 mg Atenolol (Atenolol 50 Mg Tablet) 50 mg PO DAILY [facility]; Protocol Last Admin: 02/11/24 08:00 Dose: 50 mg Atorvastatin Calcium (Atorvastatin Calcium 10 Mg Tablet) 10 mg PO DAILY [facility] Last Admin: 02/11/24 08:00 Dose: 10 mg Benzocaine (Throat Lozenge, Medicated Lozenge) 1 lozenge MUCOUS MEM Q2H PRN PRN Reason: Sore Throat Last Admin: 02/09/24 20:14 Dose: 1 lozenge Famotidine (Famotidine 20 Mg Tablet) 20 mg PO BID [facility] Last Admin: 02/11/24 08:00 Dose: 20 mg Hydroxyzine HCl (Hydroxyzine Hcl 25 Mg Tablet) 25 mg PO Q6H PRN PRN Reason: Anxiety Last Admin: 02/09/24 20:14 Dose: 25 mg Loratadine (Loratadine 10 Mg Tablet) 10 mg PO DAILY [facility] Last Admin: 02/11/24 08:01 Dose: 10 mg Magnesium Hydroxide (Milk Of Magnesia 30 Ml Oral.Susp) 30 ml PO DAILY PRN PRN Reason: Constipation Magnesium Oxide (Magnesium Oxide 400 Mg Tablet) 400 mg PO BID [facility] Last Admin: 02/11/24 08:00 Dose: 400 mg Trazodone HCl (Trazodone Hcl 50 Mg Tablet) 50 mg PO BEDTIME PRN PRN Reason: Insomnia Last Admin: 02/10/24 20:35 Dose: 50 mg Allergies Allergies Allergy/AdvReac Type Severity Reaction Status Date / Time nitrofurantoin Allergy Mild SWELLING Verified 12/21/23 08:01 [From Macrodantin] nitroglycerin Allergy Unknown Verified 12/21/23 08:01 Assessment & Plan Assessment & Plan (1) Major neurocognitive disorder: Status: Acute Code(s): F03.90 - Unspecified dementia, unspecified severity, without behavioral disturbance, psychotic disturbance, mood disturbance, and anxiety Plan 1. continue current medications 12/27 Mag improved to 1.8, Na to 134. no agitation. 12/30/2023: Continue current regimen and plans 12/31 continue tx. 01/01 continue tx. 01/02 continue tx 01/03 continue tx 01/04 continue tx. 01/05 continue tx. 01/06 continue tx. 01/07 continue tx. 01/08 continue tx. 01/11/24 Cont plan of care d/c planning 01/11 continue treatment 01/12 continue treatment 01/13 continue tx. BP slightly elevated SBP 160's, taking amlodipine 7.5mg po daily. continue to monitor. 01/14 continue tx. 01/15 continue tx. 01/16 continue tx 01/17 continue tx. 01/19/2024 Continue plan of care 01/20/2024 Continue plan of care 01/21 continue tx. awaiting placement. 01/22 continue tx. 01/24 continue tx. 01/25: Continue current treatment and plan 01/26: Continue current regimen and plans 01/27 pt reports sore throat, no SOB, no cough, no congestion, afebrile. pending covid/rsv/flu. cepacol now but will continue to monitor. may add antihistamine, for possible allergies. 01/28 continue current tx. covid/rsv/flu negative. afebrile. 01/30 continue tx 01/31 continue tx. 02/01: continue current management and treatment plan. 02/02: continue current management and treatment plan. 02/03: continue current management and treatment plan. 02/04 continue tx. awaiting placement 02/05 continue treatment plan 02/10 continue tx. awaiting placement. Reason for continued inpatient stay Substantial Risk for: inability to function Time Spent With Patient Time: Total time managing care of this patient today ____ minutes.
[2024-02-11 19:45] VITALS: BP 152/71; PULSE 63; RESP 16; TEMP 36.4; O2SAT 99
[2024-02-11] MEDS: traZODone HCL 50 MG TABLET PO (21:29)
[2024-02-12 08:00] VITALS: BP 127/60; PULSE 60; RESP 17; TEMP 36.6; O2SAT 97
[2024-02-12] MEDS: Magnesium Oxide 400 MG TABLET PO ×2 (08:37→20:27)
[2024-02-12] MEDS: Aspirin 81 MG TAB.CHEW PO (08:37)
[2024-02-12 08:38] VITALS: BP 127/60; PULSE 60
[2024-02-12] MEDS: Famotidine 20 MG TABLET PO ×2 (08:38→20:27)
[2024-02-12] MEDS: Atorvastatin Calcium 10 MG TABLET PO (08:38)
[2024-02-12] MEDS: amLODIPine Besylate 2.5 MG TABLET 7.5 MG PO (08:38)
[2024-02-12] MEDS: atenoloL 50 MG TABLET PO (08:38)
[2024-02-12] MEDS: Loratadine 10 MG TABLET PO (08:38)
--- NOTE | 2024-02-12 09:31 | HO.PSYCHPN ---
Subjective Subjective Date of Service: 02/12/24 Reason For Visit: agitation Subjective Notes: Conditional Voluntary Healthcare Proxy: Yes Interim History: Pt slept through the night. No behavioral concerns. Pt pleasant on approach. No oriented to place or situation. SBP elevated last night- may monitor and adjust htn. Medication Compliance: Yes Side effects from medications: No Attending Groups: Intermittent Review of Systems Review of Systems Unremarkable Yes all other systems are reviewed and are negative and Unobtainable due to mental status Constitutional: Reports as per HPI and Reports no additional constitutional complaints Eyes: Reports as per HPI and Denies no additional eye complaints Denies system reviewed and no additional complaints, except as documented and Reports as per HPI Cardiovascular: Reports as per HPI, Reports no additional cardiovascular complaints, Denies acrocyanosis, Denies cool extremities, Denies chest pain, Denies leg edema, Denies lightheadedness, Denies palpitations and Denies dyspnea Respiratory: Reports as per HPI, Denies no additional respiratory complaints and Denies dyspnea Gastrointestinal: Reports as per HPI and Denies no additional gastrointestinal complaints Musculoskeletal: Reports no additional musculoskeletal complaints and Reports as per HPI Skin/Breast: Reports system reviewed and no additional complaints, except as docu Reports system reviewed and no additional complaints, except as documented and Reports as per HPI Psychiatric: Reports no additional psychiatric complaints and Reports as per HPI Endocrine: Reports no additional endocrine complaints, Reports as per HPI and Denies palpitations Hematologic/Lymphatic: Reports no additional hematologic/lymphatic complaints and Reports as per HPI Allergic/Immunologic: Reports no additional allergic/immunologic complaints and Reports as per HPI Mental Status Exam Mental Status Exam Narrative: Appearance: wearing casual clothing, good hygiene, in NAD Behavior: pleasant Speech: [place], mostly clear, regular rate/rhythm/volume, spontaneous TP: mostly linear TC: feeling well Mood: good Affect: congruent, bright SI: none HI: none VH/AH: none Delusions: none Insight/judgment: impaired x 2. memory/cog: alert, oriented to self, not situation, month or date or year. Diagnostics Vital Signs (24Hr): Vital Signs - 24 hr 02/11/24 19:45 02/12/24 08:00 02/12/24 08:38 Temperature 97.6 F 97.9 F Pulse Rate 63 60 60 Respiratory Rate 16 17 Blood Pressure 152/71 H 127/60 127/60 Pulse Oximetry 99 97 Oxygen Delivery Method Room Air Room Air 02/12/24 08:38 Temperature Pulse Rate Respiratory Rate Blood Pressure 127/60 Pulse Oximetry Oxygen Delivery Method BMI result Body Mass Index 21.9 Labs 12/20/23 07:10 12/28/23 07:22 Imaging Radiology Impressions: ITS Impressions Chest X-Ray 12/20/23 07:54 IMPRESSION: Unremarkable examination. Head CT 12/20/23 08:32 IMPRESSION: No acute intracranial pathology. 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 Medications Medications Current Medications Acetaminophen (Acetaminophen 325 Mg Tablet) 650 mg PO Q6H PRN PRN Reason: Headache/Pain Mild Scale (1-3) Last Admin: 02/09/24 18:32 Dose: 650 mg Al Hydroxide/Mg Hydroxide (Magnesium Hydrox/Alum Hydrox 30 Ml Oral.Susp) 30 ml PO Q6H PRN PRN Reason: Heartburn/Nausea Amlodipine Besylate (Amlodipine Besylate 2.5 Mg Tablet) 7.5 mg PO DAILY [facility]; Protocol Last Admin: 02/12/24 08:38 Dose: 7.5 mg Aspirin (Aspirin 81 Mg Tab.Chew) 81 mg PO DAILY [facility] Last Admin: 02/12/24 08:37 Dose: 81 mg Atenolol (Atenolol 50 Mg Tablet) 50 mg PO DAILY [facility]; Protocol Last Admin: 02/12/24 08:38 Dose: 50 mg Atorvastatin Calcium (Atorvastatin Calcium 10 Mg Tablet) 10 mg PO DAILY [facility] Last Admin: 02/12/24 08:38 Dose: 10 mg Benzocaine (Throat Lozenge, Medicated Lozenge) 1 lozenge MUCOUS MEM Q2H PRN PRN Reason: Sore Throat Last Admin: 02/09/24 20:14 Dose: 1 lozenge Famotidine (Famotidine 20 Mg Tablet) 20 mg PO BID [facility] Last Admin: 02/12/24 08:38 Dose: 20 mg Hydroxyzine HCl (Hydroxyzine Hcl 25 Mg Tablet) 25 mg PO Q6H PRN PRN Reason: Anxiety Last Admin: 02/09/24 20:14 Dose: 25 mg Loratadine (Loratadine 10 Mg Tablet) 10 mg PO DAILY [facility] Last Admin: 02/12/24 08:38 Dose: 10 mg Magnesium Hydroxide (Milk Of Magnesia 30 Ml Oral.Susp) 30 ml PO DAILY PRN PRN Reason: Constipation Magnesium Oxide (Magnesium Oxide 400 Mg Tablet) 400 mg PO BID [facility] Last Admin: 02/12/24 08:37 Dose: 400 mg Trazodone HCl (Trazodone Hcl 50 Mg Tablet) 50 mg PO BEDTIME PRN PRN Reason: Insomnia Last Admin: 02/11/24 21:29 Dose: 50 mg Allergies Allergies Allergy/AdvReac Type Severity Reaction Status Date / Time nitrofurantoin Allergy Mild SWELLING Verified 12/21/23 08:01 [From Macrodantin] nitroglycerin Allergy Unknown Verified 12/21/23 08:01 Assessment & Plan Assessment & Plan (1) Major neurocognitive disorder: Status: Acute Code(s): F03.90 - Unspecified dementia, unspecified severity, without behavioral disturbance, psychotic disturbance, mood disturbance, and anxiety Plan 1. continue current medications 12/27 Mag improved to 1.8, Na to 134. no agitation. 12/30/2023: Continue current regimen and plans 12/31 continue tx. 01/01 continue tx. 01/02 continue tx 01/03 continue tx 01/04 continue tx. 01/05 continue tx. 01/06 continue tx. 01/07 continue tx. 01/08 continue tx. 01/11/24 Cont plan of care d/c planning 01/11 continue treatment 01/12 continue treatment 01/13 continue tx. BP slightly elevated SBP 160's, taking amlodipine 7.5mg po daily. continue to monitor. 01/14 continue tx. 01/15 continue tx. 01/16 continue tx 01/17 continue tx. 01/19/2024 Continue plan of care 01/20/2024 Continue plan of care 01/21 continue tx. awaiting placement. 01/22 continue tx. 01/24 continue tx. 01/25: Continue current treatment and plan 01/26: Continue current regimen and plans 01/27 pt reports sore throat, no SOB, no cough, no congestion, afebrile. pending covid/rsv/flu. cepacol now but will continue to monitor. may add antihistamine, for possible allergies. 01/28 continue current tx. covid/rsv/flu negative. afebrile. 01/30 continue tx 01/31 continue tx. 02/01: continue current management and treatment plan. 02/02: continue current management and treatment plan. 02/03: continue current management and treatment plan. 02/04 continue tx. awaiting placement 02/05 continue treatment plan 02/10 continue tx. awaiting placement. 02/11 continue tx. Reason for continued inpatient stay Substantial Risk for: inability to function Time Spent With Patient Time: Total time managing care of this patient today ____ minutes.
[2024-02-12 20:00] VITALS: BP 173/77; PULSE 71; TEMP 36; O2SAT 100
[2024-02-12] MEDS: traZODone HCL 50 MG TABLET PO (20:27)
[2024-02-13 08:00] VITALS: BP 156/71; PULSE 70; RESP 18; TEMP 36.5; O2SAT 98
[2024-02-13] MEDS: Aspirin 81 MG TAB.CHEW PO (08:32)
[2024-02-13] MEDS: amLODIPine Besylate 2.5 MG TABLET 7.5 MG PO (08:32)
[2024-02-13] MEDS: atenoloL 50 MG TABLET PO (08:33)
[2024-02-13] MEDS: Loratadine 10 MG TABLET PO (08:33)
[2024-02-13] MEDS: Atorvastatin Calcium 10 MG TABLET PO (08:34)
[2024-02-13] MEDS: Magnesium Oxide 400 MG TABLET PO ×2 (08:34→20:33)
[2024-02-13] MEDS: Famotidine 20 MG TABLET PO ×2 (08:34→20:33)
--- NOTE | 2024-02-13 09:36 | HO.PSYCHPN ---
Subjective Subjective Date of Service: 02/13/24 Reason For Visit: agitation Interim History: Pt slept through the night. No behavioral concerns. Pt pleasant on approach. No oriented to place or situation. SBP elevated last night- may monitor and adjust htn. Review of Systems Review of Systems Unremarkable Yes all other systems are reviewed and are negative and Unobtainable due to mental status Constitutional: Reports as per HPI and Reports no additional constitutional complaints Eyes: Reports as per HPI and Denies no additional eye complaints Denies system reviewed and no additional complaints, except as documented and Reports as per HPI Cardiovascular: Reports as per HPI, Reports no additional cardiovascular complaints, Denies acrocyanosis, Denies cool extremities, Denies chest pain, Denies leg edema, Denies lightheadedness, Denies palpitations and Denies dyspnea Respiratory: Reports as per HPI, Denies no additional respiratory complaints and Denies dyspnea Gastrointestinal: Reports as per HPI and Denies no additional gastrointestinal complaints Musculoskeletal: Reports no additional musculoskeletal complaints and Reports as per HPI Skin/Breast: Reports system reviewed and no additional complaints, except as docu Reports system reviewed and no additional complaints, except as documented and Reports as per HPI Psychiatric: Reports no additional psychiatric complaints and Reports as per HPI Endocrine: Reports no additional endocrine complaints, Reports as per HPI and Denies palpitations Hematologic/Lymphatic: Reports no additional hematologic/lymphatic complaints and Reports as per HPI Allergic/Immunologic: Reports no additional allergic/immunologic complaints and Reports as per HPI Mental Status Exam Mental Status Exam Narrative: Appearance: wearing casual clothing, good hygiene, in NAD Behavior: pleasant Speech: [place], mostly clear, regular rate/rhythm/volume, spontaneous TP: mostly linear TC: feeling well Mood: good Affect: congruent, bright SI: none HI: none VH/AH: none Delusions: none Insight/judgment: impaired x 2. memory/cog: alert, oriented to self, not situation, month or date or year. Diagnostics Vital Signs (24Hr): Vital Signs - 24 hr 02/12/24 20:00 02/13/24 08:00 Temperature 96.8 F 97.7 F Pulse Rate 71 70 Respiratory Rate 18 Blood Pressure 173/77 H 156/71 H Pulse Oximetry 100 98 Oxygen Delivery Method Room Air Room Air BMI result Body Mass Index 21.9 Labs 12/20/23 07:10 12/28/23 07:22 Imaging Radiology Impressions: ITS Impressions Chest X-Ray 12/20/23 07:54 IMPRESSION: Unremarkable examination. Head CT 12/20/23 08:32 IMPRESSION: No acute intracranial pathology. 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 Medications Medications Current Medications Acetaminophen (Acetaminophen 325 Mg Tablet) 650 mg PO Q6H PRN PRN Reason: Headache/Pain Mild Scale (1-3) Last Admin: 02/09/24 18:32 Dose: 650 mg Al Hydroxide/Mg Hydroxide (Magnesium Hydrox/Alum Hydrox 30 Ml Oral.Susp) 30 ml PO Q6H PRN PRN Reason: Heartburn/Nausea Amlodipine Besylate (Amlodipine Besylate 2.5 Mg Tablet) 7.5 mg PO DAILY [facility]; Protocol Last Admin: 02/13/24 08:32 Dose: 7.5 mg Aspirin (Aspirin 81 Mg Tab.Chew) 81 mg PO DAILY [facility] Last Admin: 02/13/24 08:32 Dose: 81 mg Atenolol (Atenolol 50 Mg Tablet) 50 mg PO DAILY [facility]; Protocol Last Admin: 02/13/24 08:33 Dose: 50 mg Atorvastatin Calcium (Atorvastatin Calcium 10 Mg Tablet) 10 mg PO DAILY [facility] Last Admin: 02/13/24 08:34 Dose: 10 mg Benzocaine (Throat Lozenge, Medicated Lozenge) 1 lozenge MUCOUS MEM Q2H PRN PRN Reason: Sore Throat Last Admin: 02/09/24 20:14 Dose: 1 lozenge Famotidine (Famotidine 20 Mg Tablet) 20 mg PO BID [facility] Last Admin: 02/13/24 08:34 Dose: 20 mg Hydroxyzine HCl (Hydroxyzine Hcl 25 Mg Tablet) 25 mg PO Q6H PRN PRN Reason: Anxiety Last Admin: 02/09/24 20:14 Dose: 25 mg Loratadine (Loratadine 10 Mg Tablet) 10 mg PO DAILY [facility] Last Admin: 02/13/24 08:33 Dose: 10 mg Magnesium Hydroxide (Milk Of Magnesia 30 Ml Oral.Susp) 30 ml PO DAILY PRN PRN Reason: Constipation Magnesium Oxide (Magnesium Oxide 400 Mg Tablet) 400 mg PO BID [facility] Last Admin: 02/13/24 08:34 Dose: 400 mg Trazodone HCl (Trazodone Hcl 50 Mg Tablet) 50 mg PO BEDTIME PRN PRN Reason: Insomnia Last Admin: 02/12/24 20:27 Dose: 50 mg Allergies Allergies Allergy/AdvReac Type Severity Reaction Status Date / Time nitrofurantoin Allergy Mild SWELLING Verified 12/21/23 08:01 [From Macrodantin] nitroglycerin Allergy Unknown Verified 12/21/23 08:01 Assessment & Plan Assessment & Plan (1) Major neurocognitive disorder: Status: Acute Code(s): F03.90 - Unspecified dementia, unspecified severity, without behavioral disturbance, psychotic disturbance, mood disturbance, and anxiety Plan 1. continue current medications 12/27 Mag improved to 1.8, Na to 134. no agitation. 12/30/2023: Continue current regimen and plans 12/31 continue tx. 01/01 continue tx. 01/02 continue tx 01/03 continue tx 01/04 continue tx. 01/05 continue tx. 01/06 continue tx. 01/07 continue tx. 01/08 continue tx. 01/11/24 Cont plan of care d/c planning 01/11 continue treatment 01/12 continue treatment 01/13 continue tx. BP slightly elevated SBP 160's, taking amlodipine 7.5mg po daily. continue to monitor. 01/14 continue tx. 01/15 continue tx. 01/16 continue tx 01/17 continue tx. 01/19/2024 Continue plan of care 01/20/2024 Continue plan of care 01/21 continue tx. awaiting placement. 01/22 continue tx. 01/24 continue tx. 01/25: Continue current treatment and plan 01/26: Continue current regimen and plans 01/27 pt reports sore throat, no SOB, no cough, no congestion, afebrile. pending covid/rsv/flu. cepacol now but will continue to monitor. may add antihistamine, for possible allergies. 01/28 continue current tx. covid/rsv/flu negative. afebrile. 01/30 continue tx 01/31 continue tx. 02/01: continue current management and treatment plan. 02/02: continue current management and treatment plan. 02/03: continue current management and treatment plan. 02/04 continue tx. awaiting placement 02/05 continue treatment plan 02/10 continue tx. awaiting placement. 02/11 continue tx. 02/12 awaiting placement. Reason for continued inpatient stay Substantial Risk for: inability to function Time Spent With Patient Time: Total time managing care of this patient today ____ minutes.
[2024-02-13 20:00] VITALS: BP 164/73; PULSE 71; RESP 16; TEMP 36.6; O2SAT 98
[2024-02-14 07:00] VITALS: BMI 21.5
[2024-02-14 08:00] VITALS: BP 171/68; PULSE 61; RESP 16; TEMP 36.5; O2SAT 98
[2024-02-14 08:30] VITALS: BP 171/68
[2024-02-14] MEDS: amLODIPine Besylate 2.5 MG TABLET 7.5 MG PO (08:30)
[2024-02-14 08:31] VITALS: BP 171/68; PULSE 61
[2024-02-14] MEDS: Atorvastatin Calcium 10 MG TABLET PO (08:31)
[2024-02-14] MEDS: Famotidine 20 MG TABLET PO ×2 (08:31→20:26)
[2024-02-14] MEDS: Aspirin 81 MG TAB.CHEW PO (08:31)
[2024-02-14] MEDS: atenoloL 50 MG TABLET PO (08:31)
[2024-02-14] MEDS: Magnesium Oxide 400 MG TABLET PO ×2 (08:31→20:26)
[2024-02-14] MEDS: Loratadine 10 MG TABLET PO (08:31)
[2024-02-14 19:49] VITALS: BP 144/61; PULSE 71; RESP 18; TEMP 35.9; O2SAT 98
--- NOTE | 2024-02-14 20:26 | P.PNPSI_ITS ---
Subjective Subjective Date of Service: 02/14/24 Reason For Visit: agitation Subjective Notes: Conditional Voluntary Interim History: Pt slept through the night. She was mostly in bed today. She did go out for meals but then to bed. VS stable. She denies any physical concerns. Review of Systems Review of Systems Unremarkable Yes all other systems are reviewed and are negative and Unobtainable due to mental status Constitutional: Reports as per HPI and Reports no additional constitutional complaints Eyes: Reports as per HPI and Denies no additional eye complaints Denies system reviewed and no additional complaints, except as documented and Reports as per HPI Cardiovascular: Reports as per HPI, Reports no additional cardiovascular complaints, Denies acrocyanosis, Denies cool extremities, Denies chest pain, Denies leg edema, Denies lightheadedness, Denies palpitations and Denies dyspnea Respiratory: Reports as per HPI, Denies no additional respiratory complaints and Denies dyspnea Gastrointestinal: Reports as per HPI and Denies no additional gastrointestinal complaints Musculoskeletal: Reports no additional musculoskeletal complaints and Reports as per HPI Skin/Breast: Reports system reviewed and no additional complaints, except as docu Reports system reviewed and no additional complaints, except as documented and Reports as per HPI Psychiatric: Reports no additional psychiatric complaints and Reports as per HPI Endocrine: Reports no additional endocrine complaints, Reports as per HPI and Denies palpitations Hematologic/Lymphatic: Reports no additional hematologic/lymphatic complaints and Reports as per HPI Allergic/Immunologic: Reports no additional allergic/immunologic complaints and Reports as per HPI Mental Status Exam Mental Status Exam Narrative: Appearance: wearing casual clothing, good hygiene, in NAD Behavior: pleasant Speech: [place], mostly clear, regular rate/rhythm/volume, spontaneous TP: mostly linear TC: feeling well Mood: good Affect: congruent, bright SI: none HI: none VH/AH: none Delusions: none Insight/judgment: impaired x 2. memory/cog: alert, oriented to self, not situation, month or date or year. Diagnostics Vital Signs (24Hr): Vital Signs - 24 hr 02/14/24 08:00 02/14/24 08:30 02/14/24 08:31 Temperature 97.7 F Pulse Rate 61 61 Respiratory Rate 16 Blood Pressure 171/68 H 171/68 H 171/68 H Pulse Oximetry 98 Oxygen Delivery Method Room Air 02/14/24 19:49 Temperature 96.6 F L Pulse Rate 71 Respiratory Rate 18 Blood Pressure 144/61 H Pulse Oximetry 98 Oxygen Delivery Method Room Air BMI result Body Mass Index 21.5 Labs 12/20/23 07:10 12/28/23 07:22 Imaging Radiology Impressions: ITS Impressions Chest X-Ray 12/20/23 07:54 IMPRESSION: Unremarkable examination. Head CT 12/20/23 08:32 IMPRESSION: No acute intracranial pathology. 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 Medications Medications Current Medications Acetaminophen (Acetaminophen 325 Mg Tablet) 650 mg PO Q6H PRN PRN Reason: Headache/Pain Mild Scale (1-3) Last Admin: 02/09/24 18:32 Dose: 650 mg Al Hydroxide/Mg Hydroxide (Magnesium Hydrox/Alum Hydrox 30 Ml Oral.Susp) 30 ml PO Q6H PRN PRN Reason: Heartburn/Nausea Amlodipine Besylate (Amlodipine Besylate 2.5 Mg Tablet) 7.5 mg PO DAILY [facility]; Protocol Last Admin: 02/14/24 08:30 Dose: 7.5 mg Aspirin (Aspirin 81 Mg Tab.Chew) 81 mg PO DAILY [facility] Last Admin: 02/14/24 08:31 Dose: 81 mg Atenolol (Atenolol 50 Mg Tablet) 50 mg PO DAILY [facility]; Protocol Last Admin: 02/14/24 08:31 Dose: 50 mg Atorvastatin Calcium (Atorvastatin Calcium 10 Mg Tablet) 10 mg PO DAILY [facility] Last Admin: 02/14/24 08:31 Dose: 10 mg Benzocaine (Throat Lozenge, Medicated Lozenge) 1 lozenge MUCOUS MEM Q2H PRN PRN Reason: Sore Throat Last Admin: 02/09/24 20:14 Dose: 1 lozenge Famotidine (Famotidine 20 Mg Tablet) 20 mg PO BID [facility] Last Admin: 02/14/24 08:31 Dose: 20 mg Hydroxyzine HCl (Hydroxyzine Hcl 25 Mg Tablet) 25 mg PO Q6H PRN PRN Reason: Anxiety Last Admin: 02/09/24 20:14 Dose: 25 mg Loratadine (Loratadine 10 Mg Tablet) 10 mg PO DAILY [facility] Last Admin: 02/14/24 08:31 Dose: 10 mg Magnesium Hydroxide (Milk Of Magnesia 30 Ml Oral.Susp) 30 ml PO DAILY PRN PRN Reason: Constipation Magnesium Oxide (Magnesium Oxide 400 Mg Tablet) 400 mg PO BID [facility] Last Admin: 02/14/24 08:31 Dose: 400 mg Trazodone HCl (Trazodone Hcl 50 Mg Tablet) 50 mg PO BEDTIME PRN PRN Reason: Insomnia Last Admin: 02/12/24 20:27 Dose: 50 mg Allergies Allergies Allergy/AdvReac Type Severity Reaction Status Date / Time nitrofurantoin Allergy Mild SWELLING Verified 12/21/23 08:01 [From Macrodantin] nitroglycerin Allergy Unknown Verified 12/21/23 08:01 Assessment & Plan Assessment & Plan (1) Major neurocognitive disorder: Status: Acute Code(s): F03.90 - Unspecified dementia, unspecified severity, without behavioral disturbance, psychotic disturbance, mood disturbance, and anxiety Plan 1. continue current medications 12/27 Mag improved to 1.8, Na to 134. no agitation. 12/30/2023: Continue current regimen and plans 12/31 continue tx. 01/01 continue tx. 01/02 continue tx 01/03 continue tx 01/04 continue tx. 01/05 continue tx. 01/06 continue tx. 01/07 continue tx. 01/08 continue tx. 01/11/24 Cont plan of care d/c planning 01/11 continue treatment 01/12 continue treatment 01/13 continue tx. BP slightly elevated SBP 160's, taking amlodipine 7.5mg po daily. continue to monitor. 01/14 continue tx. 01/15 continue tx. 01/16 continue tx 01/17 continue tx. 01/19/2024 Continue plan of care 01/20/2024 Continue plan of care 01/21 continue tx. awaiting placement. 01/22 continue tx. 01/24 continue tx. 01/25: Continue current treatment and plan 01/26: Continue current regimen and plans 01/27 pt reports sore throat, no SOB, no cough, no congestion, afebrile. pending covid/rsv/flu. cepacol now but will continue to monitor. may add antihistamine, for possible allergies. 01/28 continue current tx. covid/rsv/flu negative. afebrile. 01/30 continue tx 01/31 continue tx. 02/01: continue current management and treatment plan. 02/02: continue current management and treatment plan. 02/03: continue current management and treatment plan. 02/04 continue tx. awaiting placement 02/05 continue treatment plan 02/10 continue tx. awaiting placement. 02/11 continue tx. 02/12 continue tx. 02/13 continue tx. Reason for continued inpatient stay Substantial Risk for: inability to function Time Spent With Patient Time: Total time managing care of this patient today ____ minutes.
[2024-02-14] MEDS: hydrOXYzine HCL 25 MG TABLET PO (23:47)
[2024-02-14] MEDS: traZODone HCL 50 MG TABLET PO (23:47)
[2024-02-15 08:00] VITALS: BP 145/65; PULSE 64; RESP 15; TEMP 36.9; O2SAT 96
[2024-02-15 08:08] VITALS: BP 145/65
[2024-02-15] MEDS: amLODIPine Besylate 2.5 MG TABLET 7.5 MG PO (08:08)
[2024-02-15 08:09] VITALS: BP 145/65; PULSE 64
[2024-02-15] MEDS: atenoloL 50 MG TABLET PO (08:09)
[2024-02-15] MEDS: Aspirin 81 MG TAB.CHEW PO (08:09)
[2024-02-15] MEDS: Loratadine 10 MG TABLET PO (08:09)
[2024-02-15] MEDS: Magnesium Oxide 400 MG TABLET PO ×2 (08:09→20:34)
[2024-02-15] MEDS: Atorvastatin Calcium 10 MG TABLET PO (08:09)
[2024-02-15] MEDS: Famotidine 20 MG TABLET PO ×2 (08:09→20:34)
--- NOTE | 2024-02-15 12:51 | HO.PSYCHPN ---
Subjective Subjective Date of Service: 02/15/24 Reason For Visit: agitation Subjective Notes: Conditional Voluntary Healthcare Proxy: Yes Interim History: Pt slept through the night. She has been more visible today. She is pleasant on approach. She denies any physical pain. No behavioral concerns. Review of Systems Review of Systems Unremarkable Yes all other systems are reviewed and are negative and Unobtainable due to mental status Constitutional: Reports as per HPI and Reports no additional constitutional complaints Eyes: Reports as per HPI and Denies no additional eye complaints Denies system reviewed and no additional complaints, except as documented and Reports as per HPI Cardiovascular: Reports as per HPI, Reports no additional cardiovascular complaints, Denies acrocyanosis, Denies cool extremities, Denies chest pain, Denies leg edema, Denies lightheadedness, Denies palpitations and Denies dyspnea Respiratory: Reports as per HPI, Denies no additional respiratory complaints and Denies dyspnea Gastrointestinal: Reports as per HPI and Denies no additional gastrointestinal complaints Musculoskeletal: Reports no additional musculoskeletal complaints and Reports as per HPI Skin/Breast: Reports system reviewed and no additional complaints, except as docu Reports system reviewed and no additional complaints, except as documented and Reports as per HPI Psychiatric: Reports no additional psychiatric complaints and Reports as per HPI Endocrine: Reports no additional endocrine complaints, Reports as per HPI and Denies palpitations Hematologic/Lymphatic: Reports no additional hematologic/lymphatic complaints and Reports as per HPI Allergic/Immunologic: Reports no additional allergic/immunologic complaints and Reports as per HPI Mental Status Exam Mental Status Exam Narrative: Appearance: wearing casual clothing, good hygiene, in NAD Behavior: pleasant Speech: [place], mostly clear, regular rate/rhythm/volume, spontaneous TP: mostly linear TC: feeling well Mood: good Affect: congruent, bright SI: none HI: none VH/AH: none Delusions: none Insight/judgment: impaired x 2. memory/cog: alert, oriented to self, not situation, month or date or year. Diagnostics Vital Signs (24Hr): Vital Signs - 24 hr 02/14/24 19:49 02/15/24 08:00 02/15/24 08:08 Temperature 96.6 F L 98.4 F Pulse Rate 71 64 Respiratory Rate 18 15 Blood Pressure 144/61 H 145/65 H 145/65 H Pulse Oximetry 98 96 Oxygen Delivery Method Room Air Room Air 02/15/24 08:09 Temperature Pulse Rate 64 Respiratory Rate Blood Pressure 145/65 H Pulse Oximetry Oxygen Delivery Method BMI result Body Mass Index 21.5 Labs 12/20/23 07:10 12/28/23 07:22 Imaging Radiology Impressions: ITS Impressions Chest X-Ray 12/20/23 07:54 IMPRESSION: Unremarkable examination. Head CT 12/20/23 08:32 IMPRESSION: No acute intracranial pathology. 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 Medications Medications Current Medications Acetaminophen (Acetaminophen 325 Mg Tablet) 650 mg PO Q6H PRN PRN Reason: Headache/Pain Mild Scale (1-3) Last Admin: 02/09/24 18:32 Dose: 650 mg Al Hydroxide/Mg Hydroxide (Magnesium Hydrox/Alum Hydrox 30 Ml Oral.Susp) 30 ml PO Q6H PRN PRN Reason: Heartburn/Nausea Amlodipine Besylate (Amlodipine Besylate 2.5 Mg Tablet) 7.5 mg PO DAILY [facility]; Protocol Last Admin: 02/15/24 08:08 Dose: 7.5 mg Aspirin (Aspirin 81 Mg Tab.Chew) 81 mg PO DAILY [facility] Last Admin: 02/15/24 08:09 Dose: 81 mg Atenolol (Atenolol 50 Mg Tablet) 50 mg PO DAILY [facility]; Protocol Last Admin: 02/15/24 08:09 Dose: 50 mg Atorvastatin Calcium (Atorvastatin Calcium 10 Mg Tablet) 10 mg PO DAILY [facility] Last Admin: 02/15/24 08:09 Dose: 10 mg Benzocaine (Throat Lozenge, Medicated Lozenge) 1 lozenge MUCOUS MEM Q2H PRN PRN Reason: Sore Throat Last Admin: 02/09/24 20:14 Dose: 1 lozenge Famotidine (Famotidine 20 Mg Tablet) 20 mg PO BID [facility] Last Admin: 02/15/24 08:09 Dose: 20 mg Hydroxyzine HCl (Hydroxyzine Hcl 25 Mg Tablet) 25 mg PO Q6H PRN PRN Reason: Anxiety Last Admin: 02/14/24 23:47 Dose: 25 mg Loratadine (Loratadine 10 Mg Tablet) 10 mg PO DAILY [facility] Last Admin: 02/15/24 08:09 Dose: 10 mg Magnesium Hydroxide (Milk Of Magnesia 30 Ml Oral.Susp) 30 ml PO DAILY PRN PRN Reason: Constipation Magnesium Oxide (Magnesium Oxide 400 Mg Tablet) 400 mg PO BID [facility] Last Admin: 02/15/24 08:09 Dose: 400 mg Trazodone HCl (Trazodone Hcl 50 Mg Tablet) 50 mg PO BEDTIME PRN PRN Reason: Insomnia Last Admin: 02/14/24 23:47 Dose: 50 mg Allergies Allergies Allergy/AdvReac Type Severity Reaction Status Date / Time nitrofurantoin Allergy Mild SWELLING Verified 12/21/23 08:01 [From Macrodantin] nitroglycerin Allergy Unknown Verified 12/21/23 08:01 Assessment & Plan Assessment & Plan (1) Major neurocognitive disorder: Status: Acute Code(s): F03.90 - Unspecified dementia, unspecified severity, without behavioral disturbance, psychotic disturbance, mood disturbance, and anxiety Plan 1. continue current medications 12/27 Mag improved to 1.8, Na to 134. no agitation. 12/30/2023: Continue current regimen and plans 12/31 continue tx. 01/01 continue tx. 01/02 continue tx 01/03 continue tx 01/04 continue tx. 01/05 continue tx. 01/06 continue tx. 01/07 continue tx. 01/08 continue tx. 01/11/24 Cont plan of care d/c planning 01/11 continue treatment 01/12 continue treatment 01/13 continue tx. BP slightly elevated SBP 160's, taking amlodipine 7.5mg po daily. continue to monitor. 01/14 continue tx. 01/15 continue tx. 01/16 continue tx 01/17 continue tx. 01/19/2024 Continue plan of care 01/20/2024 Continue plan of care 01/21 continue tx. awaiting placement. 01/22 continue tx. 01/24 continue tx. 01/25: Continue current treatment and plan 01/26: Continue current regimen and plans 01/27 pt reports sore throat, no SOB, no cough, no congestion, afebrile. pending covid/rsv/flu. cepacol now but will continue to monitor. may add antihistamine, for possible allergies. 01/28 continue current tx. covid/rsv/flu negative. afebrile. 01/30 continue tx 01/31 continue tx. 02/01: continue current management and treatment plan. 02/02: continue current management and treatment plan. 02/03: continue current management and treatment plan. 02/04 continue tx. awaiting placement 02/05 continue treatment plan 02/10 continue tx. awaiting placement. 02/11 continue tx. 02/12 continue tx. 02/13 continue tx. 02/14 continue tx. awaiting placement. Reason for continued inpatient stay Substantial Risk for: inability to function Time Spent With Patient Time: Total time managing care of this patient today ____ minutes.
[2024-02-15 20:00] VITALS: BP 144/67; PULSE 70; RESP 16; TEMP 36.3; O2SAT 98
[2024-02-16 08:00] VITALS: BP 140/63; PULSE 62; RESP 17; TEMP 36.1; O2SAT 96
[2024-02-16 08:34] VITALS: BP 140/63; PULSE 62
[2024-02-16] MEDS: Magnesium Oxide 400 MG TABLET PO ×2 (08:34→20:38)
[2024-02-16] MEDS: Loratadine 10 MG TABLET PO (08:34)
[2024-02-16] MEDS: Famotidine 20 MG TABLET PO ×2 (08:34→20:38)
[2024-02-16] MEDS: atenoloL 50 MG TABLET PO (08:34)
[2024-02-16] MEDS: Atorvastatin Calcium 10 MG TABLET PO (08:34)
[2024-02-16] MEDS: amLODIPine Besylate 2.5 MG TABLET 7.5 MG PO (08:34)
[2024-02-16] MEDS: Aspirin 81 MG TAB.CHEW PO (08:34)
--- NOTE | 2024-02-16 13:20 | HO.PSYCHPN ---
Subjective Subjective Date of Service: 02/16/24 Reason For Visit: agitation Interim History: Pt slept through the night. She has been more visible today. She is pleasant on approach. She denies any physical pain. No behavioral concerns. Review of Systems Review of Systems Unremarkable Yes all other systems are reviewed and are negative and Unobtainable due to mental status Constitutional: Reports as per HPI and Reports no additional constitutional complaints Eyes: Reports as per HPI and Denies no additional eye complaints Denies system reviewed and no additional complaints, except as documented and Reports as per HPI Cardiovascular: Reports as per HPI, Reports no additional cardiovascular complaints, Denies acrocyanosis, Denies cool extremities, Denies chest pain, Denies leg edema, Denies lightheadedness, Denies palpitations and Denies dyspnea Respiratory: Reports as per HPI, Denies no additional respiratory complaints and Denies dyspnea Gastrointestinal: Reports as per HPI and Denies no additional gastrointestinal complaints Musculoskeletal: Reports no additional musculoskeletal complaints and Reports as per HPI Skin/Breast: Reports system reviewed and no additional complaints, except as docu Reports system reviewed and no additional complaints, except as documented and Reports as per HPI Psychiatric: Reports no additional psychiatric complaints and Reports as per HPI Endocrine: Reports no additional endocrine complaints, Reports as per HPI and Denies palpitations Hematologic/Lymphatic: Reports no additional hematologic/lymphatic complaints and Reports as per HPI Allergic/Immunologic: Reports no additional allergic/immunologic complaints and Reports as per HPI Mental Status Exam Mental Status Exam Narrative: Appearance: wearing casual clothing, good hygiene, in NAD Behavior: pleasant Speech: [employer] [place], mostly clear, regular rate/rhythm/volume, spontaneous TP: mostly linear TC: feeling well Mood: good Affect: congruent, bright SI: none HI: none VH/AH: none Delusions: none Insight/judgment: impaired x 2. memory/cog: alert, oriented to self, not situation, month or date or year. Diagnostics Vital Signs (24Hr): Vital Signs - 24 hr 02/15/24 20:00 02/16/24 08:00 02/16/24 08:34 Temperature 97.4 F 97 F Pulse Rate 70 62 Respiratory Rate 16 17 Blood Pressure 144/67 H 140/63 H 140/63 H Pulse Oximetry 98 96 Oxygen Delivery Method Room Air Room Air 02/16/24 08:34 Temperature Pulse Rate 62 Respiratory Rate Blood Pressure 140/63 H Pulse Oximetry Oxygen Delivery Method BMI result Body Mass Index 21.5 Labs 12/20/23 07:10 12/28/23 07:22 Imaging Radiology Impressions: ITS Impressions Chest X-Ray 12/20/23 07:54 IMPRESSION: Unremarkable examination. Head CT 12/20/23 08:32 IMPRESSION: No acute intracranial pathology. 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 Medications Medications Current Medications Acetaminophen (Acetaminophen 325 Mg Tablet) 650 mg PO Q6H PRN PRN Reason: Headache/Pain Mild Scale (1-3) Last Admin: 02/09/24 18:32 Dose: 650 mg Al Hydroxide/Mg Hydroxide (Magnesium Hydrox/Alum Hydrox 30 Ml Oral.Susp) 30 ml PO Q6H PRN PRN Reason: Heartburn/Nausea Amlodipine Besylate (Amlodipine Besylate 2.5 Mg Tablet) 7.[address] [facility]; Protocol Last Admin: 02/16/24 08:34 Dose: 7.5 mg Aspirin (Aspirin 81 Mg Tab.Chew) [address] [facility] Last Admin: 02/16/24 08:34 Dose: 81 mg Atenolol (Atenolol 50 Mg Tablet) [address] [facility]; Protocol Last Admin: 02/16/24 08:34 Dose: 50 mg Atorvastatin Calcium (Atorvastatin Calcium 10 Mg Tablet) [address] [facility] Last Admin: 02/16/24 08:34 Dose: 10 mg Benzocaine (Throat Lozenge, Medicated Lozenge) 1 lozenge MUCOUS MEM Q2H PRN PRN Reason: Sore Throat Last Admin: 02/09/24 20:14 Dose: 1 lozenge Famotidine (Famotidine 20 Mg Tablet) [address] [facility] Last Admin: 02/16/24 08:34 Dose: 20 mg Hydroxyzine HCl (Hydroxyzine Hcl 25 Mg Tablet) 25 mg PO Q6H PRN PRN Reason: Anxiety Last Admin: 02/14/24 23:47 Dose: 25 mg Loratadine (Loratadine 10 Mg Tablet) [address] [facility] Last Admin: 02/16/24 08:34 Dose: 10 mg Magnesium Hydroxide (Milk Of Magnesia 30 Ml Oral.Susp) 30 ml PO DAILY PRN PRN Reason: Constipation Magnesium Oxide (Magnesium Oxide 400 Mg Tablet) [address] [facility] Last Admin: 02/16/24 08:34 Dose: 400 mg Trazodone HCl (Trazodone Hcl 50 Mg Tablet) 50 mg PO BEDTIME PRN PRN Reason: Insomnia Last Admin: 02/14/24 23:47 Dose: 50 mg Allergies Allergies Allergy/AdvReac Type Severity Reaction Status Date / Time nitrofurantoin Allergy Mild SWELLING Verified 12/21/23 08:01 [From Macrodantin] nitroglycerin Allergy Unknown Verified 12/21/23 08:01 Assessment & Plan Assessment & Plan (1) Major neurocognitive disorder: Status: Acute Code(s): F03.90 - Unspecified dementia, unspecified severity, without behavioral disturbance, psychotic disturbance, mood disturbance, and anxiety Plan 1. continue current medications 12/27 Mag improved to 1.8, Na to 134. no agitation. 12/30/2023: Continue current regimen and plans 12/31 continue tx. 01/01 continue tx. 01/02 continue tx 01/03 continue tx 01/04 continue tx. 01/05 continue tx. 01/06 continue tx. 01/07 continue tx. 01/08 continue tx. 01/11/24 Cont plan of care d/c planning 01/11 continue treatment 01/12 continue treatment 01/13 continue tx. BP slightly elevated SBP 160's, taking amlodipine 7.5mg po daily. continue to monitor. 01/14 continue tx. 01/15 continue tx. 01/16 continue tx 01/17 continue tx. 01/19/2024 Continue plan of care 01/20/2024 Continue plan of care 01/21 continue tx. awaiting placement. 01/22 continue tx. 01/24 continue tx. 01/25: Continue current treatment and plan 01/26: Continue current regimen and plans 01/27 pt reports sore throat, no SOB, no cough, no congestion, afebrile. pending covid/rsv/flu. cepacol now but will continue to monitor. may add antihistamine, for possible allergies. 01/28 continue current tx. covid/rsv/flu negative. afebrile. 01/30 continue tx 01/31 continue tx. 02/01: continue current management and treatment plan. 02/02: continue current management and treatment plan. 02/03: continue current management and treatment plan. 02/04 continue tx. awaiting placement 02/05 continue treatment plan 02/10 continue tx. awaiting placement. 02/11 continue tx. 02/12 continue tx. 02/13 continue tx. Reason for continued inpatient stay Substantial Risk for: inability to function Time Spent With Patient Time: Total time managing care of this patient today ____ minutes.
[2024-02-16 20:00] VITALS: BP 139/67; PULSE 67; RESP 16; TEMP 36.6; O2SAT 96
[2024-02-17 08:00] VITALS: BP 160/68; PULSE 57; RESP 16; TEMP 36.1; O2SAT 98
[2024-02-17 08:38] VITALS: BP 160/68
[2024-02-17] MEDS: Famotidine 20 MG TABLET PO ×2 (08:38→20:45)
[2024-02-17] MEDS: Aspirin 81 MG TAB.CHEW PO (08:38)
[2024-02-17] MEDS: Atorvastatin Calcium 10 MG TABLET PO (08:38)
[2024-02-17] MEDS: Loratadine 10 MG TABLET PO (08:38)
[2024-02-17] MEDS: Magnesium Oxide 400 MG TABLET PO ×2 (08:38→20:45)
[2024-02-17] MEDS: amLODIPine Besylate 2.5 MG TABLET 7.5 MG PO (08:38)
--- NOTE | 2024-02-17 19:30 | HO.PSYCHPN ---
Subjective Subjective Date of Service: 02/17/24 Reason For Visit: agitation Interim History: Pt slept through the night. She has been more visible today. She is pleasant on approach. She denies any physical pain. No behavioral concerns. Review of Systems Review of Systems Unremarkable Yes all other systems are reviewed and are negative and Unobtainable due to mental status Constitutional: Reports as per HPI and Reports no additional constitutional complaints Eyes: Reports as per HPI and Denies no additional eye complaints Denies system reviewed and no additional complaints, except as documented and Reports as per HPI Cardiovascular: Reports as per HPI, Reports no additional cardiovascular complaints, Denies acrocyanosis, Denies cool extremities, Denies chest pain, Denies leg edema, Denies lightheadedness, Denies palpitations and Denies dyspnea Respiratory: Reports as per HPI, Denies no additional respiratory complaints and Denies dyspnea Gastrointestinal: Reports as per HPI and Denies no additional gastrointestinal complaints Musculoskeletal: Reports no additional musculoskeletal complaints and Reports as per HPI Skin/Breast: Reports system reviewed and no additional complaints, except as docu Reports system reviewed and no additional complaints, except as documented and Reports as per HPI Psychiatric: Reports no additional psychiatric complaints and Reports as per HPI Endocrine: Reports no additional endocrine complaints, Reports as per HPI and Denies palpitations Hematologic/Lymphatic: Reports no additional hematologic/lymphatic complaints and Reports as per HPI Allergic/Immunologic: Reports no additional allergic/immunologic complaints and Reports as per HPI Mental Status Exam Mental Status Exam Narrative: Appearance: wearing casual clothing, good hygiene, in NAD Behavior: pleasant Speech: [place], mostly clear, regular rate/rhythm/volume, spontaneous TP: mostly linear TC: feeling well Mood: good Affect: congruent, bright SI: none HI: none VH/AH: none Delusions: none Insight/judgment: impaired x 2. memory/cog: alert, oriented to self, not situation, month or date or year. Diagnostics Vital Signs (24Hr): Vital Signs - 24 hr 02/16/24 20:00 02/17/24 08:00 02/17/24 08:38 Temperature 97.9 F 97 F Pulse Rate 67 57 Respiratory Rate 16 16 Blood Pressure 139/67 160/68 H 160/68 H Pulse Oximetry 96 98 Oxygen Delivery Method Room Air Room Air BMI result Body Mass Index 21.5 Labs 12/20/23 07:10 12/28/23 07:22 Imaging Radiology Impressions: ITS Impressions Chest X-Ray 12/20/23 07:54 IMPRESSION: Unremarkable examination. Head CT 12/20/23 08:32 IMPRESSION: No acute intracranial pathology. 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 Medications Medications Current Medications Acetaminophen (Acetaminophen 325 Mg Tablet) 650 mg PO Q6H PRN PRN Reason: Headache/Pain Mild Scale (1-3) Last Admin: 02/09/24 18:32 Dose: 650 mg Al Hydroxide/Mg Hydroxide (Magnesium Hydrox/Alum Hydrox 30 Ml Oral.Susp) 30 ml PO Q6H PRN PRN Reason: Heartburn/Nausea Amlodipine Besylate (Amlodipine Besylate 2.5 Mg Tablet) 7.5 mg PO DAILY [facility]; Protocol Last Admin: 02/17/24 08:38 Dose: 7.5 mg Aspirin (Aspirin 81 Mg Tab.Chew) 81 mg PO DAILY [facility] Last Admin: 02/17/24 08:38 Dose: 81 mg Atenolol (Atenolol 50 Mg Tablet) 50 mg PO DAILY [facility]; Protocol Last Admin: 02/17/24 08:39 Dose: Not Given Atorvastatin Calcium (Atorvastatin Calcium 10 Mg Tablet) 10 mg PO DAILY [facility] Last Admin: 02/17/24 08:38 Dose: 10 mg Benzocaine (Throat Lozenge, Medicated Lozenge) 1 lozenge MUCOUS MEM Q2H PRN PRN Reason: Sore Throat Last Admin: 02/09/24 20:14 Dose: 1 lozenge Famotidine (Famotidine 20 Mg Tablet) 20 mg PO BID [facility] Last Admin: 02/17/24 08:38 Dose: 20 mg Hydroxyzine HCl (Hydroxyzine Hcl 25 Mg Tablet) 25 mg PO Q6H PRN PRN Reason: Anxiety Last Admin: 02/14/24 23:47 Dose: 25 mg Loratadine (Loratadine 10 Mg Tablet) 10 mg PO DAILY [facility] Last Admin: 02/17/24 08:38 Dose: 10 mg Magnesium Hydroxide (Milk Of Magnesia 30 Ml Oral.Susp) 30 ml PO DAILY PRN PRN Reason: Constipation Magnesium Oxide (Magnesium Oxide 400 Mg Tablet) 400 mg PO BID [facility] Last Admin: 02/17/24 08:38 Dose: 400 mg Trazodone HCl (Trazodone Hcl 50 Mg Tablet) 50 mg PO BEDTIME PRN PRN Reason: Insomnia Last Admin: 02/14/24 23:47 Dose: 50 mg Allergies Allergies Allergy/AdvReac Type Severity Reaction Status Date / Time nitrofurantoin Allergy Mild SWELLING Verified 12/21/23 08:01 [From Macrodantin] nitroglycerin Allergy Unknown Verified 12/21/23 08:01 Assessment & Plan Assessment & Plan (1) Major neurocognitive disorder: Status: Acute Code(s): F03.90 - Unspecified dementia, unspecified severity, without behavioral disturbance, psychotic disturbance, mood disturbance, and anxiety Plan 1. continue current medications 12/27 Mag improved to 1.8, Na to 134. no agitation. 12/30/2023: Continue current regimen and plans 12/31 continue tx. 01/01 continue tx. 01/02 continue tx 01/03 continue tx 01/04 continue tx. 01/05 continue tx. 01/06 continue tx. 01/07 continue tx. 01/08 continue tx. 01/11/24 Cont plan of care d/c planning 01/11 continue treatment 01/12 continue treatment 01/13 continue tx. BP slightly elevated SBP 160's, taking amlodipine 7.5mg po daily. continue to monitor. 01/14 continue tx. 01/15 continue tx. 01/16 continue tx 01/17 continue tx. 01/19/2024 Continue plan of care 01/20/2024 Continue plan of care 01/21 continue tx. awaiting placement. 01/22 continue tx. 01/24 continue tx. 01/25: Continue current treatment and plan 01/26: Continue current regimen and plans 01/27 pt reports sore throat, no SOB, no cough, no congestion, afebrile. pending covid/rsv/flu. cepacol now but will continue to monitor. may add antihistamine, for possible allergies. 01/28 continue current tx. covid/rsv/flu negative. afebrile. 01/30 continue tx 01/31 continue tx. 02/01: continue current management and treatment plan. 02/02: continue current management and treatment plan. 02/03: continue current management and treatment plan. 02/04 continue tx. awaiting placement 02/05 continue treatment plan 02/10 continue tx. awaiting placement. 02/11 continue tx. 02/12 continue tx. 02/13 continue tx. 6/7 continue tx. awaiting placement. Reason for continued inpatient stay Substantial Risk for: inability to function Time Spent With Patient Time: Total time managing care of this patient today ____ minutes.
[2024-02-17 20:00] VITALS: BP 146/69; PULSE 67; RESP 18; TEMP 36.6; O2SAT 96
[2024-02-17] MEDS: traZODone HCL 50 MG TABLET PO (20:45)
[2024-02-18 08:07] VITALS: BP 131/60; PULSE 71; RESP 18; TEMP 36.3; O2SAT 96
[2024-02-18 08:27] VITALS: BP 131/60; PULSE 71
[2024-02-18] MEDS: Atorvastatin Calcium 10 MG TABLET PO (08:27)
[2024-02-18] MEDS: atenoloL 50 MG TABLET PO (08:27)
[2024-02-18] MEDS: Loratadine 10 MG TABLET PO (08:27)
[2024-02-18] MEDS: Famotidine 20 MG TABLET PO ×2 (08:27→20:51)
[2024-02-18] MEDS: Aspirin 81 MG TAB.CHEW PO (08:27)
[2024-02-18] MEDS: Magnesium Oxide 400 MG TABLET PO ×2 (08:27→20:51)
[2024-02-18] MEDS: amLODIPine Besylate 2.5 MG TABLET 7.5 MG PO (08:27)
--- NOTE | 2024-02-18 10:16 | HO.PSYCHPN ---
Subjective Subjective Date of Service: 02/18/24 Reason For Visit: agitation Subjective Notes: Conditional Voluntary Interim History: Pt slept through the night. She has been more visible today. She is pleasant on approach. She denies any physical pain. No behavioral concerns. VS stable, SBP in 160's will continue to monitor. Review of Systems Review of Systems Unremarkable Yes all other systems are reviewed and are negative and Unobtainable due to mental status Constitutional: Reports as per HPI and Reports no additional constitutional complaints Eyes: Reports as per HPI and Denies no additional eye complaints Denies system reviewed and no additional complaints, except as documented and Reports as per HPI Cardiovascular: Reports as per HPI, Reports no additional cardiovascular complaints, Denies acrocyanosis, Denies cool extremities, Denies chest pain, Denies leg edema, Denies lightheadedness, Denies palpitations and Denies dyspnea Respiratory: Reports as per HPI, Denies no additional respiratory complaints and Denies dyspnea Gastrointestinal: Reports as per HPI and Denies no additional gastrointestinal complaints Musculoskeletal: Reports no additional musculoskeletal complaints and Reports as per HPI Skin/Breast: Reports system reviewed and no additional complaints, except as docu Reports system reviewed and no additional complaints, except as documented and Reports as per HPI Psychiatric: Reports no additional psychiatric complaints and Reports as per HPI Endocrine: Reports no additional endocrine complaints, Reports as per HPI and Denies palpitations Hematologic/Lymphatic: Reports no additional hematologic/lymphatic complaints and Reports as per HPI Allergic/Immunologic: Reports no additional allergic/immunologic complaints and Reports as per HPI Mental Status Exam Mental Status Exam Narrative: Appearance: wearing casual clothing, good hygiene, in NAD Behavior: pleasant Speech: [place], mostly clear, regular rate/rhythm/volume, spontaneous TP: mostly linear TC: feeling well Mood: good Affect: congruent, bright SI: none HI: none VH/AH: none Delusions: none Insight/judgment: impaired x 2. memory/cog: alert, oriented to self, not situation, month or date or year. Diagnostics Vital Signs (24Hr): Vital Signs - 24 hr 02/17/24 20:00 02/18/24 08:27 02/18/24 08:27 Temperature 97.9 F Pulse Rate 67 71 Respiratory Rate 18 Blood Pressure 146/69 H 131/60 131/60 Pulse Oximetry 96 Oxygen Delivery Method Room Air BMI result Body Mass Index 21.5 Labs 12/20/23 07:10 12/28/23 07:22 Imaging Radiology Impressions: ITS Impressions Chest X-Ray 12/20/23 07:54 IMPRESSION: Unremarkable examination. Head CT 12/20/23 08:32 IMPRESSION: No acute intracranial pathology. 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 Medications Medications Current Medications Acetaminophen (Acetaminophen 325 Mg Tablet) 650 mg PO Q6H PRN PRN Reason: Headache/Pain Mild Scale (1-3) Last Admin: 02/09/24 18:32 Dose: 650 mg Al Hydroxide/Mg Hydroxide (Magnesium Hydrox/Alum Hydrox 30 Ml Oral.Susp) 30 ml PO Q6H PRN PRN Reason: Heartburn/Nausea Amlodipine Besylate (Amlodipine Besylate 2.5 Mg Tablet) 7.5 mg PO DAILY [facility]; Protocol Last Admin: 02/18/24 08:27 Dose: 7.5 mg Aspirin (Aspirin 81 Mg Tab.Chew) 81 mg PO DAILY [facility] Last Admin: 02/18/24 08:27 Dose: 81 mg Atenolol (Atenolol 50 Mg Tablet) 50 mg PO DAILY [facility]; Protocol Last Admin: 02/18/24 08:27 Dose: 50 mg Atorvastatin Calcium (Atorvastatin Calcium 10 Mg Tablet) 10 mg PO DAILY [facility] Last Admin: 02/18/24 08:27 Dose: 10 mg Benzocaine (Throat Lozenge, Medicated Lozenge) 1 lozenge MUCOUS MEM Q2H PRN PRN Reason: Sore Throat Last Admin: 02/09/24 20:14 Dose: 1 lozenge Famotidine (Famotidine 20 Mg Tablet) 20 mg PO BID [facility] Last Admin: 02/18/24 08:27 Dose: 20 mg Hydroxyzine HCl (Hydroxyzine Hcl 25 Mg Tablet) 25 mg PO Q6H PRN PRN Reason: Anxiety Last Admin: 02/14/24 23:47 Dose: 25 mg Loratadine (Loratadine 10 Mg Tablet) 10 mg PO DAILY [facility] Last Admin: 02/18/24 08:27 Dose: 10 mg Magnesium Hydroxide (Milk Of Magnesia 30 Ml Oral.Susp) 30 ml PO DAILY PRN PRN Reason: Constipation Magnesium Oxide (Magnesium Oxide 400 Mg Tablet) 400 mg PO BID [facility] Last Admin: 02/18/24 08:27 Dose: 400 mg Trazodone HCl (Trazodone Hcl 50 Mg Tablet) 50 mg PO BEDTIME PRN PRN Reason: Insomnia Last Admin: 02/17/24 20:45 Dose: 50 mg Allergies Allergies Allergy/AdvReac Type Severity Reaction Status Date / Time nitrofurantoin Allergy Mild SWELLING Verified 12/21/23 08:01 [From Macrodantin] nitroglycerin Allergy Unknown Verified 12/21/23 08:01 Assessment & Plan Assessment & Plan (1) Major neurocognitive disorder: Status: Acute Code(s): F03.90 - Unspecified dementia, unspecified severity, without behavioral disturbance, psychotic disturbance, mood disturbance, and anxiety Plan 1. continue current medications 12/27 Mag improved to 1.8, Na to 134. no agitation. 12/30/2023: Continue current regimen and plans 12/31 continue tx. 01/01 continue tx. 01/02 continue tx 01/03 continue tx 01/04 continue tx. 01/05 continue tx. 01/06 continue tx. 01/07 continue tx. 01/08 continue tx. 01/11/24 Cont plan of care d/c planning 01/11 continue treatment 01/12 continue treatment 01/13 continue tx. BP slightly elevated SBP 160's, taking amlodipine 7.5mg po daily. continue to monitor. 01/14 continue tx. 01/15 continue tx. 01/16 continue tx 01/17 continue tx. 01/19/2024 Continue plan of care 01/20/2024 Continue plan of care 01/21 continue tx. awaiting placement. 01/22 continue tx. 01/24 continue tx. 01/25: Continue current treatment and plan 01/26: Continue current regimen and plans 01/27 pt reports sore throat, no SOB, no cough, no congestion, afebrile. pending covid/rsv/flu. cepacol now but will continue to monitor. may add antihistamine, for possible allergies. 01/28 continue current tx. covid/rsv/flu negative. afebrile. 01/30 continue tx 01/31 continue tx. 02/01: continue current management and treatment plan. 02/02: continue current management and treatment plan. 02/03: continue current management and treatment plan. 02/04 continue tx. awaiting placement 02/05 continue treatment plan 02/10 continue tx. awaiting placement. 02/11 continue tx. 02/12 continue tx. 02/13 continue tx. 02/14 continue tx. awaiting placement. 02/15 continue tx. 02/17 continue tx. awaiting placement. Reason for continued inpatient stay Substantial Risk for: inability to function Time Spent With Patient Time: Total time managing care of this patient today ____ minutes.
[2024-02-18 20:00] VITALS: BP 167/70; PULSE 71; TEMP 36.4; O2SAT 98
[2024-02-18] MEDS: traZODone HCL 50 MG TABLET PO (20:51)
[2024-02-18] MEDS: hydrOXYzine HCL 25 MG TABLET PO (20:51)
--- NOTE | 2024-02-19 09:16 | HO.PSYCHPN ---
Subjective Subjective Date of Service: 02/19/24 Reason For Visit: agitation Interim History: Pt slept through the night. She has been more visible today. She is pleasant on approach. She denies any physical pain. No behavioral concerns. VS stable, SBP in 160's will continue to monitor. Review of Systems Review of Systems Unremarkable Yes all other systems are reviewed and are negative and Unobtainable due to mental status Constitutional: Reports as per HPI and Reports no additional constitutional complaints Eyes: Reports as per HPI and Denies no additional eye complaints Denies system reviewed and no additional complaints, except as documented and Reports as per HPI Cardiovascular: Reports as per HPI, Reports no additional cardiovascular complaints, Denies acrocyanosis, Denies cool extremities, Denies chest pain, Denies leg edema, Denies lightheadedness, Denies palpitations and Denies dyspnea Respiratory: Reports as per HPI, Denies no additional respiratory complaints and Denies dyspnea Gastrointestinal: Reports as per HPI and Denies no additional gastrointestinal complaints Musculoskeletal: Reports no additional musculoskeletal complaints and Reports as per HPI Skin/Breast: Reports system reviewed and no additional complaints, except as docu Reports system reviewed and no additional complaints, except as documented and Reports as per HPI Psychiatric: Reports no additional psychiatric complaints and Reports as per HPI Endocrine: Reports no additional endocrine complaints, Reports as per HPI and Denies palpitations Hematologic/Lymphatic: Reports no additional hematologic/lymphatic complaints and Reports as per HPI Allergic/Immunologic: Reports no additional allergic/immunologic complaints and Reports as per HPI Mental Status Exam Mental Status Exam Narrative: Appearance: wearing casual clothing, good hygiene, in NAD Behavior: pleasant Speech: [place], mostly clear, regular rate/rhythm/volume, spontaneous TP: mostly linear TC: feeling well Mood: good Affect: congruent, bright SI: none HI: none VH/AH: none Delusions: none Insight/judgment: impaired x 2. memory/cog: alert, oriented to self, not situation, month or date or year. Diagnostics Vital Signs (24Hr): Vital Signs - 24 hr 02/18/24 20:00 Temperature 97.6 F Pulse Rate 71 Blood Pressure 167/70 H Pulse Oximetry 98 Oxygen Delivery Method Room Air BMI result Body Mass Index 21.5 Labs 12/20/23 07:10 12/28/23 07:22 Imaging Radiology Impressions: ITS Impressions Chest X-Ray 12/20/23 07:54 IMPRESSION: Unremarkable examination. Head CT 12/20/23 08:32 IMPRESSION: No acute intracranial pathology. 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 Medications Medications Current Medications Acetaminophen (Acetaminophen 325 Mg Tablet) 650 mg PO Q6H PRN PRN Reason: Headache/Pain Mild Scale (1-3) Last Admin: 02/09/24 18:32 Dose: 650 mg Al Hydroxide/Mg Hydroxide (Magnesium Hydrox/Alum Hydrox 30 Ml Oral.Susp) 30 ml PO Q6H PRN PRN Reason: Heartburn/Nausea Amlodipine Besylate (Amlodipine Besylate 2.5 Mg Tablet) 7.5 mg PO DAILY [facility]; Protocol Last Admin: 02/18/24 08:27 Dose: 7.5 mg Aspirin (Aspirin 81 Mg Tab.Chew) 81 mg PO DAILY [facility] Last Admin: 02/18/24 08:27 Dose: 81 mg Atenolol (Atenolol 50 Mg Tablet) 50 mg PO DAILY [facility]; Protocol Last Admin: 02/18/24 08:27 Dose: 50 mg Atorvastatin Calcium (Atorvastatin Calcium 10 Mg Tablet) 10 mg PO DAILY [facility] Last Admin: 02/18/24 08:27 Dose: 10 mg Benzocaine (Throat Lozenge, Medicated Lozenge) 1 lozenge MUCOUS MEM Q2H PRN PRN Reason: Sore Throat Last Admin: 02/09/24 20:14 Dose: 1 lozenge Famotidine (Famotidine 20 Mg Tablet) 20 mg PO BID [facility] Last Admin: 02/18/24 20:51 Dose: 20 mg Hydroxyzine HCl (Hydroxyzine Hcl 25 Mg Tablet) 25 mg PO Q6H PRN PRN Reason: Anxiety Last Admin: 02/18/24 20:51 Dose: 25 mg Loratadine (Loratadine 10 Mg Tablet) 10 mg PO DAILY [facility] Last Admin: 02/18/24 08:27 Dose: 10 mg Magnesium Hydroxide (Milk Of Magnesia 30 Ml Oral.Susp) 30 ml PO DAILY PRN PRN Reason: Constipation Magnesium Oxide (Magnesium Oxide 400 Mg Tablet) 400 mg PO BID [facility] Last Admin: 02/18/24 20:51 Dose: 400 mg Trazodone HCl (Trazodone Hcl 50 Mg Tablet) 50 mg PO BEDTIME PRN PRN Reason: Insomnia Last Admin: 02/18/24 20:51 Dose: 50 mg Allergies Allergies Allergy/AdvReac Type Severity Reaction Status Date / Time nitrofurantoin Allergy Mild SWELLING Verified 12/21/23 08:01 [From Macrodantin] nitroglycerin Allergy Unknown Verified 12/21/23 08:01 Assessment & Plan Assessment & Plan (1) Major neurocognitive disorder: Status: Acute Code(s): F03.90 - Unspecified dementia, unspecified severity, without behavioral disturbance, psychotic disturbance, mood disturbance, and anxiety Plan 1. continue current medications 12/27 Mag improved to 1.8, Na to 134. no agitation. 12/30/2023: Continue current regimen and plans 12/31 continue tx. 01/01 continue tx. 01/02 continue tx 01/03 continue tx 01/04 continue tx. 01/05 continue tx. 01/06 continue tx. 01/07 continue tx. 01/08 continue tx. 01/11/24 Cont plan of care d/c planning 01/11 continue treatment 01/12 continue treatment 01/13 continue tx. BP slightly elevated SBP 160's, taking amlodipine 7.5mg po daily. continue to monitor. 01/14 continue tx. 01/15 continue tx. 01/16 continue tx 01/17 continue tx. 01/19/2024 Continue plan of care 01/20/2024 Continue plan of care 01/21 continue tx. awaiting placement. 01/22 continue tx. 01/24 continue tx. 01/25: Continue current treatment and plan 01/26: Continue current regimen and plans 01/27 pt reports sore throat, no SOB, no cough, no congestion, afebrile. pending covid/rsv/flu. cepacol now but will continue to monitor. may add antihistamine, for possible allergies. 01/28 continue current tx. covid/rsv/flu negative. afebrile. 01/30 continue tx 01/31 continue tx. 02/01: continue current management and treatment plan. 02/02: continue current management and treatment plan. 02/03: continue current management and treatment plan. 02/04 continue tx. awaiting placement 02/05 continue treatment plan 02/10 continue tx. awaiting placement. 02/11 continue tx. 02/12 continue tx. 02/13 continue tx. 02/14 continue tx. awaiting placement. 02/15 continue tx. 02/17 continue tx. awaiting placement. 02/18 continue tx. Reason for continued inpatient stay Substantial Risk for: inability to function Time Spent With Patient Time: Total time managing care of this patient today ____ minutes.
[2024-02-19] MEDS: Famotidine 20 MG TABLET PO ×2 (09:33→20:00)
[2024-02-19] MEDS: Aspirin 81 MG TAB.CHEW PO (09:33)
[2024-02-19 09:34] VITALS: BP 127/62; PULSE 60
[2024-02-19] MEDS: Loratadine 10 MG TABLET PO (09:34)
[2024-02-19] MEDS: atenoloL 50 MG TABLET PO (09:34)
[2024-02-19 09:35] VITALS: BP 127/62; PULSE 60; RESP 14; TEMP 36.7; O2SAT 98
[2024-02-19] MEDS: amLODIPine Besylate 2.5 MG TABLET 7.5 MG PO (09:35)
[2024-02-19] MEDS: Atorvastatin Calcium 10 MG TABLET PO (09:35)
[2024-02-19] MEDS: Magnesium Oxide 400 MG TABLET PO ×2 (11:00→20:00)
[2024-02-19 20:00] VITALS: BP 166/72; PULSE 66; RESP 17; TEMP 36.4; O2SAT 98
[2024-02-19] MEDS: traZODone HCL 50 MG TABLET PO (20:00)
[2024-02-20 09:08] VITALS: BP 166/72; PULSE 66
[2024-02-20] MEDS: Magnesium Oxide 400 MG TABLET PO ×2 (09:08→20:57)
[2024-02-20] MEDS: atenoloL 50 MG TABLET PO (09:08)
[2024-02-20] MEDS: Atorvastatin Calcium 10 MG TABLET PO (09:08)
[2024-02-20] MEDS: Aspirin 81 MG TAB.CHEW PO (09:08)
[2024-02-20] MEDS: Loratadine 10 MG TABLET PO (09:08)
[2024-02-20] MEDS: Famotidine 20 MG TABLET PO ×2 (09:08→20:58)
[2024-02-20] MEDS: amLODIPine Besylate 2.5 MG TABLET 7.5 MG PO (09:08)
--- NOTE | 2024-02-20 19:58 | P.PNPSI_ITS ---
Subjective Subjective Date of Service: 02/20/24 Reason For Visit: agitation Subjective Notes: Conditional Voluntary Healthcare Proxy: Yes Interim History: Pt slept through the night. No significant change. She has been more visible today. She is pleasant on approach. She denies any physical pain. No behavioral concerns. VS stable, SBP in 140's will continue to monitor. Review of Systems Review of Systems Unremarkable Yes all other systems are reviewed and are negative and Unobtainable due to mental status Constitutional: Reports as per HPI and Reports no additional constitutional complaints Eyes: Reports as per HPI and Denies no additional eye complaints Denies system reviewed and no additional complaints, except as documented and Reports as per HPI Cardiovascular: Reports as per HPI, Reports no additional cardiovascular complaints, Denies acrocyanosis, Denies cool extremities, Denies chest pain, Denies leg edema, Denies lightheadedness, Denies palpitations and Denies dyspnea Respiratory: Reports as per HPI, Denies no additional respiratory complaints and Denies dyspnea Gastrointestinal: Reports as per HPI and Denies no additional gastrointestinal complaints Musculoskeletal: Reports no additional musculoskeletal complaints and Reports as per HPI Skin/Breast: Reports system reviewed and no additional complaints, except as docu Reports system reviewed and no additional complaints, except as documented and Reports as per HPI Psychiatric: Reports no additional psychiatric complaints and Reports as per HPI Endocrine: Reports no additional endocrine complaints, Reports as per HPI and Denies palpitations Hematologic/Lymphatic: Reports no additional hematologic/lymphatic complaints and Reports as per HPI Allergic/Immunologic: Reports no additional allergic/immunologic complaints and Reports as per HPI Mental Status Exam Mental Status Exam Narrative: Appearance: wearing casual clothing, good hygiene, in NAD Behavior: pleasant Speech: [place], mostly clear, regular rate/rhythm/volume, spontaneous TP: mostly linear TC: feeling well Mood: good Affect: congruent, bright SI: none HI: none VH/AH: none Delusions: none Insight/judgment: impaired x 2. memory/cog: alert, oriented to self, not situation, month or date or year. Diagnostics Vital Signs (24Hr): Vital Signs - 24 hr 02/19/24 20:00 02/20/24 08:32 02/20/24 09:08 Temperature 97.6 F Pulse Rate 66 66 Respiratory Rate 17 Blood Pressure 166/72 H 166/72 H Pulse Oximetry 98 Oxygen Delivery Method Room Air Room Air 02/20/24 09:08 Temperature Pulse Rate Respiratory Rate Blood Pressure 166/72 H Pulse Oximetry Oxygen Delivery Method BMI result Body Mass Index 21.5 Labs 12/20/23 07:10 12/28/23 07:22 Imaging Radiology Impressions: ITS Impressions Chest X-Ray 12/20/23 07:54 IMPRESSION: Unremarkable examination. Head CT 12/20/23 08:32 IMPRESSION: No acute intracranial pathology. 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 Medications Medications Current Medications Acetaminophen (Acetaminophen 325 Mg Tablet) 650 mg PO Q6H PRN PRN Reason: Headache/Pain Mild Scale (1-3) Last Admin: 02/09/24 18:32 Dose: 650 mg Al Hydroxide/Mg Hydroxide (Magnesium Hydrox/Alum Hydrox 30 Ml Oral.Susp) 30 ml PO Q6H PRN PRN Reason: Heartburn/Nausea Amlodipine Besylate (Amlodipine Besylate 2.5 Mg Tablet) 7.5 mg PO DAILY [facility]; Protocol Last Admin: 02/20/24 09:08 Dose: 7.5 mg Aspirin (Aspirin 81 Mg Tab.Chew) 81 mg PO DAILY [facility] Last Admin: 02/20/24 09:08 Dose: 81 mg Atenolol (Atenolol 50 Mg Tablet) 50 mg PO DAILY [facility]; Protocol Last Admin: 02/20/24 09:08 Dose: 50 mg Atorvastatin Calcium (Atorvastatin Calcium 10 Mg Tablet) 10 mg PO DAILY [facility] Last Admin: 02/20/24 09:08 Dose: 10 mg Benzocaine (Throat Lozenge, Medicated Lozenge) 1 lozenge MUCOUS MEM Q2H PRN PRN Reason: Sore Throat Last Admin: 02/09/24 20:14 Dose: 1 lozenge Famotidine (Famotidine 20 Mg Tablet) 20 mg PO BID [facility] Last Admin: 02/20/24 09:08 Dose: 20 mg Hydroxyzine HCl (Hydroxyzine Hcl 25 Mg Tablet) 25 mg PO Q6H PRN PRN Reason: Anxiety Last Admin: 02/18/24 20:51 Dose: 25 mg Loratadine (Loratadine 10 Mg Tablet) 10 mg PO DAILY [facility] Last Admin: 02/20/24 09:08 Dose: 10 mg Magnesium Hydroxide (Milk Of Magnesia 30 Ml Oral.Susp) 30 ml PO DAILY PRN PRN Reason: Constipation Magnesium Oxide (Magnesium Oxide 400 Mg Tablet) 400 mg PO BID [facility] Last Admin: 02/20/24 09:08 Dose: 400 mg Trazodone HCl (Trazodone Hcl 50 Mg Tablet) 50 mg PO BEDTIME PRN PRN Reason: Insomnia Last Admin: 02/19/24 20:00 Dose: 50 mg Allergies Allergies Allergy/AdvReac Type Severity Reaction Status Date / Time nitrofurantoin Allergy Mild SWELLING Verified 12/21/23 08:01 [From Macrodantin] nitroglycerin Allergy Unknown Verified 12/21/23 08:01 Assessment & Plan Assessment & Plan (1) Major neurocognitive disorder: Status: Acute Code(s): F03.90 - Unspecified dementia, unspecified severity, without behavioral disturbance, psychotic disturbance, mood disturbance, and anxiety Plan 1. continue current medications 12/27 Mag improved to 1.8, Na to 134. no agitation. 12/30/2023: Continue current regimen and plans 12/31 continue tx. 01/01 continue tx. 01/02 continue tx 01/03 continue tx 01/04 continue tx. 01/05 continue tx. 01/06 continue tx. 01/07 continue tx. 01/08 continue tx. 01/11/24 Cont plan of care d/c planning 01/11 continue treatment 01/12 continue treatment 01/13 continue tx. BP slightly elevated SBP 160's, taking amlodipine 7.5mg po daily. continue to monitor. 01/14 continue tx. 01/15 continue tx. 01/16 continue tx 01/17 continue tx. 01/19/2024 Continue plan of care 01/20/2024 Continue plan of care 01/21 continue tx. awaiting placement. 01/22 continue tx. 01/24 continue tx. 01/25: Continue current treatment and plan 01/26: Continue current regimen and plans 01/27 pt reports sore throat, no SOB, no cough, no congestion, afebrile. pending covid/rsv/flu. cepacol now but will continue to monitor. may add antihistamine, for possible allergies. 01/28 continue current tx. covid/rsv/flu negative. afebrile. 01/30 continue tx 01/31 continue tx. 02/01: continue current management and treatment plan. 02/02: continue current management and treatment plan. 02/03: continue current management and treatment plan. 02/04 continue tx. awaiting placement 02/05 continue treatment plan 02/10 continue tx. awaiting placement. 02/11 continue tx. 02/12 continue tx. 02/13 continue tx. 02/14 continue tx. awaiting placement. 02/15 continue tx. 02/17 continue tx. awaiting placement. 02/18 continue tx 02/19 continue tx Reason for continued inpatient stay Substantial Risk for: inability to function Time Spent With Patient Time: Total time managing care of this patient today ____ minutes.
[2024-02-20 20:00] VITALS: BP 140/61; PULSE 67; RESP 16; TEMP 36.1; O2SAT 98
[2024-02-21 07:00] VITALS: BMI 20.9
[2024-02-21 08:47] VITALS: BP 146/64; PULSE 60; RESP 16; TEMP 36.4; O2SAT 98
[2024-02-21 08:50] VITALS: BP 146/64; PULSE 60
[2024-02-21] MEDS: atenoloL 50 MG TABLET PO (08:50)
[2024-02-21 08:51] VITALS: BP 146/64
[2024-02-21] MEDS: Aspirin 81 MG TAB.CHEW PO (08:51)
[2024-02-21] MEDS: Loratadine 10 MG TABLET PO (08:51)
[2024-02-21] MEDS: Atorvastatin Calcium 10 MG TABLET PO (08:51)
[2024-02-21] MEDS: amLODIPine Besylate 2.5 MG TABLET 7.5 MG PO (08:51)
[2024-02-21] MEDS: Magnesium Oxide 400 MG TABLET PO ×2 (08:51→20:32)
[2024-02-21] MEDS: Famotidine 20 MG TABLET PO ×2 (08:51→20:32)
--- NOTE | 2024-02-21 15:50 | P.PNPSI_ITS ---
Subjective Subjective Date of Service: 02/21/24 Reason For Visit: agitation Interim History: Pt slept through the night. No significant change. She has been more visible today. She is pleasant on approach. She denies any physical pain. No behavioral concerns. VS stable, SBP in 140's will continue to monitor. Review of Systems Review of Systems Unremarkable Yes all other systems are reviewed and are negative and Unobtainable due to mental status Constitutional: Reports as per HPI and Reports no additional constitutional complaints Eyes: Reports as per HPI and Denies no additional eye complaints Denies system reviewed and no additional complaints, except as documented and Reports as per HPI Cardiovascular: Reports as per HPI, Reports no additional cardiovascular complaints, Denies acrocyanosis, Denies cool extremities, Denies chest pain, Denies leg edema, Denies lightheadedness, Denies palpitations and Denies dyspnea Respiratory: Reports as per HPI, Denies no additional respiratory complaints and Denies dyspnea Gastrointestinal: Reports as per HPI and Denies no additional gastrointestinal complaints Musculoskeletal: Reports no additional musculoskeletal complaints and Reports as per HPI Skin/Breast: Reports system reviewed and no additional complaints, except as docu Reports system reviewed and no additional complaints, except as documented and Reports as per HPI Psychiatric: Reports no additional psychiatric complaints and Reports as per HPI Endocrine: Reports no additional endocrine complaints, Reports as per HPI and Denies palpitations Hematologic/Lymphatic: Reports no additional hematologic/lymphatic complaints and Reports as per HPI Allergic/Immunologic: Reports no additional allergic/immunologic complaints and Reports as per HPI Mental Status Exam Mental Status Exam Narrative: Appearance: wearing casual clothing, good hygiene, in NAD Behavior: pleasant Speech: [place], mostly clear, regular rate/rhythm/volume, spontaneous TP: mostly linear TC: feeling well Mood: good Affect: congruent, bright SI: none HI: none VH/AH: none Delusions: none Insight/judgment: impaired x 2. memory/cog: alert, oriented to self, not situation, month or date or year. Diagnostics Vital Signs (24Hr): Vital Signs - 24 hr 02/20/24 20:00 02/21/24 08:47 02/21/24 08:50 Temperature 96.9 F 97.5 F Pulse Rate 67 60 60 Respiratory Rate 16 16 Blood Pressure 140/61 H 146/64 H 146/64 H Pulse Oximetry 98 98 Oxygen Delivery Method Room Air Room Air 02/21/24 08:51 Temperature Pulse Rate Respiratory Rate Blood Pressure 146/64 H Pulse Oximetry Oxygen Delivery Method BMI result Body Mass Index 20.9 Labs 12/20/23 07:10 12/28/23 07:22 Imaging Radiology Impressions: ITS Impressions Chest X-Ray 12/20/23 07:54 IMPRESSION: Unremarkable examination. Head CT 12/20/23 08:32 IMPRESSION: No acute intracranial pathology. 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 Medications Medications Current Medications Acetaminophen (Acetaminophen 325 Mg Tablet) 650 mg PO Q6H PRN PRN Reason: Headache/Pain Mild Scale (1-3) Last Admin: 02/09/24 18:32 Dose: 650 mg Al Hydroxide/Mg Hydroxide (Magnesium Hydrox/Alum Hydrox 30 Ml Oral.Susp) 30 ml PO Q6H PRN PRN Reason: Heartburn/Nausea Amlodipine Besylate (Amlodipine Besylate 2.5 Mg Tablet) 7.5 mg PO DAILY [facility]; Protocol Last Admin: 02/21/24 08:51 Dose: 7.5 mg Aspirin (Aspirin 81 Mg Tab.Chew) 81 mg PO DAILY [facility] Last Admin: 02/21/24 08:51 Dose: 81 mg Atenolol (Atenolol 50 Mg Tablet) 50 mg PO DAILY [facility]; Protocol Last Admin: 02/21/24 08:50 Dose: 50 mg Atorvastatin Calcium (Atorvastatin Calcium 10 Mg Tablet) 10 mg PO DAILY [facility] Last Admin: 02/21/24 08:51 Dose: 10 mg Benzocaine (Throat Lozenge, Medicated Lozenge) 1 lozenge MUCOUS MEM Q2H PRN PRN Reason: Sore Throat Last Admin: 02/09/24 20:14 Dose: 1 lozenge Famotidine (Famotidine 20 Mg Tablet) 20 mg PO BID [facility] Last Admin: 02/21/24 08:51 Dose: 20 mg Hydroxyzine HCl (Hydroxyzine Hcl 25 Mg Tablet) 25 mg PO Q6H PRN PRN Reason: Anxiety Last Admin: 02/18/24 20:51 Dose: 25 mg Loratadine (Loratadine 10 Mg Tablet) 10 mg PO DAILY [facility] Last Admin: 02/21/24 08:51 Dose: 10 mg Magnesium Hydroxide (Milk Of Magnesia 30 Ml Oral.Susp) 30 ml PO DAILY PRN PRN Reason: Constipation Magnesium Oxide (Magnesium Oxide 400 Mg Tablet) 400 mg PO BID [facility] Last Admin: 02/21/24 08:51 Dose: 400 mg Trazodone HCl (Trazodone Hcl 50 Mg Tablet) 50 mg PO BEDTIME PRN PRN Reason: Insomnia Last Admin: 02/19/24 20:00 Dose: 50 mg Allergies Allergies Allergy/AdvReac Type Severity Reaction Status Date / Time nitrofurantoin Allergy Mild SWELLING Verified 12/21/23 08:01 [From Macrodantin] nitroglycerin Allergy Unknown Verified 12/21/23 08:01 Assessment & Plan Assessment & Plan (1) Major neurocognitive disorder: Status: Acute Code(s): F03.90 - Unspecified dementia, unspecified severity, without behavioral disturbance, psychotic disturbance, mood disturbance, and anxiety Plan 1. continue current medications 12/27 Mag improved to 1.8, Na to 134. no agitation. 12/30/2023: Continue current regimen and plans 12/31 continue tx. 01/01 continue tx. 01/02 continue tx 01/03 continue tx 01/04 continue tx. 01/05 continue tx. 01/06 continue tx. 01/07 continue tx. 01/08 continue tx. 01/11/24 Cont plan of care d/c planning 01/11 continue treatment 01/12 continue treatment 01/13 continue tx. BP slightly elevated SBP 160's, taking amlodipine 7.5mg po daily. continue to monitor. 01/14 continue tx. 01/15 continue tx. 01/16 continue tx 01/17 continue tx. 01/19/2024 Continue plan of care 01/20/2024 Continue plan of care 01/21 continue tx. awaiting placement. 01/22 continue tx. 01/24 continue tx. 01/25: Continue current treatment and plan 01/26: Continue current regimen and plans 01/27 pt reports sore throat, no SOB, no cough, no congestion, afebrile. pending covid/rsv/flu. cepacol now but will continue to monitor. may add antihistamine, for possible allergies. 01/28 continue current tx. covid/rsv/flu negative. afebrile. 01/30 continue tx 01/31 continue tx. 02/01: continue current management and treatment plan. 02/02: continue current management and treatment plan. 02/03: continue current management and treatment plan. 02/04 continue tx. awaiting placement 02/05 continue treatment plan 02/10 continue tx. awaiting placement. 02/11 continue tx. 02/12 continue tx. 02/13 continue tx. 02/14 continue tx. awaiting placement. 02/15 continue tx. 02/17 continue tx. awaiting placement. 02/18 continue tx 02/20 continue tx Reason for continued inpatient stay Substantial Risk for: inability to function Time Spent With Patient Time: Total time managing care of this patient today ____ minutes.
[2024-02-21] MEDS: Throat Lozenge, Medicated LOZENGE 1 LOZENGE MUCOUS MEM (18:45)
[2024-02-21 20:00] VITALS: BP 157/70; PULSE 65; RESP 18; TEMP 36.6; O2SAT 98
[2024-02-22 08:00] VITALS: BP 146/67; PULSE 60; RESP 18; TEMP 36.4; O2SAT 96
[2024-02-22] MEDS: Famotidine 20 MG TABLET PO ×2 (09:17→20:31)
[2024-02-22] MEDS: Magnesium Oxide 400 MG TABLET PO ×2 (09:17→20:31)
[2024-02-22] MEDS: Loratadine 10 MG TABLET PO (09:17)
[2024-02-22] MEDS: atenoloL 50 MG TABLET PO (09:17)
[2024-02-22] MEDS: amLODIPine Besylate 2.5 MG TABLET 7.5 MG PO (09:17)
[2024-02-22] MEDS: Atorvastatin Calcium 10 MG TABLET PO (09:17)
[2024-02-22] MEDS: Aspirin 81 MG TAB.CHEW PO (09:17)
--- NOTE | 2024-02-22 13:42 | P.PNPSI_ITS ---
Subjective Subjective Date of Service: 02/22/24 Reason For Visit: agitation Subjective Notes: Conditional Voluntary Interim History: The nursing staff reported the patient slept well, no changes in her mental status. The social services technician reported that she has been accepted the [facility] and she will be discharged next Sunday.. Mental Status Exam Mental Status Exam Patient Appearance: Appropriate Patient Orientation: Person Level of Consciousness: Awake and Appropriate Patient Behavior: Guarded and Passive Mood Description: Withdrawn Affect Description: Constricted Patient Cognition Impaired: Yes Ability to Follow Directions: Good Speech Pattern: Clear Hallucinations: None Delusions: Ideas of Reference Thought Process: Distracted and Slowed Thinking Thought Content: positive for [place] Judgement: Poor Diagnostics Vital Signs (24Hr): Vital Signs - 24 hr 02/21/24 20:00 02/22/24 08:00 Temperature 97.8 F 97.5 F Pulse Rate 65 60 Respiratory Rate 18 18 Blood Pressure 157/70 H 146/67 H Pulse Oximetry 98 96 Oxygen Delivery Method Room Air Room Air BMI result Body Mass Index 20.9 Labs 12/20/23 07:10 12/28/23 07:22 Imaging Radiology Impressions: ITS Impressions Chest X-Ray 12/20/23 07:54 IMPRESSION: Unremarkable examination. Head CT 12/20/23 08:32 IMPRESSION: No acute intracranial pathology. 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 Medications Medications Current Medications Acetaminophen (Acetaminophen 325 Mg Tablet) 650 mg PO Q6H PRN PRN Reason: Headache/Pain Mild Scale (1-3) Last Admin: 02/09/24 18:32 Dose: 650 mg Al Hydroxide/Mg Hydroxide (Magnesium Hydrox/Alum Hydrox 30 Ml Oral.Susp) 30 ml PO Q6H PRN PRN Reason: Heartburn/Nausea Amlodipine Besylate (Amlodipine Besylate 2.5 Mg Tablet) 7.5 mg PO DAILY [facility]CLUDE 234 BEDS AT THE [facility]; Protocol Last Admin: 02/22/24 09:17 Dose: 7.5 mg Aspirin (Aspirin 81 Mg Tab.Chew) 81 mg PO DAILY [facility] Last Admin: 02/22/24 09:17 Dose: 81 mg Atenolol (Atenolol 50 Mg Tablet) 50 mg PO DAILY [facility]; Protocol Last Admin: 02/22/24 09:17 Dose: 50 mg Atorvastatin Calcium (Atorvastatin Calcium 10 Mg Tablet) 10 mg PO DAILY [facility]S INCLUDE 234 BEDS AT THE [facility] Last Admin: 02/22/24 09:17 Dose: 10 mg Benzocaine (Throat Lozenge, Medicated Lozenge) 1 lozenge MUCOUS MEM Q2H PRN PRN Reason: Sore Throat Last Admin: 02/21/24 18:45 Dose: 1 lozenge Famotidine (Famotidine 20 Mg Tablet) 20 mg PO BID COUNTS INCLUDE 234 BEDS AT THE [facility] Last Admin: 02/22/24 09:17 Dose: 20 mg Hydroxyzine HCl (Hydroxyzine Hcl 25 Mg Tablet) 25 mg PO Q6H PRN PRN Reason: Anxiety Last Admin: 02/18/24 20:51 Dose: 25 mg Loratadine (Loratadine 10 Mg Tablet) 10 mg PO DAILY [facility]S INCLUDE 234 BEDS AT THE [facility] Last Admin: 02/22/24 09:17 Dose: 10 mg Magnesium Hydroxide (Milk Of Magnesia 30 Ml Oral.Susp) 30 ml PO DAILY PRN PRN Reason: Constipation Magnesium Oxide (Magnesium Oxide 400 Mg Tablet) 400 mg PO BID COUNTS INCLUDE 234 BEDS AT THE [facility] Last Admin: 02/22/24 09:17 Dose: 400 mg Trazodone HCl (Trazodone Hcl 50 Mg Tablet) 50 mg PO BEDTIME PRN PRN Reason: Insomnia Last Admin: 02/19/24 20:00 Dose: 50 mg Allergies Allergies Allergy/AdvReac Type Severity Reaction Status Date / Time nitrofurantoin Allergy Mild SWELLING Verified 12/21/23 08:01 [From Macrodantin] nitroglycerin Allergy Unknown Verified 12/21/23 08:01 Assessment & Plan Assessment & Plan (1) Major neurocognitive disorder: Status: Acute Code(s): F03.90 - Unspecified dementia, unspecified severity, without behavioral disturbance, psychotic disturbance, mood disturbance, and anxiety Plan 1. continue current medications 12/27 Mag improved to 1.8, Na to 134. no agitation. 12/30/2023: Continue current regimen and plans 12/31 continue tx. 01/01 continue tx. 01/02 continue tx 01/03 continue tx 01/04 continue tx. 01/05 continue tx. 01/06 continue tx. 01/07 continue tx. 01/08 continue tx. 01/11/24 Cont plan of care d/c planning 01/11 continue treatment 01/12 continue treatment 01/13 continue tx. BP slightly elevated SBP 160's, taking amlodipine 7.5mg po daily. continue to monitor. 01/14 continue tx. 01/15 continue tx. 01/16 continue tx 01/17 continue tx. 01/19/2024 Continue plan of care 01/20/2024 Continue plan of care 01/21 continue tx. awaiting placement. 01/22 continue tx. 01/24 continue tx. 01/25: Continue current treatment and plan 01/26: Continue current regimen and plans 01/27 pt reports sore throat, no SOB, no cough, no congestion, afebrile. pending covid/rsv/flu. cepacol now but will continue to monitor. may add antihistamine, for possible allergies. 01/28 continue current tx. covid/rsv/flu negative. afebrile. 01/30 continue tx 01/31 continue tx. 02/01: continue current management and treatment plan. 02/02: continue current management and treatment plan. 02/03: continue current management and treatment plan. 02/04 continue tx. awaiting placement 02/05 continue treatment plan 02/10 continue tx. awaiting placement. 02/11 continue tx. 02/12 continue tx. 02/13 continue tx. 02/14 continue tx. awaiting placement. 02/15 continue tx. 02/17 continue tx. awaiting placement. 02/18 continue tx 02/20 continue tx 02/21 conitnue tx Reason for continued inpatient stay Substantial Risk for: inability to function, rapid decompensation and med/psych decompensation Time Spent With Patient Time: Total time managing care of this patient today __20__ minutes.
[2024-02-22 19:18] VITALS: BP 143/65; PULSE 69; RESP 18; TEMP 36.7; O2SAT 98
[2024-02-22] MEDS: traZODone HCL 50 MG TABLET PO (20:31)
[2024-02-23 08:00] VITALS: BP 163/72; PULSE 62; RESP 18; TEMP 36.7; O2SAT 99
[2024-02-23 09:03] VITALS: BP 163/72; PULSE 62
[2024-02-23] MEDS: atenoloL 50 MG TABLET PO (09:03)
[2024-02-23 09:04] VITALS: BP 163/72
[2024-02-23] MEDS: Loratadine 10 MG TABLET PO (09:04)
[2024-02-23] MEDS: Magnesium Oxide 400 MG TABLET PO ×2 (09:04→20:09)
[2024-02-23] MEDS: Famotidine 20 MG TABLET PO ×2 (09:04→20:10)
[2024-02-23] MEDS: amLODIPine Besylate 2.5 MG TABLET 7.5 MG PO (09:04)
[2024-02-23] MEDS: Atorvastatin Calcium 10 MG TABLET PO (09:04)
[2024-02-23] MEDS: Aspirin 81 MG TAB.CHEW PO (09:04)
--- NOTE | 2024-02-23 11:58 | P.PNPSI_ITS ---
Subjective Subjective Date of Service: 02/23/24 Reason For Visit: agitation Subjective Notes: Conditional Voluntary Healthcare Proxy: Yes Interim History: Patient was seen and discussed in rounds today. Records and plans were reviewed. She has been pleasant and cooperative. Eating and sleeping well. Placement has been made and she will be discharged next week. No changes were made today Review of Systems Review of Systems Yes all other systems are reviewed and are negative Mental Status Exam Mental Status Exam Patient Appearance: Appropriate Patient Orientation: Person Level of Consciousness: Awake and Appropriate Patient Behavior: Guarded and Passive Mood Description: Withdrawn Affect Description: Constricted Patient Cognition Impaired: Yes Ability to Follow Directions: Good Speech Pattern: Clear Hallucinations: None Delusions: Ideas of Reference Thought Process: Distracted and Slowed Thinking Thought Content: positive for [place] Judgement: Poor Diagnostics Vital Signs (24Hr): Vital Signs - 24 hr 02/22/24 19:18 02/23/24 08:00 02/23/24 09:03 Temperature 98.0 F 98.0 F Pulse Rate 69 62 62 Respiratory Rate 18 18 Blood Pressure 143/65 H 163/72 H 163/72 H Pulse Oximetry 98 99 Oxygen Delivery Method Room Air Room Air 02/23/24 09:04 Temperature Pulse Rate Respiratory Rate Blood Pressure 163/72 H Pulse Oximetry Oxygen Delivery Method BMI result Body Mass Index 20.9 Labs 12/20/23 07:10 12/28/23 07:22 Imaging Radiology Impressions: ITS Impressions Chest X-Ray 12/20/23 07:54 IMPRESSION: Unremarkable examination. Head CT 12/20/23 08:32 IMPRESSION: No acute intracranial pathology. 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 Medications Medications Current Medications Acetaminophen (Acetaminophen 325 Mg Tablet) 650 mg PO Q6H PRN PRN Reason: Headache/Pain Mild Scale (1-3) Last Admin: 02/09/24 18:32 Dose: 650 mg Al Hydroxide/Mg Hydroxide (Magnesium Hydrox/Alum Hydrox 30 Ml Oral.Susp) 30 ml PO Q6H PRN PRN Reason: Heartburn/Nausea Amlodipine Besylate (Amlodipine Besylate 2.5 Mg Tablet) 7.5 mg PO DAILY [facility]; Protocol Last Admin: 02/23/24 09:04 Dose: 7.5 mg Aspirin (Aspirin 81 Mg Tab.Chew) 81 mg PO DAILY [facility] Last Admin: 02/23/24 09:04 Dose: 81 mg Atenolol (Atenolol 50 Mg Tablet) 50 mg PO DAILY [facility]; Protocol Last Admin: 02/23/24 09:03 Dose: 50 mg Atorvastatin Calcium (Atorvastatin Calcium 10 Mg Tablet) 10 mg PO DAILY [facility] Last Admin: 02/23/24 09:04 Dose: 10 mg Benzocaine (Throat Lozenge, Medicated Lozenge) 1 lozenge MUCOUS MEM Q2H PRN PRN Reason: Sore Throat Last Admin: 02/21/24 18:45 Dose: 1 lozenge Famotidine (Famotidine 20 Mg Tablet) 20 mg PO BID [facility] Last Admin: 02/23/24 09:04 Dose: 20 mg Hydroxyzine HCl (Hydroxyzine Hcl 25 Mg Tablet) 25 mg PO Q6H PRN PRN Reason: Anxiety Last Admin: 02/18/24 20:51 Dose: 25 mg Loratadine (Loratadine 10 Mg Tablet) 10 mg PO DAILY [facility] Last Admin: 02/23/24 09:04 Dose: 10 mg Magnesium Hydroxide (Milk Of Magnesia 30 Ml Oral.Susp) 30 ml PO DAILY PRN PRN Reason: Constipation Magnesium Oxide (Magnesium Oxide 400 Mg Tablet) 400 mg PO BID [facility] Last Admin: 02/23/24 09:04 Dose: 400 mg Trazodone HCl (Trazodone Hcl 50 Mg Tablet) 50 mg PO BEDTIME PRN PRN Reason: Insomnia Last Admin: 02/22/24 20:31 Dose: 50 mg Allergies Allergies Allergy/AdvReac Type Severity Reaction Status Date / Time nitrofurantoin Allergy Mild SWELLING Verified 12/21/23 08:01 [From Macrodantin] nitroglycerin Allergy Unknown Verified 12/21/23 08:01 Assessment & Plan Assessment & Plan (1) Major neurocognitive disorder: Status: Acute Code(s): F03.90 - Unspecified dementia, unspecified severity, without behavioral disturbance, psychotic disturbance, mood disturbance, and anxiety Plan 1. continue current medications 12/27 Mag improved to 1.8, Na to 134. no agitation. 12/30/2023: Continue current regimen and plans 12/31 continue tx. 01/01 continue tx. 01/02 continue tx 01/03 continue tx 01/04 continue tx. 01/05 continue tx. 01/06 continue tx. 01/07 continue tx. 01/08 continue tx. 01/11/24 Cont plan of care d/c planning 01/11 continue treatment 01/12 continue treatment 01/13 continue tx. BP slightly elevated SBP 160's, taking amlodipine 7.5mg po daily. continue to monitor. 01/14 continue tx. 01/15 continue tx. 01/16 continue tx 01/17 continue tx. 01/19/2024 Continue plan of care 01/20/2024 Continue plan of care 01/21 continue tx. awaiting placement. 01/22 continue tx. 01/24 continue tx. 01/25: Continue current treatment and plan 01/26: Continue current regimen and plans 01/27 pt reports sore throat, no SOB, no cough, no congestion, afebrile. pending covid/rsv/flu. cepacol now but will continue to monitor. may add antihistamine, for possible allergies. 01/28 continue current tx. covid/rsv/flu negative. afebrile. 01/30 continue tx 01/31 continue tx. 02/01: continue current management and treatment plan. 02/02: continue current management and treatment plan. 02/03: continue current management and treatment plan. 02/04 continue tx. awaiting placement 02/05 continue treatment plan 02/10 continue tx. awaiting placement. 02/11 continue tx. 02/12 continue tx. 02/13 continue tx. 02/14 continue tx. awaiting placement. 02/15 continue tx. 02/17 continue tx. awaiting placement. 02/18 continue tx 02/20 continue tx 02/21 conitnue tx 02/22: Continue current regimen and plans Reason for continued inpatient stay Substantial Risk for: inability to function Time Spent With Patient Time: Total time managing care of this patient today ____ minutes.
[2024-02-23 20:00] VITALS: BP 167/72; PULSE 65; TEMP 37; O2SAT 99
[2024-02-23] MEDS: traZODone HCL 50 MG TABLET PO (20:09)
[2024-02-24 08:04] VITALS: BP 141/65; PULSE 62; RESP 18; TEMP 35.9; O2SAT 98
[2024-02-24 08:35] VITALS: BP 141/65; PULSE 62
[2024-02-24] MEDS: Loratadine 10 MG TABLET PO (08:35)
[2024-02-24] MEDS: atenoloL 50 MG TABLET PO (08:35)
[2024-02-24] MEDS: amLODIPine Besylate 2.5 MG TABLET 7.5 MG PO (08:35)
[2024-02-24] MEDS: Famotidine 20 MG TABLET PO ×2 (08:35→20:13)
[2024-02-24] MEDS: Magnesium Oxide 400 MG TABLET PO ×2 (08:35→20:13)
[2024-02-24] MEDS: Atorvastatin Calcium 10 MG TABLET PO (08:35)
[2024-02-24] MEDS: Aspirin 81 MG TAB.CHEW PO (08:35)
--- NOTE | 2024-02-24 09:04 | HO.PSYCHPN ---
Subjective Subjective Date of Service: 02/24/24 Reason For Visit: agitation Subjective Notes: Conditional Voluntary Healthcare Proxy: Yes Interim History: Patient was seen and discussed in rounds today. Records and plans were reviewed. She has been stable and is in better mood today. She is getting closer to her baseline. She is medication compliant. No complaints or side effects. No changes were made today no behavioral issues reported Review of Systems Review of Systems Hearing impairment Yes all other systems are reviewed and are negative Mental Status Exam Mental Status Exam Patient Appearance: Appropriate Patient Orientation: Person Level of Consciousness: Awake and Appropriate Patient Behavior: Guarded and Passive Mood Description: Withdrawn Affect Description: Constricted Patient Cognition Impaired: Yes Ability to Follow Directions: Good Speech Pattern: Clear Hallucinations: None Delusions: Ideas of Reference Thought Process: Distracted and Slowed Thinking Thought Content: positive for [place] Judgement: Poor Diagnostics Vital Signs (24Hr): Vital Signs - 24 hr 02/23/24 20:00 02/24/24 08:04 02/24/24 08:35 Temperature 98.6 F 96.6 F L Pulse Rate 65 62 62 Respiratory Rate 18 Blood Pressure 167/72 H 141/65 H 141/65 H Pulse Oximetry 99 98 Oxygen Delivery Method Room Air Room Air 02/24/24 08:35 Temperature Pulse Rate Respiratory Rate Blood Pressure 141/65 H Pulse Oximetry Oxygen Delivery Method BMI result Body Mass Index 20.9 Labs 12/20/23 07:10 12/28/23 07:22 Imaging Radiology Impressions: ITS Impressions Chest X-Ray 12/20/23 07:54 IMPRESSION: Unremarkable examination. Head CT 12/20/23 08:32 IMPRESSION: No acute intracranial pathology. 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 Medications Medications Current Medications Acetaminophen (Acetaminophen 325 Mg Tablet) 650 mg PO Q6H PRN PRN Reason: Headache/Pain Mild Scale (1-3) Last Admin: 02/09/24 18:32 Dose: 650 mg Al Hydroxide/Mg Hydroxide (Magnesium Hydrox/Alum Hydrox 30 Ml Oral.Susp) 30 ml PO Q6H PRN PRN Reason: Heartburn/Nausea Amlodipine Besylate (Amlodipine Besylate 2.5 Mg Tablet) 7.5 mg PO DAILY [facility]; Protocol Last Admin: 02/24/24 08:35 Dose: 7.5 mg Aspirin (Aspirin 81 Mg Tab.Chew) 81 mg PO DAILY [facility] Last Admin: 02/24/24 08:35 Dose: 81 mg Atenolol (Atenolol 50 Mg Tablet) 50 mg PO DAILY [facility]; Protocol Last Admin: 02/24/24 08:35 Dose: 50 mg Atorvastatin Calcium (Atorvastatin Calcium 10 Mg Tablet) 10 mg PO DAILY [facility] Last Admin: 02/24/24 08:35 Dose: 10 mg Benzocaine (Throat Lozenge, Medicated Lozenge) 1 lozenge MUCOUS MEM Q2H PRN PRN Reason: Sore Throat Last Admin: 02/21/24 18:45 Dose: 1 lozenge Famotidine (Famotidine 20 Mg Tablet) 20 mg PO BID [facility] Last Admin: 02/24/24 08:35 Dose: 20 mg Hydroxyzine HCl (Hydroxyzine Hcl 25 Mg Tablet) 25 mg PO Q6H PRN PRN Reason: Anxiety Last Admin: 02/18/24 20:51 Dose: 25 mg Loratadine (Loratadine 10 Mg Tablet) 10 mg PO DAILY [facility] Last Admin: 02/24/24 08:35 Dose: 10 mg Magnesium Hydroxide (Milk Of Magnesia 30 Ml Oral.Susp) 30 ml PO DAILY PRN PRN Reason: Constipation Magnesium Oxide (Magnesium Oxide 400 Mg Tablet) 400 mg PO BID [facility] Last Admin: 02/24/24 08:35 Dose: 400 mg Trazodone HCl (Trazodone Hcl 50 Mg Tablet) 50 mg PO BEDTIME PRN PRN Reason: Insomnia Last Admin: 02/23/24 20:09 Dose: 50 mg Allergies Allergies Allergy/AdvReac Type Severity Reaction Status Date / Time nitrofurantoin Allergy Mild SWELLING Verified 12/21/23 08:01 [From Macrodantin] nitroglycerin Allergy Unknown Verified 12/21/23 08:01 Assessment & Plan Assessment & Plan (1) Major neurocognitive disorder: Status: Acute Code(s): F03.90 - Unspecified dementia, unspecified severity, without behavioral disturbance, psychotic disturbance, mood disturbance, and anxiety Plan 1. continue current medications 12/27 Mag improved to 1.8, Na to 134. no agitation. 12/30/2023: Continue current regimen and plans 12/31 continue tx. 01/01 continue tx. 01/02 continue tx 01/03 continue tx 01/04 continue tx. 01/05 continue tx. 01/06 continue tx. 01/07 continue tx. 01/08 continue tx. 01/11/24 Cont plan of care d/c planning 01/11 continue treatment 01/12 continue treatment 01/13 continue tx. BP slightly elevated SBP 160's, taking amlodipine 7.5mg po daily. continue to monitor. 01/14 continue tx. 01/15 continue tx. 01/16 continue tx 01/17 continue tx. 01/19/2024 Continue plan of care 01/20/2024 Continue plan of care 01/21 continue tx. awaiting placement. 01/22 continue tx. 01/24 continue tx. 01/25: Continue current treatment and plan 01/26: Continue current regimen and plans 01/27 pt reports sore throat, no SOB, no cough, no congestion, afebrile. pending covid/rsv/flu. cepacol now but will continue to monitor. may add antihistamine, for possible allergies. 01/28 continue current tx. covid/rsv/flu negative. afebrile. 01/30 continue tx 01/31 continue tx. 02/01: continue current management and treatment plan. 02/02: continue current management and treatment plan. 02/03: continue current management and treatment plan. 02/04 continue tx. awaiting placement 02/05 continue treatment plan 02/10 continue tx. awaiting placement. 02/11 continue tx. 02/12 continue tx. 02/13 continue tx. 02/14 continue tx. awaiting placement. 02/15 continue tx. 02/17 continue tx. awaiting placement. 02/18 continue tx 02/20 continue tx 02/21 conitnue tx 02/22: Continue current regimen and plans 02/23: Continue current plans and regimen. Reason for continued inpatient stay Substantial Risk for: inability to function Time Spent With Patient Time: Total time managing care of this patient today ____ minutes.
[2024-02-24 20:00] VITALS: BP 153/66; PULSE 65; RESP 16; TEMP 36.2; O2SAT 100
[2024-02-24] MEDS: traZODone HCL 50 MG TABLET PO (20:12)
[2024-02-24] MEDS: hydrOXYzine HCL 25 MG TABLET PO (20:13)
[2024-02-25 08:28] VITALS: BP 134/63; PULSE 59; RESP 18; TEMP 36.2; O2SAT 95
--- NOTE | 2024-02-25 08:55 | PM.PSYDC ---
DS: Providers Provider Date of Service: 02/25/24 Date of admission: 12/21/23 15:31 Date of discharge: 02/25/24 Primary care physician: Unknown Physician Consults: 12/25/23 16:11 Consult to Nephrology Routine Consulting Provider: [facility] [place] [facility] Reason for consultation: low magnesium Has provider been notified: Yes 12/25/23 18:32 Consult to Hospitalist Routine Comment: Consulting Provider: Hospitalist Reason For Exam: Low Mg, ?Need for IV replacement vs PO 12/25/23 19:28 Consult to Cardiology Routine Consulting Provider: [facility] [place] [facility] Reason for consultation: new lbbb Has provider been notified: Yes 12/26/23 12:13 Consult to Nephrology Routine Consulting Provider: [facility] [place] [facility] Reason for consultation: hypomagnesemia Has provider been notified: No DS: Diagnosis Discharge Diagnosis (1) Major neurocognitive disorder: Status: Acute DS: Medications Discharge Medications Home Medications: Previous Rx's ?Medication ?Instructions ?Recorded amlodipine 2.5 mg tablet 7.5 mg PO DAILY #0 tabs 02/25/24 aspirin 81 mg chewable tablet 81 mg PO DAILY #0 tabs 02/25/24 atenolol 50 mg tablet 50 mg PO DAILY #0 tabs 02/25/24 atorvastatin 10 mg tablet 10 mg PO DAILY #0 tabs 02/25/24 famotidine 20 mg tablet 20 mg PO BID #0 tabs 02/25/24 loratadine 10 mg tablet 10 mg PO DAILY #0 tabs 02/25/24 magnesium oxide 400 mg (241.3 mg 400 mg PO BID #0 tabs 02/25/24 magnesium) tablet trazodone 50 mg tablet 50 mg PO BEDTIME PRN Insomnia #0 02/25/24 tabs Mental Status Exam Mental Status Exam Narrative: Appearance: wearing casual clothing, good hygiene, in NAD Behavior: pleasant Speech: TELLER, mostly clear, regular rate/rhythm/volume, spontaneous TP: mostly linear TC: feeling well Mood: good Affect: congruent, bright SI: none HI: none VH/AH: none Delusions: none Insight/judgment: impaired x 2. memory/cog: alert, oriented to self, not situation, month or date or year. Data Data Completed and Pending Completed studies during hospitalization [Text1]: 12/20/23 07:34 Blood - Venous Blood Culture - Final No growth after 5 days. 12/20/23 07:09 Blood - Venous Blood Culture - Final No growth after 5 days. Imaging Diagnostic Imaging Impressions Chest X-Ray 12/20/23 07:54 IMPRESSION: Unremarkable examination. Head CT 12/20/23 08:32 IMPRESSION: No acute intracranial pathology. 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 DS: Summary Hospital Course Hospital Course: 88 yo female w history of dementia who presented to ED for 2 day hx of altered mental status. According to ED note, she was brought in by her daughter and grandchildren who voiced concerned that patient was not at her baseline. She is generally confused but reportedly had an acute VH with seeing relatives and people climbing on [place] . Per family report, patient became aggressive at home, prior to ED visit. ED workup including physical examination, CT, EKG and lab work including CBC, CMP, TSH, lipase and U/A were largely unremarkable aside from low magnesium for which she was already treated with 2 gm IV Mg sulfate. I met with her this morning, she was in her room, awake, alert and walking around. She was half dressed and was asking everyone where her pants were. She was hard of hearing and asked for repeated questions but could not answer any appropriately and continued to ask about where her pants were. She was looking around including under the beds and was trying to reach out and touch the pedals on her roommate's bed, prompting roommate to ask her what she is doing. Patient did not respond but did stop trying to to this once she was redirected. She was unable to provide any history and could not give me her name but did respond to her name and was oriented to self only. She was given pants by nursing staff and was later seen walking along hallway, greeting people with a good morning but did not respond to any follow up questions. She appears bright but otherwise confused. She went to get breakfast and asked if I was coming along. She asked if I knew where my mother was. HOSPITAL COURSE On the unit, pt initially presented with s/s of delirium, increased agitation, some combative behaviors. It is unclear source of delirium as UA did not show UTI, CBC without leukocytosis. She did have low magnesium, which was replenished and she was started on magnesium oxide 400mg po BID. She gradually presented as much calmer, more organized although at baseline she is not oriented to place, month, situation or year. Her ability to retain information is very poor. She did not have any combative nor disruptive behaviors. She was sleeping and eating well. She was visible on the unit and pleasant on approach. She was taking medications as prescribed. Status at Discharge Cognitive/behavioral status at discharge: Pt with bright, non labile. No SI/HI. No overt psychosis or delusions. She was sleeping and eating well. No aggression towards self or others. Not oriented to place, situation, month or year at baseline. Functional status at discharge: independent ambulation Overall status at discharge: patient is back to baseline Time Spent with Patient Time attestation: Total time managing care of this patient today ____ minutes. Discharge Plan Discharge Anticipated Discharge Date/Time: 02/25/24 08:49 Patient Disposition: Home, Self-Care Discharge Diagnosis: Major Neurocognitive Disorder Referrals: Physician,Unknown J [Primary Care Provider] - 1 Week Discharge Medications: New trazodone 50 mg Tablet 50 mg PO BEDTIME PRN (Reason: Insomnia) Qty: 0 0RF atorvastatin 10 mg Tablet 10 mg PO DAILY Qty: 0 0RF amlodipine 2.5 mg Tablet 7.5 mg PO DAILY Qty: 0 0RF Protocol: Hold for SBP< HOLD for SBP < : 90 famotidine 20 mg Tablet 20 mg PO BID Qty: 0 0RF magnesium oxide 400 mg (241.3 mg magnesium) Tablet 400 mg PO BID Qty: 0 0RF aspirin 81 mg Tablet,Chewable 81 mg PO DAILY Qty: 0 0RF atenolol 50 mg Tablet 50 mg PO DAILY Qty: 0 0RF Protocol: Hold for SBP/HR < HOLD for SBP < : 90 HOLD for HR < : 60 loratadine 10 mg Tablet 10 mg PO DAILY Qty: 0 0RF Discontinued buspirone 5 mg tablet 10 mg PO DAILY simvastatin 20 mg tablet 20 mg PO DAILY omeprazole 20 mg capsule,delayed release(DR/EC) 20 mg PO DAILY aspirin 81 mg Tablet,Chewable 81 mg PO DAILY atenolol 50 mg tablet 50 mg PO DAILY Discharge Orders: Discharge Order (Routine); Ordered 02/25/24 Ordered By: Mary Shen Diet: Regular diet Activity on Discharge: As tolerated Stand Alone Forms: Patient Portal Discharge page Print Language: Wolof Care Plan Goals: 1. Maintain mood 2. No aggression towards self or others. Health Concerns: Follow up with PCP Plan of Treatment: 1. Maintain mood 2. No SI/HI. Assessment: Pt with bright, pleasant affect. No aggression towards self or others. Not oriented to place, month or situation. No overt psychosis or delusions. Sleeping and eating well.
[2024-02-25 09:00] VITALS: BP 134/63; PULSE 59
[2024-02-25] MEDS: atenoloL 50 MG TABLET PO (09:00)
[2024-02-25] MEDS: Magnesium Oxide 400 MG TABLET PO (09:00)
[2024-02-25] MEDS: amLODIPine Besylate 2.5 MG TABLET 7.5 MG PO (09:00)
[2024-02-25] MEDS: Loratadine 10 MG TABLET PO (09:01)
[2024-02-25] MEDS: Atorvastatin Calcium 10 MG TABLET PO (09:01)
[2024-02-25] MEDS: Aspirin 81 MG TAB.CHEW PO (09:01)
[2024-02-25] MEDS: Famotidine 20 MG TABLET PO (09:01)
== END 2024-02-25 13:08 | disposition home or self-care (01) | DRG 884 ==
LOC: HO.ED 16:57 → HO.PADLT16 12-21 15:43 → HO.PGERI 12-21 18:20
PROVIDERS: Internal Medicine Hypertension Specialist; Physician Assistant; Physician Assistant Medical; Social Worker; Student in an Organized Health Care Education/Training Program; Admitting Provider Psychiatry & Neurology Psychiatry; Emergency Provider Emergency Medicine; Visit Provider Psychiatry & Neurology Psychiatry
DX: F03.90 Unspecified dementia, unspecified severity, without behavioral disturbance, psychotic disturbance, mood disturbance, and anxiety (principal); E87.1 Hypo-osmolality and hyponatremia; F05 Delirium due to known physiological condition; I10 Essential (primary) hypertension; K21.9 Gastro-esophageal reflux disease without esophagitis; E78.5 Hyperlipidemia, unspecified; E83.42 Hypomagnesemia; I44.7 Left bundle-branch block, unspecified; Z20.822 Contact with and (suspected) exposure to COVID-19; Z79.82 Long term (current) use of aspirin; Z79.899 Other long term (current) drug therapy
CPT/HCPCS: 0241U; 36415; 70450; 71045; 80048; 80053; 80061; 81003; 82570; 83605; 83690; 83735; 83930; 83935; 84300; 84443; 84484; 85025; 85610; 85730; 87040; 93005; 93306; 99285; J3475; S9485

== ENCOUNTER → 2023-12-20 06:50 | Outpatient (BNV) | payer MEDICARE, SELFPAY | PROVIDERS: Emergency Provider Emergency Medicine; Visit Provider Internal Medicine Cardiovascular Disease | DX: R41.82 Altered mental status, unspecified (principal) | CPT/HCPCS: 93010 ==

== ENCOUNTER 2023-12-21 15:31 | Outpatient (BNV) | payer MEDICARE, SELFPAY | END 2023-12-26 07:00 | PROVIDERS: Admitting Provider Psychiatry & Neurology Psychiatry; Emergency Provider Emergency Medicine; Visit Provider Internal Medicine | DX: I35.8 Other nonrheumatic aortic valve disorders (principal); I34.81 Nonrheumatic mitral (valve) annulus calcification | CPT/HCPCS: 93306 ==

== ENCOUNTER 2023-12-21 15:31 | Outpatient (BNV) | payer MEDICARE, SELFPAY | END 2023-12-25 18:35 | PROVIDERS: Admitting Provider Psychiatry & Neurology Psychiatry; Emergency Provider Emergency Medicine; Visit Provider Internal Medicine | DX: R94.31 Abnormal electrocardiogram [ECG] [EKG] (principal) | CPT/HCPCS: 93010 ==

== ENCOUNTER → 2023-12-21 15:31 | Outpatient (BNV) | payer MEDICARE, SELFPAY | PROVIDERS: Admitting Provider Psychiatry & Neurology Psychiatry; Emergency Provider Emergency Medicine; Visit Provider Psychiatry & Neurology Psychiatry | DX: F03.90 Unspecified dementia, unspecified severity, without behavioral disturbance, psychotic disturbance, mood disturbance, and anxiety (principal) | CPT/HCPCS: 99231 ==

== ENCOUNTER → 2023-12-21 15:31 | Outpatient (BNV) | payer MEDICARE, SELFPAY | PROVIDERS: Admitting Provider Psychiatry & Neurology Psychiatry; Emergency Provider Emergency Medicine; Visit Provider Internal Medicine Hypertension Specialist | DX: E87.1 Hypo-osmolality and hyponatremia (principal) | CPT/HCPCS: 99222; 99499 ==

== ENCOUNTER → 2023-12-21 15:31 | Outpatient (BNV) | payer MEDICARE, SELFPAY | PROVIDERS: Admitting Provider Psychiatry & Neurology Psychiatry; Emergency Provider Emergency Medicine; Visit Provider Internal Medicine | DX: I44.7 Left bundle-branch block, unspecified (principal); F03.90 Unspecified dementia, unspecified severity, without behavioral disturbance, psychotic disturbance, mood disturbance, and anxiety; R41.82 Altered mental status, unspecified; E83.42 Hypomagnesemia | CPT/HCPCS: 99223 ==

== ENCOUNTER → 2023-12-21 15:31 | Outpatient (BNV) | payer MEDICARE, SELFPAY | PROVIDERS: Admitting Provider Psychiatry & Neurology Psychiatry; Emergency Provider Emergency Medicine; Visit Provider Social Worker | DX: F03.90 Unspecified dementia, unspecified severity, without behavioral disturbance, psychotic disturbance, mood disturbance, and anxiety (principal) | CPT/HCPCS: 90792; 99231; 99232; 99238 ==